=== PATIENT | female | born 1990 | race Caucasian/White ===

== ENCOUNTER → 2017-08-11 | Outpatient (CLI) | payer MEDICAID | END | disposition home or self-care (01) | LOC: BFHH 10:50 | PROVIDERS: ATTEND General Practice | DX: E10.649 Type 1 diabetes mellitus with hypoglycemia without coma (principal); E10.21 Type 1 diabetes mellitus with diabetic nephropathy; E10.43 Type 1 diabetes mellitus with diabetic autonomic (poly)neuropathy ==

== ENCOUNTER 2017-10-26 10:52 | Emergency (ER) | payer MEDICARE, MEDICAID ==
[2017-10-26] MEDS ORDERED: ONDANSETRON INJ 4 MG/2 ML VIAL IV ONE (11:03)
[2017-10-26] MEDS ORDERED: SODIUM CHLORIDE 0.9% 1000ML 1,000 ML IVS ONE (11:03)
[2017-10-26] MEDS ORDERED: fentaNYL CITRATE INJ 50 MCG/ML AMP IV ONE (11:03)
[2017-10-26] MEDS ORDERED: PANTOPRAZOLE SODIUM IV 40 MG VIAL IV ONE (11:03)
[2017-10-26] MEDS ORDERED: SODIUM CHLORIDE 0.9% 1000ML 1,000 ML ONE (11:04)
--- NOTE | 2017-10-26 11:30 | ED.PDOC ---
History of Present Illness - General Chief Complaint: Diabetic Complaint Time Seen by Provider: 10/26/17 11:02 Source: patient, EMS Exam Limitations: clinical condition - History of Present Illness Initial Comments: patient has had 2 day history of abdominal pain with intractable nausea and vomiting. Patient states her head is also severely hurting in the posterior area and it's constant, sharp, and not associated with visual change. Per EMS patient has been in his condition for at least last 2 days per her mother who dropped her off at her and states that she could go on vacation. The patient is able to answer yes and no questions but primarily is just saying please repetitively and holding her abdomen in pain. Patient states she had a bowel movement yesterday that was normal and she's had a history of passive gastroparesis with similar pain. Patient did have a bowel movement on arrival here in the emergency room. Patient has also had in the past ulcers and gastritis when her gastroparesis worsens. Patient's blood sugar was 250 this morning. Patient states she has kidney dysfunction, type 1 diabetes, asthma, gastroparesis, history of marijuana use (although not current), and tobacco use. She states she has not been sexually active that he does not believe that she could be . Patient has had no trauma or injury. Pain is diffuse, 10 /10 and sharp in nature. Timing/Duration: other - 1-2 days Severity: severe Improving Factors: nothing Worsening Factors: nothing Associated Symptoms: headaches, loss of appetite, malaise, nausea/vomiting Allergies/Adverse Reactions: Allergies NO KNOWN ALLERGY Allergy (Unverified 05/06/12 16:48) Review of Systems - Review of Systems Constitutional: States: weakness. Denies: chills, diaphoresis, fever EENTM: States: no symptoms reported Respiratory: States: no symptoms reported. Denies: cough, orthopnea, wheezing Cardiology: States: no symptoms reported. Denies: chest pain, edema, palpitations Gastrointestinal/Abdominal: States: abdominal pain, nausea, vomiting Genitourinary: States: no symptoms reported. Denies: discharge, dysuria Musculoskeletal: States: no symptoms reported Skin: States: no symptoms reported Neurological: States: no symptoms reported Family Medical History - Family History Mother Family History: Unknown Living Status: Unknown Physical Exam - Physical Exam General Appearance: Agitated, Obvious distress, Ill Appearing, Unkempt Eye Exam: bilateral normal Ears, Nose, Throat: hearing grossly normal, normal ENT inspection, other - dry mucous membranes Neck: non-tender, full range of motion, supple, normal inspection Respiratory: chest non-tender, lungs clear, normal breath sounds, no respiratory distress, no accessory muscle use Cardiovascular/Chest: normal peripheral pulses, no edema, no gallop, no JVD, no murmur, tachycardia Peripheral Pulses: radial,right: 2+, radial,left: 2+, posterior tibialis,right: 2+, posterior tibialis,left: 2+ Gastrointestinal/Abdominal: soft, distended - hypoactive bowel sounds with tenderness throughout abdoment and voluntary guarding Back Exam: normal inspection, no CVA tenderness, no vertebral tenderness Extremity: non-tender, normal inspection, other - scar tissue on arms from injections 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, no motor/sensory deficits, alert, oriented x 3 DTR: 2+: Biceps, left, Biceps, right, Patellar, left, Patellar, right, Babinski , left - down going, Babinski, right Progress - Progress Progress: 10/26/17 16:38 10/26/17 11:03 URINALYSIS Stat 10/26/17 11:13 URINE DRUG SCREEN, 7 ASSAY Stat Laboratory Results WBC 11.4 K/mm3 (4.8-10.8) H 10/26/17 11:13 RBC 3.28 M/mm3 (4.20-5.40) L 10/26/17 11:13 Hgb 10.4 gm/dL (12.0-16.0) L 10/26/17 11:13 Hct 31.7 % (36.0-47.0) L 10/26/17 11:13 MCV 96.6 fl (81.0-99.0) 10/26/17 11:13 MCH 31.7 pg (27.0-31.0) H 10/26/17 11:13 MCHC 32.8 g/dL (33.0-37.0) L 10/26/17 11:13 RDW 15.0 % (11.5-14.5) H 10/26/17 11:13 Plt Count 315 K/mm3 (130-400) 10/26/17 11:13 MPV 9.6 fl (7.40-10.4) 10/26/17 11:13 Absolute Neuts (auto) 8.70 K/uL (1.8-6.8) H 10/26/17 11:13 Absolute Lymphs (auto) 1.90 K/uL (1.0-3.4) 10/26/17 11:13 Absolute Monos (auto) 0.50 K/uL (0.2-0.8) 10/26/17 11:13 Absolute Eos (auto) 0.10 K/uL (0.0-0.4) 10/26/17 11:13 Absolute Basos (auto) 0.10 K/uL (0.0-0.1) 10/26/17 11:13 Neutrophils % 76.7 % (42.0-78.0) 10/26/17 11:13 Lymphocytes % 16.9 % (20.0-50.0) L 10/26/17 11:13 Monocytes % 4.1 % (2.0-9.0) 10/26/17 11:13 Eosinophils % 1.1 % (1.0-5.0) 10/26/17 11:13 Basophils % 1.2 % (0.0-2.0) 10/26/17 11:13 Sodium 137 mmol/L (135-145) 10/26/17 11:13 Potassium 4.7 mmol/L (3.6-5.0) 10/26/17 11:13 Chloride 105 mmol/L (101-111) 10/26/17 11:13 Carbon Dioxide 22 mmol/L (21-31) 10/26/17 11:13 Anion Gap 14.7 (12-18) 10/26/17 11:13 BUN 61 mg/dL (7-18) H 10/26/17 11:13 Creatinine 3.45 mg/dL (0.6-1.3) H 10/26/17 11:13 BUN/Creatinine Ratio 17.7 (10-20) 10/26/17 11:13 Random Glucose 322 mg/dL (70-105) H 10/26/17 11:13 Serum Osmolality 303.5 mOsm/L (275-295) H 10/26/17 11:13 Calcium 11.9 mg/dL (8.4-10.2) H 10/26/17 11:13 Total Bilirubin 0.8 mg/dL (0.2-1.0) 10/26/17 11:13 AST 19 IU/L (10-42) 10/26/17 11:13 ALT 22 IU/L (10-60) 10/26/17 11:13 Alkaline Phosphatase 109 IU/L (42-121) 10/26/17 11:13 Serum Total Protein 6.5 gm/dL (6.4-8.2) 10/26/17 11:13 Albumin 2.7 g/dl (3.2-5.5) L 10/26/17 11:13 Globulin 3.8 gm/dL (2.3-3.5) H 10/26/17 11:13 Albumin/Globulin Ratio 0.7 (1.1-1.9) L 10/26/17 11:13 Amylase 21 U/L (28-100) L 10/26/17 11:13 Lipase 16 U/L (22-51) L 10/26/17 11:13 Serum HCG, Qual Negative 10/26/17 11:13 Gastric Fluid pH 5.0-7.0 10/26/17 11:13 Gastric Occult Blood Positive 10/26/17 11:13 Stool Occult Blood Negative 10/26/17 14:45 Patient Name: SHAHIDA BATISTA Gender: Female Date of : 1990 Referring Physician: WALESKA VALENCIA Organization: [facility] Accession Number: [id number] Requested Date: October 26, 2017 13:16 Report Status: Final Requested Procedure: 1 Procedure Description: Abdoment/Pelvis w/o Contrast Modality: CT Findings Reporting MD: Kurtis Guzmán Fellow MD: Not available Dictation Time: Spanish Lecturer: Not available Care Technician Date: EXAM DESCRIPTION: Abdoment/Pelvis w/o Contrast CLINICAL HISTORY: abdominal pain, upper GI bleed COMPARISON: None Available TECHNIQUE: CT of the abdomen and Pelvis was performed without IV contrast. This exam was performed according to our departmental dose-optimization program, which includes automated exposure control, adjustment of the mA and/or kV according to patient size and/or use of iterative reconstruction technique. FINDINGS: Mild like atelectasis is noted in both lung bases. No pneumoperitoneum, adenopathy or ascites. No abdominal aortic aneurysm. There is a small hiatal hernia with possible concentric wall thickening distal esophagus. Concentric wall thickening involves the body of the stomach without apparent gastric mass or obstruction. Evaluation of the GI tract is limited by lack of oral contrast on this exam. No dilated small bowel loops or mesenteric inflammation. There is a large amount of stool and gas in the rectal vault with mild eccentric rectal wall thickening and a small amount of adjacent inflammation/fluid. No additional colonic wall thickening or pericolonic inflammation. Normal appendix. The bladder is slightly distended without wall thickening. The uterus and ovaries are unremarkable for patient's age. No calcified gallstone. The liver, spleen, pancreas, adrenals and kidneys are unremarkable for noncontrast technique. No concerning bone lesion. IMPRESSION: Concentric wall thickening involving the gastric body without [facility] [address] [place] [address] T [phone] F [phone] [email or web address] - Report exported on Oct 26, 2017 16:42:13 [id number] - Page 2 of 2 discrete gastric mass or obstruction. Differential considerations include gastritis or gastric ulcer disease. EGD may be helpful for further evaluation. Small hiatal hernia with possible distal esophageal wall thickening suggestive of esophagitis. This could also be further evaluated with EGD. Large amount of stool and gas in the rectal vault with mild concentric rectal wall thickening and adjacent inflammation. Findings suggest stercoral proctitis. Patient is still not making urine despite IVF since arrival. Her emesis is now controlled and her vital signs have stabilized with IV treatment for the blood pressure. Her emesis has gross blood streaks and some coffee ground emesis. She is currently not vomiting and her pain is controlled with morphine but returns to the same level as the medication wears off. She would benefit from higher level care and GI consult. We have called for transfer and transfer accepted from Dr. Hill Departure - Departure Clinical Impression: Upper GI bleed, Hypertensive urgency Gastric ulcer Qualifiers: Gastric ulcer chronicity: acute Gastric ulcer complication status: with hemorrhage Qualified Code(s): K25.0 - Acute gastric ulcer with hemorrhage Disposition: Transfer to Hospital Condition: Poor Departure Forms: ED Discharge - Pt. Copy, Patient Portal Self Enrollment Instructions: DI for Diabetes Type 2
--- NOTE | 2017-10-26 12:07 | RAD ---
EXAM DESCRIPTION: Abdomen Flat Upright CLINICAL HISTORY: abdominal pain COMPARISON: None. TECHNIQUE: AP supine and upright views of the abdomen FINDINGS: No evidence of free intraperitoneal air is seen. No air-fluid levels are observed. No organomegaly is seen. No pathologic calcifications are observed. A moderate amount of stool is observed in the rectal vault. IMPRESSION: Unremarkable abdomen. Electronically signed by: Murtaza Iglesias MD 10/26/2017 12:06 PM CDT
[2017-10-26] MEDS ORDERED: ENALAPRILAT INJ 1.25 MG/ML VIAL IV ONE ×2 (12:11→15:33)
[2017-10-26] MEDS ORDERED: MORPHINE SULFATE INJ 10 MG/ML VIAL IV ONE ×2 (12:11→15:05)
[2017-10-26] MEDS ORDERED: METOCLOPRAMIDE HCL INJ 10 MG/2 ML VIAL IV ONE (12:26)
[2017-10-26] MEDS ORDERED: PROMETHAZINE HCL INJ 12.5 MG in SODIUM CHLORIDE 0.9% 50ML 50 ML IVPB ONE ×2 (12:26→15:05)
[2017-10-26] MEDS ORDERED: PROMETHAZINE HCL INJ 25 MG/ML VIAL ONE ×2 (12:44→15:17)
[2017-10-26] MEDS ORDERED: SODIUM CHLORIDE 0.9% 50ML 50 ML ONE ×2 (12:44→15:18)
--- NOTE | 2017-10-26 13:58 | CT ---
EXAM DESCRIPTION: Abdoment/Pelvis w/o Contrast CLINICAL HISTORY: abdominal pain, upper GI bleed COMPARISON: None Available TECHNIQUE: CT of the abdomen and Pelvis was performed without IV contrast. This exam was performed according to our departmental dose-optimization program, which includes automated exposure control, adjustment of the mA and/or kV according to patient size and/or use of iterative reconstruction technique. FINDINGS: Mild like atelectasis is noted in both lung bases. No pneumoperitoneum, adenopathy or ascites. No abdominal aortic aneurysm. There is a small hiatal hernia with possible concentric wall thickening distal esophagus. Concentric wall thickening involves the body of the stomach without apparent gastric mass or obstruction. Evaluation of the GI tract is limited by lack of oral contrast on this exam. No dilated small bowel loops or mesenteric inflammation. There is a large amount of stool and gas in the rectal vault with mild eccentric rectal wall thickening and a small amount of adjacent inflammation/fluid. No additional colonic wall thickening or pericolonic inflammation. Normal appendix. The bladder is slightly distended without wall thickening. The uterus and ovaries are unremarkable for patient's age. No calcified gallstone. The liver, spleen, pancreas, adrenals and kidneys are unremarkable for noncontrast technique. No concerning bone lesion. IMPRESSION: Concentric wall thickening involving the gastric body without discrete gastric mass or obstruction. Differential considerations include gastritis or gastric ulcer disease. EGD may be helpful for further evaluation. Small hiatal hernia with possible distal esophageal wall thickening suggestive of esophagitis. This could also be further evaluated with EGD. Large amount of stool and gas in the rectal vault with mild concentric rectal wall thickening and adjacent inflammation. Findings suggest stercoral proctitis. Electronically signed by: Kurtis Guzmán MD 10/26/2017 1:57 PM CDT
[2017-10-26 16:38] VITALS: O2SAT 99
[2017-10-26 17:47] VITALS: BP 138/79; TEMP 98.2
== END 2017-10-26 17:30 | disposition short-term general hospital (02) ==
LOC: ER 10:52
DX: K25.0 Acute gastric ulcer with hemorrhage (principal); I16.0 Hypertensive urgency; E10.9 Type 1 diabetes mellitus without complications; R11.2 Nausea with vomiting, unspecified; R51 Headache; K44.9 Diaphragmatic hernia without obstruction or gangrene; J45.909 Unspecified asthma, uncomplicated; F17.200 Nicotine dependence, unspecified, uncomplicated
CPT/HCPCS: 36415; 74019; 74176; 80053; 82150; 82270; 82271; 83690; 83986; 84703; 85025; A4216; J2270; J2405; J2550; J2765; J3010; J7030

== ENCOUNTER 2017-12-03 19:08 | Emergency (ER) | payer MEDICARE, MEDICAID ==
[2017-12-03] MEDS ORDERED: ONDANSETRON ODT 8 MG TAB SL ONE (19:49)
[2017-12-03] MEDS ORDERED: PROMETHAZINE HCL INJ 12.5 MG in SODIUM CHLORIDE 0.9% 50ML 50 ML IVPB ONE (19:52)
[2017-12-03] MEDS ORDERED: METOPROLOL TARTRATE INJ 5 MG/5 ML VIAL IV ONE (19:52)
[2017-12-03] MEDS ORDERED: PROMETHAZINE HCL INJ 25 MG/ML VIAL ONE (20:14)
[2017-12-03] MEDS ORDERED: SODIUM CHLORIDE 0.9% 50ML 0 ML ONE (20:15)
[2017-12-03] MEDS ORDERED: INSULIN DETEMIR 100 UNITS/ML PEN SUBCU ONE (20:29)
[2017-12-03] MEDS ORDERED: METOCLOPRAMIDE HCL INJ 10 MG/2 ML VIAL IM ONE (20:34)
--- NOTE | 2017-12-03 20:37 | RAD ---
EXAM DESCRIPTION: Abdomen Series CLINICAL HISTORY: 27 years Female, abd pain, nv COMPARISON: AP chest May 08, 2012 FINDINGS: Interstitial septal thickening noted in both lungs is present most prominent in the lung bases. There is an ill-defined opacity in the left lower lung zone. Small left pleural effusion is present. No pneumothorax. Streaky opacity in the left apex is suggestive of atelectasis. Cardiomediastinal silhouette is unremarkable. Bowel gas pattern is nonobstructive. There is a moderate amount of fecal material in the colon. No evidence of free intraperitoneal air. No abnormal calcifications. Osseous structures are unremarkable. IMPRESSION: 1. Interstitial septal thickening in both lungs suggestive of pulmonary edema versus atypical infectious process. 2. Left basilar pulmonary opacity could represent pulmonary edema, atelectasis, or pneumonia. 3. Small left pleural effusion. 4. Nonobstructive bowel gas pattern. 5. Moderate amount of fecal material in the colon. Electronically signed by: Fab Somers MD 12/03/2017 8:36 PM CDT
[2017-12-03] MEDS ORDERED: MORPHINE SULFATE INJ 10 MG/ML VIAL IM ONE (21:26)
--- NOTE | 2017-12-03 21:29 | ED.PDOC ---
History of Present Illness - General Chief Complaint: GI Problem Stated Complaint: N/V, abdomen pain,elevated BS, SOB Time Seen by Provider: 12/03/17 19:28 Source: patient Exam Limitations: no limitations - History of Present Illness Initial Comments: the patient is a 27-year-old female presenting to the emergency room secondary to nausea and vomiting for the last 24 hours. She reports that she checked her blood sugar before she came up here and it was in the 400s and she took 5 units of her regular insulin. By the time we checked it here with our lab it was down to 68. The patient was recently admitted to [facility] for an episode of pancreatitis. She also apparently had DKA at the time. She has been getting over that. She does still have significant anasarca. No real shortness of breath. No chest pain. She has not been able to hold down her medications for her hypertension and her gastroparesis for the last couple of days. Apparently she has been informed that she likely does need dialysis but has refused at this time. She is oxygenating well and in no respiratory distress. She is not really having any chest pain. No history of any myocardial infarctions. She was planning on getting set up with nephrology and [place] for the possible start of dialysis. upon arrival the patient is refusing peripheral IV attempts. She did allow for the blood draw. Timing/Duration: 24 hours Severity: moderate Improving Factors: nothing Worsening Factors: eating Associated Symptoms: malaise, nausea/vomiting Allergies/Adverse Reactions: Allergies NO KNOWN ALLERGY Allergy (Verified 12/03/17 19:33) Home Medications: Ambulatory Orders ALPRAZolam [Xanax] 0.25 mg PO BID 12/03/17 Budesonide-Formoterol Fumarate [Symbicort] 1 aer IN DAILY 12/03/17 Calcitriol 0.25 mcg PO GWENDOLYN-OTH-DAY 12/03/17 Clonidine HCl 0.2 mg PO TID 12/03/17 Furosemide [Lasix] 20 mg PO QAM 12/03/17 Gabapentin 600 mg PO TID 12/03/17 Insulin Aspart [Novolog] 5 unit SC AC 12/03/17 Insulin Glargine [Lantus Solostar] 10 unit SC BEDTIME 12/03/17 Losartan Potassium 100 mg PO DAILY 12/03/17 Metoclopramide HCl [Reglan] 10 mg PO ACHS 12/03/17 Metoprolol Tartrate 100 mg PO BID 12/03/17 Promethazine HCl 25 mg PO PRN PRN 12/03/17 Ranitidine HCl 300 mg PO DAILY 12/03/17 Sertraline HCl 25 mg PO DAILY 12/03/17 Sodium Bicarbonate (Antacid) [Sodium Bicarbonate] 650 mg PO BID 12/03/17 Sucralfate Tab [Carafate Tab] 1 gm PO TID 12/03/17 Review of Systems - Review of Systems Constitutional: States: malaise EENTM: States: no symptoms reported Respiratory: States: no symptoms reported Cardiology: States: no symptoms reported Gastrointestinal/Abdominal: States: abdominal pain, nausea, vomiting Musculoskeletal: States: other - generalized aches and pains Skin: States: no symptoms reported Neurological: States: anxiety, depressed, numbness - chronic Endocrine: States: no symptoms reported All other Systems: No Change from Baseline Past Medical History (General) - Patient Medical History Hx Seizures: No Hx Stroke: No Hx Dementia: No Hx Asthma: Yes Hx of COPD: No Hx Cardiac Disorders: No Hx Congestive Heart Failure: No Hx Pacemaker: No Hx Hypertension: Yes Hx Thyroid Disease: No Hx Diabetes: Yes Hx Gastroesophageal Reflux: Yes Hx Renal Disease: No Hx Cancer: No Hx of HIV: No Hx Hepatitis C: No Hx MRSA: No Surgical History: tonsillectomy - Vaccination History Hx Tetanus, Diphtheria Vaccination: No Hx Influenza Vaccination: Yes Hx Pneumococcal Vaccination: Yes - Social History Hx Tobacco Use: Yes Family Medical History - Family History Mother Family History: Unknown Living Status: Unknown Physical Exam - Physical Exam General Appearance: Alert, Anxious, No apparent distress Eye Exam: bilateral normal Ears, Nose, Throat: hearing grossly normal, normal ENT inspection, normal pharynx Neck: full range of motion, supple, normal inspection Respiratory: no respiratory distress, no accessory muscle use, rales - very mild rales at the bases Cardiovascular/Chest: regular rate, rhythm Peripheral Pulses: radial,right: 2+, radial,left: 2+ Gastrointestinal/Abdominal: soft, other - mild epigastric discomfort palpation but no rebound or peritoneal signs Rectal Exam: deferred Back Exam: normal inspection, no CVA tenderness Extremity: normal range of motion, normal capillary refill, pedal edema - 2+ to bilateral lower extremities and anasarca extending up to her back 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 She does not appear to be in DKA. She does not appear to be having a recurrence of her pancreatitis. She does appear to be significantly fluid overloaded and I do believe that she likely does have some congestive heart failure going on based on the clinical exam, x-rays and laboratory work. The patient's kidney function is worsening as well. Her BUN is climbing. This along with the fluid overload are likely what is causing her intestinal dysfunction. She did have a mildly elevated troponin of 0.1 here. There was also mild elevation of the CK-MB at 7.2 but no elevation of the CK. EKG shows no indication of acute ischemia. I have recommended that the patient be transferred for higher level of care for further evaluation of these problems at this time. At this time she does defer and is planning on seeing her primary care doctor in the morning to make a longer term plan. I do believe that the patient is likely at the point that she needs to start dialysis in order to control her fluid status and limit toxins in her body to allow for normal function. She did receive several doses of medications here. Keep follow-up with her primary care doctor first thing tomorrow morning. The patient left AGAINST MEDICAL ADVICE. - Results/Orders Results/Orders: chest x-ray showsevidence of some fluid overload. There is some mild pulmonary edema more towards the bases. Abdominal x-ray shows no evidence of obstruction or perforation. She does have some lower constipation. 12/03/17 21:15 EKG STAT normal sinus rhythm at 81 bpm. Normal QT interval. No acute ST segments concerning for ischemia. Laboratory Results - last 24 hr 12/03/17 12/03/17 12/03/17 19:48 19:48 19:48 WBC 7.0 RBC 3.26 L Hgb 10.1 L Hct 31.4 L MCV 96.4 MCH 30.9 MCHC 32.0 L RDW 16.8 H Plt Count 187 MPV 8.6 Absolute Neuts (auto) 4.60 Absolute Lymphs (auto) 1.70 Absolute Monos (auto) 0.30 Absolute Eos (auto) 0.10 Absolute Basos (auto) 0.20 H Neutrophils % 66.0 Lymphocytes % 24.8 Monocytes % 4.4 Eosinophils % 1.8 Basophils % 3.0 H Sodium 141 Potassium 4.6 Chloride 114 H Carbon Dioxide 20 L Anion Gap 11.6 L BUN 59 H Creatinine 4.37 H BUN/Creatinine Ratio 13.5 Random Glucose 68 L Serum Osmolality 296.1 H Lactic Acid 1.1 Calcium 9.3 Magnesium 1.6 L Total Bilirubin 0.4 AST 16 ALT 26 Alkaline Phosphatase 99 Creatine Kinase 113 CK-MB (CK-2) 7.2 H* CK-MB (CK-2) % 6.37 H Troponin I 0.10 H* B-Natriuretic Peptide 4190.0 H* Serum Total Protein 5.6 L Albumin 2.4 L Globulin 3.2 Albumin/Globulin Ratio 0.8 L Amylase 14 L Lipase 20 L Serum HCG, Qual Serum Ketones 12/03/17 12/03/17 19:48 19:49 WBC RBC Hgb Hct MCV MCH MCHC RDW Plt Count MPV Absolute Neuts (auto) Absolute Lymphs (auto) Absolute Monos (auto) Absolute Eos (auto) Absolute Basos (auto) Neutrophils % Lymphocytes % Monocytes % Eosinophils % Basophils % Sodium Potassium Chloride Carbon Dioxide Anion Gap BUN Creatinine BUN/Creatinine Ratio Random Glucose Serum Osmolality Lactic Acid Calcium Magnesium Total Bilirubin AST ALT Alkaline Phosphatase Creatine Kinase CK-MB (CK-2) CK-MB (CK-2) % Troponin I B-Natriuretic Peptide Serum Total Protein Albumin Globulin Albumin/Globulin Ratio Amylase Lipase Serum HCG, Qual Negative Serum Ketones Negative Departure - Departure Clinical Impression: End stage renal disease Congestive heart failure Qualifiers: Heart failure type: unspecified Heart failure chronicity: acute Qualified Code( s): I50.9 - Heart failure, unspecified Disposition: Left Against Medical Advice Condition: Poor Departure Forms: ED Discharge - Pt. Copy, Patient Portal Self Enrollment Instructions: Kidney Failure (DC), Heart Failure, Adult (DC) Diet: low salt diet Activity: increase activity as tolerated Referrals: Mukesh Flowers MD [Primary Care Provider] - 1-2 Days Home Medications: Ambulatory Orders ALPRAZolam [Xanax] 0.25 mg PO BID 12/03/17 Budesonide-Formoterol Fumarate [Symbicort] 1 aer IN DAILY 12/03/17 Calcitriol 0.25 mcg PO GWENDOLYN-OTH-DAY 12/03/17 Clonidine HCl 0.2 mg PO TID 12/03/17 Furosemide [Lasix] 20 mg PO QAM 12/03/17 Gabapentin 600 mg PO TID 12/03/17 Insulin Aspart [Novolog] 5 unit SC AC 12/03/17 Insulin Glargine [Lantus Solostar] 10 unit SC BEDTIME 12/03/17 Losartan Potassium 100 mg PO DAILY 12/03/17 Metoclopramide HCl [Reglan] 10 mg PO ACHS 12/03/17 Metoprolol Tartrate 100 mg PO BID 12/03/17 Promethazine HCl 25 mg PO PRN PRN 12/03/17 Ranitidine HCl 300 mg PO DAILY 12/03/17 Sertraline HCl 25 mg PO DAILY 12/03/17 Sodium Bicarbonate (Antacid) [Sodium Bicarbonate] 650 mg PO BID 12/03/17 Sucralfate Tab [Carafate Tab] 1 gm PO TID 12/03/17 Additional Instructions: the patient a 27-year-old female presenting to the emergency room secondary to nausea and vomiting over the last day. She does not appear to be in DKA. She does not appear to be having a recurrence of her pancreatitis. She does appear to be significantly fluid overloaded and I do believe that she likely does have some congestive heart failure going on based on the clinical exam, x-rays and laboratory work. The patient's kidney function is worsening as well. Her BUN is climbing. This along with the fluid overload are likely what is causing her intestinal dysfunction. She did have a mildly elevated troponin of 0.1 here. There was also mild elevation of the CK-MB at 7.2 but no elevation of the CK. EKG shows no indication of acute ischemia. I have recommended that the patient be transferred for higher level of care for further evaluation of these problems at this time. At this time she does defer and is planning on seeing her primary care doctor in the morning to make a longer term plan. I do believe that the patient is likely at the point that she needs to start dialysis in order to control her fluid status and limit toxins in her body to allow for normal function. She did receive several doses of medications here. Keep follow-up with her primary care doctor first thing tomorrow morning. The patient left AGAINST MEDICAL ADVICE.
[2017-12-03 22:00] VITALS: BP 150/101; TEMP 98.7; O2SAT 99
== END 2017-12-03 22:01 | disposition left against medical advice (07) ==
LOC: ER 19:08
DX: E11.22 Type 2 diabetes mellitus with diabetic chronic kidney disease (principal); I13.2 Hypertensive heart and chronic kidney disease with heart failure and with stage 5 chronic kidney disease, or end stage renal disease; I50.9 Heart failure, unspecified; N18.6 End stage renal disease; J45.909 Unspecified asthma, uncomplicated; Z79.4 Long term (current) use of insulin; Z87.891 Personal history of nicotine dependence
CPT/HCPCS: 36415; 74019; 80053; 82009; 82150; 82550; 82553; 83605; 83690; 83735; 83880; 84484; 84703; 85025; 93005; J2270; J2765

== ENCOUNTER → 2017-12-10 | Outpatient (CLI) | payer MEDICARE, MEDICAID | LOC: LAB.O 16:07 | PROVIDERS: ATTEND Student in an Organized Health Care Education/Training Program | DX: N18.4 Chronic kidney disease, stage 4 (severe) (principal); E55.9 Vitamin D deficiency, unspecified; N25.81 Secondary hyperparathyroidism of renal origin; M10.9 Gout, unspecified; N39.0 Urinary tract infection, site not specified; D63.1 Anemia in chronic kidney disease; I10 Essential (primary) hypertension ==

== ENCOUNTER 2018-01-24 03:00 | Emergency (ER) | payer MEDICARE, MEDICAID ==
[2018-01-24] MEDS ORDERED: SODIUM CHLORIDE 0.9% (FLUSH) 10 ML SYG IV PRN (03:09)
--- NOTE | 2018-01-24 03:15 | ED.PDOC ---
History of Present Illness - General Chief Complaint: Cardiovascular Problem Stated Complaint: high blood pressure, chest pain Time Seen by Provider: 01/24/18 03:12 Source: patient Exam Limitations: no limitations - History of Present Illness Timing/Duration: 1-3 hours, intermittent Severity/Quality: moderate Location: substernal, central, epigastric, shoulder, back, abdomen Activities at Onset: other - pt ran out of o2 at home Improving Factors: nothing Worsening Factors: nothing Associated Symptoms: abdominal pain, edema, nausea/vomiting Allergies/Adverse Reactions: Allergies NO KNOWN ALLERGY Allergy (Verified 12/03/17 19:33) Home Medications: Ambulatory Orders ALPRAZolam [Xanax] 0.25 mg PO DAILY 12/03/17 Calcitriol 0.25 mcg PO .3 TIMES/WEEK 12/03/17 Clonidine HCl 0.2 mg PO TID 12/03/17 Furosemide [Lasix] 40 mg PO QAM 12/03/17 Insulin Aspart [Novolog] 5 unit SC AC 12/03/17 Insulin Glargine [Lantus Solostar] 10 unit SC BEDTIME 12/03/17 Metoclopramide HCl [Reglan] 10 mg PO ACHS 12/03/17 Promethazine HCl 25 mg PO PRN PRN 12/03/17 Sertraline HCl 50 mg PO DAILY 12/03/17 DULoxetine HCL [Cymbalta] 30 mg PO DAILY 12/16/17 Hydrocodone-Acetaminophen [[place] 7.5-325 mg] 1 tab PO BID 12/16/17 Pantoprazole Sodium 40 mg PO DAILY 12/16/17 Bisacodyl [Dulcolax Tab] 5 mg PO PRN 01/24/18 Enoxaparin Sodium 30 mg SC DAILY 01/24/18 Gabapentin 300 mg PO TID 01/24/18 Lisinopril 10 mg PO DAILY 01/24/18 Metoprolol Tartrate 100 mg PO BID 01/24/18 Nicotine [[facility] Nicotine Transdermal] 7 mg TD DAILY 01/24/18 Prochlorperazine Tab [Compazine Tab] 10 mg PO DAILY 01/24/18 Sucralfate Tab [Carafate Tab] 1 gm PO BID 01/24/18 Trazodone HCl 50 mg PO DAILY 01/24/18 amLODIPine BESYLATE [Norvasc] 5 mg PO DAILY 01/24/18 Review of Systems - Review of Systems Constitutional: States: no symptoms reported EENTM: States: no symptoms reported Respiratory: States: cough, short of breath Cardiology: States: chest pain, edema Gastrointestinal/Abdominal: States: no symptoms reported Genitourinary: States: no symptoms reported Musculoskeletal: States: no symptoms reported Skin: States: no symptoms reported Neurological: States: no symptoms reported Endocrine: States: no symptoms reported Hematologic/Lymphatic: States: no symptoms reported Past Medical History (General) - Patient Medical History Hx Seizures: No Hx Stroke: No Hx Dementia: No Hx Asthma: Yes Hx of COPD: No Hx Cardiac Disorders: No Hx Congestive Heart Failure: No Hx Pacemaker: No Hx Hypertension: Yes Hx Thyroid Disease: No Hx Diabetes: Yes Hx Gastroesophageal Reflux: Yes Hx Renal Disease: No Hx Cancer: No Hx of HIV: No Hx Hepatitis C: No Hx MRSA: No - Vaccination History Hx Tetanus, Diphtheria Vaccination: No Hx Influenza Vaccination: Yes Hx Pneumococcal Vaccination: Yes - Social History Hx Tobacco Use: Yes Family Medical History - Family History Mother Family History: Unknown Living Status: Unknown Physical Exam - Physical Exam General Appearance: Alert, Anxious, Other - tearful Eyes, Ears, Nose, Throat Exam: PERRL/EOMI, normal ENT inspection, pharynx normal Neck: non-tender, full range of motion, supple Respiratory: crackles Cardiovascular/Chest: normal peripheral pulses, regular rate, rhythm, other - 2 plus pitting edema Gastrointestinal/Abdominal: soft, other - epigastric tenderness Extremity: normal range of motion, non-tender, pedal edema - symetric Neurologic: alert Skin Exam: normal color, warm/dry Progress - Progress Progress: 01/24/18 03:17 ekg rate 93, pr 174, qrs 82, qtc 450 NSR 01/24/18 03:29 discussed case with family member, reports that diffuse pain is chronic neuropathy related to previously uncontrolled diabetes. Dialysis this Sunday. Reports that she appears a edematous as normal. Reports that o2 should be arriving this AM and wanted to hold off on transfer. 01/24/18 04:05 01/24/18 03:09 Sodium Chloride 0.9% (Flush) [Saline Flush Syringe] 10 ml IV PRN PRN 01/24/18 03:10 IV Care:Saline Lock per Protoc QSHIFT Telemetry .ONCE EKG Stat Pulse Ox Stat 01/24/18 03:22 URINALYSIS Stat 01/24/18 03:36 B-TYPE NATRIURETIC PEPTIDE/BNP Stat CARDIAC PANEL,ER Stat Laboratory Results Sodium 134 mmol/L (135-145) L 01/24/18 03:36 Potassium 4.3 mmol/L (3.6-5.0) 01/24/18 03:36 Chloride 97 mmol/L (101-111) L 01/24/18 03:36 Carbon Dioxide 27 mmol/L (21-31) 01/24/18 03:36 Anion Gap 14.3 (12-18) 01/24/18 03:36 BUN 62 mg/dL (7-18) H 01/24/18 03:36 Creatinine 3.85 mg/dL (0.6-1.3) H 01/24/18 03:36 BUN/Creatinine Ratio 16.1 (10-20) 01/24/18 03:36 Random Glucose 226 mg/dL (70-105) H 01/24/18 03:36 Serum Osmolality 292.9 mOsm/L (275-295) 01/24/18 03:36 Calcium 8.6 mg/dL (8.4-10.2) 01/24/18 03:36 Magnesium 2.0 mg/dL (1.8-2.5) 01/24/18 03:36 Creatine Kinase 71 IU/L (26-140) 01/24/18 03:36 B-Natriuretic Peptide 1840.0 pg/ml (0-100) H* 01/24/18 03:36 CXR shows pulmonary edema 01/24/18 04:08 pt requiring 1L more oxygen than typical. BP improving with oxygen. Discussed case with Austin Cadena but reports we do not have dialysis here. Discussed case with Dr. Marroquin and agrees to accept patient for dialysis. Departure - Departure Clinical Impression: End stage renal disease on dialysis due to type 1 diabetes mellitus, Hypoxia Pulmonary edema Qualifiers: Chronicity: acute Qualified Code(s): J81.0 - Acute pulmonary edema Time of Disposition: 04:07 Disposition: Transfer to Hospital Condition: Serious Departure Forms: ED Discharge - Pt. Copy, Patient Portal Self Enrollment Instructions: DI for Chest Pain Diet: other - npo Activity: increase activity as tolerated Referrals: Mukesh Flowers MD [Primary Care Provider] - 1-2 Weeks Home Medications: Ambulatory Orders ALPRAZolam [Xanax] 0.25 mg PO DAILY 12/03/17 Calcitriol 0.25 mcg PO .3 TIMES/WEEK 12/03/17 Clonidine HCl 0.2 mg PO TID 12/03/17 Furosemide [Lasix] 40 mg PO QAM 12/03/17 Insulin Aspart [Novolog] 5 unit SC AC 12/03/17 Insulin Glargine [Lantus Solostar] 10 unit SC BEDTIME 12/03/17 Metoclopramide HCl [Reglan] 10 mg PO ACHS 12/03/17 Promethazine HCl 25 mg PO PRN PRN 12/03/17 Sertraline HCl 50 mg PO DAILY 12/03/17 DULoxetine HCL [Cymbalta] 30 mg PO DAILY 12/16/17 Hydrocodone-Acetaminophen [[place] 7.5-325 mg] 1 tab PO BID 12/16/17 Pantoprazole Sodium 40 mg PO DAILY 12/16/17 Bisacodyl [Dulcolax Tab] 5 mg PO PRN 01/24/18 Enoxaparin Sodium 30 mg SC DAILY 01/24/18 Gabapentin 300 mg PO TID 01/24/18 Lisinopril 10 mg PO DAILY 01/24/18 Metoprolol Tartrate 100 mg PO BID 01/24/18 Nicotine [[facility] Nicotine Transdermal] 7 mg TD DAILY 01/24/18 Prochlorperazine Tab [Compazine Tab] 10 mg PO DAILY 01/24/18 Sucralfate Tab [Carafate Tab] 1 gm PO BID 01/24/18 Trazodone HCl 50 mg PO DAILY 01/24/18 amLODIPine BESYLATE [Norvasc] 5 mg PO DAILY 01/24/18 Critical Care Note - Critical Care Note Total Time (mins): 35 Transfer to Outside Facility - Transfer Information Accepting Provider:: Dr. Marroquin Accepting Facility: [facility] Reason for Transfer: specialized care not available - Dialysis
--- NOTE | 2018-01-24 03:40 | RAD ---
Examination: XR CHEST 1 VIEW dated 01/24/2018 3:10 AM CDT History: chest pain, short of breath Comparison: 12/16/2017 Technique: 1 view chest Findings: Tip of central venous catheter projects over the cavoatrial junction. A second right central venous catheter is obscured by the larger catheter. Bibasilar opacities. Findings of pulmonary edema. Small left pleural effusion. No large pneumothorax. Stable cardiac silhouette. Impression: Findings of pulmonary edema. Bibasilar opacities may be seen with atelectasis or pneumonia. Electronically signed by: Surinder Hawthorne MD 01/24/2018 3:38 AM CDT
[2018-01-24 04:05] VITALS: TEMP 97.6
[2018-01-24 05:08] VITALS: BP 148/98; O2SAT 96
== END 2018-01-24 05:08 | disposition short-term general hospital (02) ==
LOC: ER 03:00
DX: E10.22 Type 1 diabetes mellitus with diabetic chronic kidney disease (principal); I12.0 Hypertensive chronic kidney disease with stage 5 chronic kidney disease or end stage renal disease; N18.6 End stage renal disease; J81.0 Acute pulmonary edema; R09.02 Hypoxemia; Z99.2 Dependence on renal dialysis; J45.909 Unspecified asthma, uncomplicated; K21.9 Gastro-esophageal reflux disease without esophagitis; Z87.891 Personal history of nicotine dependence; Z79.4 Long term (current) use of insulin; Z79.899 Other long term (current) drug therapy
CPT/HCPCS: 71045; 80048; 82550; 82553; 83880; 84484; 85025; 85610; 85730; 93005; 94760; J2060

== ENCOUNTER → 2018-02-09 | Emergency (ER) | payer MEDICARE, MEDICAID ==
[~2018-02-09] MED LIST: ALUM & MAG HYDROX-SIMETHICONE 30 ML UD ONE; ALUM & MAG HYDROX-SIMETHICONE 30 ML, LIDOCAINE VISCOUS 2% 15 ML PO ONE; DEXTROSE 5% 250ML 250 ML ONE; DEXTROSE 50% 25 GM/50 ML SYG IV ONE; EPINEPHrine HCL AMP 1 MG/ML AMP IM ONE; EPINEPHrine HCL AMP 1 MG/ML AMP ONE; EPINEPHrine HCL MULTI-DOSE 5 MG in DEXTROSE 5% 250ML 250 ML IV SCH; FUROSEMIDE INJ 40 MG/4 ML VIAL IV ONE; HYDROcodone 7.5MG/APAP 325MG 1 EA TAB PO ONE; INSULIN, REG.(HUMAN) 100 U/ML VIAL IV ONE; IPRATROPIUM/ALBUTEROL 3 ML VIAL NEB ONE; LIDOCAINE HCL 2% (MOUTH-THROAT) 15 ML UD ONE; MORPHINE SULFATE INJ 10 MG/ML VIAL IV ONE; PIPERACILLIN/TAZOBACTAM 3.375 GM VIAL IVPB ONE; PIPERACILLIN/TAZOBACTAM 3.375 GM in SODIUM CHLORIDE 0.9% 100ML 100 ML IVPB ONE; PROMETHAZINE HCL INJ 12.5 MG in SODIUM CHLORIDE 0.9% 50ML 50 ML IVPB ONE; PROMETHAZINE HCL INJ 25 MG/ML VIAL ONE; SODIUM CHLORIDE 0.9% 1000ML 500 ML IVS ONE; SODIUM CHLORIDE 0.9% 100ML 100 ML IVPB ONE; SODIUM CHLORIDE 0.9% 50ML 50 ML ONE; cloNIDine HCL 0.1 MG TAB PO ONE
--- NOTE | 2018-02-09 12:28 | RAD ---
PROCEDURE: Abdomen Series HISTORY: nvd, dm COMPARISON: None . TECHNIQUE: Reason views of the abdomen and pelvis and Oneview of the chest, all projections in the frontal projection. FINDINGS: There are no discrete airspace infiltrates, pneumothoraces or pleural effusions. The pulmonary vascularity is normal. The tip of the right-sided venous access catheter terminates in the right atrium. There are underlying changes of COPD The cardiomediastinal silhouette is within normal limits, for patient's age and sex. The bowel gas pattern does not show any evidence of obstruction, ileus, or bowel wall thickening. There is no gross evidence of free air in the abdomen or the pelvis. There is no visualization of radiopaque calculi in the outline of the urinary tract. There is no significant constipation . IMPRESSION: There are no acute findings in the chest, abdomen and pelvis Electronically signed by: Devin Kiser MD 02/09/2018 12:26 PM CDT Workstation: [id number]
--- NOTE | 2018-02-09 18:32 | ED.PDOC ---
History of Present Illness - General Chief Complaint: Abdominal Pain Stated Complaint: abdominal pain Time Seen by Provider: 02/09/18 11:40 Source: patient Exam Limitations: no limitations - History of Present Illness Initial Comments: The patient is a 27-year-old female presenting to the emergency room secondary to nausea vomiting and diarrhea starting yesterday evening. Several of her friends had similar symptoms but hers have been worse. The patient has a insulin dependent diabetic that is already on dialysis. She missed her dialysis this morning because her glucose was too high. She presents here with persistent nausea and vomiting and abdominal pain as well as generalized weakness. The patient is obviously clinically dehydrated. She has been unable to get a reading on her glucometer since early this morning it has been reading high. No fevers. No sore throat. No blood or bile in the vomitus. No blood in the stool. No history of any C. difficile colitis. She does still make urine. Timing/Duration: 24 hours Severity: severe Improving Factors: medication Worsening Factors: nothing Associated Symptoms: headaches, loss of appetite, nausea/vomiting, shortness of breath, weakness Allergies/Adverse Reactions: Allergies NO KNOWN ALLERGY Allergy (Verified 12/03/17 19:33) Home Medications: Ambulatory Orders Calcitriol 0.25 mcg PO .3 TIMES/WEEK 12/03/17 Clonidine HCl 0.3 mg PO TID 12/03/17 Furosemide [Lasix] 40 mg PO QAM 12/03/17 Insulin Aspart [Novolog] 100 unit SC AC 12/03/17 Promethazine HCl 25 mg PO PRN PRN 12/03/17 Sertraline HCl 50 mg PO DAILY 12/03/17 Hydrocodone-Acetaminophen [[place] 7.5-325 mg] 1 tab PO BID 12/16/17 Pantoprazole Sodium 40 mg PO DAILY 12/16/17 Gabapentin 600 mg PO TID 01/24/18 Metoprolol Tartrate 100 mg PO BID 01/24/18 Sucralfate Tab [Carafate Tab] 1 gm PO QID 01/24/18 amLODIPine BESYLATE [Norvasc] 10 mg PO DAILY 01/24/18 Cholecalciferol [Vitamin D3] 1,000 unit PO DAILY 02/09/18 Dicyclomine HCl 20 mg PO TID 02/09/18 Diphenhydramine HCl 25 mg PO DAILY 02/09/18 Ferrous Sulfate [Iron] 65 mg PO DAILY 02/09/18 Hydralazine HCl 50 mg PO QID 02/09/18 Insulin Detemir [Levemir] 3 unit SUBCU BEDTIME 02/09/18 Spironolactone 50 mg PO DAILY 02/09/18 Review of Systems - Review of Systems Constitutional: States: malaise, weakness EENTM: States: no symptoms reported Respiratory: States: no symptoms reported Cardiology: States: no symptoms reported Gastrointestinal/Abdominal: States: abdominal pain, diarrhea, nausea, vomiting Genitourinary: States: no symptoms reported Musculoskeletal: States: back pain - chronic Skin: States: no symptoms reported Neurological: States: headache Endocrine: States: no symptoms reported All other Systems: No Change from Baseline Past Medical History (General) - Patient Medical History Hx Seizures: No Hx Stroke: No Hx Dementia: No Hx Asthma: Yes Hx of COPD: No Hx Cardiac Disorders: No Hx Congestive Heart Failure: No Hx Pacemaker: No Hx Hypertension: Yes Hx Thyroid Disease: No Hx Diabetes: Yes Hx Gastroesophageal Reflux: Yes Hx Renal Disease: No Hx Cancer: No Hx of HIV: No Hx Hepatitis C: No Hx MRSA: No - Vaccination History Hx Tetanus, Diphtheria Vaccination: No Hx Influenza Vaccination: Yes Hx Pneumococcal Vaccination: Yes - Social History Hx Tobacco Use: Yes Family Medical History - Family History Mother Family History: Unknown Living Status: Unknown Physical Exam - Physical Exam General Appearance: Alert, Comfortable, No apparent distress Eye Exam: bilateral normal Ears, Nose, Throat: hearing grossly normal, normal ENT inspection, normal pharynx - mucous membranes are mildly dry Neck: full range of motion, supple Respiratory: lungs clear, normal breath sounds, no respiratory distress, no accessory muscle use, other - the patient has a central line in right subclavian and she also has a dialysis port to the right anterior chest. Cardiovascular/Chest: normal peripheral pulses, regular rate, rhythm - borderline tachycardia, no edema Peripheral Pulses: radial,right: 2+, radial,left: 2+ Gastrointestinal/Abdominal: other - the patient has diffuse abdominal pain to palpation. Scarring is present from previous procedure. 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, alert, normal mood/affect, oriented x 3 Skin Exam: pallor Comments: Vital Signs - 24 hr 02/09/18 02/09/18 02/09/18 11:43 12:44 12:46 Temperature 98.0 F Pulse Rate [ 96 H 88 88 left brachial] Respiratory 16 20 20 Rate Blood Pressure 169/113 160/102 160/102 [left brachial] O2 Sat by Pulse 92 L 96 96 Oximetry 02/09/18 02/09/18 02/09/18 13:14 13:44 14:20 Temperature Pulse Rate [ 83 79 77 left brachial] Respiratory 20 20 20 Rate Blood Pressure 156/96 150/87 155/85 [left brachial] O2 Sat by Pulse 96 96 95 Oximetry 02/09/18 02/09/18 02/09/18 15:00 16:00 17:00 Temperature Pulse Rate [ 74 73 71 left brachial] Respiratory 16 16 16 Rate Blood Pressure 145/87 142/85 138/93 [left brachial] O2 Sat by Pulse 95 96 95 Oximetry 02/09/18 18:00 Temperature Pulse Rate [ 70 left brachial] Respiratory 16 Rate Blood Pressure 133/87 [left brachial] O2 Sat by Pulse 96 Oximetry Progress - Progress Progress: 02/09/18 18:33 the patient's 27-year-old female that is a type I diabetic and is on dialysis presenting with nausea vomiting and diarrhea. This is likely simply an episode of the gastroenteritis that is going around town. However given the patient's fragile status she will be covered with Zosyn in case this is more. A blood culture has been taken. Urinalysis is reassuring. White blood cell count is moderately elevated at 14,000 and should be followed. She has received approximately 1300 cc of IV fluids. She did not get her dialysis this morning and will need dialysis in the near future. She has received morphine and Phenergan for the abdominal pain and nausea and vomiting. This does help periodically however when the medications wear off her symptoms come back. She has also received acid reducing medications here. The patient will need admission for a day or 2 for symptom control before she is likely able to go back home. The blood gas as shown above is venous. The patient does not appear to be in jarret DKA. Blood sugars have improved from the 600s down to the 200s. No evidence of fluid overload as of yet. Transferring for higher level of care and likely dialysis. - Results/Orders Results/Orders: venous blood gas below. Not arterial. 10/06/18 18:20 Piperacillin/Tazobactam [Zosyn] 3.375 gm Sodium Chloride 0.9% 100Ml [NS (NACL 0.9%) 100ml] 100 ml IVPB ONCE blood culture is being performed. Laboratory Results - last 24 hr 02/09/18 02/09/18 02/09/18 12:05 12:05 12:05 WBC 14.1 H RBC 2.88 L Hgb 8.7 L Hct 29.0 L MCV 100.7 H MCH 30.2 MCHC 30.1 L RDW 18.3 H Plt Count 214 MPV 9.6 Absolute Neuts (auto) 11.90 H Absolute Lymphs (auto) 1.50 Absolute Monos (auto) 0.50 Absolute Eos (auto) 0.10 Absolute Basos (auto) 0.10 Neutrophils % 84.7 H Lymphocytes % 10.5 L Monocytes % 3.4 Eosinophils % 0.5 L Basophils % 0.9 PT 9.1 INR 0.91 PTT (SP) 33.0 H pCO2 pO2 HCO3 ABG pH ABG O2 Saturation ABG Base Excess ABG Deoxyhemoglobin Oxyhemoglobin % Carboxyhemoglobin % Methemoglobin % Sat Calc Total Hemoglobin Sodium 128 L Potassium 4.3 Chloride 95 L Carbon Dioxide 21 Anion Gap 16.3 BUN 58 H Creatinine 3.57 H BUN/Creatinine Ratio 16.2 POC Glucose Random Glucose 621 H* Serum Osmolality 302.2 H Lactic Acid Calcium 8.9 Magnesium 2.1 Total Bilirubin 0.9 AST 22 ALT 20 Alkaline Phosphatase 124 H Serum Total Protein 6.1 L Albumin 3.0 L Globulin 3.1 Albumin/Globulin Ratio 1.0 L Amylase 11 L Serum HCG, Qual Urine Color Urine Appearance Urine pH Ur Specific [place] Urine Protein Urine Glucose (UA) Urine Ketones Urine Blood Urine Nitrite Urine Bilirubin Urine Urobilinogen Ur Leukocyte Esterase Urine RBC Urine WBC Ur Epithelial Cells Amorphous Sediment Urine Bacteria Urine Mucus 02/09/18 02/09/18 02/09/18 12:05 12:15 12:39 WBC RBC Hgb Hct MCV MCH MCHC RDW Plt Count MPV Absolute Neuts (auto) Absolute Lymphs (auto) Absolute Monos (auto) Absolute Eos (auto) Absolute Basos (auto) Neutrophils % Lymphocytes % Monocytes % Eosinophils % Basophils % PT INR PTT (SP) pCO2 45 pO2 35 L* HCO3 20.3 ABG pH 7.270 L* ABG O2 Saturation 64.2 L* ABG Base Excess -5.6 ABG Deoxyhemoglobin 34.2 H Oxyhemoglobin % 61.5 L Carboxyhemoglobin % 0.5 Methemoglobin % Sat 3.8 H Calc Total Hemoglobin 8.2 L Sodium Potassium Chloride Carbon Dioxide Anion Gap BUN Creatinine BUN/Creatinine Ratio POC Glucose Random Glucose Serum Osmolality Lactic Acid 2.8 H* Calcium Magnesium Total Bilirubin AST ALT Alkaline Phosphatase Serum Total Protein Albumin Globulin Albumin/Globulin Ratio Amylase Serum HCG, Qual Negative Urine Color Urine Appearance Urine pH Ur Specific [place] Urine Protein Urine Glucose (UA) Urine Ketones Urine Blood Urine Nitrite Urine Bilirubin Urine Urobilinogen Ur Leukocyte Esterase Urine RBC Urine WBC Ur Epithelial Cells Amorphous Sediment Urine Bacteria Urine Mucus 02/09/18 02/09/18 02/09/18 14:03 14:10 15:43 WBC RBC Hgb Hct MCV MCH MCHC RDW Plt Count MPV Absolute Neuts (auto) Absolute Lymphs (auto) Absolute Monos (auto) Absolute Eos (auto) Absolute Basos (auto) Neutrophils % Lymphocytes % Monocytes % Eosinophils % Basophils % PT INR PTT (SP) pCO2 pO2 HCO3 ABG pH ABG O2 Saturation ABG Base Excess ABG Deoxyhemoglobin Oxyhemoglobin % Carboxyhemoglobin % Methemoglobin % Sat Calc Total Hemoglobin Sodium Potassium Chloride Carbon Dioxide Anion Gap BUN Creatinine BUN/Creatinine Ratio POC Glucose 370 H 266 H Random Glucose Serum Osmolality Lactic Acid Calcium Magnesium Total Bilirubin AST ALT Alkaline Phosphatase Serum Total Protein Albumin Globulin Albumin/Globulin Ratio Amylase Serum HCG, Qual Urine Color Yellow Urine Appearance Clear Urine pH 7.0 Ur Specific [place] 1.015 Urine Protein >=300 H Urine Glucose (UA) >=1000 H Urine Ketones 80 H Urine Blood Small H Urine Nitrite Negative Urine Bilirubin Negative Urine Urobilinogen 0.2 Ur Leukocyte Esterase Negative Urine RBC 3-5 H Urine WBC 0-1 Ur Epithelial Cells 1-3 Amorphous Sediment Trace Urine Bacteria 0 Urine Mucus Trace acute abdominal series fails to show any significant pathology. Departure - Departure Clinical Impression: Gastroenteritis, Dehydration Uncontrolled diabetes mellitus Qualifiers: Diabetes mellitus type: type 1 Glycemic state: with hyperglycemia Qualified Code(s): E10.65 - Type 1 diabetes mellitus with hyperglycemia Chronic renal failure Qualifiers: Chronic kidney disease stage: stage 5 Qualified Code(s): N18.5 - Chronic kidney disease, stage 5 Disposition: Transfer to Hospital Condition: Serious Referrals: Kristie,Mukesh Chema, MD [Primary Care Provider] - 1-2 Weeks Home Medications: Ambulatory Orders Calcitriol 0.25 mcg PO .3 TIMES/WEEK 12/03/17 Clonidine HCl 0.3 mg PO TID 12/03/17 Furosemide [Lasix] 40 mg PO QAM 12/03/17 Insulin Aspart [Novolog] 100 unit SC AC 12/03/17 Promethazine HCl 25 mg PO PRN PRN 12/03/17 Sertraline HCl 50 mg PO DAILY 12/03/17 Hydrocodone-Acetaminophen [[place] 7.5-325 mg] 1 tab PO BID 12/16/17 Pantoprazole Sodium 40 mg PO DAILY 12/16/17 Gabapentin 600 mg PO TID 01/24/18 Metoprolol Tartrate 100 mg PO BID 01/24/18 Sucralfate Tab [Carafate Tab] 1 gm PO QID 01/24/18 amLODIPine BESYLATE [Norvasc] 10 mg PO DAILY 01/24/18 Cholecalciferol [Vitamin D3] 1,000 unit PO DAILY 02/09/18 Dicyclomine HCl 20 mg PO TID 02/09/18 Diphenhydramine HCl 25 mg PO DAILY 02/09/18 Ferrous Sulfate [Iron] 65 mg PO DAILY 02/09/18 Hydralazine HCl 50 mg PO QID 02/09/18 Insulin Detemir [Levemir] 3 unit SUBCU BEDTIME 02/09/18 Spironolactone 50 mg PO DAILY 02/09/18 Transfer to Outside Facility - Transfer Information Accepting Provider:: dr moura Accepting Facility: [facility] Reason for Transfer: specialized care not available
[2018-02-09 19:51] VITALS: O2SAT 100
--- NOTE | 2018-02-09 19:56 | RAD ---
EXAM DESCRIPTION: Chest,1 View CLINICAL HISTORY:27 years Female, shortness of breath Comparison: January 24, 2018 FINDINGS: Improved aeration of lung bases with minimal linear densities representing atelectasis or scarring. No focal lung consolidation. Right central venous catheters are again seen. No pleural effusion. No pneumothorax. Cardiac and mediastinal silhouette is unremarkable. No acute osseous abnormality. Soft tissues are unremarkable. IMPRESSION: Minimal subsegmental atelectasis or scarring of the lung bases. Aeration is improved compared to prior. Electronically signed by: Gray Morton MD 02/09/2018 7:54 PM CDT
[2018-02-09 20:15] VITALS: BP 95/54; TEMP 97.8
== END | disposition short-term general hospital (02) ==
LOC: ER 11:38
DX: R06.03 Acute respiratory distress (principal); K52.9 Noninfective gastroenteritis and colitis, unspecified; E86.0 Dehydration; J81.1 Chronic pulmonary edema; E10.65 Type 1 diabetes mellitus with hyperglycemia; E10.22 Type 1 diabetes mellitus with diabetic chronic kidney disease; I12.0 Hypertensive chronic kidney disease with stage 5 chronic kidney disease or end stage renal disease; N18.5 Chronic kidney disease, stage 5; J45.909 Unspecified asthma, uncomplicated; K21.9 Gastro-esophageal reflux disease without esophagitis; Z87.891 Personal history of nicotine dependence; Z79.4 Long term (current) use of insulin; Z79.899 Other long term (current) drug therapy; Z99.81 Dependence on supplemental oxygen
CPT/HCPCS: 36415; 36416; 71045; 74019; 80053; 81001; 82150; 82803; 82805; 82948; 83605; 83735; 84703; 85025; 85610; 85730; 94640; 94660; A4216; J1940; J2270; J2543; J2550; J7030; J7050; J7060; J7620; J7799

== ENCOUNTER 2018-04-23 19:04 | Emergency (ER) | payer MEDICARE, MEDICAID ==
[2018-04-23] MEDS ORDERED: HEPARIN SODIUM 100 U/ML 5 ML SYG IV ONE (19:34)
[2018-04-23] MEDS ORDERED: SODIUM CHLORIDE 0.9% (FLUSH) 10 ML SYG IV PRN (19:36)
[2018-04-23] MEDS ORDERED: ACETAMINOPHEN 500 MG TAB PO ONE (19:36)
[2018-04-23] MEDS ORDERED: SODIUM CHLORIDE 0.9% 1000ML 500 ML IVS ONE (19:36)
[2018-04-23] MEDS ORDERED: MORPHINE SULFATE INJ 10 MG/ML VIAL IV ONE ×2 (19:39→20:41)
[2018-04-23] MEDS ORDERED: ONDANSETRON INJ 4 MG/2 ML VIAL IV ONE ×2 (19:39→21:31)
--- NOTE | 2018-04-23 20:02 | RAD ---
EXAM DESCRIPTION: AP view of the chest CLINICAL HISTORY:27 years Female, sepsis Comparison: February 09, 2018 FINDINGS: Right basilar airspace opacity. Left lung is clear. No pleural abnormalities. Cardiac and mediastinal silhouette is unremarkable. No acute osseous abnormality. Right IJ tunnel dialysis catheter in good position. IMPRESSION: Right basilar airspace opacity suspicious for pneumonia. Electronically signed by: Gabriel Leach DO 04/23/2018 8:01 PM [employer]ICING ASSOCIATE
[2018-04-23] MEDS ORDERED: PIPERACILLIN/TAZOBACTAM 2.25 GM in SODIUM CHLORIDE 0.9% 50ML 50 ML IVPB ONE (20:31)
--- NOTE | 2018-04-23 20:42 | ED.PDOC ---
History of Present Illness - General Chief Complaint: Problem Stated Complaint: Rt flank pain Time Seen by Provider: 04/23/18 19:16 Information Source: patient, Vital Signs reviewed Exam Limitations: no limitations - History of Present Illness Initial Comments: c/o right flank pain starting this afternoon. She says she has been fine previously today. She has not felt feverish. She states it hurts to breathe. Last dialysis was yesterday. Abdominal Pain Onset Location: flank Pain Radiation: RUQ, RLQ Quality: severe, sharpness Timing/Duration: 1-3 hours Improving Factors: nothing Worsening Factors: other - deep breaths Associated Symptoms: shortness of breath Review of Systems - Review of Systems Constitutional: States: see HPI EENTM: States: no symptoms reported Respiratory: States: see HPI, cough, short of breath. Denies: wheezing Cardiology: States: chest pain - right lower thoracic. Denies: edema Gastrointestinal/Abdominal: States: see HPI. Denies: diarrhea, vomiting Genitourinary: States: no symptoms reported, other - urinates about twice a day Musculoskeletal: States: no symptoms reported Skin: States: no symptoms reported Neurological: States: no symptoms reported Endocrine: States: no symptoms reported - h/o DKA Hematologic/Lymphatic: States: no symptoms reported Past Medical History (General) - Patient Medical History Hx Seizures: No Hx Stroke: No Hx Dementia: No Hx Asthma: Yes Hx of COPD: No Hx Cardiac Disorders: No Hx Congestive Heart Failure: Yes Hx Pacemaker: No Hx Hypertension: Yes Hx Thyroid Disease: No Hx Diabetes: Yes Hx Gastroesophageal Reflux: Yes Hx Renal Disease: No Hx Cancer: No Hx of HIV: No Hx Hepatitis C: No Hx MRSA: No Surgical History: other - Vaccination History Hx Tetanus, Diphtheria Vaccination: No Hx Influenza Vaccination: Yes Hx Pneumococcal Vaccination: Yes - Social History Hx Tobacco Use: Yes - quit Hx Alcohol Use: Yes - in past Hx Substance Use: Yes - Activities of Daily Living Shelter/Assisted Living (if applicable):: [facility] - Female History Patient is a Female of Child Bearing Age (10 -59 yrs old): Yes - Triage Comment ED Triage Comment: Pt reports she is having sharp Rt flank pains. Unable to take deep breaths. Pt is a Pt at [facility] for end stage renal failure, pt is diabetic, and CHF Family Medical History - Family History Mother Family History: Unknown Living Status: Unknown Physical Exam - Physical Exam General Appearance: Alert, Anxious, No apparent distress, Ill Appearing, Other - hurting Eyes, Ears, Nose, Throat Exam: other - moist mucosa; sniffles Neck: supple, normal inspection Respiratory: lungs clear, normal breath sounds, no accessory muscle use - mild tachypnea Cardiovascular/Chest: normal peripheral pulses, regular rate, rhythm, no edema, no gallop, no JVD Peripheral Pulses: 2+, Other - CR < 2 secs Gastrointestinal/Abdominal: soft, guarding, tenderness Back Exam: normal inspection, decreased range of motion Extremity: normal range of motion, normal inspection, no pedal edema Neurologic: alert, normal mood/affect, oriented x 3 Skin Exam: normal color, warm/dry Special Observations: C/O out of proportion Progress - Progress Progress: 04/23/18 20:40 137/73; 101. Still hurting. 04/23/18 20:42 1L of IVF in. 04/23/18 22:38 125/63; 111; 18; 99%. c/o pain but says her breathing is back to where it was when she arrived. Summary of earlier events: after my last visit with her the nurses report she began c/o feeling "hot" & "burning inside" & that she couldn't breathe. Her Zosyn was infusing & at first a medication reaction was suspected (no rash). However, soon thereafter she became somnolent & cyanotic & I was called to the bedside. She was obtunded with agonal respirations, & SaO2 in the 30s. Her breathing was assisted with a BVM. Her neck veins were flat & I would not have expected such an acute decompensation from fluid overload so she was given 0.4 mg of Narcan with improvement, then another 0.2 mg which returned her mentation to normal & improved her breathing but not back to her arrival status. On auscultation she was wheezing (no rales) with a prolonged expiratory phase & moving much less air on the right than the left. She was given 2 albuterol treatments & SoluMedrol with a return to her arrival status. She has been changed back to a cannula. 04/23/18 23:41 119/56; 108; 18; 95% on NC. Nml mental status. Awaiting EMS. - Results/Orders Results/Orders: WBC 8 LA 1.9 Glu 112 Nml AG - EKG/XRAY/CT XRAY: chest - RLL infiltrate; repeat film after respiratory decline was unchanged - Consult/PCP Time Called: 22:53 Consult/PCP: Dr. Oconnell Departure - Departure Clinical Impression: Bronchospasm, acute Chronic renal failure Qualifiers: Chronic kidney disease stage: stage 5 Qualified Code(s): N18.5 - Chronic kidney disease, stage 5 Pneumonia Qualifiers: Pneumonia type: due to unspecified organism Laterality: right Lung location: lower lobe of lung Qualified Code(s): J18.1 - Lobar pneumonia, unspecified organism Sepsis Qualifiers: Sepsis type: sepsis due to unspecified organism Qualified Code(s): A41.9 - Sepsis, unspecified organism Morphine overdose Qualifiers: Encounter type: initial encounter Injury intent: accidental or unintentional Qualified Code(s): T40.2X1A - Poisoning by other opioids, accidental (unintentional), initial encounter Time of Disposition: 22:56 Disposition: Transfer to Hospital Condition: Serious Home Medications: Ambulatory Orders Calcitriol 0.25 mcg PO .3 TIMES/WEEK 12/03/17 Clonidine HCl 0.3 mg PO TID 12/03/17 Furosemide [Lasix] 40 mg PO QAM 12/03/17 Insulin Aspart [Novolog] 100 unit SC AC 12/03/17 Promethazine HCl 25 mg PO PRN PRN 12/03/17 Sertraline HCl 50 mg PO DAILY 12/03/17 Hydrocodone-Acetaminophen [[place] 7.5-325 mg] 1 tab PO BID 12/16/17 Pantoprazole Sodium 40 mg PO DAILY 12/16/17 Gabapentin 600 mg PO TID 01/24/18 Metoprolol Tartrate 100 mg PO BID 01/24/18 Sucralfate Tab [Carafate Tab] 1 gm PO QID 01/24/18 amLODIPine BESYLATE [Norvasc] 10 mg PO DAILY 01/24/18 Cholecalciferol [Vitamin D3] 1,000 unit PO DAILY 02/09/18 Dicyclomine HCl [Dicyclomine Hydrochloride] 20 mg PO TID 02/09/18 Diphenhydramine HCl 25 mg PO DAILY 02/09/18 Ferrous Sulfate [Iron] 65 mg PO DAILY 02/09/18 Hydralazine HCl 50 mg PO QID 02/09/18 Insulin Detemir [Levemir] 3 unit SUBCU BEDTIME 02/09/18 Spironolactone 50 mg PO DAILY 02/09/18 Critical Care Note - Critical Care Note Total Time (mins): 60 Transfer to Outside Facility - Transfer Information Accepting Provider:: Dr. Scruggs Accepting Facility: [facility] Reason for Transfer: specialized care not available
[2018-04-23] MEDS ORDERED: SODIUM CHLORIDE 0.9% 50ML 50 ML ONE (20:58)
[2018-04-23] MEDS ORDERED: PIPERACILLIN/TAZOBACTAM 2.25 GM VIAL IVPB ONE (20:58)
--- NOTE | 2018-04-23 21:06 | CT ---
EXAM: Abdoment/Pelvis w/o Contrast CLINICAL INDICATION: Right flank pain COMPARISON: 10/26/2017 TECHNIQUE: The CT scan was done using contiguous axial 2.5 mm noncontrast sections through the abdomen and pelvis. This exam was performed according to our departmental dose-optimization program, which includes automated exposure control, adjustment of the mA and/or kV according to patient size and/or use of iterative reconstruction technique. FINDINGS: Visualized portions of the lung bases reveal multifocal infiltrates in the right lower lobe consistent with pneumonia. The liver, gallbladder, kidneys, adrenal glands, spleen, and pancreas have a normal noncontrast CT appearance. The aorta is normal in caliber. The appendix is normal. There are no dilated loops of small bowel. No renal or ureteral stone or hydronephrosis is identified. The urinary bladder has a mildly thick walled appearance. IMPRESSION: 1. Right lower lobe infiltrates, consistent with pneumonia. 2. Mildly thickened appearance of the urinary bladder suggesting cystitis. Electronically signed by: Yassine Moscoso MD 04/23/2018 9:04 PM [employer]
[2018-04-23] MEDS ORDERED: NALOXONE HCL INJ 0.4 MG/ML VIAL ONE ×2 (21:25→21:28)
[2018-04-23] MEDS ORDERED: NALOXONE HCL INJ 1 MG/ML SYG IV ONE (21:32)
[2018-04-23] MEDS ORDERED: ALBUTEROL SULFATE 2.5 MG/3 ML VIAL NEB ONE ×3 (21:36→21:55)
--- NOTE | 2018-04-23 21:39 | RAD ---
EXAM: Chest,1 View CLINICAL INDICATION: Respiratory distress COMPARISON: 04/23/2018 FINDINGS: A single view of the chest was obtained. The heart size is normal. The pulmonary vascularity is unremarkable. There is a right IJ permacath with its tip at the superior cavoatrial junction. Mild infiltrates are seen in the medial right lung base which appear unchanged from the previous study. Foci of scarring in the left apex are also stable. There is no pneumothorax or pleural effusion. IMPRESSION: Stable infiltrates in the right lung base, compared to the previous examination. Electronically signed by: Yassine Moscoso MD 04/23/2018 9:37 PM [facility]
[2018-04-23] MEDS ORDERED: methylPREDNISolone SODIUM SUC 125 MG/2 ML VIAL IV ONE (21:55)
[2018-04-24 00:29] VITALS: TEMP 99.8; O2SAT 93
[2018-04-24 00:31] VITALS: BP 122/75
== END 2018-04-24 00:20 | disposition short-term general hospital (02) ==
LOC: ER 19:04
DX: J18.9 Pneumonia, unspecified organism (principal); A41.9 Sepsis, unspecified organism; T40.2X1A Poisoning by other opioids, accidental (unintentional), initial encounter; J98.01 Acute bronchospasm; N18.5 Chronic kidney disease, stage 5; E11.22 Type 2 diabetes mellitus with diabetic chronic kidney disease; I13.2 Hypertensive heart and chronic kidney disease with heart failure and with stage 5 chronic kidney disease, or end stage renal disease; I50.9 Heart failure, unspecified; J45.909 Unspecified asthma, uncomplicated; K21.9 Gastro-esophageal reflux disease without esophagitis; Z87.891 Personal history of nicotine dependence
CPT/HCPCS: 36415; 71045; 74176; 80053; 81001; 83605; 85025; 85610; 85730; 87040; 87804; 94640; A4216; J2270; J2310; J2405; J2543; J2930; J7030; J7611

== ENCOUNTER 2018-05-09 19:29 | Emergency (ER) | payer MEDICARE, MEDICAID ==
[2018-05-09] MEDS ORDERED: FUROSEMIDE INJ 40 MG/4 ML VIAL IV ONE (19:57)
[2018-05-09] MEDS ORDERED: ALUM & MAG HYDROX-SIMETHICONE 30 ML, LIDOCAINE VISCOUS 2% 15 ML PO ONE ×2 (19:59)
[2018-05-09] MEDS ORDERED: PROMETHAZINE HCL INJ 25 MG in SODIUM CHLORIDE 0.9% 50ML 50 ML IVPB ONE (20:03)
[2018-05-09] MEDS ORDERED: MORPHINE SULFATE INJ 10 MG/ML VIAL IV ONE (20:03)
--- NOTE | 2018-05-09 20:10 | ED.PDOC ---
History of Present Illness - General Chief Complaint: Blood Pressure Problem Stated Complaint: Elevated BP, needs dialysis - no access Time Seen by Provider: 05/09/18 19:40 Source: patient Exam Limitations: no limitations - History of Present Illness Initial Comments: Patient presents from the long-term. They requested that she get a Carlos catheter for dialysis. According to EMS and the patient, the NH was "on the phone" all day trying to contact someone in [place] to place a catheter so she could get dialysis tomorrow. They couldn't find anyone so they sent her to the E.R[facility] here. The patient says she was in the hospital for several weeks for pneumonia and while she was there, her catheter got infected. She thinks she was supposed to start Vancomycin today for that. She says she feels mildly dyspneic and has right sided pain that is chronic. She makes a small amount of urine. Her CRF is due to severe uncontrolled diabetes. She says she also has had s evere heartburn all day and has been vomiting up acid. She says she is nauseous right now. No other complaints. Timing/Duration: changing over time Severity: moderate Improving Factors: nothing Worsening Factors: nothing Associated Symptoms: other - as in HPI Allergies/Adverse Reactions: Allergies NO KNOWN ALLERGY Allergy (Verified 12/03/17 19:33) Home Medications: Ambulatory Orders Calcitriol 0.25 mcg PO .3 TIMES/WEEK 12/03/17 Clonidine HCl 0.3 mg PO TID 12/03/17 Furosemide [Lasix] 40 mg PO QAM 12/03/17 Insulin Aspart [Novolog] 100 unit SC AC 12/03/17 Promethazine HCl 25 mg PO PRN PRN 12/03/17 Sertraline HCl 100 mg PO DAILY 12/03/17 Hydrocodone-Acetaminophen [[place] 7.5-325 mg] 1 tab PO BID 12/16/17 Pantoprazole Sodium 40 mg PO DAILY 12/16/17 Gabapentin 600 mg PO TID 01/24/18 Metoprolol Tartrate 100 mg PO BID 01/24/18 Sucralfate Tab [Carafate Tab] 1 gm PO QID 01/24/18 amLODIPine BESYLATE [Norvasc] 10 mg PO DAILY 01/24/18 Cholecalciferol [Vitamin D3] 1,000 unit PO DAILY 02/09/18 Diphenhydramine HCl 25 mg PO DAILY 02/09/18 Ferrous Sulfate [Iron] 65 mg PO DAILY 02/09/18 Hydralazine HCl 50 mg PO QID 02/09/18 Insulin Detemir [Levemir] 3 unit SUBCU BEDTIME 02/09/18 Spironolactone 50 mg PO DAILY 02/09/18 Review of Systems - Review of Systems Constitutional: States: no symptoms reported EENTM: States: no symptoms reported Respiratory: States: see HPI Cardiology: States: no symptoms reported Gastrointestinal/Abdominal: States: see HPI Genitourinary: States: see HPI Musculoskeletal: States: see HPI Skin: States: no symptoms reported Neurological: States: no symptoms reported Endocrine: States: no symptoms reported Hematologic/Lymphatic: States: no symptoms reported Past Medical History (General) - Patient Medical History Hx Seizures: No Hx Stroke: No Hx Dementia: No Hx Asthma: Yes Hx of COPD: No Hx Cardiac Disorders: No Hx Congestive Heart Failure: Yes Hx Pacemaker: No Hx Hypertension: Yes Hx Thyroid Disease: No Hx Diabetes: Yes Hx Gastroesophageal Reflux: Yes Hx Renal Disease: No Hx Cancer: No Hx of HIV: No Hx Hepatitis C: No Hx MRSA: No - Vaccination History Hx Tetanus, Diphtheria Vaccination: No Hx Influenza Vaccination: Yes Hx Pneumococcal Vaccination: Yes - Social History Hx Tobacco Use: Yes - quit Hx Alcohol Use: Yes - in past Hx Substance Use: Yes Family Medical History - Family History Mother Family History: Unknown Living Status: Unknown Physical Exam - Physical Exam General Appearance: Alert Eye Exam: bilateral normal Ears, Nose, Throat: normal ENT inspection Neck: non-tender, full range of motion, supple Respiratory: lungs clear, normal breath sounds Cardiovascular/Chest: normal peripheral pulses, regular rate, rhythm, no edema Gastrointestinal/Abdominal: normal bowel sounds, non tender, soft Back Exam: normal inspection, no CVA tenderness Extremity: normal range of motion, non-tender, normal inspection Neurologic: no motor/sensory deficits, alert, normal mood/affect, oriented x 3 Skin Exam: normal color Lymphatic: no adenopathy Progress - Progress Progress: 05/09/18 20:55 Laboratory Tests 05/09/18 05/09/18 05/09/18 19:49 19:49 19:57 WBC 6.9 RBC 3.35 L Hgb 10.4 L Hct 33.0 L MCV 98.6 MCH 31.0 MCHC 31.5 L RDW 19.6 H Plt Count 342 MPV 7.8 Absolute Neuts (auto) 5.50 Absolute Lymphs (auto) 1.00 Absolute Monos (auto) 0.20 Absolute Eos (auto) 0.10 Absolute Basos (auto) 0.00 Neutrophils % 79.5 H Lymphocytes % 14.9 L Monocytes % 3.5 Eosinophils % 1.5 Basophils % 0.6 Normal RBC Morphology 1+aniso Sodium 134 L Potassium 5.5 H Chloride 106 Carbon Dioxide 18 L Anion Gap 15.5 BUN 52 H Creatinine 5.41 H BUN/Creatinine Ratio 9.6 L POC Glucose 295 H Random Glucose 313 H Serum Osmolality 294.2 Calcium 10.5 H Total Bilirubin 0.7 AST 14 ALT 15 Alkaline Phosphatase 87 B-Natriuretic Peptide 917.0 H* Serum Total Protein 6.3 L Albumin 2.4 L Globulin 3.9 H Albumin/Globulin Ratio 0.6 L BNP >900. EKG read by me showed NSR. Slightly peaked T waves but this is likely due to body habitus. Normal Q-T interval. Potassium 5.5. glucose 295. Patient was given insulin 2 IU IV per her normal sliding scale. This was for her glucose as well as her potassium. Also, Lasix 60 mg IV x one to take some fluid off. She was given Morphine 2 mg IV x one for the chronic side pain. She normally takes Lortab for that. Patient was transferred to [facility] for possible emergent dialysis. 05/09/18 20:59 Departure - Departure Clinical Impression: Fluid excess, CRF (chronic renal failure), Hyperkalemia Disposition: Transfer to Hospital Condition: Fair Departure Forms: ED Discharge - Pt. Copy, Patient Portal Self Enrollment Instructions: DI for High Blood Pressure Diet: other - NPO Activity: other - as per hospitalist Referrals: Mukesh Flowers MD [Primary Care Provider] - 1-2 Weeks Home Medications: Ambulatory Orders Calcitriol 0.25 mcg PO .3 TIMES/WEEK 12/03/17 Clonidine HCl 0.3 mg PO TID 12/03/17 Furosemide [Lasix] 40 mg PO QAM 12/03/17 Insulin Aspart [Novolog] 100 unit SC AC 12/03/17 Promethazine HCl 25 mg PO PRN PRN 12/03/17 Sertraline HCl 100 mg PO DAILY 12/03/17 Hydrocodone-Acetaminophen [[place] 7.5-325 mg] 1 tab PO BID 12/16/17 Pantoprazole Sodium 40 mg PO DAILY 12/16/17 Gabapentin 600 mg PO TID 01/24/18 Metoprolol Tartrate 100 mg PO BID 01/24/18 Sucralfate Tab [Carafate Tab] 1 gm PO QID 01/24/18 amLODIPine BESYLATE [Norvasc] 10 mg PO DAILY 01/24/18 Cholecalciferol [Vitamin D3] 1,000 unit PO DAILY 02/09/18 Diphenhydramine HCl 25 mg PO DAILY 02/09/18 Ferrous Sulfate [Iron] 65 mg PO DAILY 02/09/18 Hydralazine HCl 50 mg PO QID 02/09/18 Insulin Detemir [Levemir] 3 unit SUBCU BEDTIME 02/09/18 Spironolactone 50 mg PO DAILY 02/09/18
[2018-05-09] MEDS ORDERED: INSULIN, REG.(HUMAN) 100 U/ML VIAL SUBCU ONE (20:15)
[2018-05-09] MEDS ORDERED: LIDOCAINE HCL 2% (MOUTH-THROAT) 15 ML UD ONE (20:54)
[2018-05-09] MEDS ORDERED: ALUM & MAG HYDROX-SIMETHICONE 30 ML UD ONE (20:54)
[2018-05-09] MEDS ORDERED: PROMETHAZINE HCL INJ 25 MG/ML VIAL ONE (20:55)
[2018-05-09] MEDS ORDERED: SODIUM CHLORIDE 0.9% 50ML 50 ML ONE (20:56)
[2018-05-09 21:25] VITALS: TEMP 97
[2018-05-09] MEDS ORDERED: cloNIDine HCL 0.1 MG TAB PO ONE (21:31)
--- NOTE | 2018-05-09 21:37 | RAD ---
EXAM DESCRIPTION: AP view of the chest CLINICAL HISTORY:28 years Female, dyspnea Comparison: April 23, 2018 FINDINGS: Right IJ dialysis catheter has been removed. There is central line from a left IJ approach which terminates in the upper SVC. No pneumothorax. Mild atelectasis in the midlung zones bilaterally. Overall improved aeration in the right lung base. Cardiac silhouette is normal in size. IMPRESSION: Minimal areas of subsegmental atelectasis. Electronically signed by: Gabriel Leach DO 05/09/2018 9:36 PM [facility]
[2018-05-09] MEDS ORDERED: NITROGLYCERIN 2% 1 GM UD TOP ONE ×2 (21:46)
[2018-05-09 22:09] VITALS: BP 196/115; O2SAT 91
== END 2018-05-09 21:55 | disposition short-term general hospital (02) ==
LOC: ER 19:29
DX: N18.6 End stage renal disease (principal); E87.5 Hyperkalemia; E11.22 Type 2 diabetes mellitus with diabetic chronic kidney disease; I13.2 Hypertensive heart and chronic kidney disease with heart failure and with stage 5 chronic kidney disease, or end stage renal disease; I50.9 Heart failure, unspecified; K21.9 Gastro-esophageal reflux disease without esophagitis; J45.909 Unspecified asthma, uncomplicated; Z87.891 Personal history of nicotine dependence; Z99.2 Dependence on renal dialysis; Z79.4 Long term (current) use of insulin; Z79.899 Other long term (current) drug therapy
CPT/HCPCS: 36415; 71045; 80053; 82948; 83880; 85025; 93005; A4216; J1940; J2270; J2550

== ENCOUNTER 2018-05-20 07:18 | Emergency (ER) | payer MEDICARE, MEDICAID ==
[2018-05-20] MEDS ORDERED: MORPHINE SULFATE INJ 10 MG/ML VIAL IV ONE ×3 (07:51→10:14)
[2018-05-20] MEDS ORDERED: PROMETHAZINE HCL INJ 12.5 MG in SODIUM CHLORIDE 0.9% 50ML 50 ML IVPB ONE ×2 (07:51→08:39)
[2018-05-20] MEDS ORDERED: ALBUTEROL SULFATE NEBS (ED DISPENSE) 2.5 MG/3 ML VIAL NEB PRN (07:52)
--- NOTE | 2018-05-20 07:55 | ED.PDOC ---
History of Present Illness - General Time Seen by Provider: 05/20/18 07:49 Information Source: patient Exam Limitations: no limitations - History of Present Illness Initial Comments: Pt has N/V/D since yesterday with abd pain. pt also had fever. Pt has chronic pain, and is on dialysis Abdominal Pain Onset Location: generalized abdomen Pain Radiation: no radiation Quality: severe Timing/Duration: 24 hours Improving Factors: nothing Worsening Factors: nothing Associated Symptoms: diarrhea, fever/chills, nausea/vomiting Review of Systems - Review of Systems Constitutional: States: fever, weakness EENTM: States: no symptoms reported Respiratory: States: cough, wheezing. Denies: short of breath Cardiology: States: chest pain - pleuritic pain associated with dialysis cath Gastrointestinal/Abdominal: States: abdominal pain, diarrhea, nausea, vomiting Genitourinary: States: no symptoms reported Musculoskeletal: States: no symptoms reported Skin: States: no symptoms reported Neurological: States: no symptoms reported Endocrine: States: no symptoms reported Hematologic/Lymphatic: States: no symptoms reported Past Medical History (General) - Patient Medical History Hx Seizures: No Hx Stroke: No Hx Dementia: No Hx Asthma: Yes Hx of COPD: No Hx Cardiac Disorders: No Hx Congestive Heart Failure: Yes Hx Pacemaker: No Hx Hypertension: Yes Hx Thyroid Disease: No Hx Diabetes: Yes Hx Gastroesophageal Reflux: Yes Hx Renal Disease: No Hx Cancer: No Hx of HIV: No Hx Hepatitis C: No Hx MRSA: No - Vaccination History Hx Tetanus, Diphtheria Vaccination: No Hx Influenza Vaccination: Yes Hx Pneumococcal Vaccination: Yes - Social History Hx Tobacco Use: Yes - quit Hx Alcohol Use: Yes - in past Hx Substance Use: Yes - Female History Patient : No Family Medical History - Family History Mother Family History: Unknown Living Status: Unknown Physical Exam - Physical Exam General Appearance: Alert, Obvious distress Eyes, Ears, Nose, Throat Exam: PERRL/EOMI Neck: non-tender - has central line in L neck Respiratory: rhonchi, wheezing Cardiovascular/Chest: regular rate, rhythm Gastrointestinal/Abdominal: normal bowel sounds, soft, distended, tenderness - diffuse Skin Exam: normal color, warm/dry Departure - Departure Clinical Impression: Gastroenteritis Disposition: Discharge to Home or Self Care Condition: Fair Referrals: Mukesh Flowers MD [Primary Care Provider] - 1-2 Weeks Home Medications: Ambulatory Orders Calcitriol 0.25 mcg PO .3 TIMES/WEEK 12/03/17 Clonidine HCl 0.3 mg PO TID 12/03/17 Furosemide [Lasix] 40 mg PO QAM 12/03/17 Insulin Aspart [Novolog] 100 unit SC AC 12/03/17 Promethazine HCl 25 mg PO PRN PRN 12/03/17 Sertraline HCl 100 mg PO DAILY 12/03/17 Hydrocodone-Acetaminophen [[place] 7.5-325 mg] 1 tab PO BID 12/16/17 Pantoprazole Sodium 40 mg PO DAILY 12/16/17 Gabapentin 600 mg PO TID 01/24/18 Metoprolol Tartrate 100 mg PO BID 01/24/18 Sucralfate Tab [Carafate Tab] 1 gm PO QID 01/24/18 amLODIPine BESYLATE [Norvasc] 10 mg PO DAILY 01/24/18 Cholecalciferol [Vitamin D3] 1,000 unit PO DAILY 02/09/18 Diphenhydramine HCl 25 mg PO DAILY 02/09/18 Ferrous Sulfate [Iron] 65 mg PO DAILY 02/09/18 Hydralazine HCl 50 mg PO QID 02/09/18 Insulin Detemir [Levemir] 3 unit SUBCU BEDTIME 02/09/18 Spironolactone 50 mg PO DAILY 02/09/18
[2018-05-20] MEDS ORDERED: SODIUM CHLORIDE 0.9% 50ML 50 ML ONE ×2 (07:57→08:52)
[2018-05-20] MEDS ORDERED: PROMETHAZINE HCL INJ 25 MG/ML VIAL ONE ×2 (07:57→08:52)
[2018-05-20] MEDS ORDERED: hydrALAZINE HCl 20 MG/ML VIAL IV ONE (07:57)
[2018-05-20] MEDS ORDERED: ALBUTEROL SULFATE 2.5 MG/3 ML VIAL NEB ONE (08:02)
--- NOTE | 2018-05-20 08:26 | RAD ---
EXAM DESCRIPTION: Chest,1 View CLINICAL HISTORY: 28 years Female, sob COMPARISON: Previous study May 09, 2018 TECHNIQUE: AP portable chest. FINDINGS: Heart size is normal with normal pulmonary vascularity. Multilumen catheter is been placed with tip at the SVC-right atrial junction. Previous catheter is been replaced. Nipple jewelry present bilaterally. Wedgelike atelectasis in the right perihilar region and in the left lower lobe. No consolidating infiltrate to suggest pneumonia. No pulmonary mass or worrisome nodule. No pneumothorax or pleural effusion. Bones are unremarkable. IMPRESSION: Discoid atelectasis in the right upper lobe and left lower lobe. Electronically signed by: Luis Henning MD 05/20/2018 8:25 AM [employer]
[2018-05-20] MEDS ORDERED: HYOSCYAMINE SULFATE 0.5 MG/ML VIAL IV ONE (08:38)
[2018-05-20] MEDS ORDERED: cloNIDine HCL 0.1 MG TAB PO ONE (08:43)
[2018-05-20] MEDS ORDERED: amLODIPine BESYLATE 5 MG TAB PO ONE (08:44)
[2018-05-20] MEDS ORDERED: ALUMINUM & MAGNESIUM HYDROXIDE 30 ML UD PO ONE (09:44)
[2018-05-20 11:42] VITALS: BP 163/96; TEMP 98.9; O2SAT 92
== END 2018-05-20 11:25 | disposition home or self-care (01) ==
LOC: ER 07:18
DX: K52.9 Noninfective gastroenteritis and colitis, unspecified (principal); J45.909 Unspecified asthma, uncomplicated; I50.9 Heart failure, unspecified; K21.9 Gastro-esophageal reflux disease without esophagitis; E11.9 Type 2 diabetes mellitus without complications; I11.0 Hypertensive heart disease with heart failure; Z87.891 Personal history of nicotine dependence
CPT/HCPCS: 36415; 71045; 80053; 85025; 94640; A4216; J0360; J2270; J2550; J7611

== ENCOUNTER 2018-05-22 16:24 | Emergency (ER) | payer MEDICARE, MEDICAID ==
[2018-05-22 16:31] VITALS: TEMP 98.7
--- NOTE | 2018-05-22 16:37 | ED.PDOC ---
History of Present Illness - General Chief Complaint: Abdominal Pain Stated Complaint: abd pain,vomiting Time Seen by Provider: 05/22/18 16:33 Source: RN notes reviewed, Vital Signs reviewed, EMS notes reviewed Additional Information: 28 YEAR OLD PRESENTS VIA EMS FOR EVALUATION OF ABDOMINAL PAIN ONSET THIS AFTERNOON ASSOCIATED WITH NAUSEA AND VOMITING SHE HAS TYPE I DM ONSET AT AGE 14 INITIALLY DID NOT TAKE CARE OF IT SHE ALSO HAS HYPERTENSION AND HAS BEEN ON DIALYSIS SINCE JAN 2018 PHYSICAL EXAM SHE IS CHRONICALLY ILL APPEARING VERY PALE NOT ABLE TO TALK MUCH NODES HER HEAD SHE IS ACTIVELY NAUSEATED AND VOMITING HER BAD IS SOFT AND NO TENDERNESS ON PALPATION ANDREA NOTED ON THE LEFT IJ SHE IS TACHYPNIC ( RATHER HYPERVENTILATING ) WIDE AWAKE DOES NOT APPEAR ACIDOTIC - History of Present Illness Timing/Duration: unsure, 1-3 hours Severity: moderate Improving Factors: nothing Worsening Factors: nothing Associated Symptoms: denies symptoms, nausea/vomiting Allergies/Adverse Reactions: Allergies NO KNOWN ALLERGY Allergy (Verified 12/03/17 19:33) Home Medications: Ambulatory Orders Calcitriol 0.25 mcg PO .3 TIMES/WEEK 12/03/17 Furosemide [Lasix] 40 mg PO QAM 12/03/17 Insulin Aspart [Novolog] 100 unit SC .ACHS AND 0300 12/03/17 Promethazine HCl 25 mg PO PRN PRN 12/03/17 Sertraline HCl 100 mg PO DAILY 12/03/17 Hydrocodone-Acetaminophen [[place] 7.5-325 mg] 1 tab PO BID 12/16/17 Gabapentin 600 mg PO TID 01/24/18 Metoprolol Tartrate 100 mg PO BID 01/24/18 Sucralfate Tab [Carafate Tab] 1 gm PO QID 01/24/18 amLODIPine BESYLATE [Norvasc] 10 mg PO DAILY 01/24/18 Cholecalciferol [Vitamin D3] 1,000 unit PO DAILY 02/09/18 Ferrous Sulfate [Iron] 65 mg PO DAILY 02/09/18 Hydralazine HCl 50 mg PO QID 02/09/18 Insulin Detemir [Levemir] 2 unit SUBCU BEDTIME 02/09/18 Spironolactone 50 mg PO DAILY 02/09/18 Calcium Acetate (Phosphate Bin [Calcium Acetate] 667 mg PO TID 05/22/18 Docusate Sodium 100 mg PO BID 05/22/18 Insulin Detemir [Levemir] 3 units SUBCU DAILY 05/22/18 Pantoprazole Tablet [Protonix] 40 mg PO ACBK 05/22/18 Vancomycin HCl 750 mg IV DAILY 05/22/18 Review of Systems - Review of Systems Constitutional: States: no symptoms reported EENTM: States: no symptoms reported Respiratory: States: no symptoms reported Cardiology: States: no symptoms reported Gastrointestinal/Abdominal: States: see HPI Genitourinary: States: no symptoms reported Musculoskeletal: States: no symptoms reported Skin: States: no symptoms reported Neurological: States: no symptoms reported Endocrine: States: no symptoms reported Past Medical History (General) - Patient Medical History Hx Seizures: No Hx Stroke: No Hx Dementia: No Hx Asthma: Yes Hx of COPD: No Hx Cardiac Disorders: No Hx Congestive Heart Failure: Yes Hx Pacemaker: No Hx Hypertension: Yes Hx Thyroid Disease: No Hx Diabetes: Yes Hx Gastroesophageal Reflux: Yes Hx Renal Disease: No Hx Cancer: No Hx of HIV: No Hx Hepatitis C: No Hx MRSA: No - Vaccination History Hx Tetanus, Diphtheria Vaccination: No Hx Influenza Vaccination: Yes Hx Pneumococcal Vaccination: Yes - Social History Hx Tobacco Use: Yes - quit Hx Alcohol Use: Yes - in past Hx Substance Use: Yes - Activities of Daily Living Custodial/Assisted Living (if applicable):: [facility] - Female History Patient : No Family Medical History - Family History Mother Family History: Unknown Living Status: Unknown Physical Exam - Physical Exam General Appearance: Ill Appearing, Other - SHE IS HYPERVENTILATING Eye Exam: right abnormal EOM Ears, Nose, Throat: hearing grossly normal, normal ENT inspection, normal pharynx Neck: non-tender, full range of motion, supple Respiratory: chest non-tender, lungs clear, normal breath sounds Cardiovascular/Chest: normal peripheral pulses, regular rate, rhythm, no edema, no gallop, no JVD, no murmur, JVD Gastrointestinal/Abdominal: normal bowel sounds, non tender, soft, no organomegaly Back Exam: normal inspection, no CVA tenderness, no vertebral tenderness Extremity: normal range of motion, non-tender, normal inspection, no pedal edema 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 II-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 nml as tested, no motor/sensory deficits, alert, normal mood/affect, oriented x 3 Skin Exam: normal color Progress - Results/Orders Results/Orders: Laboratory Tests 0105/22/18 05/22/18 16:39 16:39 19:22 WBC 5.3 RBC 3.22 L Hgb 9.7 L Hct 31.0 L MCV 96.2 MCH 30.1 MCHC 31.2 L RDW 17.0 H Plt Count 233 MPV 8.0 Absolute Neuts (auto) 4.10 Absolute Lymphs (auto) 0.70 L Absolute Monos (auto) 0.30 Absolute Eos (auto) 0.00 Absolute Basos (auto) 0.10 Neutrophils % 77.7 Lymphocytes % 13.8 L Monocytes % 5.9 Eosinophils % 0.8 L Basophils % 1.8 pCO2 24 L pO2 108 HCO3 20.8 ABG pH 7.550 H ABG O2 Saturation 99.3 H ABG Base Excess -0.6 ABG Deoxyhemoglobin 0.7 Oxyhemoglobin % 96.8 Carboxyhemoglobin % 0.8 Methemoglobin % Sat 1.7 H Calc Total Hemoglobin 9.6 L Sodium 138 Potassium 3.0 L D Chloride 95 L Carbon Dioxide 27 Anion Gap 19.0 H BUN 9 Creatinine 1.12 BUN/Creatinine Ratio 8.0 L Random Glucose 376 H D Serum Osmolality 289.8 Calcium 7.8 L Total Bilirubin 1.3 H D AST 19 ALT 12 Alkaline Phosphatase 72 Serum Total Protein 5.9 L Albumin 2.5 L Globulin 3.4 Albumin/Globulin Ratio 0.7 L 1910 ABG PH 7.55CO2 23 PO2 108 HCO2 20.8 BASE 0.6 HER HYPOCALCEMIA IS ALSO LIKELY TO LOW IONIC CA FROM HYPERVENTILATION WE WILL CORRECT THE HYPERVENTILATION WITH A MASK AND ATIVAN Departure - Departure Clinical Impression: Abdominal pain, Uncontrolled diabetes mellitus, End stage renal disease, Hyperventilation syndrome Time of Disposition: 20:27 Disposition: Discharge to Home or Self Care Condition: Good Departure Forms: ED Discharge - Pt. Copy, Patient Portal Self Enrollment Instructions: DI for Abdominal Pain-Adult Referrals: Mukesh Flowers MD [Primary Care Provider] - 1-2 Weeks Home Medications: Ambulatory Orders Calcitriol 0.25 mcg PO .3 TIMES/WEEK 12/03/17 Furosemide [Lasix] 40 mg PO QAM 12/03/17 Insulin Aspart [Novolog] 100 unit SC .ACHS AND 0300 12/03/17 Promethazine HCl 25 mg PO PRN PRN 12/03/17 Sertraline HCl 100 mg PO DAILY 12/03/17 Hydrocodone-Acetaminophen [[place] 7.5-325 mg] 1 tab PO BID 12/16/17 Gabapentin 600 mg PO TID 01/24/18 Metoprolol Tartrate 100 mg PO BID 01/24/18 Sucralfate Tab [Carafate Tab] 1 gm PO QID 01/24/18 amLODIPine BESYLATE [Norvasc] 10 mg PO DAILY 01/24/18 Cholecalciferol [Vitamin D3] 1,000 unit PO DAILY 02/09/18 Ferrous Sulfate [Iron] 65 mg PO DAILY 02/09/18 Hydralazine HCl 50 mg PO QID 02/09/18 Insulin Detemir [Levemir] 2 unit SUBCU BEDTIME 02/09/18 Spironolactone 50 mg PO DAILY 02/09/18 Calcium Acetate (Phosphate Bin [Calcium Acetate] 667 mg PO TID 05/22/18 Docusate Sodium 100 mg PO BID 05/22/18 Insulin Detemir [Levemir] 3 units SUBCU DAILY 05/22/18 Pantoprazole Tablet [Protonix] 40 mg PO ACBK 05/22/18 Vancomycin HCl 750 mg IV DAILY 05/22/18
[2018-05-22] MEDS ORDERED: METOCLOPRAMIDE HCL INJ 10 MG/2 ML VIAL IV ONE (16:39)
[2018-05-22] MEDS ORDERED: MORPHINE SULFATE INJ 10 MG/ML VIAL IV ONE ×2 (16:40→17:40)
--- NOTE | 2018-05-22 16:51 | RAD ---
EXAM DESCRIPTION: Chest,1 View CLINICAL HISTORY: 28 years Female, R/O ASPIRATION COMPARISON: May 20, 2017. TECHNIQUE: AP radiograph of the chest was obtained. FINDINGS: Trachea is midline.The cardiomediastinal silhouette is normal in size. The pulmonary vasculature is within normal limits.The lungs are clear with no acute consolidation.No evidence of pleural effusions. IMPRESSION: No acute cardiopulmonary process. Electronically signed by: Dolly Coombs MD 05/22/2018 4:49 PM [employer]
[2018-05-22] MEDS ORDERED: CALCIUM GLUCONATE INJ 1 GM/10 ML VIAL IV ONE (17:39)
[2018-05-22] MEDS ORDERED: INSULIN, REG.(HUMAN) 100 U/ML VIAL SUBCU ONE (17:41)
[2018-05-22 21:01] VITALS: BP 146/92; O2SAT 99
== END 2018-05-22 20:55 | disposition home or self-care (01) ==
LOC: ER 16:24
DX: R10.9 Unspecified abdominal pain (principal); E10.22 Type 1 diabetes mellitus with diabetic chronic kidney disease; E10.65 Type 1 diabetes mellitus with hyperglycemia; I13.2 Hypertensive heart and chronic kidney disease with heart failure and with stage 5 chronic kidney disease, or end stage renal disease; I50.9 Heart failure, unspecified; N18.6 End stage renal disease; R11.2 Nausea with vomiting, unspecified; F45.8 Other somatoform disorders; K21.9 Gastro-esophageal reflux disease without esophagitis; J45.909 Unspecified asthma, uncomplicated; Z99.2 Dependence on renal dialysis; Z87.891 Personal history of nicotine dependence; Z79.4 Long term (current) use of insulin; Z79.899 Other long term (current) drug therapy
CPT/HCPCS: 36416; 36600; 71045; 80053; 82803; 82805; 82948; 85025; J2060; J2270; J2765

== ENCOUNTER 2018-05-23 19:58 | Emergency (ER) | payer MEDICARE, MEDICAID ==
--- NOTE | 2018-05-23 20:17 | ED.PDOC ---
History of Present Illness - General Chief Complaint: Abdominal Pain Stated Complaint: abd pain, n/v Time Seen by Provider: 05/23/18 20:11 Information Source: patient, residential records - History of Present Illness Initial Comments: pt has been seen in this ED several times for this same problem. has chronic pain. pt says that Ativan given yesterday helped more than narcotics Abdominal Pain Onset Location: generalized abdomen Pain Radiation: no radiation Quality: burning, sharpness Timing/Duration: days - three Improving Factors: nothing Worsening Factors: nothing Associated Symptoms: nausea/vomiting Review of Systems - Review of Systems Constitutional: States: chills, fever, weakness EENTM: States: no symptoms reported Respiratory: States: no symptoms reported. Denies: short of breath Cardiology: States: edema. Denies: chest pain Gastrointestinal/Abdominal: States: abdominal pain, diarrhea, nausea, vomiting Genitourinary: States: no symptoms reported Musculoskeletal: States: no symptoms reported Skin: States: no symptoms reported Neurological: States: no symptoms reported Endocrine: States: no symptoms reported Hematologic/Lymphatic: States: no symptoms reported Past Medical History (General) - Patient Medical History Hx Seizures: No Hx Stroke: No Hx Dementia: No Hx Asthma: Yes Hx of COPD: No Hx Cardiac Disorders: No Hx Congestive Heart Failure: Yes Hx Pacemaker: No Hx Hypertension: Yes Hx Thyroid Disease: No Hx Diabetes: Yes Hx Gastroesophageal Reflux: Yes Hx Renal Disease: No Hx Cancer: No Hx of HIV: No Hx Hepatitis C: No Hx MRSA: No - Vaccination History Hx Tetanus, Diphtheria Vaccination: No Hx Influenza Vaccination: Yes Hx Pneumococcal Vaccination: Yes - Social History Hx Tobacco Use: Yes - quit Hx Alcohol Use: Yes - in past Hx Substance Use: Yes - Female History Patient : No Family Medical History - Family History Mother Family History: Unknown Living Status: Unknown Physical Exam - Physical Exam General Appearance: Alert, Anxious, Obvious distress Eyes, Ears, Nose, Throat Exam: PERRL/EOMI, pharynx normal Neck: non-tender, full range of motion, normal inspection Respiratory: chest non-tender, lungs clear, normal breath sounds Cardiovascular/Chest: regular rate, rhythm, other - 2+ EDEMA IN BOTH LEGS Gastrointestinal/Abdominal: normal bowel sounds, soft, tenderness - mild diffuse without guarding or rebound Extremity: no calf tenderness, swelling Neurologic: alert, oriented x 3 Skin Exam: normal color, warm/dry Progress - EKG/XRAY/CT EKG: Sinus, Tachy, nonspecific ST T wave Chg Comments: rate 110, LA 152, QRS 76 Departure - Departure Clinical Impression: Dehydration Abdominal pain Qualifiers: Abdominal location: generalized Qualified Code(s): R10.84 - Generalized abdominal pain Chronic renal failure Qualifiers: Chronic kidney disease stage: unspecified stage Qualified Code(s): N18.9 - Chronic kidney disease, unspecified Gastritis Qualifiers: Gastritis type: unspecified gastritis Chronicity: acute Disposition: Discharge to SNF Condition: Fair Departure Forms: ED Discharge - Pt. Copy, Patient Portal Self Enrollment Instructions: DI for Abdominal Pain-Adult Referrals: Mukesh Flowers MD [Primary Care Provider] - 1-2 Weeks Home Medications: Ambulatory Orders Calcitriol 0.25 mcg PO .3 TIMES/WEEK 12/03/17 Furosemide [Lasix] 40 mg PO QAM 12/03/17 Insulin Aspart [Novolog] 100 unit SC .ACHS AND 0300 12/03/17 Promethazine HCl 25 mg PO PRN PRN 12/03/17 Sertraline HCl 100 mg PO DAILY 12/03/17 Hydrocodone-Acetaminophen [[place] 7.5-325 mg] 1 tab PO BID 12/16/17 Gabapentin 600 mg PO TID 01/24/18 Metoprolol Tartrate 100 mg PO BID 01/24/18 Sucralfate Tab [Carafate Tab] 1 gm PO QID 01/24/18 amLODIPine BESYLATE [Norvasc] 10 mg PO DAILY 01/24/18 Cholecalciferol [Vitamin D3] 1,000 unit PO DAILY 02/09/18 Ferrous Sulfate [Iron] 65 mg PO DAILY 02/09/18 Hydralazine HCl 50 mg PO QID 02/09/18 Insulin Detemir [Levemir] 2 unit SUBCU BEDTIME 02/09/18 Spironolactone 50 mg PO DAILY 02/09/18 Calcium Acetate (Phosphate Bin [Calcium Acetate] 667 mg PO TID 05/22/18 Docusate Sodium 100 mg PO BID 05/22/18 Insulin Detemir [Levemir] 3 units SUBCU DAILY 05/22/18 Pantoprazole Tablet [Protonix] 40 mg PO ACBK 05/22/18 Vancomycin HCl 750 mg IV DAILY 05/22/18
[2018-05-23 21:02] VITALS: O2SAT 99
[2018-05-23] MEDS ORDERED: LABETALOL INJ 5 MG/ML VIAL IV ONE (21:22)
[2018-05-23] MEDS ORDERED: SODIUM CHLORIDE 0.9% 500ML 500 ML IVS ONE (21:22)
[2018-05-23] MEDS ORDERED: HEPARIN SODIUM 100 U/ML 5 ML SYG IV ONE ×2 (22:57)
[2018-05-23 23:06] VITALS: BP 128/79; TEMP 99.8
== END 2018-05-23 23:06 ==
LOC: ER 19:58
DX: K29.00 Acute gastritis without bleeding (principal); E86.0 Dehydration; N18.9 Chronic kidney disease, unspecified; R00.0 Tachycardia, unspecified; K21.9 Gastro-esophageal reflux disease without esophagitis; E11.22 Type 2 diabetes mellitus with diabetic chronic kidney disease; I13.2 Hypertensive heart and chronic kidney disease with heart failure and with stage 5 chronic kidney disease, or end stage renal disease; I50.9 Heart failure, unspecified; J45.909 Unspecified asthma, uncomplicated; Z87.891 Personal history of nicotine dependence
CPT/HCPCS: 36415; 36600; 80053; 82009; 82803; 82805; 83605; 83690; 85025; 93005; J1642; J2060; J7040

== ENCOUNTER 2018-05-24 03:56 | Emergency (ER) | payer MEDICARE, MEDICAID ==
--- NOTE | 2018-05-24 04:16 | ED.PDOC ---
History of Present Illness - General Chief Complaint: Fever Stated Complaint: fever Time Seen by Provider: 05/24/18 03:59 Source: patient, EMS Exam Limitations: no limitations - History of Present Illness Initial Comments: Pt sent from [facility] today for fever . Pt has had cough and N/V and fever for 3-4 days and is [facility] wenyd for vomiting and abd pain which are under control. 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 Denies: short of breath Cardiology: Denies: chest pain, edema Gastrointestinal/Abdominal: States: abdominal pain, diarrhea, nausea, vomiting Genitourinary: States: no symptoms reported Musculoskeletal: States: no symptoms reported Skin: States: no symptoms reported Neurological: States: anxiety. Denies: headache Endocrine: States: no symptoms reported Past Medical History (General) - Patient Medical History Hx Seizures: No Hx Stroke: No Hx Dementia: No Hx Asthma: Yes Hx of COPD: No Hx Cardiac Disorders: No Hx Congestive Heart Failure: Yes Hx Pacemaker: No Hx Hypertension: Yes Hx Thyroid Disease: No Hx Diabetes: Yes Hx Gastroesophageal Reflux: Yes Hx Renal Disease: No Hx Cancer: No Hx of HIV: No Hx Hepatitis C: No Hx MRSA: No - Vaccination History Hx Tetanus, Diphtheria Vaccination: No Hx Influenza Vaccination: Yes Hx Pneumococcal Vaccination: Yes - Social History Hx Tobacco Use: Yes - quit Hx Alcohol Use: Yes - in past Hx Substance Use: Yes - Female History Patient : No Family Medical History - Family History Mother Family History: Unknown Living Status: Unknown Physical Exam - Physical Exam General Appearance: Alert, Anxious, Comfortable ENT Exam: pharynx normal Neck: normal inspection Respiratory: lungs clear, normal breath sounds Cardiovascular/Chest: regular rate, rhythm Gastrointestinal/Abdominal: normal bowel sounds, non tender, soft Extremity: swelling Neurologic: alert, normal mood/affect, oriented x 3 Skin Exam: normal color, warm/dry Departure - Departure Clinical Impression: Fever in adult, Dehydration, Hypokalemia Disposition: Discharge to SNF Condition: Fair Departure Forms: ED Discharge - Pt. Copy, Patient Portal Self Enrollment Referrals: Kristie,Mukesh Chema, MD [Primary Care Provider] - 1-2 Weeks Home Medications: Ambulatory Orders Calcitriol 0.25 mcg PO .3 TIMES/WEEK 12/03/17 Furosemide [Lasix] 40 mg PO QAM 12/03/17 Insulin Aspart [Novolog] 100 unit SC .ACHS AND 0300 12/03/17 Promethazine HCl 25 mg PO PRN PRN 12/03/17 Sertraline HCl 100 mg PO DAILY 12/03/17 Hydrocodone-Acetaminophen [[place] 7.5-325 mg] 1 tab PO BID 12/16/17 Gabapentin 600 mg PO TID 01/24/18 Metoprolol Tartrate 100 mg PO BID 01/24/18 Sucralfate Tab [Carafate Tab] 1 gm PO QID 01/24/18 amLODIPine BESYLATE [Norvasc] 10 mg PO DAILY 01/24/18 Cholecalciferol [Vitamin D3] 1,000 unit PO DAILY 02/09/18 Ferrous Sulfate [Iron] 65 mg PO DAILY 02/09/18 Hydralazine HCl 50 mg PO QID 02/09/18 Insulin Detemir [Levemir] 2 unit SUBCU BEDTIME 02/09/18 Spironolactone 50 mg PO DAILY 02/09/18 Calcium Acetate (Phosphate Bin [Calcium Acetate] 667 mg PO TID 05/22/18 Docusate Sodium 100 mg PO BID 05/22/18 Insulin Detemir [Levemir] 3 units SUBCU DAILY 05/22/18 Pantoprazole Tablet [Protonix] 40 mg PO ACBK 05/22/18 Vancomycin HCl 750 mg IV DAILY 05/22/18
--- NOTE | 2018-05-24 04:23 | RAD ---
EXAM: Single view chest. INDICATION: Fever. COMPARISON: Chest x-ray: 05/22/2018. FINDINGS: Cardiac silhouette: Unremarkable. Susan: Unremarkable. Lobar consolidation: None. Pleural effusion: None. Pneumothorax: None. Other: The left central lines are unchanged in position. Bones: Unremarkable. Other: None. IMPRESSION: 1. No acute cardiopulmonary process. Electronically signed by: Topher Wilkins MD 05/24/2018 4:21 AM [facility] Workstation: [id number]
[2018-05-24] MEDS ORDERED: SODIUM CHLORIDE 0.9% 500ML 500 ML IVS ONE (06:04)
[2018-05-24] MEDS: POTASSIUM CHLORIDE 20 MEQ TAB PO ONE (06:18)
--- NOTE | 2018-05-24 11:30 | ED.PDOC ---
History of Present Illness - General Chief Complaint: Fever Stated Complaint: Fever Time Seen by Provider: 05/24/18 11:28 Source: RN notes reviewed Exam Limitations: clinical condition - History of Present Illness Initial Comments: WAS JUST DISCHARGED THIS MORNING AT 7 AM. SHE WENT TO HEMODIALYSIS AND WAS SEEN BY DR. MONTENEGRO AND GIVEN THE SITUATION HE RETURNS THE PATIENT TO THE ED AND SUGGEST TRANSFER TO [place]. ON ARRIVAL SHE IS AFEBRILE Timing/Duration: this morning Fever Severity/Quality: subjective Review of Systems - Review of Systems Constitutional: States: no symptoms reported EENTM: States: no symptoms reported Respiratory: States: cough Cardiology: States: no symptoms reported Gastrointestinal/Abdominal: States: no symptoms reported Genitourinary: States: no symptoms reported Musculoskeletal: States: no symptoms reported Skin: States: no symptoms reported Neurological: States: anxiety, other - SHE IS SOMNOLENT., EVIDENTLY RECEIVED ATIVAN AT THE OR Endocrine: States: no symptoms reported Hematologic/Lymphatic: States: no symptoms reported Past Medical History (General) - Patient Medical History Hx Seizures: No Hx Stroke: No Hx Dementia: No Hx Asthma: Yes Hx of COPD: No Hx Cardiac Disorders: No Hx Congestive Heart Failure: Yes Hx Pacemaker: No Hx Hypertension: Yes Hx Thyroid Disease: No Hx Diabetes: Yes Hx Gastroesophageal Reflux: Yes Hx Renal Disease: Yes - ESRD - dialysis MWF Hx Cancer: No Hx of HIV: No Hx Hepatitis C: No Hx MRSA: No - Vaccination History Hx Tetanus, Diphtheria Vaccination: No Hx Influenza Vaccination: Yes Hx Pneumococcal Vaccination: Yes - Social History Hx Tobacco Use: Yes - quit Hx Alcohol Use: Yes - in past Hx Substance Use: Yes - Activities of Daily Living Snf/Assisted Living (if applicable):: [facility] - Female History Patient : No Family Medical History - Family History Mother Family History: Unknown Living Status: Unknown Physical Exam - Physical Exam General Appearance: Alert, Other - SOMNOLENT BUT RESPONDS TO VERBAL STIMULI Eye Exam: bilateral normal ENT Exam: normal ENT inspection Neck: non-tender Respiratory: chest non-tender, rhonchi, other - SHE HAS TWO ANDREA CATHETERS ON THE ANTERIOR CHEST WALL. Cardiovascular/Chest: normal peripheral pulses, regular rate, rhythm, no edema Gastrointestinal/Abdominal: normal bowel sounds Extremity: normal range of motion Neurologic: no motor/sensory deficits, alert Skin Exam: normal color Lymphatic: no adenopathy Progress - Progress Progress: 05/24/18 11:[address] MARTÍNEZ AND WILL TRANSFER THE PATIENT TO THE ED AT . - Results/Orders Results/Orders: REVIEWED LABS FROM [facility] TODAY Departure - Departure Clinical Impression: End stage kidney disease Fever Qualifiers: Fever type: fever of unknown origin following delivery Qualified Code(s): O86.4 - Pyrexia of unknown origin following delivery Sepsis Qualifiers: Sepsis type: sepsis due to unspecified organism Qualified Code(s): A41.9 - Se psis, unspecified organism Time of Disposition: 11:35 Disposition: Transfer to Hospital Referrals: Mukesh Flowers MD [Primary Care Provider] - 1-2 Weeks Home Medications: Ambulatory Orders Calcitriol 0.25 mcg PO .3 TIMES/WEEK 12/03/17 Furosemide [Lasix] 40 mg PO QAM 12/03/17 Insulin Aspart [Novolog] 100 unit SC .ACHS AND 0300 12/03/17 Promethazine HCl 25 mg PO PRN PRN 12/03/17 Sertraline HCl 100 mg PO DAILY 12/03/17 Hydrocodone-Acetaminophen [[place] 7.5-325 mg] 1 tab PO BID 12/16/17 Gabapentin 600 mg PO TID 01/24/18 Metoprolol Tartrate 100 mg PO BID 01/24/18 Sucralfate Tab [Carafate Tab] 1 gm PO QID 01/24/18 amLODIPine BESYLATE [Norvasc] 10 mg PO DAILY 01/24/18 Cholecalciferol [Vitamin D3] 1,000 unit PO DAILY 02/09/18 Ferrous Sulfate [Iron] 65 mg PO DAILY 02/09/18 Hydralazine HCl 50 mg PO QID 02/09/18 Insulin Detemir [Levemir] 2 unit SUBCU BEDTIME 02/09/18 Spironolactone 50 mg PO DAILY 02/09/18 Calcium Acetate (Phosphate Bin [Calcium Acetate] 667 mg PO TID 05/22/18 Docusate Sodium 100 mg PO BID 05/22/18 Insulin Detemir [Levemir] 3 units SUBCU DAILY 05/22/18 Pantoprazole Tablet [Protonix] 40 mg PO ACBK 05/22/18 Vancomycin HCl 750 mg IV DAILY 05/22/18 Decision To Admit - Decistion To Admit Decision to Admit Date: 05/24/18 Decision to Admit Time: 11:49
[2018-05-24 12:00] VITALS: O2SAT 95
[2018-05-24 12:28] VITALS: BP 165/74; TEMP 100.8
== END 2018-05-24 08:50 ==
LOC: ER 03:56
DX: R50.9 Fever, unspecified (principal); E86.0 Dehydration; E87.6 Hypokalemia; E11.9 Type 2 diabetes mellitus without complications; I11.0 Hypertensive heart disease with heart failure; I50.9 Heart failure, unspecified; K21.9 Gastro-esophageal reflux disease without esophagitis; J45.909 Unspecified asthma, uncomplicated; Z87.891 Personal history of nicotine dependence; Z79.4 Long term (current) use of insulin
CPT/HCPCS: 71045; 80048; 81001; 83605; 85025; 87040; 87502; J2060; J7040

== ENCOUNTER 2018-06-28 12:15 | Emergency (ER) | payer MEDICARE, MEDICAID ==
[2018-06-28] MEDS ORDERED: PROMETHAZINE HCL INJ 25 MG/ML VIAL IVPB ONE (12:28)
--- NOTE | 2018-06-28 12:33 | ED.PDOC ---
History of Present Illness - General Chief Complaint: GI Problem Time Seen by Provider: 06/28/18 12:21 Information Source: patient - History of Present Illness Initial Comments: ONSET TODAY, FEVER, VOMITING AND DIARRHEA ASSOCIATED WITH MYALGIAS AND MALAISE. SHE VOICES THAT HER BLOOD SUGARS HAVE BEEN HIGH. SHE WENT TO DIALYSIS AND WAS SENT TO THE ED. SHE HAS DIABETES AND HTN. THE HAS A ANDREA CATHETER ON THE CHEST. Abdominal Pain Onset Location: generalized abdomen Pain Radiation: no radiation Quality: cramping Timing/Duration: days Worsening Factors: nothing Associated Symptoms: diarrhea, fever/chills, fatigue, nausea/vomiting, shortness of breath Review of Systems - Review of Systems Constitutional: States: fever EENTM: States: no symptoms reported Respiratory: States: cough, short of breath Cardiology: States: palpitations Gastrointestinal/Abdominal: States: diarrhea, vomiting Genitourinary: States: no symptoms reported Musculoskeletal: States: muscle pain Neurological: States: no symptoms reported Endocrine: States: no symptoms reported Hematologic/Lymphatic: States: no symptoms reported Past Medical History (General) - Patient Medical History Hx Seizures: No Hx Stroke: No Hx Dementia: No Hx Asthma: Yes Hx of COPD: No Hx Cardiac Disorders: No Hx Congestive Heart Failure: Yes Hx Pacemaker: No Hx Hypertension: Yes Hx Thyroid Disease: No Hx Diabetes: Yes Hx Gastroesophageal Reflux: Yes Hx Renal Disease: Yes - ESRD - dialysis MWF Hx Cancer: No Hx of HIV: No Hx Hepatitis C: No Hx MRSA: No - Vaccination History Hx Tetanus, Diphtheria Vaccination: No Hx Influenza Vaccination: Yes Hx Pneumococcal Vaccination: Yes - Social History Hx Tobacco Use: Yes - quit Hx Alcohol Use: Yes - in past Hx Substance Use: Yes - Female History Patient : No Family Medical History - Family History Mother Family History: Unknown Living Status: Unknown Physical Exam - Physical Exam General Appearance: Alert, Ill Appearing, Restless, Well Developed, Well Nourished Eyes, Ears, Nose, Throat Exam: PERRL/EOMI, normal ENT inspection, other - ORAL MUCOSA IS DRY Neck: non-tender, full range of motion, supple Respiratory: chest non-tender, crackles, rhonchi Cardiovascular/Chest: normal peripheral pulses, regular rate, rhythm, no edema, no gallop Gastrointestinal/Abdominal: normal bowel sounds, no organomegaly, no pulsatile mass Back Exam: normal inspection, no vertebral tenderness Extremity: normal range of motion, non-tender, normal inspection Neurologic: no motor/sensory deficits, normal mood/affect, oriented x 3 Lymphatic: no adenopathy Progress - Progress Progress: 06/28/18 14:[address] MONTENEGRO-SUGGEST ADMISSION AND BS CONTROL,EMESIS CONTROL AND DIALYSIS TOMORROW. 06/28/18 14:37 CASE DISCUSSED WITH WILIAN CHRISTENSEN RN: THIS FACILITY WILL NOT ADMIT ANY DIALYSIS PATIENTS. CASE DISCUSED WITH SHERICE WASHBURN: ACCEPTS THE PATIENT. Departure - Departure Clinical Impression: Gastroenteritis, Hyperglycemia due to type 1 diabetes mellitus Uncontrolled diabetes mellitus Qualifiers: Diabetes mellitus type: type 1 Glycemic state: with hyperglycemia Qualified Code(s): E10.65 - Type 1 diabetes mellitus with hyperglycemia Time of Disposition: 14:40 Disposition: Transfer to Hospital Home Medications: Ambulatory Orders Calcitriol 0.25 mcg PO .3 TIMES/WEEK 12/03/17 Furosemide [Lasix] 40 mg PO QAM 12/03/17 Insulin Aspart [Novolog] 100 unit SC .ACHS AND 0300 12/03/17 Promethazine HCl 25 mg PO PRN PRN 12/03/17 Sertraline HCl 100 mg PO DAILY 12/03/17 Hydrocodone-Acetaminophen [[place] 7.5-325 mg] 1 tab PO BID 12/16/17 Gabapentin 600 mg PO TID 01/24/18 Metoprolol Tartrate 100 mg PO BID 01/24/18 Sucralfate Tab [Carafate Tab] 1 gm PO QID 01/24/18 amLODIPine BESYLATE [Norvasc] 10 mg PO DAILY 01/24/18 Cholecalciferol [Vitamin D3] 1,000 unit PO DAILY 02/09/18 Ferrous Sulfate [Iron] 65 mg PO DAILY 02/09/18 Hydralazine HCl 50 mg PO QID 02/09/18 Insulin Detemir [Levemir] 2 unit SUBCU BEDTIME 02/09/18 Spironolactone 50 mg PO DAILY 02/09/18 Calcium Acetate (Phosphate Bin [Calcium Acetate] 667 mg PO TID 05/22/18 Docusate Sodium 100 mg PO BID 05/22/18 Insulin Detemir [Levemir] 3 units SUBCU DAILY 05/22/18 Pantoprazole Tablet [Protonix] 40 mg PO ACBK 05/22/18 Vancomycin HCl 750 mg IV DAILY 05/22/18 Transfer to Outside Facility - Transfer Information Accepting Provider:: [facility] Accepting Facility: [facility] Reason for Transfer: required specialist not available
[2018-06-28] MEDS ORDERED: SODIUM CHLORIDE 0.9% 50ML 50 ML ONE (12:54)
--- NOTE | 2018-06-28 14:03 | RAD ---
EXAM DESCRIPTION: Chest,1 View CLINICAL HISTORY: 28 years Female, sob COMPARISON: Radiograph of the chest dated 05/24/2018. TECHNIQUE: AP radiograph of the chest was obtained. FINDINGS: Left-sided central venous catheter is visualized. Trachea is midline.The cardiomediastinal silhouette is normal in size. There is mild pulmonary vascular congestion.The lungs are clear with no acute consolidation.No evidence of pleural effusions. IMPRESSION: Mild diffuse pulmonary vascular congestion is noted. This can be seen with early congestive heart failure. Electronically signed by: Dolly Coombs MD 06/28/2018 2:00 PM [facility]
[2018-06-28] MEDS ORDERED: INSULIN, REG.(HUMAN) 100 U/ML VIAL SUBCU ONE (14:21)
[2018-06-28 16:01] VITALS: BP 198/106; TEMP 99.6; O2SAT 99
== END 2018-06-28 16:01 | disposition short-term general hospital (02) ==
LOC: ER 12:15
DX: K52.9 Noninfective gastroenteritis and colitis, unspecified (principal); E10.65 Type 1 diabetes mellitus with hyperglycemia; J45.909 Unspecified asthma, uncomplicated; I50.9 Heart failure, unspecified; E10.22 Type 1 diabetes mellitus with diabetic chronic kidney disease; I13.2 Hypertensive heart and chronic kidney disease with heart failure and with stage 5 chronic kidney disease, or end stage renal disease; N18.6 End stage renal disease; K21.9 Gastro-esophageal reflux disease without esophagitis; Z99.2 Dependence on renal dialysis; Z79.4 Long term (current) use of insulin; Z79.899 Other long term (current) drug therapy; Z87.891 Personal history of nicotine dependence
CPT/HCPCS: 36416; 71045; 80053; 82009; 82948; 85025; 87070; 87502; 87880; A4216; J2060; J2550

== ENCOUNTER 2018-07-21 09:09 | Emergency (ER) | payer MEDICARE, MEDICAID ==
--- NOTE | 2018-07-21 09:21 | ED.PDOC ---
History of Present Illness - General Chief Complaint: Diabetic Complaint Stated Complaint: Elevated BS, hemoptysis Time Seen by Provider: 07/21/18 09:15 Source: RN notes reviewed, EMS Exam Limitations: clinical condition - awake but non communicative - History of Present Illness Initial Comments: Jennifer Kessler 28 y/o female w/DM1 ESRD on hemodialysis brought by EMS had hematemesis at [facility] this AM.She was also found to be lethargic. Timing/Duration: 4-6 hours Severity: moderate Improving Factors: nothing Worsening Factors: nothing Associated Symptoms: other - see hpi Allergies/Adverse Reactions: Allergies NO KNOWN ALLERGY Allergy (Verified 07/21/18 09:24) Home Medications: Ambulatory Orders Calcitriol 0.25 mcg PO .3 TIMES/WEEK 12/03/17 Furosemide [Lasix] 40 mg PO QAM 12/03/17 Insulin Aspart [Novolog] 100 unit SC .ACHS AND 0300 12/03/17 Promethazine HCl 25 mg PO PRN PRN 12/03/17 Sertraline HCl 100 mg PO DAILY 12/03/17 Hydrocodone-Acetaminophen [[place] 7.5-325 mg] 1 tab PO BID 12/16/17 Gabapentin 600 mg PO TID 01/24/18 Metoprolol Tartrate 100 mg PO BID 01/24/18 Sucralfate Tab [Carafate Tab] 1 gm PO QID 01/24/18 amLODIPine BESYLATE [Norvasc] 10 mg PO DAILY 01/24/18 Cholecalciferol [Vitamin D3] 1,000 unit PO DAILY 02/09/18 Ferrous Sulfate [Iron] 65 mg PO DAILY 02/09/18 Hydralazine HCl 50 mg PO QID 02/09/18 Insulin Detemir [Levemir] 2 unit SUBCU BEDTIME 02/09/18 Spironolactone 50 mg PO DAILY 02/09/18 Calcium Acetate (Phosphate Bin [Calcium Acetate] 667 mg PO TID 05/22/18 Docusate Sodium 100 mg PO BID 05/22/18 Insulin Detemir [Levemir] 3 units SUBCU DAILY 05/22/18 Pantoprazole Tablet [Protonix] 40 mg PO ACBK 05/22/18 Vancomycin HCl 750 mg IV DAILY 05/22/18 Review of Systems - Review of Systems All other Systems: Reviewed and Negative, No Change from Baseline Past Medical History (General) - Patient Medical History Hx Seizures: No Hx Stroke: No Hx Dementia: No Hx Asthma: Yes Hx of COPD: No Hx Cardiac Disorders: No Hx Congestive Heart Failure: Yes Hx Pacemaker: No Hx Hypertension: Yes Hx Thyroid Disease: No Hx Diabetes: Yes Hx Gastroesophageal Reflux: Yes Hx Renal Disease: Yes - ESRD - dialysis MWF Hx Cancer: No Hx of HIV: No Hx Hepatitis C: No Hx MRSA: No Surgical History: other - kolby placement - Vaccination History Hx Tetanus, Diphtheria Vaccination: No Hx Influenza Vaccination: Yes Hx Pneumococcal Vaccination: Yes - Social History Hx Tobacco Use: Yes - quit Hx Alcohol Use: Yes - in past Hx Substance Use: Yes - Female History Patient : No Family Medical History - Family History Mother Family History: Unknown Living Status: Unknown Physical Exam - Physical Exam General Appearance: Lethargic, Ill Appearing Eye Exam: bilateral normal Ears, Nose, Throat: normal ENT inspection, other - dry oral mucosa with coffee ground emesis Neck: supple, normal inspection Respiratory: lungs clear, normal breath sounds, other - tachypneic Cardiovascular/Chest: no murmur, tachycardia Peripheral Pulses: radial,right: 2+, radial,left: 2+ Gastrointestinal/Abdominal: non tender, soft Back Exam: no CVA tenderness, no vertebral tenderness Extremity: no pedal edema, no calf tenderness Neurologic: alert, oriented x 3 Skin Exam: normal color, warm/dry, other - multiple skin sore face and arms Lymphatic: no adenopathy Progress - Progress Progress: 07/21/18 12:20 Vital Signs 07/21/18 09:09 Temperature 97.9 F Pulse Rate [ 110 H Left Radial] Respiratory 24 Rate Blood Pressure 123/84 [Left Arm] O2 Sat by Pulse 94 L Oximetry - Results/Orders Results/Orders: 07/21/18 11:49 Sodium Chloride 0.9% 1000ML [Ns 1000 ml] 1,000 ml IVS ONCE Laboratory Results - last 24 hr 07/21/18 07/21/18 07/21/18 09:34 10:04 10:04 WBC 17.5 H RBC 3.72 L Hgb 11.4 L Hct 40.9 MCV 109.9 H MCH 30.8 MCHC 28.0 L RDW 22.4 H Plt Count 341 MPV 9.0 Absolute Neuts (auto) 15.80 H Absolute Lymphs (auto) 0.90 L Absolute Monos (auto) 0.80 Absolute Eos (auto) 0.00 Absolute Basos (auto) 0.10 Neutrophils % 89.9 H Lymphocytes % 4.9 L Monocytes % 4.7 Eosinophils % 0.1 L Basophils % 0.4 pCO2 21 L pO2 95 HCO3 7.4 ABG pH 7.170 L* ABG O2 Saturation 96.6 ABG Base Excess -19.9 ABG Deoxyhemoglobin 3.3 Oxyhemoglobin % 93.6 L Carboxyhemoglobin % 1.2 Methemoglobin % Sat 2.0 H Calc Total Hemoglobin 10.8 L Sodium 131 L Potassium 4.1 Chloride 89 L Carbon Dioxide 8 L* Anion Gap 38.1 H BUN 55 H Creatinine 4.16 H BUN/Creatinine Ratio 13.2 POC Glucose Random Glucose 823 H* Serum Osmolality Not Reportable Lactic Acid Calcium 8.2 L Total Bilirubin 2.8 H* AST 19 ALT 20 Alkaline Phosphatase 80 Serum Total Protein 5.8 L Albumin 2.7 L Globulin 3.1 Albumin/Globulin Ratio 0.9 L 07/21/18 07/21/18 07/21/18 10:04 10:04 10:18 WBC RBC Hgb Hct MCV MCH MCHC RDW Plt Count MPV Absolute Neuts (auto) Absolute Lymphs (auto) Absolute Monos (auto) Absolute Eos (auto) Absolute Basos (auto) Neutrophils % Lymphocytes % Monocytes % Eosinophils % Basophils % pCO2 pO2 HCO3 ABG pH ABG O2 Saturation ABG Base Excess ABG Deoxyhemoglobin Oxyhemoglobin % Carboxyhemoglobin % Methemoglobin % Sat Calc Total Hemoglobin Sodium Potassium Chloride Carbon Dioxide Anion Gap BUN Creatinine BUN/Creatinine Ratio POC Glucose > 400 H* Random Glucose Cancelled Serum Osmolality Lactic Acid 2.9 H* Calcium Total Bilirubin AST ALT Alkaline Phosphatase Serum Total Protein Albumin Globulin Albumin/Globulin Ratio - EKG/XRAY/CT XRAY: chest - bronchitis Departure - Departure Clinical Impression: Skin sore DKA (diabetic ketoacidosis) Qualifiers: Diabetes mellitus type: type 1 Diabetes mellitus complication detail: without coma Qualified Code(s): E10.10 - Type 1 diabetes mellitus with ketoacidosis without coma Hematemesis/vomiting blood Qualifiers: Nausea presence: unspecified Qualified Code(s): K92.0 - Hematemesis Time of Disposition: 13:45 Disposition: Transfer to Hospital Departure Forms: ED Discharge - Pt. Copy, Patient Portal Self Enrollment Instructions: DI for Diabetes Type 2 Referrals: Mukesh Flowers MD [Primary Care Provider] - 1-2 Weeks Home Medications: Ambulatory Orders Calcitriol 0.25 mcg PO .3 TIMES/WEEK 12/03/17 Furosemide [Lasix] 40 mg PO QAM 12/03/17 Insulin Aspart [Novolog] 100 unit SC .ACHS AND 0300 12/03/17 Promethazine HCl 25 mg PO PRN PRN 12/03/17 Sertraline HCl 100 mg PO DAILY 12/03/17 Hydrocodone-Acetaminophen [[place] 7.5-325 mg] 1 tab PO BID 12/16/17 Gabapentin 600 mg PO TID 01/24/18 Metoprolol Tartrate 100 mg PO BID 01/24/18 Sucralfate Tab [Carafate Tab] 1 gm PO QID 01/24/18 amLODIPine BESYLATE [Norvasc] 10 mg PO DAILY 01/24/18 Cholecalciferol [Vitamin D3] 1,000 unit PO DAILY 02/09/18 Ferrous Sulfate [Iron] 65 mg PO DAILY 02/09/18 Hydralazine HCl 50 mg PO QID 02/09/18 Insulin Detemir [Levemir] 2 unit SUBCU BEDTIME 02/09/18 Spironolactone 50 mg PO DAILY 02/09/18 Calcium Acetate (Phosphate Bin [Calcium Acetate] 667 mg PO TID 05/22/18 Docusate Sodium 100 mg PO BID 05/22/18 Insulin Detemir [Levemir] 3 units SUBCU DAILY 05/22/18 Pantoprazole Tablet [Protonix] 40 mg PO ACBK 05/22/18 Vancomycin HCl 750 mg IV DAILY 05/22/18 Transfer to Outside Facility - Transfer Information Accepting Provider:: Dr. David Edwards Accepting Facility: 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
--- NOTE | 2018-07-21 10:40 | RAD ---
CHEST 07/21/2018 CLINICAL HISTORY: Hemoptysis COMPARISON: Chest 06/28/2018 TECHNIQUE: [AP] Chest. FINDINGS: Left internal jugular dual-lumen dialysis catheter remains stable in the upper right atrial region. The heart is normal in size. There are increased peribronchial densities suggesting bronchitis. Minimal right infrahilar atelectasis. No confluent airspace opacities. There is left upper lobe scarring. No pneumothorax or pleural fluid. Bones appear intact. IMPRESSION: 1. Suggestion of bronchitis. Right infrahilar atelectasis. Stable dialysis catheter. Electronically signed by: Linnea Cisneros DO 07/21/2018 10:37 AM CDT
[2018-07-21] MEDS ORDERED: SODIUM CHLORIDE 0.9% 1000ML 1,000 ML IVS ONE ×3 (11:30→13:44)
[2018-07-21] MEDS ORDERED: [UNRECOGNIZED DRUG - OTHER] IVS ONE (11:33)
[2018-07-21] MEDS ORDERED: KCL IVS ONE (11:33)
[2018-07-21] MEDS ORDERED: SODIUM CHLORIDE 0.9% 1000ML 2,000 ML ONE (11:34)
[2018-07-21] MEDS ORDERED: fentaNYL CITRATE INJ 50 MCG/ML AMP ONE (11:38)
[2018-07-21] MEDS ORDERED: PANTOPRAZOLE INJECTION 80 MG in SODIUM CHLORIDE 0.9% 100ML 80 ML IVPB ONE (11:46)
[2018-07-21] MEDS ORDERED: METOCLOPRAMIDE HCL INJ 10 MG/2 ML VIAL IV ONE (11:47)
[2018-07-21] MEDS ORDERED: PANTOPRAZOLE SODIUM IV 40 MG VIAL ONE (11:48)
[2018-07-21] MEDS ORDERED: SODIUM CHLORIDE 0.9% 100ML 100 ML IVPB ONE (11:50)
--- NOTE | 2018-07-21 12:05 | RAD ---
EXAM DESCRIPTION: Pelvis CLINICAL HISTORY: 28 years Female, Central line placement COMPARISON: Plain film of the abdomen dated February 09, 2018. FINDINGS: Since the previous study, a catheter has been placed in the right groin, presumably in the right common femoral vein, extending cephalad to the right of midline and to the level of the L4 vertebra, with the catheter tip presumably near the junction of the right common iliac vein and the inferior vena cava. Patient rotation to the right is noted. Intraluminal location of the catheter could be confirmed clinically. Pelvic soft tissues are grossly unremarkable. Regional bony structures appear intact as visualized. IMPRESSION: Right femoral catheter in place as described above. Electronically signed by: Torres Ospina MD 07/21/2018 12:02 PM CDT
[2018-07-21] MEDS ORDERED: MORPHINE SULFATE INJ 10 MG/ML VIAL IV ONE (13:07)
[2018-07-21] MEDS ORDERED: INSULIN, REG.(HUMAN) 250 UNITS in SODIUM CHL 0.9% 250ML (AVIVA) 247.5 ML IVPB SCH ×2 (13:30)
[2018-07-21] MEDS ORDERED: INSULIN, REG.(HUMAN) 100 U/ML VIAL ONE (13:51)
[2018-07-21] MEDS ORDERED: SODIUM CHL 0.9% 250ML (AVIVA) 250 ML IVPB ONE (13:51)
[2018-07-21 14:44] VITALS: BP 129/65
[2018-07-21] MEDS ORDERED: fentaNYL CITRATE INJ 50 MCG/ML AMP IV ONE (15:02)
[2018-07-21 15:51] VITALS: TEMP 98.9; O2SAT 98
== END 2018-07-21 15:18 | disposition short-term general hospital (02) ==
LOC: ER 09:09
DX: E10.10 Type 1 diabetes mellitus with ketoacidosis without coma (principal); K92.0 Hematemesis; L98.9 Disorder of the skin and subcutaneous tissue, unspecified; E10.22 Type 1 diabetes mellitus with diabetic chronic kidney disease; N18.6 End stage renal disease; I50.9 Heart failure, unspecified; I13.2 Hypertensive heart and chronic kidney disease with heart failure and with stage 5 chronic kidney disease, or end stage renal disease; J45.909 Unspecified asthma, uncomplicated; K21.9 Gastro-esophageal reflux disease without esophagitis; Z99.2 Dependence on renal dialysis; Z79.4 Long term (current) use of insulin; Z79.899 Other long term (current) drug therapy; Z87.891 Personal history of nicotine dependence
CPT/HCPCS: 36600; 71045; 72170; 80053; 82270; 82803; 82805; 82948; 83605; 85025; J2060; J2270; J2765; J3010; J7030; J7050

== ENCOUNTER 2018-08-11 17:42 | Emergency (ER) | payer MEDICARE, MEDICAID ==
[2018-08-11] MEDS: ONDANSETRON ODT 8 MG TAB SL ONE (17:55)
[2018-08-11] MEDS: PROMETHAZINE HCL INJ 25 MG/ML VIAL IM ONE (18:35)
--- NOTE | 2018-08-11 18:37 | RAD ---
EXAM: XR Abdomen 2 Views With XR Chest CLINICAL HISTORY: The patient is 28 years old and is Female; nv abd pain TECHNIQUE: Frontal view of the chest, frontal view of the abdomen/pelvis and upright or decubitus view of the abdomen. COMPARISON: No relevant prior studies available. FINDINGS: LUNGS: Minimal right basilar opacity is noted. PLEURAL SPACE: Unremarkable. No pneumothorax. HEART: Unremarkable. No cardiomegaly. MEDIASTINUM: Unremarkable. INTRAPERITONEAL SPACE: No free air. GASTROINTESTINAL TRACT: The bowel gas pattern is nonobstructive. A moderate amount of stool is present throughout the colon. No dilated loops of bowel are seen. BONES/JOINTS: Unremarkable. SOFT TISSUES: A right nipple ring is noted. VASCULATURE: A left IJ Vas-Cath is present with the tip in the region of the SVC. IMPRESSION: 1. Findings suggestive a right basilar atelectasis. 2. Moderate stool burden without obstruction. Electronically signed by: Nereyda Cunningham MD 08/11/2018 6:34 PM CDT
[2018-08-11] MEDS: MORPHINE SULFATE INJ 10 MG/ML VIAL IV ONE (19:09)
[2018-08-11] MEDS: PROMETHAZINE HCL INJ 25 MG in SODIUM CHLORIDE 0.9% 50ML 50 ML IVPB ONE (19:14)
[2018-08-11] MEDS: SODIUM CHLORIDE 0.9% 1000ML 500 ML IVS ONE (19:17)
[2018-08-11] MEDS: ALUMINUM & MAGNESIUM HYDROXIDE 30 ML UD PO ONE (19:18)
[2018-08-11] MEDS: cloNIDine HCL 0.1 MG TAB PO ONE (19:21)
--- NOTE | 2018-08-11 19:49 | ED.PDOC ---
History of Present Illness - General Chief Complaint: Abdominal Pain Stated Complaint: abdominal pain,n/v Time Seen by Provider: 08/11/18 17:48 Source: patient Exam Limitations: no limitations - History of Present Illness Initial Comments: The patient is a 28-year-old female presenting to the emergency room secondary to nausea vomiting abdominal pain diffuse since early this morning around 7 AM. The patient does have a history of some gastroparesis andrecurrent nausea and vomiting episodes. She actually had a mild upper GI bleed about a month ago that was treated at [facility]. The patient also has a history of CHF along with brittle type 1 diabetes requiring actually very small doses of insulin or she becomes hypoglycemic. She has had multiple episodes of DKA in the past, some with near normal blood sugars. She has end-stage renal disease and sees Dr. Duncan for her dialysis. She does have a dialysis catheter currently. The patient has had very long-standing chronic pain from her complications primarily of her diabetes. The patient is in very poor health in general. In all honesty prognosis in total is probably less than one year.no blood in the vomitus though there is some questionable bile. No real point tenderness to the abdomen. No definite palpable mass.additionally the patient has been unable to hold down any of her chronic pain, anxiety or hypertension medications. This has no doubt complicated her general status. Timing/Duration: other - since this morning Severity: severe Improving Factors: nothing Worsening Factors: nothing Associated Symptoms: loss of appetite, malaise, nausea/vomiting, weakness Allergies/Adverse Reactions: Allergies NO KNOWN ALLERGY Allergy (Verified 07/21/18 09:24) Home Medications: Ambulatory Orders Calcitriol 0.25 mcg PO .3 TIMES/WEEK 12/03/17 Furosemide [Lasix] 40 mg PO QAM 12/03/17 Insulin Aspart [Novolog] 100 unit SC .ACHS AND 0300 12/03/17 Promethazine HCl 25 mg PO PRN PRN 12/03/17 Sertraline HCl 100 mg PO DAILY 12/03/17 Hydrocodone-Acetaminophen [Kenton 7.5-325 mg] 1 tab PO BID 12/16/17 Gabapentin 600 mg PO TID 01/24/18 Metoprolol Tartrate 100 mg PO BID 01/24/18 Sucralfate Tab [Carafate Tab] 1 gm PO QID 01/24/18 amLODIPine BESYLATE [Norvasc] 10 mg PO DAILY 01/24/18 Cholecalciferol [Vitamin D3] 1,000 unit PO DAILY 02/09/18 Ferrous Sulfate [Iron] 65 mg PO DAILY 02/09/18 Hydralazine HCl 50 mg PO QID 02/09/18 Insulin Detemir [Levemir] 2 unit SUBCU BEDTIME 02/09/18 Spironolactone 50 mg PO DAILY 02/09/18 Calcium Acetate (Phosphate Bin [Calcium Acetate] 667 mg PO TID 05/22/18 Docusate Sodium 100 mg PO BID 05/22/18 Insulin Detemir [Levemir] 3 units SUBCU DAILY 05/22/18 Pantoprazole Tablet [Protonix] 40 mg PO ACBK 05/22/18 Vancomycin HCl 750 mg IV DAILY 05/22/18 Review of Systems - Review of Systems Constitutional: States: malaise, weakness EENTM: States: no symptoms reported Respiratory: States: no symptoms reported - the patient does have chronic shortness of breath but none worse today than previous. Cardiology: States: no symptoms reported Gastrointestinal/Abdominal: States: abdominal pain, constipation, nausea, vomiting Genitourinary: States: no symptoms reported Musculoskeletal: States: back pain - chronic Skin: States: no symptoms reported Neurological: States: anxiety All other Systems: No Change from Baseline Past Medical History (General) - Patient Medical History Hx Seizures: No Hx Stroke: No Hx Dementia: No Hx Asthma: Yes Hx of COPD: No Hx Cardiac Disorders: No Hx Congestive Heart Failure: Yes Hx Pacemaker: No Hx Hypertension: Yes Hx Thyroid Disease: No Hx Diabetes: Yes Hx Gastroesophageal Reflux: Yes Hx Renal Disease: Yes - ESRD - dialysis MWF Hx Cancer: No Hx of HIV: No Hx Hepatitis C: No Hx MRSA: No - Vaccination History Hx Tetanus, Diphtheria Vaccination: No Hx Influenza Vaccination: Yes Hx Pneumococcal Vaccination: Yes - Social History Hx Tobacco Use: Yes - quit Hx Alcohol Use: Yes - in past Hx Substance Use: Yes - Activities of Daily Living Skilled Nursing/Assisted Living (if applicable):: [facility] - Female History Patient is a Female of Child Bearing Age (10 -59 yrs old): Yes Patient : No Family Medical History - Family History Mother Family History: Unknown Living Status: Unknown Physical Exam - Physical Exam General Appearance: Alert, Anxious, Frail, Ill Appearing Eye Exam: bilateral other - poor vision bilaterally Ears, Nose, Throat: hearing grossly normal, normal pharynx Neck: full range of motion, other - multiple scars from IJ's previously Respiratory: lungs clear, normal breath sounds, no respiratory distress, no acc essory muscle use Cardiovascular/Chest: tachycardia, other - trace to 1+ pedal edema bilaterally Peripheral Pulses: radial,right: 2+, radial,left: 2+ Gastrointestinal/Abdominal: soft, other - diffuse discomfort to palpation but no obvious rebound Rectal Exam: deferred Back Exam: CVA tenderness (R) - this is a frequent finding with this patient, CVA tenderness (L) - this is a frequent finding with this patient Extremity: normal range of motion, normal capillary refill, pelvis stable, pedal edema - +1 Neurologic: alert, oriented x 3, other - the patient is obviously in great discomfort and very anxious. She does have chronicneurological deficits from her diabetes. Skin Exam: pallor Comments: Vital Signs - 24 hr 08/11/18 08/11/18 08/11/18 17:57 19:20 19:36 Temperature 99.3 F Pulse Rate [ 113 H 105 H 100 H Left Brachial] Respiratory 24 22 20 Rate Blood Pressure 190/135 171/106 147/92 [Left Arm] O2 Sat by Pulse 97 99 99 Oximetry Progress - Progress Progress: 08/11/18 19:54 the patient's 28-year-old female presenting secondary to a recurrent episode of abdominal pain along with nausea and vomiting since this morning. The patient had been unable to get down her normal medications which is complicating the picture. Patient was markedly hypertensive upon arrival but blood pressures have significantly improved with medications. The patient did receive a small IV fluid bolus which seems to help the abdominal discomfort some as well. She has received several doses of nausea medications and probably more importantly she has received a dose of benzodiazepine and opiate which she normally gets on a scheduled basis but has not been able to receive yet today. Blood sugar florentin precipitously in just in a few hours since she was here. The patient is a very brittle diabetic and requires very small dosings otherwise she bottoms out so any sliding scale that is used with her needs to be a very small dose sliding scale to prevent hypoglycemia. The patient received a dose of insulin here around 7pm. pH was 7.36 on ABG. The patient will need dialysis tomorrow. She is a patient of Dr. Duncan's. Transferring for higher level of care. EJ was placed on the right. - Results/Orders Results/Orders: acute abdominal series shows some constipation and some atelectasis along with her dialysis catheter being in place 08/11/18 18:00 EKG STAT Laboratory Results - last 24 hr 08/11/18 08/11/18 08/11/18 18:54 18:58 18:58 WBC 12.7 H RBC 2.85 L Hgb 8.6 L Hct 27.4 L MCV 96.1 MCH 30.4 MCHC 31.6 L RDW 18.5 H Plt Count 134 MPV 8.5 Absolute Neuts (auto) 11.70 H Absolute Lymphs (auto) 0.70 L Absolute Monos (auto) 0.20 Absolute Eos (auto) 0.00 Absolute Basos (auto) 0.10 Neutrophils % 91.7 H Lymphocytes % 5.4 L Monocytes % 1.9 L Eosinophils % 0.2 L Basophils % 0.8 pCO2 32 pO2 87 HCO3 17.7 ABG pH 7.360 ABG O2 Saturation 97.9 ABG Base Excess -6.4 ABG Deoxyhemoglobin 2.0 Oxyhemoglobin % 93.0 L Carboxyhemoglobin % 1.9 H Methemoglobin % Sat 3.2 H Calc Total Hemoglobin 8.5 L Sodium 133 L Potassium 5.5 H Chloride 97 L Carbon Dioxide 17 L Anion Gap 24.5 H BUN 53 H Creatinine 3.97 H BUN/Creatinine Ratio 13.4 Random Glucose 483 H* Serum Osmolality 302.1 H Lactic Acid Calcium 8.4 Magnesium 2.8 H Total Bilirubin 1.8 H AST 94 H ALT 58 Alkaline Phosphatase 129 H Creatine Kinase 57 CK-MB (CK-2) 2.7 CK-MB (CK-2) % Not Reportable Troponin I < 0.02 Serum Total Protein 6.0 L Albumin 2.6 L Globulin 3.4 Albumin/Globulin Ratio 0.8 L Amylase 14 L Lipase 20 L Serum HCG, Qual 08/11/18 08/11/18 18:58 18:58 WBC RBC Hgb Hct MCV MCH MCHC RDW Plt Count MPV Absolute Neuts (auto) Absolute Lymphs (auto) Absolute Monos (auto) Absolute Eos (auto) Absolute Basos (auto) Neutrophils % Lymphocytes % Monocytes % Eosinophils % Basophils % pCO2 pO2 HCO3 ABG pH ABG O2 Saturation ABG Base Excess ABG Deoxyhemoglobin Oxyhemoglobin % Carboxyhemoglobin % Methemoglobin % Sat Calc Total Hemoglobin Sodium Potassium Chloride Carbon Dioxide Anion Gap BUN Creatinine BUN/Creatinine Ratio Random Glucose Serum Osmolality Lactic Acid 1.5 Calcium Magnesium Total Bilirubin AST ALT Alkaline Phosphatase Creatine Kinase CK-MB (CK-2) CK-MB (CK-2) % Troponin I Serum Total Protein Albumin Globulin Albumin/Globulin Ratio Amylase Lipase Serum HCG, Qual Negative Departure - Departure Clinical Impression: Gastroparesis, Uncontrolled hypertension, Hyperkalemia, End stage renal disease, Insulin dependent diabetes mellitus Nausea and vomiting Qualifiers: Vomiting type: unspecified Vomiting Intractability: non-intractable Qualified Code(s): R11.2 - Nausea with vomiting, unspecified Abdominal pain Qualifiers: Abdominal location: generalized Qualified Code(s): R10.84 - Generalized abdominal pain Disposition: Transfer to Hospital Departure Forms: ED Discharge - Pt. Copy, Patient Portal Self Enrollment Referrals: Mukesh Flowers MD [Primary Care Provider] - 1-2 Weeks Home Medications: Ambulatory Orders Calcitriol 0.25 mcg PO .3 TIMES/WEEK 12/03/17 Furosemide [Lasix] 40 mg PO QAM 12/03/17 Insulin Aspart [Novolog] 100 unit SC .ACHS AND 0300 12/03/17 Promethazine HCl 25 mg PO PRN PRN 12/03/17 Sertraline HCl 100 mg PO DAILY 12/03/17 Hydrocodone-Acetaminophen [Kenton 7.5-325 mg] 1 tab PO BID 12/16/17 Gabapentin 600 mg PO TID 01/24/18 Metoprolol Tartrate 100 mg PO BID 01/24/18 Sucralfate Tab [Carafate Tab] 1 gm PO QID 01/24/18 amLODIPine BESYLATE [Norvasc] 10 mg PO DAILY 01/24/18 Cholecalciferol [Vitamin D3] 1,000 unit PO DAILY 02/09/18 Ferrous Sulfate [Iron] 65 mg PO DAILY 02/09/18 Hydralazine HCl 50 mg PO QID 02/09/18 Insulin Detemir [Levemir] 2 unit SUBCU BEDTIME 02/09/18 Spironolactone 50 mg PO DAILY 02/09/18 Calcium Acetate (Phosphate Bin [Calcium Acetate] 667 mg PO TID 05/22/18 Docusate Sodium 100 mg PO BID 05/22/18 Insulin Detemir [Levemir] 3 units SUBCU DAILY 05/22/18 Pantoprazole Tablet [Protonix] 40 mg PO ACBK 05/22/18 Vancomycin HCl 750 mg IV DAILY 05/22/18 Transfer to Outside Facility - Transfer Information Accepting Provider:: dr lagos Accepting Facility: [facility] Reason for Transfer: specialized care not available
[2018-08-11] MEDS: INSULIN LISPRO 100 UNITS/ML PEN SUBCU ONE (20:28)
[2018-08-11 20:40] VITALS: O2SAT 100
[2018-08-11 20:51] VITALS: BP 113/62; TEMP 99.1
[2018-08-11] MEDS ORDERED: INSULIN, REG.(HUMAN) 100 U/ML VIAL ONE (20:51)
[2018-08-11] MEDS: INSULIN, REG.(HUMAN) 100 U/ML VIAL IV ONE (20:56)
== END 2018-08-11 21:05 | disposition short-term general hospital (02) ==
LOC: ER 17:42
DX: E10.43 Type 1 diabetes mellitus with diabetic autonomic (poly)neuropathy (principal); K31.84 Gastroparesis; E10.22 Type 1 diabetes mellitus with diabetic chronic kidney disease; I13.2 Hypertensive heart and chronic kidney disease with heart failure and with stage 5 chronic kidney disease, or end stage renal disease; I50.9 Heart failure, unspecified; N18.6 End stage renal disease; E87.5 Hyperkalemia; J45.909 Unspecified asthma, uncomplicated; K21.9 Gastro-esophageal reflux disease without esophagitis; G89.29 Other chronic pain; Z99.2 Dependence on renal dialysis; Z79.4 Long term (current) use of insulin; Z87.891 Personal history of nicotine dependence; Z79.899 Other long term (current) drug therapy
CPT/HCPCS: 36415; 74019; 80053; 82150; 82550; 82553; 82947; 82948; 83605; 83690; 83735; 84484; 84703; 85025; 93005; J1815; J2060; J2270; J2550; J7030

== ENCOUNTER 2018-08-18 08:02 | Emergency (ER) | payer MEDICARE, MEDICAID ==
--- NOTE | 2018-08-18 08:16 | ED.PDOC ---
History of Present Illness - General Chief Complaint: Respiratory Problem Stated Complaint: Difficulty breathing Time Seen by Provider: 08/18/18 08:15 Source: patient, EMS Exam Limitations: no limitations - History of Present Illness Initial Comments: Jennifer Kessler28 y/o female brought by EMS from [place] with difficulty breathing this am.Patiniles has ESRD -on HD stating Had gained 14 pounds the last2 days.Goes to Dialysis M//.She was sent to for DKA and CHF last time. Timing/Duration: 1-3 hours Severity: moderate Improving Factors: nothing Worsening Factors: nothing Associated Symptoms: shortness of breath Allergies/Adverse Reactions: Allergies NO KNOWN ALLERGY Allergy (Verified 08/18/18 08:13) Home Medications: Ambulatory Orders Calcitriol 0.25 mcg PO .3 TIMES/WEEK 12/03/17 Furosemide [Lasix] 40 mg PO QAM 12/03/17 Insulin Aspart [Novolog] 100 unit SC .ACHS AND 0300 12/03/17 Promethazine HCl 25 mg PO PRN PRN 12/03/17 Sertraline HCl 100 mg PO DAILY 12/03/17 Hydrocodone-Acetaminophen [Corona 7.5-325 mg] 1 tab PO BID 12/16/17 Gabapentin 600 mg PO TID 01/24/18 Metoprolol Tartrate 100 mg PO BID 01/24/18 Sucralfate Tab [Carafate Tab] 1 gm PO QID 01/24/18 amLODIPine BESYLATE [Norvasc] 10 mg PO DAILY 01/24/18 Cholecalciferol [Vitamin D3] 1,000 unit PO DAILY 02/09/18 Ferrous Sulfate [Iron] 65 mg PO DAILY 02/09/18 Hydralazine HCl 50 mg PO QID 02/09/18 Insulin Detemir [Levemir] 2 unit SUBCU BEDTIME 02/09/18 Spironolactone 50 mg PO DAILY 02/09/18 Calcium Acetate (Phosphate Bin [Calcium Acetate] 667 mg PO TID 05/22/18 Docusate Sodium 100 mg PO BID 05/22/18 Insulin Detemir [Levemir] 3 units SUBCU DAILY 05/22/18 Pantoprazole Tablet [Protonix] 40 mg PO ACBK 05/22/18 Review of Systems - Review of Systems Constitutional: States: no symptoms reported EENTM: States: no symptoms reported Respiratory: States: no symptoms reported Cardiology: States: no symptoms reported Gastrointestinal/Abdominal: States: no symptoms reported Genitourinary: States: no symptoms reported Musculoskeletal: States: no symptoms reported Skin: States: no symptoms reported Neurological: States: no symptoms reported All other Systems: Reviewed and Negative, No Change from Baseline Past Medical History (General) - Patient Medical History Hx Seizures: No Hx Stroke: No Hx Dementia: No Hx Asthma: Yes Hx of COPD: No Hx Cardiac Disorders: No Hx Congestive Heart Failure: Yes Hx Pacemaker: No Hx Hypertension: Yes Hx Thyroid Disease: No Hx Diabetes: Yes Hx Gastroesophageal Reflux: Yes Hx Renal Disease: Yes - ESRD - dialysis MWF Hx Cancer: No Hx of HIV: No Hx Hepatitis C: No Hx MRSA: No Surgical History: other - kolby cath - Vaccination History Hx Tetanus, Diphtheria Vaccination: No Hx Influenza Vaccination: Yes Hx Pneumococcal Vaccination: Yes - Social History Hx Tobacco Use: Yes - quit Hx Alcohol Use: Yes - in past Hx Substance Use: Yes - Activities of Daily Living Prison/Assisted Living (if applicable):: [facility] - Female History Patient : No Family Medical History - Family History Mother Family History: Unknown Living Status: Unknown Hx Cardiac Disease: Yes - DAD Hx Family Diabetes: Yes - DAD Hx Family;Other: DAD-RHEUMATOID ARTHTRITIS Physical Exam - Physical Exam General Appearance: Other - swooleen all over;lethargic Eye Exam: bilateral normal, bilateral other - swollen both lids Ears, Nose, Throat: hearing grossly normal, normal ENT inspection Neck: supple, normal inspection Respiratory: chest non-tender, no respiratory distress, wheezing Cardiovascular/Chest: normal peripheral pulses, regular rate, rhythm, no murmur Peripheral Pulses: radial,right: 2+, radial,left: 2+ Gastrointestinal/Abdominal: soft, no organomegaly, tenderness - ,mid abdomen no peritoneal signs Back Exam: no CVA tenderness, no vertebral tenderness Extremity: pedal edema Neurologic: alert, oriented x 3 Skin Exam: normal color, warm/dry Lymphatic: no adenopathy Progress - Progress Progress: 08/18/18 08:29 Vital Signs - 8 hr 08/18/18 08:04 Temperature 98.5 F Pulse Rate [ 94 H Left Radial] Respiratory 18 Rate Blood Pressure 194/112 [Left Arm] O2 Sat by Pulse 88 L Oximetry 08/18/18 09:49 Vital Signs - 8 hr 04/14/19 04/14/19 08:04 09:04 Temperature 98.5 F Pulse Rate [ 94 H 88 Left Radial] Respiratory 18 18 Rate Blood Pressure 194/112 160/97 [Left Arm] O2 Sat by Pulse 88 L 100 Oximetry 08/18/18 13:53 D/W Dr. Duncan -Yardage Control Operator wants patient to [facility] for dialysis - Results/Orders Results/Orders: 08/18/18 11:05 FSBS [GLUCOSE, FINGER STICK] Stat 08/18/18 12:32 GLUCOSE, FINGER STICK Stat 08/18/18 Lunch 1800 Calorie ADA Diet Laboratory Results - last 24 hr 08/18/18 08/18/18 08/18/18 09:00 09:00 09:48 WBC 8.6 RBC 2.23 L Hgb 7.0 L* Hct 21.9 L MCV 98.2 MCH 31.4 H MCHC 32.0 L RDW 19.9 H Plt Count 213 MPV 8.2 Absolute Neuts (auto) 7.00 H Absolute Lymphs (auto) 0.90 L Absolute Monos (auto) 0.50 Absolute Eos (auto) 0.10 Absolute Basos (auto) 0.10 Neutrophils % 81.8 H Lymphocytes % 10.1 L Monocytes % 5.5 Eosinophils % 1.3 Basophils % 1.3 Sodium 129 L Potassium 5.9 H Chloride 96 L Carbon Dioxide 20 L Anion Gap 18.9 H BUN 42 H Creatinine 4.21 H BUN/Creatinine Ratio 10.0 Random Glucose 569 H* Serum Osmolality 295.4 H Calcium 7.5 L Phosphorus 6.0 H Total Bilirubin 0.4 AST 56 H ALT 25 Alkaline Phosphatase 120 Serum Total Protein 5.5 L Albumin 2.4 L Globulin 3.1 Albumin/Globulin Ratio 0.8 L 08/18/18 11:05 WBC RBC Hgb Hct MCV MCH MCHC RDW Plt Count MPV Absolute Neuts (auto) Absolute Lymphs (auto) Absolute Monos (auto) Absolute Eos (auto) Absolute Basos (auto) Neutrophils % Lymphocytes % Monocytes % Eosinophils % Basophils % Sodium Potassium Chloride Carbon Dioxide Anion Gap BUN Creatinine BUN/Creatinine Ratio Random Glucose 409 H* Serum Osmolality Calcium Phosphorus Total Bilirubin AST ALT Alkaline Phosphatase Serum Total Protein Albumin Globulin Albumin/Globulin Ratio - EKG/XRAY/CT XRAY: chest - opacities/pulmonary edema Departure - Departure Clinical Impression: Acute dyspnea, Acute noncardiogenic pulmonary edema, ESRD (end stage renal disease) on dialysis Diabetes Qualifiers: Diabetes mellitus type: type 1 Diabetes mellitus complication status: with kidney complications Diabetes mellitus complication detail: with chronic kidney disease Chronic kidney disease stage: on chronic dialysis Qualified Code(s): E10.22 - Type 1 diabetes mellitus with diabetic chronic kidney disease Time of Disposition: 12:54 Disposition: Transfer to Hospital Condition: Poor Departure Forms: Patient Portal Self Enrollment Referrals: Mukesh Flowers MD [Primary Care Provider] - 1-2 Weeks Home Medications: Ambulatory Orders Calcitriol 0.25 mcg PO .3 TIMES/WEEK 12/03/17 Furosemide [Lasix] 40 mg PO QAM 12/03/17 Insulin Aspart [Novolog] 100 unit SC .ACHS AND 0300 12/03/17 Promethazine HCl 25 mg PO PRN PRN 12/03/17 Sertraline HCl 100 mg PO DAILY 12/03/17 Hydrocodone-Acetaminophen [Corona 7.5-325 mg] 1 tab PO BID 12/16/17 Gabapentin 600 mg PO TID 01/24/18 Metoprolol Tartrate 100 mg PO BID 01/24/18 Sucralfate Tab [Carafate Tab] 1 gm PO QID 01/24/18 amLODIPine BESYLATE [Norvasc] 10 mg PO DAILY 01/24/18 Cholecalciferol [Vitamin D3] 1,000 unit PO DAILY 02/09/18 Ferrous Sulfate [Iron] 65 mg PO DAILY 02/09/18 Hydralazine HCl 50 mg PO QID 02/09/18 Insulin Detemir [Levemir] 2 unit SUBCU BEDTIME 02/09/18 Spironolactone 50 mg PO DAILY 02/09/18 Calcium Acetate (Phosphate Bin [Calcium Acetate] 667 mg PO TID 05/22/18 Docusate Sodium 100 mg PO BID 05/22/18 Insulin Detemir [Levemir] 3 units SUBCU DAILY 05/22/18 Pantoprazole Tablet [Protonix] 40 mg PO ACBK 05/22/18 Transfer to Outside Facility - Transfer Information Accepting Provider:: Hospitalist-Dr. 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
--- NOTE | 2018-08-18 09:05 | RAD ---
EXAM DESCRIPTION: Chest,2 Views CLINICAL HISTORY: 28 years Female Fluid overload COMPARISON: Portable chest dated 07/21/2018 TECHNIQUE: PA and lateral views of the chest are obtained. Heart: The heart is normal in size and configuration. Vasculature: []There is no evidence of aortic aneurysm or acute findings. The pulmonary vascularity is normal. Mediastinum: Unremarkable otherwise. No evidence of mass or adenopathy. Lungs: There is severe peribronchial thickening. There is severe interstitial prominence predominantly in the lower lungs, right greater than left. There is also minimal patchy alveolar opacification in the left base and to a slightly greater degree in the right base. There is discoid atelectasis in the left apex. Pleural spaces: There are no pleural effusions. There are no pneumothoraces. Osseous structures: There is no evidence of acute fracture, osseous destruction or osteoblastic lesions. Tubes and catheters: A dual-lumen large bore dialysis catheter is present via the left internal jugular vein, terminating at or near the superior cavoatrial junction. Upper abdomen: No acute findings. Chest wall: Unremarkable. IMPRESSION: Bibasilar atelectasis and/or pneumonia versus pulmonary edema, right greater than left as well as discoid atelectasis in the left apex. Electronically signed by: Suzette Reyez MD 08/18/2018 9:02 AM CDT
[2018-08-18] MEDS ORDERED: INSULIN, REG.(HUMAN) 100 U/ML VIAL IV ONE (09:37)
[2018-08-18 13:41] VITALS: O2SAT 99
[2018-08-18 14:47] VITALS: BP 131/77; TEMP 97.3
== END 2018-08-18 14:20 | disposition short-term general hospital (02) ==
LOC: ER 08:02
DX: R06.00 Dyspnea, unspecified (principal); I13.2 Hypertensive heart and chronic kidney disease with heart failure and with stage 5 chronic kidney disease, or end stage renal disease; I50.9 Heart failure, unspecified; N18.6 End stage renal disease; E10.22 Type 1 diabetes mellitus with diabetic chronic kidney disease; J45.909 Unspecified asthma, uncomplicated; K21.9 Gastro-esophageal reflux disease without esophagitis; Z99.2 Dependence on renal dialysis; Z87.891 Personal history of nicotine dependence; Z79.4 Long term (current) use of insulin; Z79.899 Other long term (current) drug therapy
CPT/HCPCS: 36415; 71046; 80053; 82947; 82948; 84100; 85025; J2060

== ENCOUNTER 2018-09-06 15:10 | Emergency (ER) | payer MEDICARE, MEDICAID ==
[2018-09-06] MEDS ORDERED: NITROGLYCERIN 0.4 MG 25 EA TAB SL ONE ×2 (15:18→16:27)
[2018-09-06] MEDS: ONDANSETRON ODT 8 MG TAB SL ONE ×2 (15:24→15:28)
[2018-09-06] MEDS ORDERED: MORPHINE SULFATE INJ 10 MG/ML VIAL IM ONE (16:27)
[2018-09-06] MEDS ORDERED: SODIUM CHLORIDE 0.9% 1000ML 1,000 ML IVS ONE (16:33)
[2018-09-06] MEDS ORDERED: MORPHINE SULFATE INJ 10 MG/ML VIAL IV ONE (16:33)
[2018-09-06] MEDS ORDERED: PROMETHAZINE HCL INJ 12.5 MG in SODIUM CHLORIDE 0.9% 50ML 50 ML IVPB ONE (16:33)
[2018-09-06] MEDS ORDERED: SODIUM CHLORIDE 0.9% 50ML 50 ML ONE (16:36)
[2018-09-06] MEDS ORDERED: PROMETHAZINE HCL INJ 25 MG/ML VIAL ONE (16:36)
--- NOTE | 2018-09-06 16:53 | ED.PDOC ---
History of Present Illness - General Chief Complaint: Blood Pressure Problem Stated Complaint: elevated BP,DELACRUZ,blurred vision Time Seen by Provider: 09/06/18 15:18 Source: patient, EMS Exam Limitations: no limitations - History of Present Illness Initial Comments: Patient comes in from dialysis unit secondary to hypertensive emergency with headache and increased blood pressure despite .3 mg of clonidine given at the unit. Patient has photophobia and chronic vision loss and states eyes hurt but unsure if acute change. Nausea and emesis reported along with diarrhea. She had 3 hours of dialysis but did not complete her treatment. Patient has known DM I that has resulted in CRF. She has port in her sternal area and non functioning port in the right subclavian. She had central line removed in the last 2 weeks on the left after it became infected and has diffuse scar tissue on her arms and neck. Timing/Duration: 24 hours Severity: severe Improving Factors: nothing Worsening Factors: nothing Associated Symptoms: headaches, loss of appetite, nausea/vomiting, shortness of breath, other - diarrhea and abdominal pain Allergies/Adverse Reactions: Allergies NO KNOWN ALLERGY Allergy (Verified 08/18/18 08:13) Home Medications: Ambulatory Orders Insulin Aspart [Novolog] 10 unit SC TID 12/03/17 Promethazine HCl 25 mg PO Q8H 12/03/17 Sertraline HCl 50 mg PO DAILY 12/03/17 Hydrocodone-Acetaminophen [[place] 7.5-325 mg] 1 tab PO BID 12/16/17 Gabapentin 600 mg PO TID 01/24/18 Metoprolol Tartrate 100 mg PO BID 01/24/18 amLODIPine BESYLATE [Norvasc] 5 mg PO DAILY 01/24/18 Hydralazine HCl 50 mg PO QID 02/09/18 Insulin Detemir [Levemir] 2 unit SUBCU .EVENING 02/09/18 Spironolactone 50 mg PO DAILY 02/09/18 Calcium Acetate (Phosphate Bin [Calcium Acetate] 3 each PO TID 05/22/18 Insulin Detemir [Levemir] 3 units SUBCU BEDTIME 05/22/18 Pantoprazole Tablet [Protonix] 40 mg PO ACBK 05/22/18 Bumetanide 2 mg PO .TUTHSASU 09/06/18 Clonidine HCl 0.3 mg PO TID 09/06/18 Insulin Aspart [Fiasp] 100 unit SC TID 09/06/18 Isosorbide Dinitrate 40 mg PO TID 09/06/18 Nicardipine HCl 30 mg PO TID 09/06/18 Telmisartan [Micardis] 80 mg PO BEDTIME 09/06/18 Review of Systems - Review of Systems Constitutional: States: malaise, weakness EENTM: States: eye pain. Denies: double vision, ear pain, nose congestion, throat pain Respiratory: States: short of breath. Denies: cough, wheezing Cardiology: States: edema. Denies: chest pain, palpitations, syncope Gastrointestinal/Abdominal: States: abdominal pain, diarrhea, nausea, vomiting Musculoskeletal: States: no symptoms reported Skin: States: no symptoms reported Neurological: States: see HPI Past Medical History (General) - Patient Medical History Hx Seizures: No Hx Stroke: No Hx Dementia: No Hx Asthma: Yes Hx of COPD: No Hx Cardiac Disorders: No Hx Congestive Heart Failure: Yes Hx Pacemaker: No Hx Hypertension: Yes Hx Thyroid Disease: No Hx Diabetes: Yes Hx Gastroesophageal Reflux: Yes Hx Renal Disease: Yes - ESRD - dialysis MWF Hx Cancer: No Hx of HIV: No Hx Hepatitis C: No Hx MRSA: No - Vaccination History Hx Tetanus, Diphtheria Vaccination: No Hx Influenza Vaccination: Yes - 02/02/18 Hx Pneumococcal Vaccination: Yes - 04/22/18 - Social History Hx Tobacco Use: Yes Hx Alcohol Use: Yes - in past Hx Substance Use: Yes - Activities of Daily Living Prison/Assisted Living (if applicable):: [facility] - Female History Patient : No Family Medical History - Family History Mother Family History: Unknown Living Status: Unknown Hx Cardiac Disease: Yes - DAD Hx Family Diabetes: Yes - DAD Hx Family;Other: DAD-RHEUMATOID ARTHTRITIS Physical Exam - Physical Exam General Appearance: Anxious, Frail, Ill Appearing Eye Exam: bilateral normal Ears, Nose, Throat: hearing grossly normal, normal ENT inspection, normal pharynx Neck: non-tender, full range of motion, supple, normal inspection Respiratory: chest non-tender, no respiratory distress, crackles - bilateral bases Cardiovascular/Chest: normal peripheral pulses, no gallop, no JVD, no murmur Gastrointestinal/Abdominal: normal bowel sounds, soft, tenderness - diffusely without rebound or guarding Extremity: other - port in right sublcavian, diffuse thick scar tissue in brachial area bilaterally, neck obscuring the EJ, and both upper arms. Diffuse swelling of body and face with doughy consitenscy of her skin Neurologic: alert, oriented x 3 Progress - Progress Progress: 09/06/18 18:06 patient continues to have headache but improved and resting. No further emesis. Will transfer so she can get BP control and finish her dialysis. - Results/Orders Results/Orders: 09/06/18 15:18 URINALYSIS Stat 09/06/18 15:30 EKG STAT 09/06/18 16:30 CLOSTRIDIUM DIFFICILE AG/TOXIN Stat 09/06/18 17:00 niCARdipine HCL [Cardene IV] 25 mg Sodium Chloride 0.9% 250Ml [NS 250ml] 240 ml IVPB PRN Laboratory Results WBC 7.3 K/mm3 (4.8-10.8) 09/06/18 17:14 RBC 2.75 M/mm3 (4.20-5.40) L 09/06/18 17:14 Hgb 8.5 gm/dL (12.0-16.0) L 09/06/18 17:14 Hct 26.7 % (36.0-47.0) L 09/06/18 17:14 MCV 97.2 fl (81.0-99.0) 09/06/18 17:14 MCH 30.9 pg (27.0-31.0) 09/06/18 17:14 MCHC 31.9 g/dL (33.0-37.0) L 09/06/18 17:14 RDW 20.6 % (11.5-14.5) H 09/06/18 17:14 Plt Count 110 K/mm3 (130-400) L 09/06/18 17:14 MPV 7.7 fl (7.40-10.4) 09/06/18 17:14 Absolute Neuts (auto) 5.70 K/uL (1.8-6.8) 09/06/18 17:14 Absolute Lymphs (auto) 1.00 K/uL (1.0-3.4) 09/06/18 17:14 Absolute Monos (auto) 0.30 K/uL (0.2-0.8) 09/06/18 17:14 Absolute Eos (auto) 0.20 K/uL (0.0-0.4) 09/06/18 17:14 Absolute Basos (auto) 0.10 K/uL (0.0-0.1) 09/06/18 17:14 Neutrophils % 78.8 % (42.0-78.0) H 09/06/18 17:14 Lymphocytes % 13.2 % (20.0-50.0) L 09/06/18 17:14 Monocytes % 4.6 % (2.0-9.0) 09/06/18 17:14 Eosinophils % 2.2 % (1.0-5.0) 09/06/18 17:14 Basophils % 1.2 % (0.0-2.0) 09/06/18 17:14 Sodium 140 mmol/L (135-145) 09/06/18 17:14 Potassium 3.2 mmol/L (3.6-5.0) L 09/06/18 17:14 Chloride 99 mmol/L (101-111) L 09/06/18 17:14 Carbon Dioxide 33 mmol/L (21-31) H 09/06/18 17:14 Anion Gap 11.2 (12-18) L 09/06/18 17:14 BUN 18 mg/dL (7-18) 09/06/18 17:14 Creatinine 1.58 mg/dL (0.6-1.3) H 09/06/18 17:14 BUN/Creatinine Ratio 11.4 (10-20) 09/06/18 17:14 POC Glucose 227 mg/dL (70-105) H 09/06/18 15:18 Random Glucose 183 mg/dL (70-105) H 09/06/18 17:14 Serum Osmolality 286.0 mOsm/L (275-295) 09/06/18 17:14 Calcium 7.9 mg/dL (8.4-10.2) L 09/06/18 17:14 Magnesium 1.9 mg/dL (1.8-2.5) 09/06/18 17:14 Total Bilirubin 0.6 mg/dL (0.2-1.0) 09/06/18 17:14 AST 51 IU/L (10-42) H 09/06/18 17:14 ALT 27 IU/L (10-60) 09/06/18 17:14 Alkaline Phosphatase 111 IU/L (42-121) 09/06/18 17:14 Creatine Kinase 46 IU/L (26-140) 09/06/18 17:14 CK-MB (CK-2) 2.2 ng/mL (0.0-4.4) 09/06/18 17:14 CK-MB (CK-2) % Not Reportable 09/06/18 17:14 Troponin I < 0.02 ng/mL (0.01-0.05) 09/06/18 17:14 Serum Total Protein 5.9 gm/dL (6.4-8.2) L 09/06/18 17:14 Albumin 2.4 g/dl (3.2-5.5) L 09/06/18 17:14 Globulin 3.5 gm/dL (2.3-3.5) 09/06/18 17:14 Albumin/Globulin Ratio 0.7 (1.1-1.9) L 09/06/18 17:14 Patient Name: SHAHIDA BATISTA Gender: Female Date of : 1990 Referring Physician: WALESKA VALENCIA Organization: [facility] Accession Number: [id number] Requested Date: September 06, 2018 16:21 Report Status: Final Requested Procedure: 1 Procedure Description: Head Modality: CT Findings Reporting MD: Luis Henning Fellow MD: Not available Dictation Time: Alarm Service Technician: Not available Wall Attendant Date: EXAM DESCRIPTION: Head CLINICAL HISTORY: hypertensive emergency and headache COMPARISON: CT head April 01, 2017 TECHNIQUE: Noncontrast head CT was performed with routine protocol. FINDINGS: Normal hayden-white matter differentiation. Ventricles and sulci are normal for age. No high density hemorrhage, focal edema or shift of the midline. No sulcal effacement. Normal orbital contents. Basilar cisterns appear clear. Intact calvarium with no fracture or lytic lesion. Normal aeration of tympanic cavities and mastoid air cells. Left maxillary sinus mucosal thickening is seen with high density dependent fluid suggesting sinusitis with hemorrhagic or proteinaceous fluid. Patchy mucosal thickening in the right sphenoid sinus and ethmoid air cells and right maxillary sinus. Partial opacification of the left frontal sinus. Skull base appears intact. Symmetrical internal auditory canals. IMPRESSION: No acute intracranial pathologic process. - EKG/XRAY/CT EKG: Sinus, no ST T wave changes Comments: HR 94 normal QTC and axis Departure - Departure Clinical Impression: Hypertensive emergency Disposition: Transfer to Hospital Condition: Fair Departure Forms: ED Discharge - Pt. Copy, Patient Portal Self Enrollment Instructions: DI for High Blood Pressure Referrals: Mukesh Flowers MD [Primary Care Provider] - 1-2 Weeks Home Medications: Ambulatory Orders Insulin Aspart [Novolog] 10 unit SC TID 12/03/17 Promethazine HCl 25 mg PO Q8H 12/03/17 Sertraline HCl 50 mg PO DAILY 12/03/17 Hydrocodone-Acetaminophen [[place] 7.5-325 mg] 1 tab PO BID 12/16/17 Gabapentin 600 mg PO TID 01/24/18 Metoprolol Tartrate 100 mg PO BID 01/24/18 amLODIPine BESYLATE [Norvasc] 5 mg PO DAILY 01/24/18 Hydralazine HCl 50 mg PO QID 02/09/18 Insulin Detemir [Levemir] 2 unit SUBCU .EVENING 02/09/18 Spironolactone 50 mg PO DAILY 02/09/18 Calcium Acetate (Phosphate Bin [Calcium Acetate] 3 each PO TID 05/22/18 Insulin Detemir [Levemir] 3 units SUBCU BEDTIME 05/22/18 Pantoprazole Tablet [Protonix] 40 mg PO ACBK 05/22/18 Bumetanide 2 mg PO .TUTHSASU 09/06/18 Clonidine HCl 0.3 mg PO TID 09/06/18 Insulin Aspart [Fiasp] 100 unit SC TID 09/06/18 Isosorbide Dinitrate 40 mg PO TID 09/06/18 Nicardipine HCl 30 mg PO TID 09/06/18 Telmisartan [Micardis] 80 mg PO BEDTIME 09/06/18 Transfer to Outside Facility - Transfer Information Accepting Provider:: Kimi Accepting Facility: [facility] Reason for Transfer: specialized care not available
[2018-09-06] MEDS ORDERED: SODIUM CHLORIDE 0.9% 250ML 250 ML ONE (16:58)
[2018-09-06] MEDS ORDERED: niCARdipine HCL 2.5 MG/ML AMP IVPB ONE (16:58)
[2018-09-06] MEDS ORDERED: niCARdipine HCL 25 MG in SODIUM CHLORIDE 0.9% 250ML 240 ML IVPB SCH (17:00)
--- NOTE | 2018-09-06 17:15 | CT ---
EXAM DESCRIPTION: Head CLINICAL HISTORY: hypertensive emergency and headache COMPARISON: CT head April 01, 2017 TECHNIQUE: Noncontrast head CT was performed with routine protocol. FINDINGS: Normal hayden-white matter differentiation. Ventricles and sulci are normal for age. No high density hemorrhage, focal edema or shift of the midline. No sulcal effacement. Normal orbital contents. Basilar cisterns appear clear. Intact calvarium with no fracture or lytic lesion. Normal aeration of tympanic cavities and mastoid air cells. Left maxillary sinus mucosal thickening is seen with high density dependent fluid suggesting sinusitis with hemorrhagic or proteinaceous fluid. Patchy mucosal thickening in the right sphenoid sinus and ethmoid air cells and right maxillary sinus. Partial opacification of the left frontal sinus. Skull base appears intact. Symmetrical internal auditory canals. IMPRESSION: No acute intracranial pathologic process. This exam was performed according to our departmental dose-optimization program, which includes automated exposure control, adjustment of the mA and/or kV according to patient size and/or use of iterative reconstruction technique. Total DLP equals 752.48 mGycm. Electronically signed by: Luis Henning MD 09/06/2018 5:13 PM CDT
[2018-09-06 18:34] VITALS: BP 162/95; TEMP 97.7; O2SAT 97
== END 2018-09-06 18:33 | disposition short-term general hospital (02) ==
LOC: ER 15:10
DX: I16.1 Hypertensive emergency (principal); R51 Headache; R11.2 Nausea with vomiting, unspecified; R19.7 Diarrhea, unspecified; H53.149 Visual discomfort, unspecified; R06.02 Shortness of breath; N18.6 End stage renal disease; E10.22 Type 1 diabetes mellitus with diabetic chronic kidney disease; I50.9 Heart failure, unspecified; I13.2 Hypertensive heart and chronic kidney disease with heart failure and with stage 5 chronic kidney disease, or end stage renal disease; J45.909 Unspecified asthma, uncomplicated; K21.9 Gastro-esophageal reflux disease without esophagitis; Z99.2 Dependence on renal dialysis; Z87.891 Personal history of nicotine dependence; Z79.4 Long term (current) use of insulin; Z79.899 Other long term (current) drug therapy
CPT/HCPCS: 36415; 36416; 70450; 80053; 82550; 82553; 82948; 83735; 84484; 85025; 87324; 87449; 93005; J2060; J2270; J7030; J7050

== ENCOUNTER 2018-10-13 05:55 | Emergency (ER) | payer MEDICARE, MEDICAID ==
[2018-10-13] MEDS ORDERED: PROMETHAZINE HCL INJ 25 MG/ML VIAL IM ONE (06:57)
--- NOTE | 2018-10-13 07:11 | ED.PDOC ---
History of Present Illness - General Chief Complaint: Post Op Problems Stated Complaint: POST SURGICAL SWELLING AND PAIN LEFT ARM Time Seen by Provider: 10/13/18 06:37 Source: patient, RN notes reviewed Exam Limitations: no limitations - History of Present Illness Initial Comments: patient comes in for evaluation of her fistula. It was placed on and today was noted to be hard, swollen with mild drainage. They were concerned that it was clotted and brought her here to have ultrasound to see if it is clotted. Patient states some fever subjectively no emesis but constant chronic nausea. Patient has no other acute complaints. She is well known to the service and has end stage renal disease, DM I, CHF, and anxiety disorder. Timing/Duration: 24 hours Severity: moderate Improving Factors: nothing Worsening Factors: nothing Associated Symptoms: fever/chills, nausea/vomiting Allergies/Adverse Reactions: Allergies NO KNOWN ALLERGY Allergy (Verified 10/13/18 06:19) Home Medications: Ambulatory Orders Insulin Aspart [Novolog] 2 unit SC TID 12/03/17 Promethazine HCl 25 mg PO Q6HR PRN 12/03/17 Sertraline HCl 100 mg PO DAILY 12/03/17 Hydrocodone-Acetaminophen [[place] 7.5-325 mg] 1 tab PO BID 12/16/17 Gabapentin 600 mg PO TID 01/24/18 Metoprolol Tartrate 100 mg PO BID 01/24/18 amLODIPine BESYLATE [Norvasc] 5 mg PO DAILY 01/24/18 Hydralazine HCl 50 mg PO TID 02/09/18 Insulin Detemir [Levemir] 3 unit SUBCU DAILY 02/09/18 Spironolactone 50 mg PO DAILY 02/09/18 Calcium Acetate (Phosphate Bin [Calcium Acetate] 3 each PO TID 05/22/18 Insulin Detemir [Levemir] 2 units SUBCU BEDTIME 05/22/18 Pantoprazole Tablet [Protonix] 40 mg PO ACBK 05/22/18 Bumetanide 2 mg PO BID 09/06/18 Clonidine HCl 0.3 mg PO TID 09/06/18 Insulin Aspart (with Niacinami [Fiasp] 100 unit SC TID 09/06/18 Telmisartan [Micardis] 80 mg PO BEDTIME 09/06/18 ALPRAZolam [Xanax] 0.5 mg PO BEDTIME 10/01/18 ALPRAZolam [Xanax] 0.5 mg PO BID PRN 10/01/18 Albuterol Sulfate Nebs [Proventil Nebs] 2.5 mg INH Q4HR PRN 10/01/18 Cholecalciferol [Vitamin D3] 1,000 unit PO DAILY 10/01/18 Docusate Sodium [Colace Cap] 100 mg PO BID 10/01/18 Ferrous Sulfate [Ferrousul] 325 mg PO DAILY 10/01/18 Isosorbide Dinitrate-Hydralazi [Bidil 20-37.5 mg] 1 tab PO BID 10/01/18 Melatonin 10 mg PO BEDTIME 10/01/18 Metolazone 5 mg PO GWENDOLYN-OTH-DAY 10/01/18 Sulfa/Trimeth 800/160 (Ds) Tab [Bactrim DS] 1 tablet PO BID 10/01/18 Review of Systems - Review of Systems Constitutional: States: fever, malaise EENTM: States: no symptoms reported. Denies: blurred vision, ear pain, nose congestion Respiratory: States: no symptoms reported. Denies: cough, short of breath Cardiology: States: no symptoms reported. Denies: chest pain, edema, palpitations Gastrointestinal/Abdominal: States: no symptoms reported. Denies: abdominal pain, constipation, diarrhea, nausea Genitourinary: States: no symptoms reported Musculoskeletal: States: no symptoms reported Skin: States: no symptoms reported Neurological: States: no symptoms reported Past Medical History (General) - Patient Medical History Hx Seizures: No Hx Stroke: No Hx Dementia: No Hx Asthma: No Hx of COPD: No Hx Cardiac Disorders: No Hx Congestive Heart Failure: No Hx Pacemaker: No Hx Hypertension: Yes Hx Thyroid Disease: No Hx Diabetes: Yes Hx Gastroesophageal Reflux: Yes Hx Renal Disease: Yes Hx Cancer: No Hx of HIV: No Hx Hepatitis C: No Hx MRSA: No - Vaccination History Hx Tetanus, Diphtheria Vaccination: Yes Hx Influenza Vaccination: No Hx Pneumococcal Vaccination: No Immunizations Up to Date: No - Social History Hx Tobacco Use: No Hx Chewing Tobacco Use: No Hx Alcohol Use: No Hx Substance Use: No Hx Substance Use Treatment: No Hx Depression: No Feels Threatened In Home Enviroment: No Feels Threatened In a Relationship: No Hx Physical Abuse: No Hx Emotional Abuse: No Hx Suspected Abuse: No - Activities of Daily Living Long-Term/Assisted Living (if applicable):: [facility] - Female History Patient is a Female of Child Bearing Age (10 -59 yrs old): Yes Patient : No Family Medical History - Family History Mother Family History: Unknown Living Status: Unknown Hx Cardiac Disease: Yes - DAD Hx Family Diabetes: Yes - DAD Hx Family;Other: DAD-RHEUMATOID ARTHTRITIS Physical Exam - Physical Exam General Appearance: Alert, Frail, Ill Appearing Eye Exam: bilateral normal Ears, Nose, Throat: hearing grossly normal, normal ENT inspection, normal pharynx Neck: non-tender, full range of motion, supple Respiratory: chest non-tender, lungs clear, normal breath sounds Cardiovascular/Chest: normal peripheral pulses, regular rate, rhythm, no murmur Gastrointestinal/Abdominal: normal bowel sounds, non tender, soft Extremity: other - generalized ansarca with L upper arm with fistual with no thrill, no calor, no erythema Neurologic: alert, oriented x 3 Progress - Progress Progress: 10/13/18 07:56 called to [facility] to transfer for eval of graft. We were given number for Dr. Bradley who placed it. . He states if it is clotted then not emergent and it can be seen to in his office. He instructs us to have patient follow up on Sunday. Worsening reddness or calor should have her go to hospital. - Results/Orders Results/Orders: 10/13/18 07:55 HYDROcodone 10MG/APAP 325MG [[place] 10/325] 1 ea PO ONCE ONE Laboratory Results WBC 9.6 K/mm3 (4.8-10.8) 10/13/18 07:12 RBC 2.67 M/mm3 (4.20-5.40) L 10/13/18 07:12 Hgb 8.0 gm/dL (12.0-16.0) L 10/13/18 07:12 Hct 25.3 % (36.0-47.0) L 10/13/18 07:12 MCV 94.7 fl (81.0-99.0) 10/13/18 07:12 MCH 30.0 pg (27.0-31.0) 10/13/18 07:12 MCHC 31.7 g/dL (33.0-37.0) L 10/13/18 07:12 RDW 18.4 % (11.5-14.5) H 10/13/18 07:12 Plt Count 257 K/mm3 (130-400) 10/13/18 07:12 MPV 8.5 fl (7.40-10.4) 10/13/18 07:12 Absolute Neuts (auto) 7.30 K/uL (1.8-6.8) H 10/13/18 07:12 Absolute Lymphs (auto) 1.20 K/uL (1.0-3.4) 10/13/18 07:12 Absolute Monos (auto) 0.70 K/uL (0.2-0.8) 10/13/18 07:12 Absolute Eos (auto) 0.20 K/uL (0.0-0.4) 10/13/18 07:12 Absolute Basos (auto) 0.10 K/uL (0.0-0.1) 10/13/18 07:12 Neutrophils % 76.1 % (42.0-78.0) 10/13/18 07:12 Lymphocytes % 12.5 % (20.0-50.0) L 10/13/18 07:12 Monocytes % 7.7 % (2.0-9.0) 10/13/18 07:12 Eosinophils % 2.3 % (1.0-5.0) 10/13/18 07:12 Basophils % 1.4 % (0.0-2.0) 10/13/18 07:12 Departure - Departure Clinical Impression: Renal dialysis device, implant, or graft complication Qualifiers: Encounter type: initial encounter Qualified Code(s): T82.9XXA - Unspecified complication of cardiac and vascular prosthetic device, implant and graft, initial encounter Disposition: Discharge to Home or Self Care Condition: Good Departure Forms: ED Discharge - Pt. Copy, Patient Portal Self Enrollment Referrals: Mukesh Flowers MD [Primary Care Provider] - 1-2 Weeks Home Medications: Ambulatory Orders Insulin Aspart [Novolog] 2 unit SC TID 12/03/17 Promethazine HCl 25 mg PO Q6HR PRN 12/03/17 Sertraline HCl 100 mg PO DAILY 12/03/17 Hydrocodone-Acetaminophen [[place] 7.5-325 mg] 1 tab PO BID 12/16/17 Gabapentin 600 mg PO TID 01/24/18 Metoprolol Tartrate 100 mg PO BID 01/24/18 amLODIPine BESYLATE [Norvasc] 5 mg PO DAILY 01/24/18 Hydralazine HCl 50 mg PO TID 02/09/18 Insulin Detemir [Levemir] 3 unit SUBCU DAILY 02/09/18 Spironolactone 50 mg PO DAILY 02/09/18 Calcium Acetate (Phosphate Bin [Calcium Acetate] 3 each PO TID 05/22/18 Insulin Detemir [Levemir] 2 units SUBCU BEDTIME 05/22/18 Pantoprazole Tablet [Protonix] 40 mg PO ACBK 05/22/18 Bumetanide 2 mg PO BID 09/06/18 Clonidine HCl 0.3 mg PO TID 09/06/18 Insulin Aspart (with Niacinami [Fiasp] 100 unit SC TID 09/06/18 Telmisartan [Micardis] 80 mg PO BEDTIME 09/06/18 ALPRAZolam [Xanax] 0.5 mg PO BEDTIME 10/01/18 ALPRAZolam [Xanax] 0.5 mg PO BID PRN 10/01/18 Albuterol Sulfate Nebs [Proventil Nebs] 2.5 mg INH Q4HR PRN 10/01/18 Cholecalciferol [Vitamin D3] 1,000 unit PO DAILY 10/01/18 Docusate Sodium [Colace Cap] 100 mg PO BID 10/01/18 Ferrous Sulfate [Ferrousul] 325 mg PO DAILY 10/01/18 Isosorbide Dinitrate-Hydralazi [Bidil 20-37.5 mg] 1 tab PO BID 10/01/18 Melatonin 10 mg PO BEDTIME 10/01/18 Metolazone 5 mg PO GWENDOLYN-OTH-DAY 10/01/18 Sulfa/Trimeth 800/160 (Ds) Tab [Bactrim DS] 1 tablet PO BID 10/01/18 Additional Instructions: patient should follow up with Dr. Bradley in clinic on Sunday. Return to ER for redness, calor, purulent drainage.
[2018-10-13] MEDS ORDERED: ALUMINUM & MAGNESIUM HYDROXIDE 30 ML UD PO ONE (07:45)
[2018-10-13] MEDS ORDERED: HYDROcodone 10MG/APAP 325MG 1 EA TAB PO ONE (07:55)
[2018-10-13 08:35] VITALS: BP 179/106; TEMP 98.4; O2SAT 97
== END 2018-10-13 08:35 | disposition home or self-care (01) ==
LOC: ER 05:55
DX: T82.9XXA Unspecified complication of cardiac and vascular prosthetic device, implant and graft, initial encounter (principal); N18.6 End stage renal disease; E10.22 Type 1 diabetes mellitus with diabetic chronic kidney disease; I50.9 Heart failure, unspecified; I13.2 Hypertensive heart and chronic kidney disease with heart failure and with stage 5 chronic kidney disease, or end stage renal disease; R11.0 Nausea; F41.9 Anxiety disorder, unspecified; K21.9 Gastro-esophageal reflux disease without esophagitis; Z79.899 Other long term (current) drug therapy; Z79.4 Long term (current) use of insulin
CPT/HCPCS: 36415; 85025; J2060; J2550

== ENCOUNTER 2018-10-14 08:07 | Emergency (ER) | payer MEDICARE, MEDICAID ==
[2018-10-14] MEDS ORDERED: PROMETHAZINE HCL INJ 25 MG/ML VIAL ONE (08:42)
[2018-10-14] MEDS ORDERED: SODIUM CHLORIDE 0.9% 50ML 50 ML ONE (08:43)
[2018-10-14] MEDS: PROMETHAZINE HCL INJ 25 MG in SODIUM CHLORIDE 0.9% 50ML 50 ML IVPB ONE (08:51)
--- NOTE | 2018-10-14 08:55 | ED.PDOC ---
History of Present Illness - General Chief Complaint: Diabetic Complaint Stated Complaint: hyperglycemia Time Seen by Provider: 10/14/18 08:21 Source: patient Exam Limitations: no limitations - History of Present Illness Initial Comments: Patient is a 28 yo with IDDM and stage 5 kidney disease who presents from the [facility] with an elevated blood sugar. She was here yesterday for the same. She had a left venous shunt placed 4 days ago and says that it has been oozing. She has had N/V and abdominal pain today. She says she takes her insulin and other medications as scheduled. No other complaints. Timing/Duration: 1-3 hours Severity: moderate Improving Factors: nothing Worsening Factors: nothing Associated Symptoms: other - as in HPI Allergies/Adverse Reactions: Allergies NO KNOWN ALLERGY Allergy (Verified 10/13/18 06:19) Home Medications: Ambulatory Orders Insulin Aspart [Novolog] 2 unit SC TID 12/03/17 Promethazine HCl 25 mg PO Q6HR PRN 12/03/17 Sertraline HCl 100 mg PO DAILY 12/03/17 Hydrocodone-Acetaminophen [[place] 7.5-325 mg] 1 tab PO BID 12/16/17 Gabapentin 600 mg PO TID 01/24/18 Metoprolol Tartrate 100 mg PO BID 01/24/18 amLODIPine BESYLATE [Norvasc] 5 mg PO DAILY 01/24/18 Hydralazine HCl 50 mg PO TID 02/09/18 Insulin Detemir [Levemir] 3 unit SUBCU DAILY 02/09/18 Spironolactone 50 mg PO DAILY 02/09/18 Calcium Acetate (Phosphate Bin [Calcium Acetate] 3 each PO TID 05/22/18 Insulin Detemir [Levemir] 2 units SUBCU BEDTIME 05/22/18 Pantoprazole Tablet [Protonix] 40 mg PO ACBK 05/22/18 Bumetanide 2 mg PO BID 09/06/18 Clonidine HCl 0.3 mg PO TID 09/06/18 Insulin Aspart (with Niacinami [Fiasp] 100 unit SC TID 09/06/18 Telmisartan [Micardis] 80 mg PO BEDTIME 09/06/18 ALPRAZolam [Xanax] 0.5 mg PO BEDTIME 10/01/18 ALPRAZolam [Xanax] 0.5 mg PO BID PRN 10/01/18 Albuterol Sulfate Nebs [Proventil Nebs] 2.5 mg INH Q4HR PRN 10/01/18 Cholecalciferol [Vitamin D3] 1,000 unit PO DAILY 10/01/18 Docusate Sodium [Colace Cap] 100 mg PO BID 10/01/18 Ferrous Sulfate [Ferrousul] 325 mg PO DAILY 10/01/18 Isosorbide Dinitrate-Hydralazi [Bidil 20-37.5 mg] 1 tab PO BID 10/01/18 Melatonin 10 mg PO BEDTIME 10/01/18 Metolazone 5 mg PO GWENDOLYN-OTH-DAY 10/01/18 Sulfa/Trimeth 800/160 (Ds) Tab [Bactrim DS] 1 tablet PO BID 10/01/18 Review of Systems - Review of Systems Constitutional: States: no symptoms reported EENTM: States: no symptoms reported Respiratory: States: no symptoms reported Cardiology: States: no symptoms reported Gastrointestinal/Abdominal: States: see HPI Genitourinary: States: see HPI Musculoskeletal: States: no symptoms reported Skin: States: no symptoms reported Neurological: States: no symptoms reported Endocrine: States: no symptoms reported Hematologic/Lymphatic: States: see HPI Past Medical History (General) - Patient Medical History Hx Seizures: No Hx Stroke: No Hx Dementia: No Hx Asthma: No Hx of COPD: No Hx Cardiac Disorders: No Hx Congestive Heart Failure: No Hx Pacemaker: No Hx Hypertension: Yes Hx Thyroid Disease: No Hx Diabetes: Yes Hx Gastroesophageal Reflux: Yes Hx Renal Disease: Yes Hx Cancer: No Hx of HIV: No Hx Hepatitis C: No Hx MRSA: No - Vaccination History Hx Tetanus, Diphtheria Vaccination: Yes Hx Influenza Vaccination: No Hx Pneumococcal Vaccination: No - Social History Hx Tobacco Use: No Hx Chewing Tobacco Use: No Hx Alcohol Use: No Hx Substance Use: No Hx Substance Use Treatment: No Hx Depression: No Hx Physical Abuse: No Hx Emotional Abuse: No Hx Suspected Abuse: No - Female History Patient : No Family Medical History - Family History Mother Family History: Unknown Living Status: Unknown Hx Cardiac Disease: Yes - DAD Hx Family Diabetes: Yes - DAD Hx Family;Other: DAD-RHEUMATOID ARTHTRITIS Physical Exam - Physical Exam General Appearance: Alert Eye Exam: bilateral normal Ears, Nose, Throat: normal ENT inspection Neck: non-tender, full range of motion, supple Respiratory: lungs clear, normal breath sounds Cardiovascular/Chest: normal peripheral pulses, regular rate, rhythm Gastrointestinal/Abdominal: normal bowel sounds, non tender, soft Back Exam: no CVA tenderness Extremity: normal range of motion, non-tender, normal inspection Neurologic: no motor/sensory deficits, alert, normal mood/affect, oriented x 3 Skin Exam: pallor Lymphatic: no adenopathy Progress - Progress Progress: 10/14/18 11:04 Laboratory Tests 10/14/18 10/14/18 10/14/18 08:15 08:15 08:15 WBC 7.8 RBC 2.37 L Hgb 7.1 L* Hct 23.9 L MCV 100.9 H MCH 29.8 MCHC 29.5 L RDW 19.2 H Plt Count 256 MPV 9.2 Absolute Neuts (auto) 7.10 H Absolute Lymphs (auto) 0.30 L Absolute Monos (auto) 0.20 Absolute Eos (auto) 0.10 Absolute Basos (auto) 0.10 Neutrophils % 90.9 H Lymphocytes % 4.4 L Monocytes % 2.6 Eosinophils % 1.3 Basophils % 0.8 Normal RBC Morphology Stain quality accept pCO2 pO2 HCO3 ABG pH ABG O2 Saturation ABG Base Excess ABG Deoxyhemoglobin Oxyhemoglobin % Carboxyhemoglobin % Methemoglobin % Sat Calc Total Hemoglobin Sodium 128 L Potassium 6.3 H Chloride 86 L Carbon Dioxide 18 L Anion Gap 30.3 H BUN 75 H Creatinine 6.21 H* BUN/Creatinine Ratio 12.1 POC Glucose Random Glucose 727 H* Serum Osmolality 314.3 H Lactic Acid 1.2 Calcium 7.8 L Total Bilirubin 1.6 H AST 22 ALT < 8 L Alkaline Phosphatase 73 Serum Total Protein 6.2 L Albumin 2.8 L Globulin 3.4 Albumin/Globulin Ratio 0.8 L 10/14/18 10/14/18 10/14/18 09:03 10:10 10:24 WBC RBC Hgb Hct MCV MCH MCHC RDW Plt Count MPV Absolute Neuts (auto) Absolute Lymphs (auto) Absolute Monos (auto) Absolute Eos (auto) Absolute Basos (auto) Neutrophils % Lymphocytes % Monocytes % Eosinophils % Basophils % Normal RBC Morphology pCO2 46 H pO2 95 HCO3 23.3 ABG pH 7.330 L ABG O2 Saturation 97.5 ABG Base Excess -2.0 ABG Deoxyhemoglobin 2.4 Oxyhemoglobin % 94.3 Carboxyhemoglobin % -0.1 L Methemoglobin % Sat 3.4 H Calc Total Hemoglobin 7.2 L Sodium 129 L Potassium 5.8 H Chloride 89 L Carbon Dioxide 22 Anion Gap 23.8 H BUN 76 H Creatinine 6.26 H* BUN/Creatinine Ratio 12.1 POC Glucose > 400 H* Random Glucose 554 H* Serum Osmolality 307.0 H Lactic Acid Calcium 7.9 L Total Bilirubin AST ALT Alkaline Phosphatase Serum Total Protein Albumin Globulin Albumin/Globulin Ratio 10/14/18 10:25 WBC RBC Hgb Hct MCV MCH MCHC RDW Plt Count MPV Absolute Neuts (auto) Absolute Lymphs (auto) Absolute Monos (auto) Absolute Eos (auto) Absolute Basos (auto) Neutrophils % Lymphocytes % Monocytes % Eosinophils % Basophils % Normal RBC Morphology pCO2 pO2 HCO3 ABG pH ABG O2 Saturation ABG Base Excess ABG Deoxyhemoglobin Oxyhemoglobin % Carboxyhemoglobin % Methemoglobin % Sat Calc Total Hemoglobin Sodium Potassium Chloride Carbon Dioxide Anion Gap BUN Creatinine BUN/Creatinine Ratio POC Glucose Random Glucose Cancelled Serum Osmolality Lactic Acid Calcium Total Bilirubin AST ALT Alkaline Phosphatase Serum Total Protein Albumin Globulin Albumin/Globulin Ratio Glucose 727. pH 7.33. Anion gap 30.3. Patient was started on insulin drip at 5 units per hour. Not given fluid because of Stage 5 CRF. EKG showed mildly peaked T waves. After one hour, glucose was 554 and anion gap 23.8. Potassium 5.8. Insulin drip kept at 5 units per hour and patient was transferred to [facility] for DKA and emergent dialysis. Departure - Departure Clinical Impression: Diabetes mellitus with ketoacidosis, Hyperkalemia Disposition: Transfer to Hospital Condition: Fair Departure Forms: ED Discharge - Pt. Copy, Patient Portal Self Enrollment Instructions: DI for Diabetes Type 2 Diet: other - NPO Activity: other - as per hospitalist Referrals: Mukesh Flowers MD [Primary Care Provider] - 1-2 Weeks Home Medications: Ambulatory Orders Insulin Aspart [Novolog] 2 unit SC TID 12/03/17 Promethazine HCl 25 mg PO Q6HR PRN 12/03/17 Sertraline HCl 100 mg PO DAILY 12/03/17 Hydrocodone-Acetaminophen [[place] 7.5-325 mg] 1 tab PO BID 12/16/17 Gabapentin 600 mg PO TID 01/24/18 Metoprolol Tartrate 100 mg PO BID 01/24/18 amLODIPine BESYLATE [Norvasc] 5 mg PO DAILY 01/24/18 Hydralazine HCl 50 mg PO TID 02/09/18 Insulin Detemir [Levemir] 3 unit SUBCU DAILY 02/09/18 Spironolactone 50 mg PO DAILY 02/09/18 Calcium Acetate (Phosphate Bin [Calcium Acetate] 3 each PO TID 05/22/18 Insulin Detemir [Levemir] 2 units SUBCU BEDTIME 05/22/18 Pantoprazole Tablet [Protonix] 40 mg PO ACBK 05/22/18 Bumetanide 2 mg PO BID 09/06/18 Clonidine HCl 0.3 mg PO TID 09/06/18 Insulin Aspart (with Niacinami [Fiasp] 100 unit SC TID 09/06/18 Telmisartan [Micardis] 80 mg PO BEDTIME 09/06/18 ALPRAZolam [Xanax] 0.5 mg PO BEDTIME 10/01/18 ALPRAZolam [Xanax] 0.5 mg PO BID PRN 10/01/18 Albuterol Sulfate Nebs [Proventil Nebs] 2.5 mg INH Q4HR PRN 10/01/18 Cholecalciferol [Vitamin D3] 1,000 unit PO DAILY 10/01/18 Docusate Sodium [Colace Cap] 100 mg PO BID 10/01/18 Ferrous Sulfate [Ferrousul] 325 mg PO DAILY 10/01/18 Isosorbide Dinitrate-Hydralazi [Bidil 20-37.5 mg] 1 tab PO BID 10/01/18 Melatonin 10 mg PO BEDTIME 10/01/18 Metolazone 5 mg PO GWENDOLYN-OTH-DAY 10/01/18 Sulfa/Trimeth 800/160 (Ds) Tab [Bactrim DS] 1 tablet PO BID 10/01/18 Critical Care Note - Critical Care Note Total Time (mins): 60
[2018-10-14] MEDS ORDERED: SODIUM CHL 0.9% 250ML (AVIVA) 250 ML IVPB ONE (09:07)
[2018-10-14] MEDS ORDERED: INSULIN, REG.(HUMAN) 100 U/ML VIAL ONE (09:08)
[2018-10-14] MEDS: INSULIN, REG.(HUMAN) 250 UNITS in SODIUM CHL 0.9% 250ML (AVIVA) 247.5 ML IVPB SCH ×2 (09:17)
[2018-10-14 10:42] VITALS: TEMP 99.4
[2018-10-14 11:03] VITALS: BP 139/77
[2018-10-14 11:22] VITALS: O2SAT 98
== END 2018-10-14 11:22 | disposition short-term general hospital (02) ==
LOC: ER 08:07 → EDSTATUS 08:08 → ER 11:22
DX: E11.10 Type 2 diabetes mellitus with ketoacidosis without coma (principal); E87.5 Hyperkalemia; R11.2 Nausea with vomiting, unspecified; E11.22 Type 2 diabetes mellitus with diabetic chronic kidney disease; N18.5 Chronic kidney disease, stage 5; I12.0 Hypertensive chronic kidney disease with stage 5 chronic kidney disease or end stage renal disease; K21.9 Gastro-esophageal reflux disease without esophagitis; Z99.2 Dependence on renal dialysis; Z79.4 Long term (current) use of insulin; Z79.899 Other long term (current) drug therapy
CPT/HCPCS: 36415; 36416; 36600; 80048; 80053; 82803; 82805; 82948; 83605; 85025; 93005; A4216; J2060; J2550

== ENCOUNTER 2018-10-24 05:12 | Emergency (ER) | payer MEDICARE, MEDICAID ==
[2018-10-24 05:37] VITALS: TEMP 98.6
[2018-10-24] MEDS ORDERED: PROMETHAZINE HCL INJ 25 MG in SODIUM CHLORIDE 0.9% 50ML 50 ML IVPB ONE (05:52)
--- NOTE | 2018-10-24 05:59 | ED.PDOC ---
History of Present Illness - General Chief Complaint: Skin/Abrasion/Tear Stated Complaint: infected shunt Time Seen by Provider: 10/24/18 05:50 Source: patient Exam Limitations: no limitations - History of Present Illness Initial Comments: Patient is a 28 yo IDDM with stage 5 CRF who presents with a painful and possibly infected left brachial venous shunt. It was put in almost two weeks ago and last week was revised. She says that it has become painful and red. She reports that she was prescribed Keflex today but has not been able to pick it up, yet. About two hours ago, she said that her blood sugar at the halfway was over 400 and she received 20 units of Novalog. She has nausea, anxiety, and generalized non-specific pain complaints. No other complaints. Timing/Duration: changing over time Severity: moderate Improving Factors: nothing Worsening Factors: nothing Associated Symptoms: other - as in HPI Allergies/Adverse Reactions: Allergies NO KNOWN ALLERGY Allergy (Verified 10/13/18 06:19) Home Medications: Ambulatory Orders Insulin Aspart [Novolog] 2 unit SC TID 12/03/17 Promethazine HCl 25 mg PO Q6HR PRN 12/03/17 Sertraline HCl 100 mg PO DAILY 12/03/17 Hydrocodone-Acetaminophen [Bruce 7.5-325 mg] 1 tab PO BID 12/16/17 Gabapentin 600 mg PO TID 01/24/18 Metoprolol Tartrate 100 mg PO BID 01/24/18 amLODIPine BESYLATE [Norvasc] 5 mg PO DAILY 01/24/18 Hydralazine HCl 50 mg PO TID 02/09/18 Insulin Detemir [Levemir] 3 unit SUBCU DAILY 02/09/18 Spironolactone 50 mg PO DAILY 02/09/18 Calcium Acetate (Phosphate Bin [Calcium Acetate] 3 each PO TID 05/22/18 Insulin Detemir [Levemir] 2 units SUBCU BEDTIME 05/22/18 Pantoprazole Tablet [Protonix] 40 mg PO ACBK 05/22/18 Bumetanide 2 mg PO BID 09/06/18 Clonidine HCl 0.3 mg PO TID 09/06/18 Insulin Aspart (with Niacinami [Fiasp] 100 unit SC TID 09/06/18 Telmisartan [Micardis] 80 mg PO BEDTIME 09/06/18 ALPRAZolam [Xanax] 0.5 mg PO BEDTIME 10/01/18 ALPRAZolam [Xanax] 0.5 mg PO BID PRN 10/01/18 Albuterol Sulfate Nebs [Proventil Nebs] 2.5 mg INH Q4HR PRN 10/01/18 Cholecalciferol [Vitamin D3] 1,000 unit PO DAILY 10/01/18 Docusate Sodium [Colace Cap] 100 mg PO BID 10/01/18 Ferrous Sulfate [Ferrousul] 325 mg PO DAILY 10/01/18 Isosorbide Dinitrate-Hydralazi [Bidil 20-37.5 mg] 1 tab PO BID 10/01/18 Melatonin 10 mg PO BEDTIME 10/01/18 Metolazone 5 mg PO GWENDOLYN-OTH-DAY 10/01/18 Sulfa/Trimeth 800/160 (Ds) Tab [Bactrim DS] 1 tablet PO BID 10/01/18 Review of Systems - Review of Systems Constitutional: States: no symptoms reported EENTM: States: no symptoms reported Respiratory: States: no symptoms reported Cardiology: States: no symptoms reported Gastrointestinal/Abdominal: States: see HPI Genitourinary: States: no symptoms reported Musculoskeletal: States: no symptoms reported Skin: States: see HPI Neurological: States: no symptoms reported Endocrine: States: see HPI Hematologic/Lymphatic: States: no symptoms reported Past Medical History (General) - Patient Medical History Hx Seizures: No Hx Stroke: No Hx Dementia: No Hx Asthma: No Hx of COPD: No Hx Cardiac Disorders: No Hx Congestive Heart Failure: No Hx Pacemaker: No Hx Hypertension: Yes Hx Thyroid Disease: No Hx Diabetes: Yes Hx Gastroesophageal Reflux: Yes Hx Renal Disease: Yes - end stage Hx Cancer: No Hx of HIV: No Hx Hepatitis C: No Hx MRSA: No Surgical History: tonsillectomy, other - Vaccination History Hx Tetanus, Diphtheria Vaccination: Yes Hx Influenza Vaccination: No Hx Pneumococcal Vaccination: No - Social History Hx Tobacco Use: No Hx Chewing Tobacco Use: No Hx Alcohol Use: No Hx Substance Use: No Hx Substance Use Treatment: No Hx Depression: No Hx Physical Abuse: No Hx Emotional Abuse: No Hx Suspected Abuse: No - Activities of Daily Living Senior Care/Assisted Living (if applicable):: Mina Mel[facility]dez - Female History Patient : No Family Medical History - Family History Mother Family History: Unknown Living Status: Unknown Hx Cardiac Disease: Yes - DAD Hx Family Diabetes: Yes - DAD Hx Family;Other: DAD-RHEUMATOID ARTHTRITIS Physical Exam - Physical Exam General Appearance: Alert Eye Exam: bilateral normal Ears, Nose, Throat: normal ENT inspection Neck: non-tender, full range of motion, supple Respiratory: lungs clear, normal breath sounds Cardiovascular/Chest: normal peripheral pulses, regular rate, rhythm Gastrointestinal/Abdominal: normal bowel sounds, non tender, soft Back Exam: normal inspection, no CVA tenderness Extremity: swelling - of left hand, other - left brachial shunt site is mildly swollen with mild blanching erythema Neurologic: no motor/sensory deficits, alert, normal mood/affect, oriented x 3 Skin Exam: other - see "extremity exam" Lymphatic: no adenopathy Progress - Progress Progress: 10/24/18 06:48 Laboratory Tests 10/24/18 10/24/18 10/24/18 05:31 05:50 05:50 WBC 6.3 RBC 3.11 L Hgb 9.0 L Hct 29.2 L MCV 93.9 MCH 28.9 MCHC 30.7 L RDW 18.1 H Plt Count 227 MPV 8.5 Absolute Neuts (auto) 4.80 Absolute Lymphs (auto) 1.00 Absolute Monos (auto) 0.40 Absolute Eos (auto) 0.10 Absolute Basos (auto) 0.10 Neutrophils % 75.7 Lymphocytes % 15.4 L Monocytes % 6.2 Eosinophils % 1.8 Basophils % 0.9 Sodium 127 L Potassium 3.8 Chloride 89 L Carbon Dioxide 21 Anion Gap 20.8 H BUN 33 H Creatinine 2.06 H BUN/Creatinine Ratio 16.0 POC Glucose > 400 H* Random Glucose 768 H* Serum Osmolality Not Reportable Calcium 7.2 L Total Bilirubin 0.6 AST 43 H ALT 18 Alkaline Phosphatase 83 Serum Total Protein 6.5 Albumin 3.0 L Globulin 3.5 Albumin/Globulin Ratio 0.9 L Urine Color Urine Appearance Urine pH Ur Specific [place] Urine Protein Urine Glucose (UA) Urine Ketones Urine Blood Urine Nitrite Urine Bilirubin Urine Urobilinogen Ur Leukocyte Esterase Urine RBC Urine WBC Ur Epithelial Cells Urine Bacteria Urine Yeast 10/24/18 10/24/18 06:00 06:03 WBC RBC Hgb Hct MCV MCH MCHC RDW Plt Count MPV Absolute Neuts (auto) Absolute Lymphs (auto) Absolute Monos (auto) Absolute Eos (auto) Absolute Basos (auto) Neutrophils % Lymphocytes % Monocytes % Eosinophils % Basophils % Sodium Potassium Chloride Carbon Dioxide Anion Gap BUN Creatinine BUN/Creatinine Ratio POC Glucose Random Glucose Cancelled Serum Osmolality Calcium Total Bilirubin AST ALT Alkaline Phosphatase Serum Total Protein Albumin Globulin Albumin/Globulin Ratio Urine Color Yellow Urine Appearance Clear Urine pH 7.5 Ur Specific [place] 1.015 Urine Protein >=300 H Urine Glucose (UA) >=1000 H Urine Ketones 40 H Urine Blood Moderate H Urine Nitrite Negative Urine Bilirubin Negative Urine Urobilinogen 0.2 Ur Leukocyte Esterase Negative Urine RBC 20-30 H Urine WBC 3-5 H Ur Epithelial Cells 10-20 Urine Bacteria 1+ Urine Yeast 1+ budding H Blood glucose 768. + ketone in the urine. anion gap 20.8. Patient given Ativan 0.5 mg IV and phenergan 12.5 mg IV in the E.D. Insulin drip started at 5 units/hour and potassium 20 meq IV over two hours started. She also received Keflex 1000 mg po x one for the cellulitis in her left arm. Transferred to [facility] per Dr. Villela. Departure - Departure Clinical Impression: Cellulitis, DKA (diabetic ketoacidoses) Disposition: Transfer to Hospital Condition: Fair Departure Forms: ED Discharge - Pt. Copy, Patient Portal Self Enrollment Instructions: DI for Abrasion Diet: diabetic diet Activity: as per physical therapy Referrals: Mukesh Flowers MD [Primary Care Provider] - 1-2 Weeks Home Medications: Ambulatory Orders Insulin Aspart [Novolog] 2 unit SC TID 12/03/17 Promethazine HCl 25 mg PO Q6HR PRN 12/03/17 Sertraline HCl 100 mg PO DAILY 12/03/17 Hydrocodone-Acetaminophen [Bruce 7.5-325 mg] 1 tab PO BID 12/16/17 Gabapentin 600 mg PO TID 01/24/18 Metoprolol Tartrate 100 mg PO BID 01/24/18 amLODIPine BESYLATE [Norvasc] 5 mg PO DAILY 01/24/18 Hydralazine HCl 50 mg PO TID 02/09/18 Insulin Detemir [Levemir] 3 unit SUBCU DAILY 02/09/18 Spironolactone 50 mg PO DAILY 02/09/18 Calcium Acetate (Phosphate Bin [Calcium Acetate] 3 each PO TID 05/22/18 Insulin Detemir [Levemir] 2 units SUBCU BEDTIME 05/22/18 Pantoprazole Tablet [Protonix] 40 mg PO ACBK 05/22/18 Bumetanide 2 mg PO BID 09/06/18 Clonidine HCl 0.3 mg PO TID 09/06/18 Insulin Aspart (with Niacinami [Fiasp] 100 unit SC TID 09/06/18 Telmisartan [Micardis] 80 mg PO BEDTIME 09/06/18 ALPRAZolam [Xanax] 0.5 mg PO BEDTIME 10/01/18 ALPRAZolam [Xanax] 0.5 mg PO BID PRN 10/01/18 Albuterol Sulfate Nebs [Proventil Nebs] 2.5 mg INH Q4HR PRN 10/01/18 Cholecalciferol [Vitamin D3] 1,000 unit PO DAILY 10/01/18 Docusate Sodium [Colace Cap] 100 mg PO BID 10/01/18 Ferrous Sulfate [Ferrousul] 325 mg PO DAILY 10/01/18 Isosorbide Dinitrate-Hydralazi [Bidil 20-37.5 mg] 1 tab PO BID 10/01/18 Melatonin 10 mg PO BEDTIME 10/01/18 Metolazone 5 mg PO GWENDOLYN-OTH-DAY 10/01/18 Sulfa/Trimeth 800/160 (Ds) Tab [Bactrim DS] 1 tablet PO BID 10/01/18 Critical Care Note - Critical Care Note Total Time (mins): 60
[2018-10-24] MEDS ORDERED: CEPHALEXIN MONOHYDRATE 500 MG CAP PO ONE (06:08)
[2018-10-24] MEDS ORDERED: PROMETHAZINE HCL INJ 12.5 MG in SODIUM CHLORIDE 0.9% 50ML 50 ML IVPB ONE (06:14)
[2018-10-24] MEDS ORDERED: HEPARIN SODIUM 100 U/ML 5 ML SYG IV ONE (06:15)
[2018-10-24] MEDS ORDERED: PROMETHAZINE HCL INJ 25 MG/ML VIAL ONE (06:16)
[2018-10-24] MEDS ORDERED: SODIUM CHLORIDE 0.9% 50ML 50 ML ONE (06:17)
[2018-10-24] MEDS ORDERED: KCL 20MEQ/WATER FOR INJ 100ML 20 MEQ in PREMIX BAG 1 BAG IVPB ONE (06:40)
[2018-10-24] MEDS ORDERED: SODIUM CHL 0.9% 250ML (AVIVA) 250 ML IVPB ONE (06:43)
[2018-10-24] MEDS ORDERED: INSULIN, REG.(HUMAN) 100 U/ML VIAL ONE (06:43)
[2018-10-24] MEDS ORDERED: KCL 20MEQ/WATER FOR INJ 100ML 100 ML IVPB ONE (06:43)
[2018-10-24] MEDS ORDERED: INSULIN, REG.(HUMAN) 250 UNITS in SODIUM CHL 0.9% 250ML (AVIVA) 247.5 ML IVPB SCH ×2 (07:00)
[2018-10-24] MEDS ORDERED: HYDROcodone 7.5MG/APAP 325MG 1 EA TAB PO ONE (07:12)
[2018-10-24] MEDS ORDERED: cloNIDine HCL 0.1 MG TAB PO ONE (07:12)
[2018-10-24 07:56] VITALS: BP 217/128; O2SAT 94
== END 2018-10-24 07:58 | disposition short-term general hospital (02) ==
LOC: ER 05:12
DX: E11.10 Type 2 diabetes mellitus with ketoacidosis without coma (principal); L03.114 Cellulitis of left upper limb; T82.7XXA Infection and inflammatory reaction due to other cardiac and vascular devices, implants and grafts, initial encounter; E11.22 Type 2 diabetes mellitus with diabetic chronic kidney disease; N18.5 Chronic kidney disease, stage 5; I12.0 Hypertensive chronic kidney disease with stage 5 chronic kidney disease or end stage renal disease; K21.9 Gastro-esophageal reflux disease without esophagitis; Z79.4 Long term (current) use of insulin; Z79.899 Other long term (current) drug therapy; Z99.2 Dependence on renal dialysis
CPT/HCPCS: 36415; 36416; 80053; 81001; 82948; 85025; 87040; A4216; J1642; J2060; J2550; J3480

== ENCOUNTER 2018-11-04 09:41 | Emergency (ER) | payer MEDICARE, MEDICAID ==
--- NOTE | 2018-11-04 10:01 | ED.PDOC ---
History of Present Illness - General Time Seen by Provider: 11/04/18 09:59 Source: patient, RN notes reviewed, EMS notes reviewed Additional Information: 28 YEAR OLD WHITE FEMALE WITH KNOWN HISTORY OF HYPERTENSION IDDM ESRD ON HEMODIALYSIS PRESENTS TODAY WITH NAUSEA VOMITING FEVER ABDOMINAL PAIN ONSET TODAY SHE HAD VOMITED FEW TIMES LAST DIALYSIS YESTERDAY - History of Present Illness Timing/Duration: 1-3 hours Severity: moderate Associated Symptoms: fever/chills, malaise, nausea/vomiting Allergies/Adverse Reactions: Allergies NO KNOWN ALLERGY Allergy (Verified 10/13/18 06:19) Home Medications: Ambulatory Orders Insulin Aspart [Novolog] 2 unit SC TID 12/03/17 Promethazine HCl 25 mg PO Q6HR PRN 12/03/17 Sertraline HCl 100 mg PO DAILY 12/03/17 Hydrocodone-Acetaminophen [[place] 7.5-325 mg] 1 tab PO BID 12/16/17 Gabapentin 600 mg PO TID 01/24/18 Metoprolol Tartrate 100 mg PO BID 01/24/18 amLODIPine BESYLATE [Norvasc] 5 mg PO DAILY 01/24/18 Hydralazine HCl 50 mg PO TID 02/09/18 Insulin Detemir [Levemir] 3 unit SUBCU DAILY 02/09/18 Spironolactone 50 mg PO DAILY 02/09/18 Calcium Acetate (Phosphate Bin [Calcium Acetate] 3 each PO TID 05/22/18 Insulin Detemir [Levemir] 2 units SUBCU BEDTIME 05/22/18 Pantoprazole Tablet [Protonix] 40 mg PO ACBK 05/22/18 Bumetanide 2 mg PO BID 09/06/18 Clonidine HCl 0.3 mg PO TID 09/06/18 Insulin Aspart (with Niacinami [Fiasp] 100 unit SC TID 09/06/18 Telmisartan [Micardis] 80 mg PO BEDTIME 09/06/18 ALPRAZolam [Xanax] 0.5 mg PO BEDTIME 10/01/18 ALPRAZolam [Xanax] 0.5 mg PO BID PRN 10/01/18 Albuterol Sulfate Nebs [Proventil Nebs] 2.5 mg INH Q4HR PRN 10/01/18 Cholecalciferol [Vitamin D3] 1,000 unit PO DAILY 10/01/18 Docusate Sodium [Colace Cap] 100 mg PO BID 10/01/18 Ferrous Sulfate [Ferrousul] 325 mg PO DAILY 10/01/18 Isosorbide Dinitrate-Hydralazi [Bidil 20-37.5 mg] 1 tab PO BID 10/01/18 Melatonin 10 mg PO BEDTIME 10/01/18 Metolazone 5 mg PO GWENDOLYN-OTH-DAY 10/01/18 Sulfa/Trimeth 800/160 (Ds) Tab [Bactrim DS] 1 tablet PO BID 10/01/18 Review of Systems - Review of Systems Constitutional: States: fever, weakness EENTM: States: no symptoms reported Respiratory: States: no symptoms reported Cardiology: States: no symptoms reported Gastrointestinal/Abdominal: States: abdominal pain, nausea, vomiting Musculoskeletal: States: no symptoms reported Skin: States: no symptoms reported Neurological: States: no symptoms reported Endocrine: States: no symptoms reported Hematologic/Lymphatic: States: no symptoms reported Past Medical History (General) - Patient Medical History Hx Seizures: No Hx Stroke: No Hx Dementia: No Hx Asthma: No Hx of COPD: No Hx Cardiac Disorders: No Hx Congestive Heart Failure: No Hx Pacemaker: No Hx Hypertension: Yes Hx Thyroid Disease: No Hx Diabetes: Yes Hx Gastroesophageal Reflux: Yes Hx Renal Disease: Yes - end stage Hx Cancer: No Hx of HIV: No Hx Hepatitis C: No Hx MRSA: No - Vaccination History Hx Tetanus, Diphtheria Vaccination: Yes Hx Influenza Vaccination: No Hx Pneumococcal Vaccination: No - Social History Hx Tobacco Use: No Hx Chewing Tobacco Use: No Hx Alcohol Use: No Hx Substance Use: No Hx Substance Use Treatment: No Hx Depression: No Hx Physical Abuse: No Hx Emotional Abuse: No Hx Suspected Abuse: No - Female History Patient : No Family Medical History - Family History Mother Family History: Unknown Living Status: Unknown Hx Cardiac Disease: Yes - DAD Hx Family Diabetes: Yes - DAD Hx Family;Other: DAD-RHEUMATOID ARTHTRITIS Physical Exam - Physical Exam General Appearance: Alert, Comfortable Ears, Nose, Throat: hearing grossly normal, normal ENT inspection, normal pharynx Neck: non-tender, full range of motion, supple Respiratory: chest non-tender, lungs clear, normal breath sounds, no respiratory distress, no accessory muscle use Cardiovascular/Chest: normal peripheral pulses, regular rate, rhythm, no edema, no gallop Back Exam: normal inspection, no CVA tenderness Extremity: normal range of motion, non-tender Neurologic: glass belt sander II-XII nml as tested, no motor/sensory deficits, alert, normal mood/affect, oriented x 3 Progress - Results/Orders Results/Orders: Laboratory Tests 11/04/18 11/04/18 11/04/18 10:26 10:26 10:26 WBC 9.0 RBC 3.20 L Hgb 9.3 L Hct 29.1 L MCV 91.0 MCH 29.1 MCHC 31.9 L RDW 19.9 H Plt Count 284 MPV 8.6 Absolute Neuts (auto) 6.70 Absolute Lymphs (auto) 1.40 Absolute Monos (auto) 0.70 Absolute Eos (auto) 0.10 Absolute Basos (auto) 0.10 Neutrophils % 74.4 Lymphocytes % 15.2 L Monocytes % 7.7 Eosinophils % 1.6 Basophils % 1.1 PT INR PTT (SP) 24.3 Sodium 134 L Potassium 4.7 Chloride 101 Carbon Dioxide 23 Anion Gap 14.7 BUN 43 H Creatinine 4.66 H BUN/Creatinine Ratio 9.2 L Random Glucose 230 H Serum Osmolality 286.4 Calcium 9.4 Total Bilirubin 0.4 AST 27 ALT 14 Alkaline Phosphatase 73 Serum Total Protein 7.1 Albumin 3.3 Globulin 3.8 H Albumin/Globulin Ratio 0.9 L 11/04/18 10:52 WBC RBC Hgb Hct MCV MCH MCHC RDW Plt Count MPV Absolute Neuts (auto) Absolute Lymphs (auto) Absolute Monos (auto) Absolute Eos (auto) Absolute Basos (auto) Neutrophils % Lymphocytes % Monocytes % Eosinophils % Basophils % PT 9.7 INR 0.97 PTT (SP) Sodium Potassium Chloride Carbon Dioxide Anion Gap BUN Creatinine BUN/Creatinine Ratio Random Glucose Serum Osmolality Calcium Total Bilirubin AST ALT Alkaline Phosphatase Serum Total Protein Albumin Globulin Albumin/Globulin Ratio DR Jorge AVILES WILL ACCEPT TRANSFER FOR FURTHER EVALUATION AND TREATMENT OF THIS INFECTED AV GRAFT ON THE LEFT UPPER ARM Departure - Departure Clinical Impression: ESRD (end stage renal disease) on dialysis, Dehydration, Chronic renal failure, Infection of AV graft for dialysis Time of Disposition: 12:41 Disposition: Transfer to Hospital Condition: Good Referrals: Mukesh Flowers MD [Primary Care Provider] - 1-2 Weeks Home Medications: Ambulatory Orders Insulin Aspart [Novolog] 2 unit SC TID 12/03/17 Promethazine HCl 25 mg PO Q6HR PRN 12/03/17 Sertraline HCl 100 mg PO DAILY 12/03/17 Hydrocodone-Acetaminophen [[place] 7.5-325 mg] 1 tab PO BID 12/16/17 Gabapentin 600 mg PO TID 01/24/18 Metoprolol Tartrate 100 mg PO BID 01/24/18 amLODIPine BESYLATE [Norvasc] 5 mg PO DAILY 01/24/18 Hydralazine HCl 50 mg PO TID 02/09/18 Insulin Detemir [Levemir] 3 unit SUBCU DAILY 02/09/18 Spironolactone 50 mg PO DAILY 02/09/18 Calcium Acetate (Phosphate Bin [Calcium Acetate] 3 each PO TID 05/22/18 Insulin Detemir [Levemir] 2 units SUBCU BEDTIME 05/22/18 Pantoprazole Tablet [Protonix] 40 mg PO ACBK 05/22/18 Bumetanide 2 mg PO BID 09/06/18 Clonidine HCl 0.3 mg PO TID 09/06/18 Insulin Aspart (with Niacinami [Fiasp] 100 unit SC TID 09/06/18 Telmisartan [Micardis] 80 mg PO BEDTIME 09/06/18 ALPRAZolam [Xanax] 0.5 mg PO BEDTIME 10/01/18 ALPRAZolam [Xanax] 0.5 mg PO BID PRN 10/01/18 Albuterol Sulfate Nebs [Proventil Nebs] 2.5 mg INH Q4HR PRN 10/01/18 Cholecalciferol [Vitamin D3] 1,000 unit PO DAILY 10/01/18 Docusate Sodium [Colace Cap] 100 mg PO BID 10/01/18 Ferrous Sulfate [Ferrousul] 325 mg PO DAILY 10/01/18 Isosorbide Dinitrate-Hydralazi [Bidil 20-37.5 mg] 1 tab PO BID 10/01/18 Melatonin 10 mg PO BEDTIME 10/01/18 Metolazone 5 mg PO GWENDOLYN-OTH-DAY 10/01/18 Sulfa/Trimeth 800/160 (Ds) Tab [Bactrim DS] 1 tablet PO BID 10/01/18 Transfer to Outside Facility - Transfer Information Accepting Provider:: DR DIANA AVILES Accepting Facility: [facility] Reason for Transfer: specialized care not available - INFECTED AV GRAFT LEFT ARM ESRD ON HEMODIALYSIS IDDM
[2018-11-04] MEDS ORDERED: ONDANSETRON INJ 4 MG/2 ML VIAL IV ONE (10:40)
[2018-11-04] MEDS ORDERED: fentaNYL CITRATE INJ 50 MCG/ML AMP IV ONE ×3 (10:40→15:20)
--- NOTE | 2018-11-04 10:48 | RAD ---
EXAM DESCRIPTION: Chest,1 View CLINICAL HISTORY: 28 years Female, R/O PNEUMONIA COMPARISON: 08/18/2018. TECHNIQUE: AP radiograph of the chest was obtained. FINDINGS: Right-sided central venous catheter is visualized. Trachea is midline.The cardiomediastinal silhouette is normal in size. The pulmonary vasculature is within normal limits. Improved aeration of the bilateral lung bases is noted. No definite evidence of pneumonia.No evidence of pleural effusions. IMPRESSION: Improved aeration of the bilateral lung bases is noted. No definite evidence of pneumonia. Electronically signed by: Dolly Coombs MD 11/04/2018 10:46 AM CDT
[2018-11-04] MEDS ORDERED: PROMETHAZINE HCL INJ 25 MG/ML VIAL IM ONE (13:00)
[2018-11-04] MEDS ORDERED: VANCOMYCIN HCL INJ 1,000 MG in SODIUM CHLORIDE 0.9% 250ML 250 ML IVPB ONE (13:01)
[2018-11-04] MEDS ORDERED: VANCOMYCIN HCL INJ 1,000 MG VIAL IVPB ONE (13:10)
[2018-11-04] MEDS ORDERED: SODIUM CHLORIDE 0.9% 250ML 250 ML ONE (13:10)
[2018-11-04 17:29] VITALS: BP 195/106; TEMP 99.4; O2SAT 98
== END 2018-11-04 17:29 | disposition short-term general hospital (02) ==
LOC: ER 09:41
DX: T82.7XXA Infection and inflammatory reaction due to other cardiac and vascular devices, implants and grafts, initial encounter (principal); E86.0 Dehydration; N18.6 End stage renal disease; R11.2 Nausea with vomiting, unspecified; E11.22 Type 2 diabetes mellitus with diabetic chronic kidney disease; I12.0 Hypertensive chronic kidney disease with stage 5 chronic kidney disease or end stage renal disease; K21.9 Gastro-esophageal reflux disease without esophagitis; Z99.2 Dependence on renal dialysis; Y84.8 Other medical procedures as the cause of abnormal reaction of the patient, or of later complication, without mention of misadventure at the time of the procedure; Z79.4 Long term (current) use of insulin; Z79.899 Other long term (current) drug therapy
CPT/HCPCS: 36415; 71045; 80053; 85025; 85610; 85730; 87040; J2405; J2550; J3010; J3370; J7050

== ENCOUNTER 2018-11-14 05:38 | Emergency (ER) | payer MEDICARE, MEDICAID ==
[2018-11-14] MEDS ORDERED: LABETALOL INJ 5 MG/ML VIAL IV ONE (06:21)
--- NOTE | 2018-11-14 06:31 | RAD ---
EXAM DESCRIPTION: Chest,1 View CLINICAL HISTORY: 28 years Female altered mental status COMPARISON: Portable chest dated 11/04/2018 TECHNIQUE: Portable AP view of the chest is obtained. FINDINGS IN THE CHEST: Heart: Allowing for magnification factors related to AP portable technique and body habitus, the heart is normal in size and configuration. Vasculature: [] There is no evidence of aortic aneurysm or acute findings. The pulmonary vascularity is normal. Mediastinum: Unremarkable otherwise. No evidence of mass or adenopathy. Lungs: There is no focal consolidation in the lungs. There is mild bibasilar discoid atelectasis or scarring Pleura: There are no pleural effusions. There are no pneumothoraces. Osseous structures: No evidence of acute fracture or other significant osseous abnormalities. Tubes and catheters: A dual-lumen large bore dialysis catheter is present via the right internal jugular vein, terminating at or near the superior cavoatrial junction Chest wall: Unremarkable. Visualized Abdomen: Unremarkable. IMPRESSION: Mild bibasilar discoid atelectasis or scarring without acute consolidation. There has been no significant change since the prior exam. Remainder of findings as described above. Electronically signed by: Suzette Reyez MD 11/14/2018 6:29 AM CDT
--- NOTE | 2018-11-14 06:54 | ED.PDOC ---
History of Present Illness - General Source: EMS notes reviewed, family Exam Limitations: clinical condition - History of Present Illness Initial Comments: PT UNHEALTHY 28 Y/O [place] [facility], HYPERTENSIVE, END-STAGE RENAL DZ HEMODIALYSIS DEPENDANT. LIVES AT [facility]. INITIALLY FOUND WITH AMS, EMS CALLED AND WAS NOTED TO BE VERY HYPOGLYCEMIC. BS RESPONDED TO GLUCAGON AND D50. NOW BS HAS NORMALIZED BUT PT HAS REMAINED CONFUSED AND SOMEWHAT COMBATIVE. WAS BROUGHT TO ER FOR EVALUATION. PT NOT VERBALLY RESPONSIVE. CANNOT PROVIDE ANY HX OR ROS. OBTAINED FROM OLD RECORDS. Severity: moderate Improving Factors: nothing <Maurisio Guzmán - Last Filed: 11/14/18 07:04> <Maco Epstein - Last Filed: 11/14/18 13:27> - General Chief Complaint: Diabetic Complaint Stated Complaint: Not verbally responsive Time Seen by Provider: 11/14/18 06:48 - History of Present Illness Allergies/Adverse Reactions: Allergies NO KNOWN ALLERGY Allergy (Verified 10/13/18 06:19) Home Medications: Ambulatory Orders Insulin Aspart [Novolog] 2 unit SC TID 12/03/17 Promethazine HCl 25 mg PO Q6HR PRN 12/03/17 Sertraline HCl 100 mg PO DAILY 12/03/17 Hydrocodone-Acetaminophen [[place] 7.5-325 mg] 1 tab PO BID 12/16/17 Gabapentin 600 mg PO TID 01/24/18 Metoprolol Tartrate 100 mg PO BID 01/24/18 amLODIPine BESYLATE [Norvasc] 5 mg PO DAILY 01/24/18 Hydralazine HCl 50 mg PO TID 02/09/18 Insulin Detemir [Levemir] 3 unit SUBCU DAILY 02/09/18 Spironolactone 50 mg PO DAILY 02/09/18 Calcium Acetate (Phosphate Bin [Calcium Acetate] 3 each PO TID 05/22/18 Insulin Detemir [Levemir] 2 units SUBCU BEDTIME 05/22/18 Pantoprazole Tablet [Protonix] 40 mg PO ACBK 05/22/18 Bumetanide 2 mg PO BID 09/06/18 Clonidine HCl 0.3 mg PO TID 09/06/18 Insulin Aspart (with Niacinami [Fiasp] 100 unit SC TID 09/06/18 Telmisartan [Micardis] 80 mg PO BEDTIME 09/06/18 ALPRAZolam [Xanax] 0.5 mg PO BEDTIME 10/01/18 ALPRAZolam [Xanax] 0.5 mg PO BID PRN 10/01/18 Albuterol Sulfate Nebs [Proventil Nebs] 2.5 mg INH Q4HR PRN 10/01/18 Cholecalciferol [Vitamin D3] 1,000 unit PO DAILY 10/01/18 Docusate Sodium [Colace Cap] 100 mg PO BID 10/01/18 Ferrous Sulfate [Ferrousul] 325 mg PO DAILY 10/01/18 Isosorbide Dinitrate-Hydralazi [Bidil 20-37.5 mg] 1 tab PO BID 10/01/18 Melatonin 10 mg PO BEDTIME 10/01/18 Metolazone 5 mg PO GWENDOLYN-OTH-DAY 10/01/18 Sulfa/Trimeth 800/160 (Ds) Tab [Bactrim DS] 1 tablet PO BID 10/01/18 Sulfa/Trimeth 800/160 (Ds) Tab [Bactrim DS] 1 tablet PO BID 7 Days #14 tablet 11/14/18 metroNIDAZOLE [Flagyl] 500 mg PO BID 7 Days #14 tab 11/14/18 Review of Systems - Review of Systems Constitutional: States: see HPI EENTM: States: see HPI Respiratory: States: see HPI Cardiology: States: see HPI Gastrointestinal/Abdominal: States: see HPI Genitourinary: States: see HPI Musculoskeletal: States: see HPI Skin: States: see HPI Neurological: States: see HPI Endocrine: States: see HPI Hematologic/Lymphatic: States: see HPI Unable to Obtain Due To: clinical condition <Maurisio Guzmán - Last Filed: 11/14/18 07:04> Past Medical History (General) - Patient Medical History Hx Seizures: No Hx Stroke: No Hx Dementia: No Hx Asthma: No Hx of COPD: No Hx Cardiac Disorders: No Hx Congestive Heart Failure: No Hx Pacemaker: No Hx Hypertension: Yes Hx Thyroid Disease: No Hx Diabetes: Yes Hx Gastroesophageal Reflux: Yes Hx Renal Disease: Yes - end stage Hx Cancer: No Hx of HIV: No Hx Hepatitis C: No Hx MRSA: No - Vaccination History Hx Tetanus, Diphtheria Vaccination: Yes Hx Influenza Vaccination: No Hx Pneumococcal Vaccination: No - Social History Hx Tobacco Use: No Hx Chewing Tobacco Use: No Hx Alcohol Use: No Hx Substance Use: No Hx Substance Use Treatment: No Hx Depression: No Hx Physical Abuse: No Hx Emotional Abuse: No Hx Suspected Abuse: No - Female History Patient : No <Maurisio Guzmán - Last Filed: 11/14/18 07:04> Family Medical History - Family History Mother Family History: Unknown Living Status: Unknown Hx Cardiac Disease: Yes - DAD Hx Family Diabetes: Yes - DAD Hx Family;Other: DAD-RHEUMATOID ARTHTRITIS <Maurisio Guzmán - Last Filed: 11/14/18 07:04> Physical Exam - Physical Exam General Appearance: Frail, No apparent distress, Restless Eye Exam: bilateral normal Ears, Nose, Throat: normal ENT inspection Neck: non-tender, full range of motion, supple, normal inspection Respiratory: lungs clear, rhonchi - DIFFUSE, BILATERAL. Cardiovascular/Chest: regular rate, rhythm, no murmur, other - DIALYSIS CATHETER IN R ANT CHEST. Gastrointestinal/Abdominal: non tender, soft, no organomegaly Back Exam: normal inspection, no CVA tenderness Extremity: normal range of motion, non-tender, normal inspection, other - DIALYSIS GRAFT LUE. Neurologic: no motor/sensory deficits, alert, other - AWAKE BUT DOES NOT RESPOND VERBALLY, DOES SEEM TO FOLLOW SOME COMMANDS, BUT IS ALSO RESTLESS AND PULLING AT LINES. GCS 11 Skin Exam: normal color, warm/dry Lymphatic: no adenopathy <Maurisio Guzmán - Last Filed: 11/14/18 07:04> Progress - Progress Progress: 11/14/18 07:[address] EPSTEIN. 11/14/18 07:04 OLD RECORDS REVIEWED, LAB IS STABLE, ABG NO ACIDOSIS. - EKG/XRAY/CT XRAY: chest - R ANDREA CATH PRESENT, NO ACUTE INFILTRATE. CT: NEG PER RADIOLOGY <Maurisio Guzmán - Last Filed: 11/14/18 07:04> - Progress Progress: 11/14/18 13:23 Patient more awake asking for anti-anxiety and pain pill - Results/Orders Results/Orders: Laboratory Tests 11/14/18 11/14/18 11/14/18 05:50 06:00 06:00 WBC 11.0 H RBC 3.16 L Hgb 9.3 L Hct 28.9 L MCV 91.3 MCH 29.2 MCHC 32.0 L RDW 21.7 H Plt Count 322 MPV 8.0 Absolute Neuts (auto) 9.50 H Absolute Lymphs (auto) 0.70 L Absolute Monos (auto) 0.50 Absolute Eos (auto) 0.10 Absolute Basos (auto) 0.10 Neutrophils % 86.8 H Lymphocytes % 6.7 L Monocytes % 4.8 Eosinophils % 1.1 Basophils % 0.6 PT INR PTT (SP) pCO2 pO2 HCO3 ABG pH ABG O2 Saturation ABG Base Excess ABG Deoxyhemoglobin Oxyhemoglobin % Carboxyhemoglobin % Methemoglobin % Sat Calc Total Hemoglobin Sodium 136 Potassium 3.2 L Chloride 95 L Carbon Dioxide 27 Anion Gap 17.2 BUN 35 H Creatinine 3.67 H BUN/Creatinine Ratio 9.5 L POC Glucose 133 H Random Glucose 143 H Serum Osmolality 282.4 Lactic Acid Calcium 8.8 Total Bilirubin 0.3 AST 20 ALT 15 Alkaline Phosphatase 65 Troponin I Serum Total Protein 6.7 Albumin 3.1 L Globulin 3.6 H Albumin/Globulin Ratio 0.9 L Lipase 11/14/18 11/14/18 11/14/18 06:00 06:00 06:00 WBC RBC Hgb Hct MCV MCH MCHC RDW Plt Count MPV Absolute Neuts (auto) Absolute Lymphs (auto) Absolute Monos (auto) Absolute Eos (auto) Absolute Basos (auto) Neutrophils % Lymphocytes % Monocytes % Eosinophils % Basophils % PT 11.4 H INR 1.14 PTT (SP) 24.7 pCO2 pO2 HCO3 ABG pH ABG O2 Saturation ABG Base Excess ABG Deoxyhemoglobin Oxyhemoglobin % Carboxyhemoglobin % Methemoglobin % Sat Calc Total Hemoglobin Sodium Potassium Chloride Carbon Dioxide Anion Gap BUN Creatinine BUN/Creatinine Ratio POC Glucose Random Glucose Serum Osmolality Lactic Acid 1.1 Calcium Total Bilirubin AST ALT Alkaline Phosphatase Troponin I < 0.02 Serum Total Protein Albumin Globulin Albumin/Globulin Ratio Lipase 11/14/18 11/14/18 11/14/18 06:16 07:55 09:40 WBC RBC Hgb Hct MCV MCH MCHC RDW Plt Count MPV Absolute Neuts (auto) Absolute Lymphs (auto) Absolute Monos (auto) Absolute Eos (auto) Absolute Basos (auto) Neutrophils % Lymphocytes % Monocytes % Eosinophils % Basophils % PT INR PTT (SP) pCO2 45 pO2 124 H* HCO3 29.2 ABG pH 7.430 ABG O2 Saturation 99.0 ABG Base Excess 4.7 ABG Deoxyhemoglobin 1.0 Oxyhemoglobin % 97.0 Carboxyhemoglobin % -0.1 L Methemoglobin % Sat 2.1 H Calc Total Hemoglobin 9.0 L Sodium 133 L Potassium 3.6 Chloride 94 L Carbon Dioxide 24 Anion Gap 18.6 H BUN 37 H Creatinine 3.75 H BUN/Creatinine Ratio 9.9 L POC Glucose 137 H Random Glucose 159 H Serum Osmolality 278.4 Lactic Acid Calcium 8.5 Total Bilirubin AST ALT Alkaline Phosphatase Troponin I Serum Total Protein Albumin Globulin Albumin/Globulin Ratio Lipase 11/14/18 09:50 WBC RBC Hgb Hct MCV MCH MCHC RDW Plt Count MPV Absolute Neuts (auto) Absolute Lymphs (auto) Absolute Monos (auto) Absolute Eos (auto) Absolute Basos (auto) Neutrophils % Lymphocytes % Monocytes % Eosinophils % Basophils % PT INR PTT (SP) pCO2 pO2 HCO3 ABG pH ABG O2 Saturation ABG Base Excess ABG Deoxyhemoglobin Oxyhemoglobin % Carboxyhemoglobin % Methemoglobin % Sat Calc Total Hemoglobin Sodium Potassium Chloride Carbon Dioxide Anion Gap BUN Creatinine BUN/Creatinine Ratio POC Glucose Random Glucose Serum Osmolality Lactic Acid Calcium Total Bilirubin AST ALT Alkaline Phosphatase Troponin I Serum Total Protein Albumin Globulin Albumin/Globulin Ratio Lipase 18 L - EKG/XRAY/CT CT Ordered: Yes - abd-possible proctitis <Maco Epstein - Last Filed: 11/14/18 13:27> Departure <Maurisio Guzmán - Last Filed: 11/14/18 07:04> - Departure Time of Disposition: 13:24 <Maco Epstein - Last Filed: 11/14/18 13:27> - Departure Clinical Impression: Hypoglycemia due to type 1 diabetes mellitus, Transient alteration of awareness Abdominal pain Qualifiers: Abdominal location: lower abdomen, unspecified Qualified Code(s): R10.30 - Lower abdominal pain, unspecified Disposition: Discharge to SNF Condition: Fair Departure Forms: ED Discharge - Pt. Copy, Patient Portal Self Enrollment Referrals: Mukesh Flowers MD [Primary Care Provider] - 1-2 Weeks Prescriptions: metroNIDAZOLE [Flagyl] 500 mg PO BID 7 Days #14 tab Sulfa/Trimeth 800/160 (Ds) Tab [Bactrim DS] 1 tablet PO BID 7 Days #14 tablet Home Medications: Ambulatory Orders Insulin Aspart [Novolog] 2 unit SC TID 12/03/17 Promethazine HCl 25 mg PO Q6HR PRN 12/03/17 Sertraline HCl 100 mg PO DAILY 12/03/17 Hydrocodone-Acetaminophen [[place] 7.5-325 mg] 1 tab PO BID 12/16/17 Gabapentin 600 mg PO TID 01/24/18 Metoprolol Tartrate 100 mg PO BID 01/24/18 amLODIPine BESYLATE [Norvasc] 5 mg PO DAILY 01/24/18 Hydralazine HCl 50 mg PO TID 02/09/18 Insulin Detemir [Levemir] 3 unit SUBCU DAILY 02/09/18 Spironolactone 50 mg PO DAILY 02/09/18 Calcium Acetate (Phosphate Bin [Calcium Acetate] 3 each PO TID 05/22/18 Insulin Detemir [Levemir] 2 units SUBCU BEDTIME 05/22/18 Pantoprazole Tablet [Protonix] 40 mg PO ACBK 05/22/18 Bumetanide 2 mg PO BID 09/06/18 Clonidine HCl 0.3 mg PO TID 09/06/18 Insulin Aspart (with Niacinami [Fiasp] 100 unit SC TID 09/06/18 Telmisartan [Micardis] 80 mg PO BEDTIME 09/06/18 ALPRAZolam [Xanax] 0.5 mg PO BEDTIME 10/01/18 ALPRAZolam [Xanax] 0.5 mg PO BID PRN 10/01/18 Albuterol Sulfate Nebs [Proventil Nebs] 2.5 mg INH Q4HR PRN 10/01/18 Cholecalciferol [Vitamin D3] 1,000 unit PO DAILY 10/01/18 Docusate Sodium [Colace Cap] 100 mg PO BID 10/01/18 Ferrous Sulfate [Ferrousul] 325 mg PO DAILY 10/01/18 Isosorbide Dinitrate-Hydralazi [Bidil 20-37.5 mg] 1 tab PO BID 10/01/18 Melatonin 10 mg PO BEDTIME 10/01/18 Metolazone 5 mg PO GWENDOLYN-OTH-DAY 10/01/18 Sulfa/Trimeth 800/160 (Ds) Tab [Bactrim DS] 1 tablet PO BID 10/01/18 Sulfa/Trimeth 800/160 (Ds) Tab [Bactrim DS] 1 tablet PO BID 7 Days #14 tablet 11/14/18 metroNIDAZOLE [Flagyl] 500 mg PO BID 7 Days #14 tab 11/14/18 Additional Instructions: NEED TO FINGER STICK BLOOD SUGAR BEFORE GIVING INSULIN and ALSO AT HS need to give snacks at bedtime
--- NOTE | 2018-11-14 07:02 | CT ---
EXAM DESCRIPTION: CT head without contrast CLINICAL HISTORY: altered mental status COMPARISON: 10/01/2018 TECHNIQUE: Noncontrast spiral CT of the brain. This exam was performed according to our departmental dose-optimization program, which includes automated exposure control, adjustment of the mA and/or kV according to patient size and/or use of iterative reconstruction technique FINDINGS: No intracranial hemorrhage, infarction or mass lesion. Normal hayden-white matter differentiation Ventricles are normal in size and configuration No calvarial or skullbase fracture. No fluid in the paranasal sinuses or mastoid air cells IMPRESSION: Negative noncontrast head CT Electronically signed by: Luciano Zhang MD 11/14/2018 7:00 AM CDT
[2018-11-14] MEDS ORDERED: PANTOPRAZOLE SOD SUSP 40 MG PCKT PO ONE (10:55)
[2018-11-14] MEDS ORDERED: SUCRALFATE 1 GM/10 ML 1 GM UD PO ONE (10:55)
--- NOTE | 2018-11-14 13:10 | CT ---
CT ABDOMEN PELVIS WITHOUT IV CONTRAST HISTORY: 28 years Female pain abdomen COMPARISON: April 23, 2018. TECHNIQUE: Helical tomographic images of the abdomen and pelvis were obtained without the use of intravenous contrast. Coronal and sagittal reformatted images were also provided. This exam was performed according to our departmental dose-optimization program, which includes automated exposure control, adjustment of the mA and/or kV according to patient size and/or use of iterative reconstruction technique. FINDINGS: Evaluation limited by lack of intravenous contrast. Visualized lung bases are clear. The contours of the liver, gallbladder, spleen, pancreas and adrenal glands are unremarkable. Normal renal contours. No hydronephrosis. No urolithiasis. The bladder is unremarkable. Heterogeneous uterus. No adnexal mass. Trace physiologic free fluid in the pelvis. The rectum is fluid-filled. There is perirectal fat stranding and edema. No evidence of bowel obstruction. No findings to suggest appendicitis. No adenopathy. No focal fluid collection. No free air. There is atherosclerotic plaque in the abdominal aorta. Mild body wall edema. No acute or suspicious osseous abnormality. IMPRESSION: 1. Findings concerning for acute uncomplicated proctitis. 2. Minimal atherosclerotic plaque in the abdominal aorta. Electronically signed by: Erik Short MD 11/14/2018 1:08 PM CDT
[2018-11-14] MEDS ORDERED: SULFA/TRIMETH 800/160 (DS) TAB 1 EA TAB PO ONE (13:20)
[2018-11-14] MEDS ORDERED: HYDROcodone 5MG/APAP 325MG 1 EA TAB PO ONE (13:20)
[2018-11-14] MEDS ORDERED: metroNIDAZOLE 500 MG TAB PO ONE (13:20)
[2018-11-14 14:23] VITALS: BP 154/75; TEMP 100.6; O2SAT 98
== END 2018-11-14 14:23 ==
LOC: ER 05:38
DX: E10.649 Type 1 diabetes mellitus with hypoglycemia without coma (principal); R40.4 Transient alteration of awareness; R10.30 Lower abdominal pain, unspecified; N18.6 End stage renal disease; I12.0 Hypertensive chronic kidney disease with stage 5 chronic kidney disease or end stage renal disease; K21.9 Gastro-esophageal reflux disease without esophagitis; Z79.899 Other long term (current) drug therapy; Z79.4 Long term (current) use of insulin; Z99.2 Dependence on renal dialysis
CPT/HCPCS: 36415; 36416; 36600; 70450; 71045; 74176; 80048; 80053; 82803; 82805; 82948; 83605; 83690; 84484; 85025; 85610; 85730; 87040; J2060

== ENCOUNTER 2018-11-19 12:37 | Emergency (ER) | payer MEDICARE, MEDICAID ==
[2018-11-19] MEDS ORDERED: SODIUM CHLORIDE 0.9% (FLUSH) 10 ML SYG IV PRN (13:10)
[2018-11-19] MEDS ORDERED: MORPHINE SULFATE INJ 10 MG/ML VIAL IM ONE (13:11)
[2018-11-19] MEDS ORDERED: PROMETHAZINE HCL INJ 25 MG/ML VIAL IM PRN (13:11)
--- NOTE | 2018-11-19 13:59 | ED.PDOC ---
History of Present Illness - General Chief Complaint: Diabetic Complaint Stated Complaint: Unresponsive, low BS Time Seen by Provider: 11/19/18 12:57 Source: patient, RN/MD, long term records Exam Limitations: other - POOR HISTORIAN - History of Present Illness Initial Comments: PT PRESENTS FROM [facility] AFTER BEING FOUND ON FLOOR UNRESPONSIVE. GLUCOSE WAS FOUND TO BE IN THE 20S. PT GIVEN LIQUID GLUCOSE PER RECTUM AND IM GLUCAGON PRIOR TO ARRIVAL. UPON ARRIVAL PT WAS AWAKE AND ALERT WITH FSBG OF 113. PT COMPLAINS OF ABD PAIN AND NAUSEA. PT IS UNSURE IF SHE ATE BREAKFAST THIS AM. HPI AND ROS LIMITED DUE TO PT BEING A POOR HISTORIAN. Timing/Duration: 1-3 hours Severity: moderate Associated Symptoms: nausea/vomiting Allergies/Adverse Reactions: Allergies NO KNOWN ALLERGY Allergy (Verified 10/13/18 06:19) Home Medications: Ambulatory Orders Insulin Aspart [Novolog] 2 unit SC TID 12/03/17 Promethazine HCl 25 mg PO Q6HR PRN 12/03/17 Sertraline HCl 100 mg PO DAILY 12/03/17 Hydrocodone-Acetaminophen [[place] 7.5-325 mg] 1 tab PO BID 12/16/17 Gabapentin 600 mg PO TID 01/24/18 Metoprolol Tartrate 100 mg PO BID 01/24/18 amLODIPine BESYLATE [Norvasc] 5 mg PO DAILY 01/24/18 Hydralazine HCl 50 mg PO TID 02/09/18 Insulin Detemir [Levemir] 3 unit SUBCU DAILY 02/09/18 Spironolactone 50 mg PO DAILY 02/09/18 Calcium Acetate (Phosphate Bin [Calcium Acetate] 3 each PO TID 05/22/18 Insulin Detemir [Levemir] 2 units SUBCU BEDTIME 05/22/18 Pantoprazole Tablet [Protonix] 40 mg PO ACBK 05/22/18 Bumetanide 2 mg PO BID 09/06/18 Clonidine HCl 0.3 mg PO TID 09/06/18 Insulin Aspart (with Niacinami [Fiasp] 100 unit SC TID 09/06/18 Telmisartan [Micardis] 80 mg PO BEDTIME 09/06/18 ALPRAZolam [Xanax] 0.5 mg PO BEDTIME 10/01/18 ALPRAZolam [Xanax] 0.5 mg PO BID PRN 10/01/18 Albuterol Sulfate Nebs [Proventil Nebs] 2.5 mg INH Q4HR PRN 10/01/18 Cholecalciferol [Vitamin D3] 1,000 unit PO DAILY 10/01/18 Docusate Sodium [Colace Cap] 100 mg PO BID 10/01/18 Ferrous Sulfate [Ferrousul] 325 mg PO DAILY 10/01/18 Isosorbide Dinitrate-Hydralazi [Bidil 20-37.5 mg] 1 tab PO BID 10/01/18 Melatonin 10 mg PO BEDTIME 10/01/18 Metolazone 5 mg PO GWENDOLYN-OTH-DAY 10/01/18 Sulfa/Trimeth 800/160 (Ds) Tab [Bactrim DS] 1 tablet PO BID 10/01/18 Sulfa/Trimeth 800/160 (Ds) Tab [Bactrim DS] 1 tablet PO BID 7 Days #14 tablet 11/14/18 metroNIDAZOLE [Flagyl] 500 mg PO BID 7 Days #14 tab 11/14/18 Review of Systems - Review of Systems Constitutional: States: see HPI EENTM: States: see HPI Respiratory: States: see HPI Cardiology: States: see HPI Gastrointestinal/Abdominal: States: see HPI, abdominal pain, nausea Genitourinary: States: see HPI Musculoskeletal: States: see HPI Skin: States: see HPI Neurological: States: see HPI Endocrine: States: see HPI Past Medical History (General) - Patient Medical History Hx Seizures: No Hx Stroke: No Hx Dementia: No Hx Asthma: No Hx of COPD: No Hx Cardiac Disorders: No Hx Congestive Heart Failure: No Hx Pacemaker: No Hx Hypertension: Yes Hx Thyroid Disease: No Hx Diabetes: Yes Hx Gastroesophageal Reflux: Yes Hx Renal Disease: Yes - end stage; Dialysis MWF Hx Cancer: No Hx of HIV: No Hx Hepatitis C: No Hx MRSA: Yes Surgical History: other - Vaccination History Hx Tetanus, Diphtheria Vaccination: Yes Hx Influenza Vaccination: Yes - 2018 Hx Pneumococcal Vaccination: No - Social History Hx Tobacco Use: No Hx Chewing Tobacco Use: No Hx Alcohol Use: No Hx Substance Use: No Hx Substance Use Treatment: No Hx Depression: No Hx Physical Abuse: No Hx Emotional Abuse: No Hx Suspected Abuse: No - Activities of Daily Living Detention/Assisted Living (if applicable):: [facility] - Female History Patient : No Family Medical History - Family History Mother Family History: Unknown Living Status: Unknown Hx Cardiac Disease: Yes - DAD Hx Family Diabetes: Yes - DAD Hx Family;Other: DAD-RHEUMATOID ARTHTRITIS Physical Exam - Physical Exam General Appearance: Alert, Frail, Obvious distress, Unkempt, Other - APPEARS CHRONICALLY ILL Eye Exam: bilateral normal Ears, Nose, Throat: hearing grossly normal Neck: supple, normal inspection Respiratory: no respiratory distress, wheezing Cardiovascular/Chest: regular rate, rhythm, no edema Gastrointestinal/Abdominal: soft, tenderness - MILD DIFFUSE Back Exam: normal inspection Extremity: non-tender, normal inspection, no pedal edema Neurologic: alert, oriented x 3 Skin Exam: warm/dry, pallor Progress - Progress Progress: 11/19/18 14:45 PT EATING REPORTS SHE IS FEELING BETTER. WILL REPEAT FSBG 11/19/18 15:57 REPEAT FSBG; 207 AFTER EATING A MEAL, WILL D/C BACK TO [facility] - Results/Orders Results/Orders: Laboratory Tests 11/19/18 11/19/18 11/19/18 13:00 13:00 13:00 WBC 4.1 L RBC 3.10 L Hgb 9.2 L Hct 28.4 L MCV 91.5 MCH 29.5 MCHC 32.3 L RDW 20.8 H Plt Count 173 MPV 8.2 Absolute Neuts (auto) 3.30 Absolute Lymphs (auto) 0.50 L Absolute Monos (auto) 0.20 Absolute Eos (auto) 0.00 Absolute Basos (auto) 0.00 Neutrophils % 81.4 H Lymphocytes % 11.7 L Monocytes % 4.8 Eosinophils % 1.0 Basophils % 1.1 Sodium 138 Potassium 3.9 Chloride 95 L Carbon Dioxide 32 H Anion Gap 14.9 BUN 18 Creatinine 2.53 H BUN/Creatinine Ratio 7.1 L POC Glucose 113 H Random Glucose 113 H Serum Osmolality 278.4 Calcium 8.8 Total Bilirubin 0.3 AST 25 ALT 15 Alkaline Phosphatase 65 Serum Total Protein 6.9 Albumin 3.1 L Globulin 3.8 H Albumin/Globulin Ratio 0.8 L Departure - Departure Clinical Impression: Hypoglycemia, End stage renal disease on dialysis due to type 1 diabetes mellitus, Insulin dependent diabetes mellitus Time of Disposition: 15:58 Disposition: Discharge to SNF Condition: Fair Departure Forms: ED Discharge - Pt. Copy, Patient Portal Self Enrollment Instructions: DI for Diabetes Type 1 -- Adult, Low Blood Sugar, Adult (DC) Referrals: Mukesh Flowers MD [Primary Care Provider] - 1-5 Days Home Medications: Ambulatory Orders Insulin Aspart [Novolog] 2 unit SC TID 12/03/17 Promethazine HCl 25 mg PO Q6HR PRN 12/03/17 Sertraline HCl 100 mg PO DAILY 12/03/17 Hydrocodone-Acetaminophen [[place] 7.5-325 mg] 1 tab PO BID 12/16/17 Gabapentin 600 mg PO TID 01/24/18 Metoprolol Tartrate 100 mg PO BID 01/24/18 amLODIPine BESYLATE [Norvasc] 5 mg PO DAILY 01/24/18 Hydralazine HCl 50 mg PO TID 02/09/18 Insulin Detemir [Levemir] 3 unit SUBCU DAILY 02/09/18 Spironolactone 50 mg PO DAILY 02/09/18 Calcium Acetate (Phosphate Bin [Calcium Acetate] 3 each PO TID 05/22/18 Insulin Detemir [Levemir] 2 units SUBCU BEDTIME 05/22/18 Pantoprazole Tablet [Protonix] 40 mg PO ACBK 05/22/18 Bumetanide 2 mg PO BID 09/06/18 Clonidine HCl 0.3 mg PO TID 09/06/18 Insulin Aspart (with Niacinami [Fiasp] 100 unit SC TID 09/06/18 Telmisartan [Micardis] 80 mg PO BEDTIME 09/06/18 ALPRAZolam [Xanax] 0.5 mg PO BEDTIME 10/01/18 ALPRAZolam [Xanax] 0.5 mg PO BID PRN 10/01/18 Albuterol Sulfate Nebs [Proventil Nebs] 2.5 mg INH Q4HR PRN 10/01/18 Cholecalciferol [Vitamin D3] 1,000 unit PO DAILY 10/01/18 Docusate Sodium [Colace Cap] 100 mg PO BID 10/01/18 Ferrous Sulfate [Ferrousul] 325 mg PO DAILY 10/01/18 Isosorbide Dinitrate-Hydralazi [Bidil 20-37.5 mg] 1 tab PO BID 10/01/18 Melatonin 10 mg PO BEDTIME 10/01/18 Metolazone 5 mg PO GWENDOLYN-OTH-DAY 10/01/18 Sulfa/Trimeth 800/160 (Ds) Tab [Bactrim DS] 1 tablet PO BID 10/01/18 Sulfa/Trimeth 800/160 (Ds) Tab [Bactrim DS] 1 tablet PO BID 7 Days #14 tablet 11/14/18 metroNIDAZOLE [Flagyl] 500 mg PO BID 7 Days #14 tab 11/14/18
[2018-11-19] MEDS ORDERED: IPRATROPIUM/ALBUTEROL 3 ML VIAL NEB ONE (14:03)
[2018-11-19 19:09] VITALS: BP 143/83; TEMP 96.8; O2SAT 96
== END 2018-11-19 17:05 ==
LOC: ER 12:37
DX: E10.649 Type 1 diabetes mellitus with hypoglycemia without coma (principal); N18.6 End stage renal disease; E10.22 Type 1 diabetes mellitus with diabetic chronic kidney disease; K21.9 Gastro-esophageal reflux disease without esophagitis; I12.0 Hypertensive chronic kidney disease with stage 5 chronic kidney disease or end stage renal disease; Z79.4 Long term (current) use of insulin; Z99.2 Dependence on renal dialysis; Z79.899 Other long term (current) drug therapy
CPT/HCPCS: 36415; 36416; 80053; 82948; 85025; 94640; J2270; J2550; J7620

== ENCOUNTER 2018-11-21 09:36 | Emergency (ER) | payer MEDICARE, MEDICAID ==
--- NOTE | 2018-11-21 09:48 | ED.PDOC ---
History of Present Illness - General Chief Complaint: Diabetic Complaint Stated Complaint: low blood sugar Time Seen by Provider: 11/21/18 09:41 Source: patient Exam Limitations: clinical condition - ROS IS UNOBTAINABLE SECONDARY TO PT'S CONDITION - History of Present Illness Initial Comments: PT WITH MULTIPLE ER VISITS. WAS SENT TODAY FOR HYPOGLYCEMIA. HAS VERY LABILE BS. WAS GIVEN INSULIN FOR GLUCOSE 200+ THEN FOUND UNRESPONSIVE WITH BS 20'S. GIVEN GLUCAGON AND ORAL GLUCOSE SENT HERE FOR EVAL. ARRIVES WITH FBS 75. PT HAS BEEN NON VERBAL EACH OF THE VISITS I HAVE SEEN THEM AM UNSURE OF HER BASELINE BUT BASED ON FAMILY FROM LAST VISIT HAS SOME DAYS WHERE SHE COMMUNICATES WELL AND OTHERS WHEN SHE DOES NOT. 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 Severity: moderate Improving Factors: nothing Worsening Factors: nothing Allergies/Adverse Reactions: Allergies NO KNOWN ALLERGY Allergy (Verified 10/13/18 06:19) Home Medications: Ambulatory Orders Insulin Aspart [Novolog] 2 unit SC TID 12/03/17 Promethazine HCl 25 mg PO Q6HR PRN 12/03/17 Sertraline HCl 100 mg PO DAILY 12/03/17 Hydrocodone-Acetaminophen [[place] 7.5-325 mg] 1 tab PO BID 12/16/17 Gabapentin 600 mg PO TID 01/24/18 Metoprolol Tartrate 100 mg PO BID 01/24/18 amLODIPine BESYLATE [Norvasc] 5 mg PO DAILY 01/24/18 Hydralazine HCl 50 mg PO TID 02/09/18 Insulin Detemir [Levemir] 3 unit SUBCU DAILY 02/09/18 Spironolactone 50 mg PO DAILY 02/09/18 Calcium Acetate (Phosphate Bin [Calcium Acetate] 3 each PO TID 05/22/18 Insulin Detemir [Levemir] 2 units SUBCU BEDTIME 05/22/18 Pantoprazole Tablet [Protonix] 40 mg PO ACBK 05/22/18 Bumetanide 2 mg PO BID 09/06/18 Clonidine HCl 0.3 mg PO TID 09/06/18 Insulin Aspart (with Niacinami [Fiasp] 100 unit SC TID 09/06/18 Telmisartan [Micardis] 80 mg PO BEDTIME 09/06/18 ALPRAZolam [Xanax] 0.5 mg PO BEDTIME 10/01/18 ALPRAZolam [Xanax] 0.5 mg PO BID PRN 10/01/18 Albuterol Sulfate Nebs [Proventil Nebs] 2.5 mg INH Q4HR PRN 10/01/18 Cholecalciferol [Vitamin D3] 1,000 unit PO DAILY 10/01/18 Docusate Sodium [Colace Cap] 100 mg PO BID 10/01/18 Ferrous Sulfate [Ferrousul] 325 mg PO DAILY 10/01/18 Isosorbide Dinitrate-Hydralazi [Bidil 20-37.5 mg] 1 tab PO BID 10/01/18 Melatonin 10 mg PO BEDTIME 10/01/18 Metolazone 5 mg PO GWENDOLYN-OTH-DAY 10/01/18 Sulfa/Trimeth 800/160 (Ds) Tab [Bactrim DS] 1 tablet PO BID 10/01/18 Sulfa/Trimeth 800/160 (Ds) Tab [Bactrim DS] 1 tablet PO BID 7 Days #14 tablet 11/14/18 metroNIDAZOLE [Flagyl] 500 mg PO BID 7 Days #14 tab 11/14/18 Review of Systems - Review of Systems Constitutional: States: see HPI EENTM: States: see HPI Respiratory: States: see HPI Cardiology: States: see HPI Gastrointestinal/Abdominal: States: see HPI Genitourinary: States: see HPI Musculoskeletal: States: see HPI Skin: States: see HPI Neurological: States: see HPI Endocrine: States: see HPI Hematologic/Lymphatic: States: see HPI Past Medical History (General) - Patient Medical History Hx Seizures: No Hx Stroke: No Hx Dementia: No Hx Asthma: No Hx of COPD: No Hx Cardiac Disorders: No Hx Congestive Heart Failure: No Hx Pacemaker: No Hx Hypertension: Yes Hx Thyroid Disease: No Hx Diabetes: Yes Hx Gastroesophageal Reflux: Yes Hx Renal Disease: Yes - end stage; Dialysis MWF Hx Cancer: No Hx of HIV: No Hx Hepatitis C: No Hx MRSA: Yes - Vaccination History Hx Tetanus, Diphtheria Vaccination: Yes Hx Influenza Vaccination: Yes - 2018 Hx Pneumococcal Vaccination: No - Social History Hx Tobacco Use: No Hx Chewing Tobacco Use: No Hx Alcohol Use: No Hx Substance Use: No Hx Substance Use Treatment: No Hx Depression: No Hx Physical Abuse: No Hx Emotional Abuse: No Hx Suspected Abuse: No - Female History Patient : No Family Medical History - Family History Mother Family History: Unknown Living Status: Unknown Hx Cardiac Disease: Yes - DAD Hx Family Diabetes: Yes - DAD Hx Family;Other: DAD-RHEUMATOID ARTHTRITIS Physical Exam - Physical Exam General Appearance: Other - MODERATE DISTRESS, MOANING, DOES NOT RESPOND VERBALLY. Eye Exam: bilateral normal Ears, Nose, Throat: normal ENT inspection - NO GROSS ABN NOTED. 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 Gastrointestinal/Abdominal: non tender, soft, no organomegaly Back Exam: normal inspection, no CVA tenderness Extremity: non-tender, normal inspection, other - NO C/C/E Neurologic: no motor/sensory deficits, other - AGITATED, Skin Exam: diaphoresis Lymphatic: no adenopathy Progress - Progress Progress: 11/21/18 10:52 SLEEPING, HYPERTENSIVE, BS HAS BEEN STABLE, MORE RESPONSIVE, MUCH LESS AGITATED. WILL TX HTN. D/W DR FLOWERS RE: POSSIBLE PORT PLACEMENT. 11/21/18 11:50 PT IMPROVED, BP BETTER, STILL REFUSES TO COOPERATE BUT ALERT. BS 120 Departure - Departure Clinical Impression: Diabetes 1.5, managed as type 2 Time of Disposition: 12:06 Disposition: Discharge to Home or Self Care Condition: Fair Departure Forms: ED Discharge - Pt. Copy, Patient Portal Self Enrollment Instructions: DI for Diabetes Type 2 Referrals: Mukesh Flowers MD [Primary Care Provider] - 1-2 Weeks Home Medications: Ambulatory Orders Insulin Aspart [Novolog] 2 unit SC TID 12/03/17 Promethazine HCl 25 mg PO Q6HR PRN 12/03/17 Sertraline HCl 100 mg PO DAILY 12/03/17 Hydrocodone-Acetaminophen [[place] 7.5-325 mg] 1 tab PO BID 12/16/17 Gabapentin 600 mg PO TID 01/24/18 Metoprolol Tartrate 100 mg PO BID 01/24/18 amLODIPine BESYLATE [Norvasc] 5 mg PO DAILY 01/24/18 Hydralazine HCl 50 mg PO TID 02/09/18 Insulin Detemir [Levemir] 3 unit SUBCU DAILY 02/09/18 Spironolactone 50 mg PO DAILY 02/09/18 Calcium Acetate (Phosphate Bin [Calcium Acetate] 3 each PO TID 05/22/18 Insulin Detemir [Levemir] 2 units SUBCU BEDTIME 05/22/18 Pantoprazole Tablet [Protonix] 40 mg PO ACBK 05/22/18 Bumetanide 2 mg PO BID 09/06/18 Clonidine HCl 0.3 mg PO TID 09/06/18 Insulin Aspart (with Niacinami [Fiasp] 100 unit SC TID 09/06/18 Telmisartan [Micardis] 80 mg PO BEDTIME 09/06/18 ALPRAZolam [Xanax] 0.5 mg PO BEDTIME 10/01/18 ALPRAZolam [Xanax] 0.5 mg PO BID PRN 10/01/18 Albuterol Sulfate Nebs [Proventil Nebs] 2.5 mg INH Q4HR PRN 10/01/18 Cholecalciferol [Vitamin D3] 1,000 unit PO DAILY 10/01/18 Docusate Sodium [Colace Cap] 100 mg PO BID 10/01/18 Ferrous Sulfate [Ferrousul] 325 mg PO DAILY 10/01/18 Isosorbide Dinitrate-Hydralazi [Bidil 20-37.5 mg] 1 tab PO BID 10/01/18 Melatonin 10 mg PO BEDTIME 10/01/18 Metolazone 5 mg PO GWENDOLYN-OTH-DAY 10/01/18 Sulfa/Trimeth 800/160 (Ds) Tab [Bactrim DS] 1 tablet PO BID 10/01/18 Sulfa/Trimeth 800/160 (Ds) Tab [Bactrim DS] 1 tablet PO BID 7 Days #14 tablet 11/14/18 metroNIDAZOLE [Flagyl] 500 mg PO BID 7 Days #14 tab 11/14/18
[2018-11-21] MEDS ORDERED: SODIUM CHLORIDE 0.9% 500ML 500 ML IVS ONE (10:17)
--- NOTE | 2018-11-21 10:39 | RAD ---
PROVIDED CLINICAL HISTORY/REASON FOR EXAM: ams, hypoglycemia Findings: Number of images: One Location: Frontal chest radiograph Right IJ hemodialysis catheter tip overlying the SVC. Stable cardiac silhouette. Increased pulmonary vascular congestion. No pneumothorax. No pleural effusion. Increased perihilar interstitial opacities. No acute osseous abnormality. Soft tissues are unremarkable. IMPRESSION: Increased perihilar interstitial opacities bilaterally likely reflecting pulmonary edema. Electronically signed by: Erik Short MD 11/21/2018 10:37 AM CDT
[2018-11-21] MEDS ORDERED: LABETALOL INJ 5 MG/ML VIAL IV ONE (10:55)
[2018-11-21 11:07] VITALS: O2SAT 94
[2018-11-21 12:16] VITALS: BP 169/100; TEMP 96.5
== END 2018-11-21 12:26 | disposition home or self-care (01) ==
LOC: ER 09:36
DX: E11.649 Type 2 diabetes mellitus with hypoglycemia without coma (principal); E11.22 Type 2 diabetes mellitus with diabetic chronic kidney disease; I12.0 Hypertensive chronic kidney disease with stage 5 chronic kidney disease or end stage renal disease; N18.6 End stage renal disease; K21.9 Gastro-esophageal reflux disease without esophagitis; Z99.2 Dependence on renal dialysis; Z79.4 Long term (current) use of insulin; Z79.899 Other long term (current) drug therapy
CPT/HCPCS: 36415; 36416; 36600; 71045; 80048; 82803; 82948; 85025; J7040

== ENCOUNTER 2018-11-30 08:01 | Emergency (ER) | payer MEDICARE, MEDICAID ==
--- NOTE | 2018-11-30 08:07 | ED.PDOC ---
History of Present Illness - General Chief Complaint: General Stated Complaint: vomiting Time Seen by Provider: 11/30/18 08:06 Source: patient, EMS Exam Limitations: no limitations - History of Present Illness Initial Comments: Jennifer Kessler 28 y/o female w/ DM1 ESRD-HD [place] home resident at [facility] by ambulance after she had mutiple episode of N/V since last night which persisted since this AM;no diarrhea.Has FSBS-154 at EMS and BP systolic 213 as mentioned by EMS. Timing/Duration: 24 hours Severity: moderate Worsening Factors: eating Associated Symptoms: other - see hpi Allergies/Adverse Reactions: Allergies NO KNOWN ALLERGY Allergy (Verified 10/13/18 06:19) Home Medications: Ambulatory Orders Insulin Aspart [Novolog] 2 unit SC TID 12/03/17 Promethazine HCl 25 mg PO Q6HR PRN 12/03/17 Sertraline HCl 100 mg PO DAILY 12/03/17 Hydrocodone-Acetaminophen [[place] 7.5-325 mg] 1 tab PO BID 12/16/17 Gabapentin 600 mg PO TID 01/24/18 Metoprolol Tartrate 100 mg PO BID 01/24/18 amLODIPine BESYLATE [Norvasc] 5 mg PO DAILY 01/24/18 Hydralazine HCl 50 mg PO TID 02/09/18 Insulin Detemir [Levemir] 3 unit SUBCU DAILY 02/09/18 Spironolactone 50 mg PO DAILY 02/09/18 Calcium Acetate (Phosphate Bin [Calcium Acetate] 3 each PO TID 05/22/18 Insulin Detemir [Levemir] 2 units SUBCU BEDTIME 05/22/18 Pantoprazole Tablet [Protonix] 40 mg PO ACBK 05/22/18 Bumetanide 2 mg PO BID 09/06/18 Clonidine HCl 0.3 mg PO TID 09/06/18 Insulin Aspart (with Niacinami [Fiasp] 100 unit SC TID 09/06/18 Telmisartan [Micardis] 80 mg PO BEDTIME 09/06/18 ALPRAZolam [Xanax] 0.5 mg PO BEDTIME 10/01/18 ALPRAZolam [Xanax] 0.5 mg PO BID PRN 10/01/18 Albuterol Sulfate Nebs [Proventil Nebs] 2.5 mg INH Q4HR PRN 10/01/18 Cholecalciferol [Vitamin D3] 1,000 unit PO DAILY 10/01/18 Docusate Sodium [Colace Cap] 100 mg PO BID 10/01/18 Ferrous Sulfate [Ferrousul] 325 mg PO DAILY 10/01/18 Isosorbide Dinitrate-Hydralazi [Bidil 20-37.5 mg] 1 tab PO BID 10/01/18 Melatonin 10 mg PO BEDTIME 10/01/18 Metolazone 5 mg PO GWENDOLYN-OTH-DAY 10/01/18 Sulfa/Trimeth 800/160 (Ds) Tab [Bactrim DS] 1 tablet PO BID 10/01/18 Sulfa/Trimeth 800/160 (Ds) Tab [Bactrim DS] 1 tablet PO BID 7 Days #14 tablet 11/14/18 metroNIDAZOLE [Flagyl] 500 mg PO BID 7 Days #14 tab 11/14/18 Famotidine [Pepcid Tab] 20 mg PO BID #60 tab 11/30/18 Metoclopramide Tab [Reglan Tab] 5 mg PO BIDAC #60 tab 11/30/18 Review of Systems - Review of Systems Constitutional: States: no symptoms reported EENTM: States: no symptoms reported Respiratory: States: no symptoms reported Cardiology: States: no symptoms reported Gastrointestinal/Abdominal: States: see HPI, vomiting Genitourinary: States: no symptoms reported Musculoskeletal: States: no symptoms reported All other Systems: Reviewed and Negative, No Change from Baseline Past Medical History (General) - Patient Medical History Hx Seizures: No Hx Stroke: No Hx Dementia: No Hx Asthma: No Hx of COPD: No Hx Cardiac Disorders: No Hx Congestive Heart Failure: No Hx Pacemaker: No Hx Hypertension: Yes Hx Thyroid Disease: No Hx Diabetes: Yes Hx Gastroesophageal Reflux: Yes Hx Renal Disease: Yes - end stage; Dialysis MWF Hx Cancer: No Hx of HIV: No Hx Hepatitis C: No Hx MRSA: Yes Surgical History: other - A-V shunt dialysis - Vaccination History Hx Tetanus, Diphtheria Vaccination: Yes Hx Influenza Vaccination: Yes - 2018 Hx Pneumococcal Vaccination: No - Social History Hx Tobacco Use: No Hx Chewing Tobacco Use: No Hx Alcohol Use: No Hx Substance Use: No Hx Substance Use Treatment: No Hx Depression: No Hx Physical Abuse: No Hx Emotional Abuse: No Hx Suspected Abuse: No - Female History Patient : No Family Medical History - Family History Mother Family History: Unknown Living Status: Unknown Hx Cardiac Disease: Yes - DAD Hx Family Diabetes: Yes - DAD Hx Family;Other: DAD-RHEUMATOID ARTHTRITIS Physical Exam - Physical Exam General Appearance: Alert, Comfortable, No apparent distress Eye Exam: bilateral other - decrease vision both eyes w/ diabetic retinopathy Ears, Nose, Throat: hearing grossly normal, normal ENT inspection Neck: non-tender, full range of motion, supple Respiratory: no respiratory distress, rales - bases Cardiovascular/Chest: normal peripheral pulses, regular rate, rhythm, no murmur Peripheral Pulses: radial,right: 2+, radial,left: 2+ Gastrointestinal/Abdominal: normal bowel sounds, non tender, soft, no organomegaly Back Exam: no CVA tenderness, no vertebral tenderness Extremity: no pedal edema, no calf tenderness Neurologic: alert, oriented x 3 Skin Exam: normal color, warm/dry Lymphatic: no adenopathy Progress - Progress Progress: 11/30/18 08:32 Vital Signs 11/30/18 08:16 Temperature 96.7 F L Pulse Rate [ 108 H Right Brachial] Respiratory 24 Rate Blood Pressure 175/130 [Right Arm] O2 Sat by Pulse 96 Oximetry 11/30/18 10:05 Patient comfortably resting no further vomiting since she was in ER. - Results/Orders Results/Orders: Laboratory Tests 11/30/18 11/30/18 08:08 08:08 WBC 5.1 RBC 2.60 L Hgb 7.9 L* Hct 23.6 L MCV 90.9 MCH 30.3 MCHC 33.3 RDW 19.3 H Plt Count 256 MPV 8.1 Absolute Neuts (auto) 3.90 Absolute Lymphs (auto) 0.80 L Absolute Monos (auto) 0.30 Absolute Eos (auto) 0.10 Absolute Basos (auto) 0.10 Neutrophils % 76.1 Lymphocytes % 15.9 L Monocytes % 5.2 Eosinophils % 1.5 Basophils % 1.3 PT 10.4 INR 1.04 PTT (SP) 26.6 Sodium 136 Potassium 3.3 L Chloride 92 L Carbon Dioxide 32 H Anion Gap 15.3 BUN 21 H Creatinine 1.51 H BUN/Creatinine Ratio 13.9 Random Glucose 178 H Serum Osmolality 279.3 Lactic Acid 1.0 Calcium 8.3 L Magnesium 3.4 H Total Bilirubin 0.5 Direct Bilirubin < 0.1 Indirect Bilirubin 0.4 AST 54 H ALT 51 Alkaline Phosphatase 171 H Creatine Kinase 36 CK-MB (CK-2) 1.5 CK-MB (CK-2) % Not Reportable Troponin I < 0.02 Serum Total Protein 7.0 Albumin 3.2 Lipase 16 L - EKG/XRAY/CT XRAY: abdomen - no acute changes;non specific bowel Departure - Departure Clinical Impression: Anemia of chronic renal failure, stage 5 Vomiting Qualifiers: Vomiting type: unspecified Vomiting Intractability: non-intractable Nausea presence: with nausea Qualified Code(s): R11.2 - Nausea with vomiting, unspecified Diabetes Qualifiers: Diabetes mellitus type: type 1 Diabetes mellitus complication status: with ophthalmic complications Diabetes mellitus complication detail: with diabetic retinopathy Diabetic retinopathy severity: with unspecified retinopathy severity Diabetes mellitus macular edema: macular edema presence unspecified Laterality: bilateral Qualified Code(s): E10.319 - Type 1 diabetes mellitus with unspecified diabetic retinopathy without macular edema Time of Disposition: 10:08 Disposition: Discharge to SNF Condition: Fair Departure Forms: ED Discharge - Pt. Copy, Patient Portal Self Enrollment Instructions: Gastroparesis (Delayed Gastric Emptying) (DC) Referrals: Mukesh Flowers MD [Primary Care Provider] - 1-2 Weeks Prescriptions: Famotidine [Pepcid Tab] 20 mg PO BID #60 tab Metoclopramide Tab [Reglan Tab] 5 mg PO BIDAC #60 tab Home Medications: Ambulatory Orders Insulin Aspart [Novolog] 2 unit SC TID 12/03/17 Promethazine HCl 25 mg PO Q6HR PRN 12/03/17 Sertraline HCl 100 mg PO DAILY 12/03/17 Hydrocodone-Acetaminophen [[place] 7.5-325 mg] 1 tab PO BID 12/16/17 Gabapentin 600 mg PO TID 01/24/18 Metoprolol Tartrate 100 mg PO BID 01/24/18 amLODIPine BESYLATE [Norvasc] 5 mg PO DAILY 01/24/18 Hydralazine HCl 50 mg PO TID 02/09/18 Insulin Detemir [Levemir] 3 unit SUBCU DAILY 02/09/18 Spironolactone 50 mg PO DAILY 02/09/18 Calcium Acetate (Phosphate Bin [Calcium Acetate] 3 each PO TID 05/22/18 Insulin Detemir [Levemir] 2 units SUBCU BEDTIME 05/22/18 Pantoprazole Tablet [Protonix] 40 mg PO ACBK 05/22/18 Bumetanide 2 mg PO BID 09/06/18 Clonidine HCl 0.3 mg PO TID 09/06/18 Insulin Aspart (with Niacinami [Fiasp] 100 unit SC TID 09/06/18 Telmisartan [Micardis] 80 mg PO BEDTIME 09/06/18 ALPRAZolam [Xanax] 0.5 mg PO BEDTIME 10/01/18 ALPRAZolam [Xanax] 0.5 mg PO BID PRN 10/01/18 Albuterol Sulfate Nebs [Proventil Nebs] 2.5 mg INH Q4HR PRN 10/01/18 Cholecalciferol [Vitamin D3] 1,000 unit PO DAILY 10/01/18 Docusate Sodium [Colace Cap] 100 mg PO BID 10/01/18 Ferrous Sulfate [Ferrousul] 325 mg PO DAILY 10/01/18 Isosorbide Dinitrate-Hydralazi [Bidil 20-37.5 mg] 1 tab PO BID 10/01/18 Melatonin 10 mg PO BEDTIME 10/01/18 Metolazone 5 mg PO GWENDOLYN-OTH-DAY 10/01/18 Sulfa/Trimeth 800/160 (Ds) Tab [Bactrim DS] 1 tablet PO BID 10/01/18 Sulfa/Trimeth 800/160 (Ds) Tab [Bactrim DS] 1 tablet PO BID 7 Days #14 tablet 11/14/18 metroNIDAZOLE [Flagyl] 500 mg PO BID 7 Days #14 tab 11/14/18 Famotidine [Pepcid Tab] 20 mg PO BID #60 tab 11/30/18 Metoclopramide Tab [Reglan Tab] 5 mg PO BIDAC #60 tab 11/30/18 Additional Instructions: Return to Emergency room as needed;Continue with scheduled dialysis treatment and all home medications
[2018-11-30] MEDS ORDERED: SODIUM CHLORIDE 0.9% 1000ML 1,000 ML IVS ONE (08:08)
[2018-11-30] MEDS ORDERED: METOCLOPRAMIDE HCL INJ 10 MG/2 ML VIAL IV ONE (08:08)
[2018-11-30] MEDS ORDERED: PANTOPRAZOLE INJECTION 80 MG in SODIUM CHLORIDE 0.9% 100ML 80 ML IVPB ONE (08:31)
[2018-11-30] MEDS ORDERED: raNITIdine HCL INJ 50 MG in SODIUM CHLORIDE 0.9% 50ML 50 ML IVPB ONE (08:35)
[2018-11-30] MEDS ORDERED: MORPHINE SULFATE INJ 10 MG/ML VIAL IV ONE (08:35)
[2018-11-30] MEDS ORDERED: SODIUM CHLORIDE 0.9% 50ML 50 ML ONE (08:36)
[2018-11-30] MEDS ORDERED: raNITIdine HCL INJ 25 MG/ML VIAL ONE (08:36)
--- NOTE | 2018-11-30 08:50 | RAD ---
EXAM: XR Abdomen, 1 View CLINICAL HISTORY: 28 years old and is Female; sob TECHNIQUE: Frontal supine view of the abdomen/pelvis. COMPARISON: No relevant prior studies available. FINDINGS: Limitations: None. Gastrointestinal tract: Air and stool scattered throughout nondilated intestinal loops. Bones/joints: Unremarkable. Other findings: Hepatomegaly. IMPRESSION: Chronic changes as above. No acute disease. Electronically signed by: Raquel Marshall MD 11/30/2018 8:48 AM CDT
--- NOTE | 2018-11-30 08:51 | RAD ---
EXAM DESCRIPTION: Chest,1 View CLINICAL HISTORY: 28 years Female sob COMPARISON: Portable chest dated 11/21/2018 TECHNIQUE: Portable AP view of the chest is obtained. FINDINGS IN THE CHEST: Heart: Allowing for magnification factors related to AP portable technique and body habitus, the heart is borderline enlarged Vasculature: [] There is no evidence of aortic aneurysm or acute findings. The pulmonary vascularity is normal. Mediastinum: Unremarkable otherwise. No evidence of mass or adenopathy. Lungs: In the interim, there is been the development of increasing bilateral perihilar and lower lung groundglass opacification consistent with pulmonary edema versus atelectasis/pneumonia. Pleura: There are no pleural effusions. There are no pneumothoraces. Osseous structures: No evidence of acute fracture or other significant osseous abnormalities. Tubes and catheters: Dual-lumen large bore jugular venous catheter terminates in the SVC. Chest wall: Unremarkable. Visualized Abdomen: Unremarkable. IMPRESSION: Suspect fluid overload with bilateral pulmonary edema as described. Pneumonia and/or atelectasis bilaterally not excludable. Remainder of findings as described above. Electronically signed by: Suzette Reyez MD 11/30/2018 8:49 AM CDT
[2018-11-30] MEDS ORDERED: SODIUM CHLORIDE 0.9% 500ML 500 ML IVS ONE (09:20)
[2018-12-01] MEDS ORDERED: METOCLOPRAMIDE HCL INJ 10 MG/2 ML VIAL ONE (00:06)
[2018-12-01] MEDS ORDERED: MORPHINE SULFATE INJ 10 MG/ML VIAL IV ONE ×2 (00:12→05:24)
[2018-12-01] MEDS ORDERED: METOCLOPRAMIDE HCL INJ 10 MG/2 ML VIAL IV ONE (00:12)
[2018-12-01] MEDS ORDERED: SODIUM CHLORIDE 0.9% 1000ML 1,000 ML IVS ONE (00:22)
--- NOTE | 2018-12-01 01:38 | ED.PDOC ---
History of Present Illness - General Chief Complaint: GI Problem Stated Complaint: nausea/vomiting Time Seen by Provider: 12/01/18 00:21 Source: patient, EMS Exam Limitations: no limitations - History of Present Illness Initial Comments: yolanda Kessler 28 y/o female with DM1 borught back by EMS from [facility] with continued vomiting after she got discharge from [facility] [place] this am.Unable to take oral prescription of Reglan at the [facility] since unable to take anything down. Allergies/Adverse Reactions: Allergies NO KNOWN ALLERGY Allergy (Verified 10/13/18 06:19) Home Medications: Ambulatory Orders Insulin Aspart [Novolog] 2 unit SC TID 12/03/17 RX: Promethazine HCl 25 mg PO Q6HR PRN 12/03/17 RX: Sertraline HCl 100 mg PO DAILY 12/03/17 Hydrocodone-Acetaminophen [[place] 7.5-325 mg] 1 tab PO BID 12/16/17 RX: Gabapentin 600 mg PO TID 01/24/18 RX: Metoprolol Tartrate 100 mg PO BID 01/24/18 amLODIPine BESYLATE [Norvasc] 5 mg PO DAILY 01/24/18 Insulin Detemir [Levemir] 3 unit SUBCU DAILY 02/09/18 RX: Hydralazine HCl 50 mg PO TID 02/09/18 RX: Spironolactone 50 mg PO DAILY 02/09/18 Calcium Acetate (Phosphate Bin [Calcium Acetate] 3 each PO TID 05/22/18 Insulin Detemir [Levemir] 2 units SUBCU BEDTIME 05/22/18 Pantoprazole Tablet [Protonix] 40 mg PO ACBK 05/22/18 Insulin Aspart (with Niacinami [Fiasp] 100 unit SC TID 09/06/18 RX: Bumetanide 2 mg PO BID 09/06/18 RX: Clonidine HCl 0.3 mg PO TID 09/06/18 Telmisartan [Micardis] 80 mg PO BEDTIME 09/06/18 ALPRAZolam [Xanax] 0.5 mg PO BEDTIME 10/01/18 ALPRAZolam [Xanax] 0.5 mg PO BID PRN 10/01/18 Albuterol Sulfate Nebs [Proventil Nebs] 2.5 mg INH Q4HR PRN 10/01/18 Cholecalciferol [Vitamin D3] 1,000 unit PO DAILY 10/01/18 Docusate Sodium [Colace Cap] 100 mg PO BID 10/01/18 Ferrous Sulfate [Ferrousul] 325 mg PO DAILY 10/01/18 Isosorbide Dinitrate-Hydralazi [Bidil 20-37.5 mg] 1 tab PO BID 10/01/18 RX: Melatonin 10 mg PO BEDTIME 10/01/18 RX: Metolazone 5 mg PO GWENDOLYN-OTH-DAY 10/01/18 Sulfa/Trimeth 800/160 (Ds) Tab [Bactrim DS] 1 tablet PO BID 10/01/18 Sulfa/Trimeth 800/160 (Ds) Tab [Bactrim DS] 1 tablet PO BID 7 Days #14 tablet 11/14/18 metroNIDAZOLE [Flagyl] 500 mg PO BID 7 Days #14 tab 11/14/18 Famotidine [Pepcid Tab] 20 mg PO BID #60 tab 11/30/18 Metoclopramide Tab [Reglan Tab] 5 mg PO BIDAC #60 tab 11/30/18 Past Medical History (General) - Patient Medical History Hx Seizures: No Hx Stroke: No Hx Dementia: No Hx Asthma: No Hx of COPD: No Hx Cardiac Disorders: No Hx Congestive Heart Failure: No Hx Pacemaker: No Hx Hypertension: Yes Hx Thyroid Disease: No Hx Diabetes: Yes Hx Gastroesophageal Reflux: Yes Hx Renal Disease: Yes - end stage; Dialysis MWF Hx Cancer: No Hx of HIV: No Hx Hepatitis C: No Hx MRSA: Yes - Vaccination History Hx Tetanus, Diphtheria Vaccination: Yes Hx Influenza Vaccination: Yes - 2018 Hx Pneumococcal Vaccination: No - Social History Hx Tobacco Use: No Hx Chewing Tobacco Use: No Hx Alcohol Use: No Hx Substance Use: No Hx Substance Use Treatment: No Hx Depression: No Hx Physical Abuse: No Hx Emotional Abuse: No Hx Suspected Abuse: No - Female History Patient : No Family Medical History - Family History Mother Family History: Unknown Living Status: Unknown Hx Cardiac Disease: Yes - DAD Hx Family Diabetes: Yes - DAD Hx Family;Other: DAD-RHEUMATOID ARTHTRITIS Progress - Progress Progress: 12/01/18 05:27 Vital Signs - 8 hr 11/30/18 12/01/18 12/01/18 23:09 00:09 01:09 Temperature 99.1 F 99 F Pulse Rate [ 120 H 116 H 92 H Left Radial] Respiratory 13 13 13 Rate Blood Pressure 206/108 186/101 161/87 [Right Arm] O2 Sat by Pulse 98 99 99 Oximetry 12/01/18 12/01/18 12/01/18 02:09 03:00 04:00 Temperature 98.9 F Pulse Rate [ 87 111 H 94 H Left Radial] Respiratory 13 13 13 Rate Blood Pressure 177/91 199/116 180/105 [Right Arm] O2 Sat by Pulse 98 100 100 Oximetry 12/01/18 05:00 Temperature 99 F Pulse Rate [ 102 H Left Radial] Respiratory 13 Rate Blood Pressure 208/124 [Right Arm] O2 Sat by Pulse 100 Oximetry - Results/Orders Results/Orders: 12/01/18 00:22 IV Care:Saline Lock per Protoc QSHIFT 12/01/18 05:00 niCARdipine HCL [Cardene IV] 25 mg Sodium Chloride 0.9% 250Ml [NS 250ml] 240 ml IVPB PRN Laboratory Results - last 24 hr 12/01/18 12/01/18 12/01/18 00:22 01:07 02:57 WBC 9.2 RBC 2.42 L Hgb 7.2 L* Hct 22.9 L MCV 94.4 MCH 29.5 MCHC 31.3 L RDW 19.2 H Plt Count 284 MPV 8.3 Absolute Neuts (auto) 7.80 H Absolute Lymphs (auto) 0.70 L Absolute Monos (auto) 0.70 Absolute Eos (auto) 0.00 Absolute Basos (auto) 0.10 Neutrophils % 84.5 H Lymphocytes % 7.7 L Monocytes % 7.1 Eosinophils % 0.1 L Basophils % 0.6 PT 10.7 INR 1.07 PTT (SP) 24.9 Sodium 135 Potassium 3.4 L Chloride 92 L Carbon Dioxide 22 Anion Gap 24.4 H BUN 35 H D Creatinine 2.69 H D BUN/Creatinine Ratio 13.0 POC Glucose 315 H Random Glucose 467 H* Serum Osmolality 298.7 H Calcium 8.1 L Magnesium 3.8 H Total Bilirubin 2.1 H* D Direct Bilirubin 0.1 Indirect Bilirubin 2.0 H AST 31 ALT 41 Alkaline Phosphatase 185 H Creatine Kinase 24 L D CK-MB (CK-2) 1.5 CK-MB (CK-2) % Not Reportable Troponin I < 0.02 Serum Total Protein 6.8 Albumin 3.2 Lipase 17 L Gastric Fluid pH 3.0 Gastric Occult Blood Positive Departure - Departure Clinical Impression: Diabetic gastroparesis associated with type 1 diabetes mellitus, Chronic kidney disease due to type 1 diabetes mellitus Intractable nausea and vomiting Qualifiers: Vomiting type: unspecified Qualified Code(s): R11.2 - Nausea with vomiting, unspecified Diabetic retinopathy associated with type 1 diabetes mellitus Qualifiers: Diabetic retinopathy severity: with unspecified retinopathy severity Diabetes mellitus macular edema: macular edema presence unspecified Laterality: bilateral Qualified Code(s): E10.319 - Type 1 diabetes mellitus with unspecified diabetic retinopathy without macular edema Time of Disposition: 05:34 Disposition: Transfer to Hospital Condition: Poor Departure Forms: Patient Portal Self Enrollment Referrals: Mukesh Flowers MD [Primary Care Provider] - 1-2 Weeks Home Medications: Ambulatory Orders Insulin Aspart [Novolog] 2 unit SC TID 12/03/17 RX: Promethazine HCl 25 mg PO Q6HR PRN 12/03/17 RX: Sertraline HCl 100 mg PO DAILY 12/03/17 Hydrocodone-Acetaminophen [[place] 7.5-325 mg] 1 tab PO BID 12/16/17 RX: Gabapentin 600 mg PO TID 01/24/18 RX: Metoprolol Tartrate 100 mg PO BID 01/24/18 amLODIPine BESYLATE [Norvasc] 5 mg PO DAILY 01/24/18 Insulin Detemir [Levemir] 3 unit SUBCU DAILY 02/09/18 RX: Hydralazine HCl 50 mg PO TID 02/09/18 RX: Spironolactone 50 mg PO DAILY 02/09/18 Calcium Acetate (Phosphate Bin [Calcium Acetate] 3 each PO TID 05/22/18 Insulin Detemir [Levemir] 2 units SUBCU BEDTIME 05/22/18 Pantoprazole Tablet [Protonix] 40 mg PO ACBK 05/22/18 Insulin Aspart (with Niacinami [Fiasp] 100 unit SC TID 09/06/18 RX: Bumetanide 2 mg PO BID 09/06/18 RX: Clonidine HCl 0.3 mg PO TID 09/06/18 Telmisartan [Micardis] 80 mg PO BEDTIME 09/06/18 ALPRAZolam [Xanax] 0.5 mg PO BEDTIME 10/01/18 ALPRAZolam [Xanax] 0.5 mg PO BID PRN 10/01/18 Albuterol Sulfate Nebs [Proventil Nebs] 2.5 mg INH Q4HR PRN 10/01/18 Cholecalciferol [Vitamin D3] 1,000 unit PO DAILY 10/01/18 Docusate Sodium [Colace Cap] 100 mg PO BID 10/01/18 Ferrous Sulfate [Ferrousul] 325 mg PO DAILY 10/01/18 Isosorbide Dinitrate-Hydralazi [Bidil 20-37.5 mg] 1 tab PO BID 10/01/18 RX: Melatonin 10 mg PO BEDTIME 10/01/18 RX: Metolazone 5 mg PO GWENDOLYN-OTH-DAY 10/01/18 Sulfa/Trimeth 800/160 (Ds) Tab [Bactrim DS] 1 tablet PO BID 10/01/18 Sulfa/Trimeth 800/160 (Ds) Tab [Bactrim DS] 1 tablet PO BID 7 Days #14 tablet 11/14/18 metroNIDAZOLE [Flagyl] 500 mg PO BID 7 Days #14 tab 11/14/18 Famotidine [Pepcid Tab] 20 mg PO BID #60 tab 11/30/18 Metoclopramide Tab [Reglan Tab] 5 mg PO BIDAC #60 tab 11/30/18 Transfer to Outside Facility - Transfer Information Accepting Provider:: Dr. 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
[2018-12-01] MEDS ORDERED: INSULIN, REG.(HUMAN) 100 U/ML VIAL IV ONE (01:40)
[2018-12-01] MEDS ORDERED: hydrALAZINE HCl 20 MG/ML VIAL IV ONE (01:59)
[2018-12-01] MEDS ORDERED: raNITIdine HCL INJ 50 MG in SODIUM CHLORIDE 0.9% 50ML 50 ML IVPB ONE (02:05)
[2018-12-01] MEDS ORDERED: SODIUM CHLORIDE 0.9% 50ML 50 ML ONE (02:10)
[2018-12-01] MEDS ORDERED: raNITIdine HCL INJ 25 MG/ML VIAL ONE (02:10)
[2018-12-01] MEDS ORDERED: niCARdipine HCL 25 MG in SODIUM CHLORIDE 0.9% 250ML 240 ML IVPB SCH (05:00)
[2018-12-01] MEDS ORDERED: SODIUM CHLORIDE 0.9% 250ML 250 ML ONE (05:04)
[2018-12-01] MEDS ORDERED: niCARdipine HCL 2.5 MG/ML AMP IVPB ONE (05:04)
[2018-12-01] MEDS ORDERED: MORPHINE SULFATE INJ 10 MG/ML VIAL ONE (05:22)
[2018-12-01 05:59] VITALS: BP 172/98; TEMP 97.8; O2SAT 99
== END 2018-11-30 11:16 ==
LOC: ER 08:01
DX: E10.43 Type 1 diabetes mellitus with diabetic autonomic (poly)neuropathy (principal); K31.84 Gastroparesis; E10.22 Type 1 diabetes mellitus with diabetic chronic kidney disease; I12.0 Hypertensive chronic kidney disease with stage 5 chronic kidney disease or end stage renal disease; N18.5 Chronic kidney disease, stage 5; D63.1 Anemia in chronic kidney disease; E10.319 Type 1 diabetes mellitus with unspecified diabetic retinopathy without macular edema; K21.9 Gastro-esophageal reflux disease without esophagitis; Z99.2 Dependence on renal dialysis; Z79.899 Other long term (current) drug therapy; Z79.4 Long term (current) use of insulin
CPT/HCPCS: 71045; 74018; 80048; 80076; 82550; 82553; 83605; 83690; 84484; 85025; 85610; 85730; 96361; 96365; 96375; 99284; A4216; J2060; J2270; J2765; J2780; J7030

== ENCOUNTER 2018-11-30 23:09 | Emergency (ER) | payer MEDICARE, MEDICAID ==
[2018-12-01] MEDS ORDERED: METOCLOPRAMIDE HCL INJ 10 MG/2 ML VIAL ONE (00:06)
[2018-12-01] MEDS ORDERED: METOCLOPRAMIDE HCL INJ 10 MG/2 ML VIAL IV ONE (00:12)
[2018-12-01] MEDS ORDERED: MORPHINE SULFATE INJ 10 MG/ML VIAL IV ONE ×2 (00:12→05:24)
[2018-12-01] MEDS ORDERED: SODIUM CHLORIDE 0.9% 1000ML 1,000 ML IVS ONE (00:22)
--- NOTE | 2018-12-01 01:38 | ED.PDOC ---
History of Present Illness - General Chief Complaint: GI Problem Stated Complaint: nausea/vomiting Time Seen by Provider: 12/01/18 00:21 Source: patient, EMS Exam Limitations: no limitations - History of Present Illness Initial Comments: yolanda Kessler 28 y/o female with DM1 borught back by EMS from [facility] with continued vomiting after she got discharge from [facility] this am.Unable to take oral prescription of Reglan at the [facility] since unable to take anything down. Allergies/Adverse Reactions: Allergies NO KNOWN ALLERGY Allergy (Verified 10/13/18 06:19) Home Medications: Ambulatory Orders Insulin Aspart [Novolog] 2 unit SC TID 12/03/17 RX: Promethazine HCl 25 mg PO Q6HR PRN 12/03/17 RX: Sertraline HCl 100 mg PO DAILY 12/03/17 Hydrocodone-Acetaminophen [[place] 7.5-325 mg] 1 tab PO BID 12/16/17 RX: Gabapentin 600 mg PO TID 01/24/18 RX: Metoprolol Tartrate 100 mg PO BID 01/24/18 amLODIPine BESYLATE [Norvasc] 5 mg PO DAILY 01/24/18 Insulin Detemir [Levemir] 3 unit SUBCU DAILY 02/09/18 RX: Hydralazine HCl 50 mg PO TID 02/09/18 RX: Spironolactone 50 mg PO DAILY 02/09/18 Calcium Acetate (Phosphate Bin [Calcium Acetate] 3 each PO TID 05/22/18 Insulin Detemir [Levemir] 2 units SUBCU BEDTIME 05/22/18 Pantoprazole Tablet [Protonix] 40 mg PO ACBK 05/22/18 Insulin Aspart (with Niacinami [Fiasp] 100 unit SC TID 09/06/18 RX: Bumetanide 2 mg PO BID 09/06/18 RX: Clonidine HCl 0.3 mg PO TID 09/06/18 Telmisartan [Micardis] 80 mg PO BEDTIME 09/06/18 ALPRAZolam [Xanax] 0.5 mg PO BEDTIME 10/01/18 ALPRAZolam [Xanax] 0.5 mg PO BID PRN 10/01/18 Albuterol Sulfate Nebs [Proventil Nebs] 2.5 mg INH Q4HR PRN 10/01/18 Cholecalciferol [Vitamin D3] 1,000 unit PO DAILY 10/01/18 Docusate Sodium [Colace Cap] 100 mg PO BID 10/01/18 Ferrous Sulfate [Ferrousul] 325 mg PO DAILY 10/01/18 Isosorbide Dinitrate-Hydralazi [Bidil 20-37.5 mg] 1 tab PO BID 10/01/18 RX: Melatonin 10 mg PO BEDTIME 10/01/18 RX: Metolazone 5 mg PO GWENDOLYN-OTH-DAY 10/01/18 Sulfa/Trimeth 800/160 (Ds) Tab [Bactrim DS] 1 tablet PO BID 10/01/18 Sulfa/Trimeth 800/160 (Ds) Tab [Bactrim DS] 1 tablet PO BID 7 Days #14 tablet 11/14/18 metroNIDAZOLE [Flagyl] 500 mg PO BID 7 Days #14 tab 11/14/18 Famotidine [Pepcid Tab] 20 mg PO BID #60 tab 11/30/18 Metoclopramide Tab [Reglan Tab] 5 mg PO BIDAC #60 tab 11/30/18 Past Medical History (General) - Patient Medical History Hx Seizures: No Hx Stroke: No Hx Dementia: No Hx Asthma: No Hx of COPD: No Hx Cardiac Disorders: No Hx Congestive Heart Failure: No Hx Pacemaker: No Hx Hypertension: Yes Hx Thyroid Disease: No Hx Diabetes: Yes Hx Gastroesophageal Reflux: Yes Hx Renal Disease: Yes - end stage; Dialysis MWF Hx Cancer: No Hx of HIV: No Hx Hepatitis C: No Hx MRSA: Yes - Vaccination History Hx Tetanus, Diphtheria Vaccination: Yes Hx Influenza Vaccination: Yes - 2018 Hx Pneumococcal Vaccination: No - Social History Hx Tobacco Use: No Hx Chewing Tobacco Use: No Hx Alcohol Use: No Hx Substance Use: No Hx Substance Use Treatment: No Hx Depression: No Hx Physical Abuse: No Hx Emotional Abuse: No Hx Suspected Abuse: No - Female History Patient : No Family Medical History - Family History Mother Family History: Unknown Living Status: Unknown Hx Cardiac Disease: Yes - DAD Hx Family Diabetes: Yes - DAD Hx Family;Other: DAD-RHEUMATOID ARTHTRITIS Progress - Progress Progress: 12/01/18 05:27 Vital Signs - 8 hr 11/30/18 12/01/18 12/01/18 23:09 00:09 01:09 Temperature 99.1 F 99 F Pulse Rate [ 120 H 116 H 92 H Left Radial] Respiratory 13 13 13 Rate Blood Pressure 206/108 186/101 161/87 [Right Arm] O2 Sat by Pulse 98 99 99 Oximetry 12/01/18 12/01/18 12/01/18 02:09 03:00 04:00 Temperature 98.9 F Pulse Rate [ 87 111 H 94 H Left Radial] Respiratory 13 13 13 Rate Blood Pressure 177/91 199/116 180/105 [Right Arm] O2 Sat by Pulse 98 100 100 Oximetry 12/01/18 05:00 Temperature 99 F Pulse Rate [ 102 H Left Radial] Respiratory 13 Rate Blood Pressure 208/124 [Right Arm] O2 Sat by Pulse 100 Oximetry - Results/Orders Results/Orders: 12/01/18 00:22 IV Care:Saline Lock per Protoc QSHIFT 12/01/18 05:00 niCARdipine HCL [Cardene IV] 25 mg Sodium Chloride 0.9% 250Ml [NS 250ml] 240 ml IVPB PRN Laboratory Results - last 24 hr 12/01/18 12/01/18 12/01/18 00:22 01:07 02:57 WBC 9.2 RBC 2.42 L Hgb 7.2 L* Hct 22.9 L MCV 94.4 MCH 29.5 MCHC 31.3 L RDW 19.2 H Plt Count 284 MPV 8.3 Absolute Neuts (auto) 7.80 H Absolute Lymphs (auto) 0.70 L Absolute Monos (auto) 0.70 Absolute Eos (auto) 0.00 Absolute Basos (auto) 0.10 Neutrophils % 84.5 H Lymphocytes % 7.7 L Monocytes % 7.1 Eosinophils % 0.1 L Basophils % 0.6 PT 10.7 INR 1.07 PTT (SP) 24.9 Sodium 135 Potassium 3.4 L Chloride 92 L Carbon Dioxide 22 Anion Gap 24.4 H BUN 35 H D Creatinine 2.69 H D BUN/Creatinine Ratio 13.0 POC Glucose 315 H Random Glucose 467 H* Serum Osmolality 298.7 H Calcium 8.1 L Magnesium 3.8 H Total Bilirubin 2.1 H* D Direct Bilirubin 0.1 Indirect Bilirubin 2.0 H AST 31 ALT 41 Alkaline Phosphatase 185 H Creatine Kinase 24 L D CK-MB (CK-2) 1.5 CK-MB (CK-2) % Not Reportable Troponin I < 0.02 Serum Total Protein 6.8 Albumin 3.2 Lipase 17 L Gastric Fluid pH 3.0 Gastric Occult Blood Positive Departure - Departure Clinical Impression: Diabetic gastroparesis associated with type 1 diabetes mellitus, Chronic kidney disease due to type 1 diabetes mellitus Intractable nausea and vomiting Qualifiers: Vomiting type: unspecified Qualified Code(s): R11.2 - Nausea with vomiting, unspecified Diabetic retinopathy associated with type 1 diabetes mellitus Qualifiers: Diabetic retinopathy severity: with unspecified retinopathy severity Diabetes mellitus macular edema: macular edema presence unspecified Laterality: bilateral Qualified Code(s): E10.319 - Type 1 diabetes mellitus with unspecified diabetic retinopathy without macular edema Time of Disposition: 05:34 Disposition: Transfer to Hospital Condition: Poor Departure Forms: Patient Portal Self Enrollment Referrals: Mukesh Flowers MD [Primary Care Provider] - 1-2 Weeks Home Medications: Ambulatory Orders Insulin Aspart [Novolog] 2 unit SC TID 12/03/17 RX: Promethazine HCl 25 mg PO Q6HR PRN 12/03/17 RX: Sertraline HCl 100 mg PO DAILY 12/03/17 Hydrocodone-Acetaminophen [[place] 7.5-325 mg] 1 tab PO BID 12/16/17 RX: Gabapentin 600 mg PO TID 01/24/18 RX: Metoprolol Tartrate 100 mg PO BID 01/24/18 amLODIPine BESYLATE [Norvasc] 5 mg PO DAILY 01/24/18 Insulin Detemir [Levemir] 3 unit SUBCU DAILY 02/09/18 RX: Hydralazine HCl 50 mg PO TID 02/09/18 RX: Spironolactone 50 mg PO DAILY 02/09/18 Calcium Acetate (Phosphate Bin [Calcium Acetate] 3 each PO TID 05/22/18 Insulin Detemir [Levemir] 2 units SUBCU BEDTIME 05/22/18 Pantoprazole Tablet [Protonix] 40 mg PO ACBK 05/22/18 Insulin Aspart (with Niacinami [Fiasp] 100 unit SC TID 09/06/18 RX: Bumetanide 2 mg PO BID 09/06/18 RX: Clonidine HCl 0.3 mg PO TID 09/06/18 Telmisartan [Micardis] 80 mg PO BEDTIME 09/06/18 ALPRAZolam [Xanax] 0.5 mg PO BEDTIME 10/01/18 ALPRAZolam [Xanax] 0.5 mg PO BID PRN 10/01/18 Albuterol Sulfate Nebs [Proventil Nebs] 2.5 mg INH Q4HR PRN 10/01/18 Cholecalciferol [Vitamin D3] 1,000 unit PO DAILY 10/01/18 Docusate Sodium [Colace Cap] 100 mg PO BID 10/01/18 Ferrous Sulfate [Ferrousul] 325 mg PO DAILY 10/01/18 Isosorbide Dinitrate-Hydralazi [Bidil 20-37.5 mg] 1 tab PO BID 10/01/18 RX: Melatonin 10 mg PO BEDTIME 10/01/18 RX: Metolazone 5 mg PO GWENDOLYN-OTH-DAY 10/01/18 Sulfa/Trimeth 800/160 (Ds) Tab [Bactrim DS] 1 tablet PO BID 10/01/18 Sulfa/Trimeth 800/160 (Ds) Tab [Bactrim DS] 1 tablet PO BID 7 Days #14 tablet 11/14/18 metroNIDAZOLE [Flagyl] 500 mg PO BID 7 Days #14 tab 11/14/18 Famotidine [Pepcid Tab] 20 mg PO BID #60 tab 11/30/18 Metoclopramide Tab [Reglan Tab] 5 mg PO BIDAC #60 tab 11/30/18 Transfer to Outside Facility - Transfer Information Accepting Provider:: Dr. 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
[2018-12-01] MEDS ORDERED: INSULIN, REG.(HUMAN) 100 U/ML VIAL IV ONE (01:40)
[2018-12-01] MEDS ORDERED: hydrALAZINE HCl 20 MG/ML VIAL IV ONE (01:59)
[2018-12-01] MEDS ORDERED: raNITIdine HCL INJ 50 MG in SODIUM CHLORIDE 0.9% 50ML 50 ML IVPB ONE (02:05)
[2018-12-01] MEDS ORDERED: raNITIdine HCL INJ 25 MG/ML VIAL ONE (02:10)
[2018-12-01] MEDS ORDERED: SODIUM CHLORIDE 0.9% 50ML 50 ML ONE (02:10)
[2018-12-01] MEDS ORDERED: niCARdipine HCL 25 MG in SODIUM CHLORIDE 0.9% 250ML 240 ML IVPB SCH (05:00)
[2018-12-01] MEDS ORDERED: niCARdipine HCL 2.5 MG/ML AMP IVPB ONE (05:04)
[2018-12-01] MEDS ORDERED: SODIUM CHLORIDE 0.9% 250ML 250 ML ONE (05:04)
[2018-12-01] MEDS ORDERED: MORPHINE SULFATE INJ 10 MG/ML VIAL ONE (05:22)
[2018-12-01 05:59] VITALS: BP 172/98; TEMP 97.8; O2SAT 99
== END 2018-12-01 05:55 | disposition short-term general hospital (02) ==
LOC: ER 23:09
DX: E10.43 Type 1 diabetes mellitus with diabetic autonomic (poly)neuropathy (principal); K31.84 Gastroparesis; E10.22 Type 1 diabetes mellitus with diabetic chronic kidney disease; I12.0 Hypertensive chronic kidney disease with stage 5 chronic kidney disease or end stage renal disease; N18.6 End stage renal disease; Z99.2 Dependence on renal dialysis; E10.319 Type 1 diabetes mellitus with unspecified diabetic retinopathy without macular edema; K21.9 Gastro-esophageal reflux disease without esophagitis; Z79.4 Long term (current) use of insulin; Z79.899 Other long term (current) drug therapy
CPT/HCPCS: 36415; 80048; 80076; 82271; 82550; 82553; 82948; 83690; 83986; 84484; 85025; 85610; 85730; A4216; J0360; J2060; J2270; J2765; J2780; J7030; J7050

== ENCOUNTER 2018-12-15 18:03 | Emergency (ER) | payer MEDICARE, MEDICAID ==
[2018-12-15] MEDS ORDERED: PROMETHAZINE HCL INJ 25 MG/ML VIAL IM ONE (18:17)
[2018-12-15] MEDS ORDERED: HEPARIN SODIUM 100 U/ML 5 ML SYG IV ONE ×3 (18:42→19:24)
[2018-12-15] MEDS ORDERED: INSULIN, REG.(HUMAN) 100 U/ML VIAL IV ONE (18:54)
[2018-12-15] MEDS ORDERED: SODIUM CHLORIDE 0.9% 1000ML 1,000 ML IVS ONE (18:56)
[2018-12-15 19:02] VITALS: O2SAT 100
[2018-12-15] MEDS ORDERED: HYDROmorphone HCL INJ 2 MG/ML VIAL IV ONE (19:17)
--- NOTE | 2018-12-15 19:18 | RAD ---
EXAM: XR Abdomen 2 Views With XR Chest CLINICAL HISTORY: nv TECHNIQUE: Frontal view of the chest, frontal view of the abdomen/pelvis and upright or decubitus view of the abdomen. COMPARISON: 10/31/2018., 07/21/2018 FINDINGS: Limitations: None. Lungs: Mild pulmonary edema present. Pleural space: Small bilateral pleural effusions are present. No pneumothorax. Heart: Unremarkable. No cardiomegaly. Mediastinum: Unremarkable. Intraperitoneal space: No free air. Gastrointestinal tract: Scattered stool throughout the nondilated colon. Bones/joints: Unremarkable. Tubes, lines and devices: Right jugular catheter terminates in the distal third of the SVC. Other findings: Mild scarring left apex unchanged. Stable hepatomegaly. IMPRESSION: 1. Mild pulmonary edema present. 2. No intestinal obstruction. Electronically signed by: Raquel Marshall MD 12/15/2018 7:17 PM CDT
--- NOTE | 2018-12-15 19:47 | ED.PDOC ---
History of Present Illness - General Chief Complaint: Abdominal Pain Stated Complaint: abdominal pain,n/v Time Seen by Provider: 12/15/18 18:06 Source: patient Exam Limitations: no limitations - History of Present Illness Initial Comments: the patient's 28-year-old female presenting to the emergency room secondary to uncontrolled abdominal pain with uncontrolled nausea and vomiting since first thing this morning. She reports her blood sugars have been too high to measure. No oral intake today.the patient is historically very brittle diabetic requiring small changes in her insulin doses. She has had multiple episodes of severe DKA. Additionally she is a very brittle CHF patient. I personally completely fluid overloaded her with less than a liter and a half of fluid in the past. She does have chronic cyclical nausea and vomiting related to her diabetes and gastroparesis. She is end-stage renal failure and receives dialysis with Dr. Duncan according to her. She has a left upper extremity fistula that they are dialyzing her through. She also still has a dialysis port to the right chest that is not being used. She reports they're planning on removing this in the next few weeks. The port is still functional. Severity: severe Improving Factors: medication Worsening Factors: eating Associated Symptoms: chest pain - with vomiting, diaphoresis, headaches, loss of appetite, malaise, nausea/vomiting, shortness of breath, weakness Allergies/Adverse Reactions: Allergies NO KNOWN ALLERGY Allergy (Verified 10/13/18 06:19) Home Medications: Ambulatory Orders Insulin Aspart [Novolog] 2 unit SC TID 12/03/17 Promethazine HCl 25 mg PO Q6HR PRN 12/03/17 Sertraline HCl 100 mg PO DAILY 12/03/17 Hydrocodone-Acetaminophen [[place] 7.5-325 mg] 1 tab PO BID 12/16/17 Gabapentin 600 mg PO TID 01/24/18 Metoprolol Tartrate 100 mg PO BID 01/24/18 amLODIPine BESYLATE [Norvasc] 5 mg PO DAILY 01/24/18 Hydralazine HCl 50 mg PO TID 02/09/18 Insulin Detemir [Levemir] 3 unit SUBCU DAILY 02/09/18 Spironolactone 50 mg PO DAILY 02/09/18 Calcium Acetate (Phosphate Bin [Calcium Acetate] 3 each PO TID 05/22/18 Insulin Detemir [Levemir] 2 units SUBCU BEDTIME 05/22/18 Pantoprazole Tablet [Protonix] 40 mg PO ACBK 05/22/18 Bumetanide 2 mg PO BID 09/06/18 Clonidine HCl 0.3 mg PO TID 09/06/18 Insulin Aspart (with Niacinami [Fiasp] 100 unit SC TID 09/06/18 Telmisartan [Micardis] 80 mg PO BEDTIME 09/06/18 ALPRAZolam [Xanax] 0.5 mg PO BEDTIME 10/01/18 ALPRAZolam [Xanax] 0.5 mg PO BID PRN 10/01/18 Albuterol Sulfate Nebs [Proventil Nebs] 2.5 mg INH Q4HR PRN 10/01/18 Cholecalciferol [Vitamin D3] 1,000 unit PO DAILY 10/01/18 Docusate Sodium [Colace Cap] 100 mg PO BID 10/01/18 Ferrous Sulfate [Ferrousul] 325 mg PO DAILY 10/01/18 Isosorbide Dinitrate-Hydralazi [Bidil 20-37.5 mg] 1 tab PO BID 10/01/18 Melatonin 10 mg PO BEDTIME 10/01/18 Metolazone 5 mg PO GWENDOLYN-OTH-DAY 10/01/18 Sulfa/Trimeth 800/160 (Ds) Tab [Bactrim DS] 1 tablet PO BID 10/01/18 Sulfa/Trimeth 800/160 (Ds) Tab [Bactrim DS] 1 tablet PO BID 7 Days #14 tablet 11/14/18 metroNIDAZOLE [Flagyl] 500 mg PO BID 7 Days #14 tab 11/14/18 Famotidine [Pepcid Tab] 20 mg PO BID #60 tab 11/30/18 Metoclopramide Tab [Reglan Tab] 5 mg PO BIDAC #60 tab 11/30/18 Review of Systems - Review of Systems Constitutional: States: diaphoresis, malaise, weakness EENTM: States: no symptoms reported Respiratory: States: short of breath Cardiology: States: chest pain Gastrointestinal/Abdominal: States: abdominal pain, nausea, vomiting Genitourinary: States: no symptoms reported Musculoskeletal: States: other - generalized body aches Skin: States: no symptoms reported Neurological: States: no symptoms reported Endocrine: States: increased thirst All other Systems: No Change from Baseline Past Medical History (General) - Patient Medical History Hx Seizures: No Hx Stroke: No Hx Dementia: No Hx Asthma: No Hx of COPD: No Hx Cardiac Disorders: No Hx Congestive Heart Failure: No Hx Pacemaker: No Hx Hypertension: Yes Hx Thyroid Disease: No Hx Diabetes: Yes Hx Gastroesophageal Reflux: Yes Hx Renal Disease: Yes - end stage; Dialysis MWF Hx Cancer: No Hx of HIV: No Hx Hepatitis C: No Hx MRSA: Yes Surgical History: tonsillectomy - Vaccination History Hx Tetanus, Diphtheria Vaccination: Yes Hx Influenza Vaccination: Yes - 2018 Hx Pneumococcal Vaccination: No - Social History Hx Tobacco Use: No Hx Chewing Tobacco Use: No Hx Alcohol Use: No Hx Substance Use: No Hx Substance Use Treatment: No Hx Depression: No Hx Physical Abuse: No Hx Emotional Abuse: No Hx Suspected Abuse: No - Activities of Daily Living Group Home/Assisted Living (if applicable):: [facility] - Female History Patient : No Family Medical History - Family History Mother Family History: Unknown Living Status: Unknown Hx Cardiac Disease: Yes - DAD Hx Family Diabetes: Yes - DAD Hx Family;Other: DAD-RHEUMATOID ARTHTRITIS Physical Exam - Physical Exam General Appearance: Alert, Anxious, Obvious distress, Ill Appearing Eye Exam: bilateral normal Ears, Nose, Throat: hearing grossly normal, normal pharynx - mildly dry Neck: full range of motion, supple Respiratory: lungs clear, normal breath sounds, no respiratory distress, no accessory muscle use Cardiovascular/Chest: normal peripheral pulses, regular rate, rhythm Peripheral Pulses: radial,right: 1+, radial,left: 1+ Gastrointestinal/Abdominal: soft, other - he patient is vomiting most of the time. She does not appreciate her abdomen being touched. 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 She has received a dose of Phenergan and a dose of Dilaudid. This has helped somewhat. She is markedly hyperglycemic and has received 4 units of IV insulin. She will need to have her recheck upon arrival. Additionally the patient does have some dehydration with associated hyperkalemia and hyponatremia. She is receiving IV fluids at 200 cc an hour for now. She does need to be monitored for any evidence of fluid overload. I do expect the potassium to fall with rehydration. weight has been given at this point. The patient will be in need of dialysis within the next 24 hours. The patient's dialysis port is being used as a central line as she has no other adequate IV access due to her myriad of hospital admissions and procedures in the past. her left upper extremity fistula is being used for dialysis. The port was very well cleaned before use. Lines not being used have been flushed with heparin. I would recommend that if they are going to remove the dialysis port that she very soon after had a subcutaneous port placed as she is seen on average every week and a half in the emergency room for either uncontrolled nausea vomiting and abdominal pain or DKA. Life expectancy of this patient is less than 6 months. - Results/Orders Results/Orders: Laboratory Tests 12/15/18 12/15/18 12/15/18 18:15 18:15 18:15 WBC 6.7 RBC 3.28 L Hgb 9.6 L Hct 31.1 L MCV 95.0 MCH 29.4 MCHC 31.0 L RDW 17.6 H Plt Count 160 MPV 9.2 Absolute Neuts (auto) 5.70 Absolute Lymphs (auto) 0.60 L Absolute Monos (auto) 0.30 Absolute Eos (auto) 0.00 Absolute Basos (auto) 0.10 Neutrophils % 85.0 H Lymphocytes % 9.5 L Monocytes % 4.0 Eosinophils % 0.5 L Basophils % 1.0 pCO2 pO2 HCO3 ABG pH ABG O2 Saturation ABG Base Excess ABG Deoxyhemoglobin Oxyhemoglobin % Carboxyhemoglobin % Methemoglobin % Sat Calc Total Hemoglobin Sodium 128 L Potassium 5.7 H Chloride 86 L Carbon Dioxide 20 L Anion Gap 27.7 H BUN 52 H Creatinine 3.05 H BUN/Creatinine Ratio 17.0 POC Glucose Random Glucose 699 H* Serum Osmolality 304.5 H Lactic Acid 1.2 Calcium 8.5 Magnesium 3.0 H Total Bilirubin 1.4 H AST 132 H ALT 106 H Alkaline Phosphatase 214 H Creatine Kinase 30 CK-MB (CK-2) 2.1 CK-MB (CK-2) % Not Reportable Troponin I < 0.02 Serum Total Protein 7.1 Albumin 3.3 Globulin 3.8 H Albumin/Globulin Ratio 0.9 L Amylase 11 L Lipase 14 L Serum Ketones 12/15/18 12/15/18 12/15/18 18:16 18:17 18:50 WBC RBC Hgb Hct MCV MCH MCHC RDW Plt Count MPV Absolute Neuts (auto) Absolute Lymphs (auto) Absolute Monos (auto) Absolute Eos (auto) Absolute Basos (auto) Neutrophils % Lymphocytes % Monocytes % Eosinophils % Basophils % pCO2 pO2 HCO3 ABG pH ABG O2 Saturation ABG Base Excess ABG Deoxyhemoglobin Oxyhemoglobin % Carboxyhemoglobin % Methemoglobin % Sat Calc Total Hemoglobin Sodium Potassium Chloride Carbon Dioxide Anion Gap BUN Creatinine BUN/Creatinine Ratio POC Glucose > 400 H* Random Glucose Cancelled Serum Osmolality Lactic Acid Calcium Magnesium Total Bilirubin AST ALT Alkaline Phosphatase Creatine Kinase CK-MB (CK-2) CK-MB (CK-2) % Troponin I Serum Total Protein Albumin Globulin Albumin/Globulin Ratio Amylase Lipase Serum Ketones Small 12/15/18 19:28 WBC RBC Hgb Hct MCV MCH MCHC RDW Plt Count MPV Absolute Neuts (auto) Absolute Lymphs (auto) Absolute Monos (auto) Absolute Eos (auto) Absolute Basos (auto) Neutrophils % Lymphocytes % Monocytes % Eosinophils % Basophils % pCO2 45 pO2 51 L HCO3 21.3 ABG pH 7.300 L ABG O2 Saturation 84.8 L ABG Base Excess -4.4 ABG Deoxyhemoglobin 14.6 H Oxyhemoglobin % 81.8 L Carboxyhemoglobin % -0.2 L Methemoglobin % Sat 3.8 H Calc Total Hemoglobin 9.0 L Sodium Potassium Chloride Carbon Dioxide Anion Gap BUN Creatinine BUN/Creatinine Ratio POC Glucose Random Glucose Serum Osmolality Lactic Acid Calcium Magnesium Total Bilirubin AST ALT Alkaline Phosphatase Creatine Kinase CK-MB (CK-2) CK-MB (CK-2) % Troponin I Serum Total Protein Albumin Globulin Albumin/Globulin Ratio Amylase Lipase Serum Ketones the ABG above is a venous blood gas. acute abdominal series shows no obvious large abnormalities in the abdomen. She does have small pleural effusions. EKG shows normal sinus rhythm at 98 bpm. Normal axis. Left atrial dilation. Faria wave progression. Mild peaked T waves. No obvious U waves. Borderline QT interval. Departure - Departure Clinical Impression: End stage renal disease, Hyperkalemia, Hypomagnesemia Uncontrolled type 1 diabetes mellitus Qualifiers: Glycemic state: with hyperglycemia Qualified Code(s): E10.65 - Type 1 diabetes mellitus with hyperglycemia Cyclical vomiting with nausea Qualifiers: Vomiting Intractability: unspecified Qualified Code(s): G43.A0 - Cyclical vomiting, not intractable Disposition: Transfer to Hospital Departure Forms: ED Discharge - Pt. Copy, Patient Portal Self Enrollment Referrals: Mukesh Flowers MD [Primary Care Provider] - 1-2 Weeks Home Medications: Ambulatory Orders Insulin Aspart [Novolog] 2 unit SC TID 12/03/17 Promethazine HCl 25 mg PO Q6HR PRN 12/03/17 Sertraline HCl 100 mg PO DAILY 12/03/17 Hydrocodone-Acetaminophen [[place] 7.5-325 mg] 1 tab PO BID 12/16/17 Gabapentin 600 mg PO TID 01/24/18 Metoprolol Tartrate 100 mg PO BID 01/24/18 amLODIPine BESYLATE [Norvasc] 5 mg PO DAILY 01/24/18 Hydralazine HCl 50 mg PO TID 02/09/18 Insulin Detemir [Levemir] 3 unit SUBCU DAILY 02/09/18 Spironolactone 50 mg PO DAILY 02/09/18 Calcium Acetate (Phosphate Bin [Calcium Acetate] 3 each PO TID 05/22/18 Insulin Detemir [Levemir] 2 units SUBCU BEDTIME 05/22/18 Pantoprazole Tablet [Protonix] 40 mg PO ACBK 05/22/18 Bumetanide 2 mg PO BID 09/06/18 Clonidine HCl 0.3 mg PO TID 09/06/18 Insulin Aspart (with Niacinami [Fiasp] 100 unit SC TID 09/06/18 Telmisartan [Micardis] 80 mg PO BEDTIME 09/06/18 ALPRAZolam [Xanax] 0.5 mg PO BEDTIME 10/01/18 ALPRAZolam [Xanax] 0.5 mg PO BID PRN 10/01/18 Albuterol Sulfate Nebs [Proventil Nebs] 2.5 mg INH Q4HR PRN 10/01/18 Cholecalciferol [Vitamin D3] 1,000 unit PO DAILY 10/01/18 Docusate Sodium [Colace Cap] 100 mg PO BID 10/01/18 Ferrous Sulfate [Ferrousul] 325 mg PO DAILY 10/01/18 Isosorbide Dinitrate-Hydralazi [Bidil 20-37.5 mg] 1 tab PO BID 10/01/18 Melatonin 10 mg PO BEDTIME 10/01/18 Metolazone 5 mg PO GWENDOLYN-OTH-DAY 10/01/18 Sulfa/Trimeth 800/160 (Ds) Tab [Bactrim DS] 1 tablet PO BID 10/01/18 Sulfa/Trimeth 800/160 (Ds) Tab [Bactrim DS] 1 tablet PO BID 7 Days #14 tablet 11/14/18 metroNIDAZOLE [Flagyl] 500 mg PO BID 7 Days #14 tab 11/14/18 Famotidine [Pepcid Tab] 20 mg PO BID #60 tab 11/30/18 Metoclopramide Tab [Reglan Tab] 5 mg PO BIDAC #60 tab 11/30/18 Transfer to Outside Facility - Transfer Information Accepting Provider:: dr baker Accepting Facility: [facility] Reason for Transfer: specialized care not available
[2018-12-15 20:27] VITALS: TEMP 97.9
[2018-12-15 20:37] VITALS: BP 186/104
== END 2018-12-15 20:50 | disposition short-term general hospital (02) ==
LOC: ER 18:03
DX: N18.6 End stage renal disease (principal); E83.42 Hypomagnesemia; E87.5 Hyperkalemia; E10.65 Type 1 diabetes mellitus with hyperglycemia; G43.A0 Cyclical vomiting, in migraine, not intractable; I50.9 Heart failure, unspecified; E10.22 Type 1 diabetes mellitus with diabetic chronic kidney disease; I13.2 Hypertensive heart and chronic kidney disease with heart failure and with stage 5 chronic kidney disease, or end stage renal disease; K21.9 Gastro-esophageal reflux disease without esophagitis; Z99.2 Dependence on renal dialysis; Z79.4 Long term (current) use of insulin; Z79.899 Other long term (current) drug therapy
CPT/HCPCS: 36415; 36416; 74019; 80053; 82009; 82150; 82550; 82553; 82805; 82948; 83605; 83690; 83735; 84484; 85025; 93005; J1170; J1642; J2550; J7030

== ENCOUNTER 2018-12-22 16:13 | Emergency (ER) | payer MEDICARE, MEDICAID ==
[2018-12-22] MEDS ORDERED: SODIUM CHLORIDE 0.9% 1000ML 1,000 ML IVS ONE (16:27)
[2018-12-22] MEDS ORDERED: PROMETHAZINE HCL INJ 25 MG in SODIUM CHLORIDE 0.9% 50ML 50 ML IVPB ONE (16:27)
--- NOTE | 2018-12-22 16:37 | ED.PDOC ---
History of Present Illness - General Chief Complaint: GI Problem Stated Complaint: 1 day of abdominal pain and emesis Time Seen by Provider: 12/22/18 16:27 Source: patient, EMS Exam Limitations: no limitations - History of Present Illness Initial Comments: patient comes in today with onset of severe intractable abdominal pain and emesis since early this morning. Patient has a long history of gastroparesis, uncontrolled type 1 diabetes mellitus. She is currently on dialysis and has heart failure requiring oxygen and lives at a [facility]. Patient last night when on pass and ate pork and this morning her BS was >500. Patient prior to that was at her baseline health but denied any fever, chills, dysuria, or constipation. Timing/Duration: getting worse, other - 8 hours Severity: severe Improving Factors: nothing Worsening Factors: nothing Associated Symptoms: nausea/vomiting Allergies/Adverse Reactions: Allergies NO KNOWN ALLERGY Allergy (Verified 12/22/18 18:23) Home Medications: Ambulatory Orders Insulin Aspart [Novolog] 2 unit SC TID 12/03/17 Promethazine HCl 25 mg PO Q6HR PRN 12/03/17 Sertraline HCl 100 mg PO DAILY 12/03/17 Hydrocodone-Acetaminophen [[place] 7.5-325 mg] 1 tab PO BID 12/16/17 Gabapentin 600 mg PO TID 01/24/18 Metoprolol Tartrate 100 mg PO BID 01/24/18 amLODIPine BESYLATE [Norvasc] 5 mg PO DAILY 01/24/18 Hydralazine HCl 50 mg PO TID 02/09/18 Insulin Detemir [Levemir] 3 unit SUBCU DAILY 02/09/18 Spironolactone 50 mg PO DAILY 02/09/18 Calcium Acetate (Phosphate Bin [Calcium Acetate] 3 each PO TID 05/22/18 Insulin Detemir [Levemir] 2 units SUBCU BEDTIME 05/22/18 Pantoprazole Tablet [Protonix] 40 mg PO ACBK 05/22/18 Bumetanide 2 mg PO BID 09/06/18 Clonidine HCl 0.3 mg PO TID 09/06/18 Insulin Aspart (with Niacinami [Fiasp] 100 unit SC TID 09/06/18 Telmisartan [Micardis] 80 mg PO BEDTIME 09/06/18 ALPRAZolam [Xanax] 0.5 mg PO BEDTIME 10/01/18 ALPRAZolam [Xanax] 0.5 mg PO BID PRN 10/01/18 Albuterol Sulfate Nebs [Proventil Nebs] 2.5 mg INH Q4HR PRN 10/01/18 Cholecalciferol [Vitamin D3] 1,000 unit PO DAILY 10/01/18 Docusate Sodium [Colace Cap] 100 mg PO BID 10/01/18 Ferrous Sulfate [Ferrousul] 325 mg PO DAILY 10/01/18 Isosorbide Dinitrate-Hydralazi [Bidil 20-37.5 mg] 1 tab PO BID 10/01/18 Melatonin 10 mg PO BEDTIME 10/01/18 Metolazone 5 mg PO GWENDOLYN-OTH-DAY 10/01/18 Sulfa/Trimeth 800/160 (Ds) Tab [Bactrim DS] 1 tablet PO BID 10/01/18 Sulfa/Trimeth 800/160 (Ds) Tab [Bactrim DS] 1 tablet PO BID 7 Days #14 tablet 11/14/18 metroNIDAZOLE [Flagyl] 500 mg PO BID 7 Days #14 tab 11/14/18 Famotidine [Pepcid Tab] 20 mg PO BID #60 tab 11/30/18 Metoclopramide Tab [Reglan Tab] 5 mg PO BIDAC #60 tab 11/30/18 Review of Systems - Review of Systems Constitutional: States: no symptoms reported. Denies: chills, fever EENTM: States: no symptoms reported Respiratory: States: no symptoms reported. Denies: cough, short of breath Cardiology: States: no symptoms reported. Denies: chest pain, edema, palpitations Gastrointestinal/Abdominal: States: abdominal pain, nausea, vomiting. Denies: constipation, diarrhea Genitourinary: States: no symptoms reported Musculoskeletal: States: no symptoms reported Skin: States: no symptoms reported Neurological: States: see HPI Past Medical History (General) - Patient Medical History Hx Seizures: No Hx Stroke: No Hx Dementia: No Hx Asthma: No Hx of COPD: No Hx Cardiac Disorders: No Hx Congestive Heart Failure: No Hx Pacemaker: No Hx Hypertension: Yes Hx Thyroid Disease: No Hx Diabetes: Yes Hx Gastroesophageal Reflux: Yes Hx Renal Disease: Yes - end stage; Dialysis MWF Hx Cancer: No Hx of HIV: No Hx Hepatitis C: No Hx MRSA: Yes - Vaccination History Hx Tetanus, Diphtheria Vaccination: Yes Hx Influenza Vaccination: Yes - 2017 Hx Pneumococcal Vaccination: No - Social History Hx Tobacco Use: No Hx Chewing Tobacco Use: No Hx Alcohol Use: No Hx Substance Use: No Hx Substance Use Treatment: No Hx Depression: No Hx Physical Abuse: No Hx Emotional Abuse: No Hx Suspected Abuse: No - Female History Patient : No Family Medical History - Family History Mother Family History: Unknown Living Status: Unknown Hx Cardiac Disease: Yes - DAD Hx Family Diabetes: Yes - DAD Hx Family;Other: DAD-RHEUMATOID ARTHTRITIS Physical Exam - Physical Exam General Appearance: Frail, Obvious distress Eye Exam: bilateral normal Ears, Nose, Throat: hearing grossly normal, normal ENT inspection, normal pharynx Neck: non-tender, full range of motion, supple Respiratory: chest non-tender, lungs clear, normal breath sounds, no respiratory distress Cardiovascular/Chest: normal peripheral pulses, regular rate, rhythm, no edema, no gallop, no JVD, no murmur Peripheral Pulses: radial,right: 2+, radial,left: 2+ Gastrointestinal/Abdominal: soft, abnormal bowel sounds - hypoactive, tenderness - tenderness diffusely with no rebound or guarding Neurologic: alert, oriented x 3 Progress - Progress Progress: called to [facility] for transfer and she is accepted. They request continuous albuterol and this was started. 12/22/18 18:24 - Results/Orders Results/Orders: 12/22/18 17:30 Calcium Gluconate Inj 1 gm Sodium Chloride 0.9% 50Ml [NS 50ml] 50 ml IVPB ONCE EKG Assessment ONCE EKG STAT Laboratory Results WBC 7.1 K/mm3 (4.8-10.8) 12/22/18 16:27 RBC 3.04 M/mm3 (4.20-5.40) L 12/22/18 16:27 Hgb 8.8 gm/dL (12.0-16.0) L 12/22/18 16:27 Hct 28.3 % (36.0-47.0) L 12/22/18 16:27 MCV 93.1 fl (81.0-99.0) 12/22/18 16:27 MCH 29.1 pg (27.0-31.0) 12/22/18 16:27 MCHC 31.3 g/dL (33.0-37.0) L 12/22/18 16:27 RDW 17.1 % (11.5-14.5) H 12/22/18 16:27 Plt Count 166 K/mm3 (130-400) 12/22/18 16:27 MPV 9.3 fl (7.40-10.4) 12/22/18 16:27 Absolute Neuts (auto) 6.30 K/uL (1.8-6.8) 12/22/18 16:27 Absolute Lymphs (auto) 0.60 K/uL (1.0-3.4) L 12/22/18 16:27 Absolute Monos (auto) 0.10 K/uL (0.2-0.8) L 12/22/18 16:27 Absolute Eos (auto) 0.00 K/uL (0.0-0.4) 12/22/18 16:27 Absolute Basos (auto) 0.10 K/uL (0.0-0.1) 12/22/18 16:27 Neutrophils % 88.3 % (42.0-78.0) H 12/22/18 16:27 Lymphocytes % 8.8 % (20.0-50.0) L 12/22/18 16:27 Monocytes % 1.5 % (2.0-9.0) L 12/22/18 16:27 Eosinophils % 0.5 % (1.0-5.0) L 12/22/18 16:27 Basophils % 0.9 % (0.0-2.0) 12/22/18 16:27 Sodium 127 mmol/L (135-145) L 12/22/18 16:27 Potassium 8.0 mmol/L (3.6-5.0) H* 12/22/18 16:27 Chloride 92 mmol/L (101-111) L 12/22/18 16:27 Carbon Dioxide 13 mmol/L (21-31) L* 12/22/18 16:27 Anion Gap 30.0 (12-18) H 12/22/18 16:27 BUN 106 mg/dL (7-18) H* 12/22/18 16:27 Creatinine 5.91 mg/dL (0.6-1.3) H 12/22/18 16:27 BUN/Creatinine Ratio 17.9 (10-20) 12/22/18 16:27 Random Glucose 603 mg/dL (70-105) H* 12/22/18 16:27 Serum Osmolality 316.5 mOsm/L (275-295) H 12/22/18 16:27 Lactic Acid 0.8 mmol/L (0.5-2.2) 12/22/18 16:27 Calcium 9.3 mg/dL (8.4-10.2) 12/22/18 16:27 Total Bilirubin 1.1 mg/dL (0.2-1.0) H 12/22/18 16:27 AST 44 IU/L (10-42) H 12/22/18 16:27 ALT 68 IU/L (10-60) H 12/22/18 16:27 Alkaline Phosphatase 168 IU/L (42-121) H 12/22/18 16:27 Serum Total Protein 7.1 gm/dL (6.4-8.2) 12/22/18 16:27 Albumin 3.5 g/dl (3.2-5.5) 12/22/18 16:27 Globulin 3.6 gm/dL (2.3-3.5) H 12/22/18 16:27 Albumin/Globulin Ratio 1.0 (1.1-1.9) L 12/22/18 16:27 Serum Ketones Negative 12/22/18 16:27 Departure - Departure Clinical Impression: Hyperkalemia, Gastroparesis, Insulin dependent diabetes mellitus Chronic renal failure Qualifiers: Chronic kidney disease stage: unspecified stage Qualified Code(s): N18.9 - Chronic kidney disease, unspecified Disposition: Transfer to Hospital Condition: Poor Departure Forms: ED Discharge - Pt. Copy, Patient Portal Self Enrollment Referrals: Mkuesh Flowers MD [Primary Care Provider] - 1-2 Weeks Home Medications: Ambulatory Orders Insulin Aspart [Novolog] 2 unit SC TID 12/03/17 Promethazine HCl 25 mg PO Q6HR PRN 12/03/17 Sertraline HCl 100 mg PO DAILY 12/03/17 Hydrocodone-Acetaminophen [[place] 7.5-325 mg] 1 tab PO BID 12/16/17 Gabapentin 600 mg PO TID 01/24/18 Metoprolol Tartrate 100 mg PO BID 01/24/18 amLODIPine BESYLATE [Norvasc] 5 mg PO DAILY 01/24/18 Hydralazine HCl 50 mg PO TID 02/09/18 Insulin Detemir [Levemir] 3 unit SUBCU DAILY 02/09/18 Spironolactone 50 mg PO DAILY 02/09/18 Calcium Acetate (Phosphate Bin [Calcium Acetate] 3 each PO TID 05/22/18 Insulin Detemir [Levemir] 2 units SUBCU BEDTIME 05/22/18 Pantoprazole Tablet [Protonix] 40 mg PO ACBK 05/22/18 Bumetanide 2 mg PO BID 09/06/18 Clonidine HCl 0.3 mg PO TID 09/06/18 Insulin Aspart (with Niacinami [Fiasp] 100 unit SC TID 09/06/18 Telmisartan [Micardis] 80 mg PO BEDTIME 09/06/18 ALPRAZolam [Xanax] 0.5 mg PO BEDTIME 10/01/18 ALPRAZolam [Xanax] 0.5 mg PO BID PRN 10/01/18 Albuterol Sulfate Nebs [Proventil Nebs] 2.5 mg INH Q4HR PRN 10/01/18 Cholecalciferol [Vitamin D3] 1,000 unit PO DAILY 10/01/18 Docusate Sodium [Colace Cap] 100 mg PO BID 10/01/18 Ferrous Sulfate [Ferrousul] 325 mg PO DAILY 10/01/18 Isosorbide Dinitrate-Hydralazi [Bidil 20-37.5 mg] 1 tab PO BID 10/01/18 Melatonin 10 mg PO BEDTIME 10/01/18 Metolazone 5 mg PO GWENDOLYN-OTH-DAY 10/01/18 Sulfa/Trimeth 800/160 (Ds) Tab [Bactrim DS] 1 tablet PO BID 10/01/18 Sulfa/Trimeth 800/160 (Ds) Tab [Bactrim DS] 1 tablet PO BID 7 Days #14 tablet 11/14/18 metroNIDAZOLE [Flagyl] 500 mg PO BID 7 Days #14 tab 11/14/18 Famotidine [Pepcid Tab] 20 mg PO BID #60 tab 11/30/18 Metoclopramide Tab [Reglan Tab] 5 mg PO BIDAC #60 tab 11/30/18 Transfer to Outside Facility - Transfer Information Accepting Facility: [facility] Reason for Transfer: specialized care not available
[2018-12-22] MEDS ORDERED: PROMETHAZINE HCL INJ 25 MG/ML VIAL ONE (17:25)
[2018-12-22] MEDS ORDERED: SODIUM CHLORIDE 0.9% 50ML 50 ML ONE ×2 (17:25→17:51)
[2018-12-22] MEDS ORDERED: INSULIN, REG.(HUMAN) 100 U/ML VIAL IV ONE (17:30)
[2018-12-22] MEDS ORDERED: CALCIUM GLUCONATE INJ 1 GM in SODIUM CHLORIDE 0.9% 50ML 50 ML IVPB ONE (17:30)
[2018-12-22] MEDS ORDERED: CALCIUM GLUCONATE INJ 1 GM/10 ML VIAL ONE (17:50)
[2018-12-22] MEDS ORDERED: MORPHINE SULFATE INJ 10 MG/ML VIAL IV ONE (18:19)
[2018-12-22] MEDS ORDERED: SODIUM CHL 0.9% 50ML VIAL 12 ML, ALBUTEROL SULFATE NEBS 7.5 MG NEB ONE ×2 (18:23)
[2018-12-22] MEDS ORDERED: SODIUM CHLORIDE 0.9% 50 ML VIAL ONE (18:34)
[2018-12-22] MEDS ORDERED: ALBUTEROL SULFATE 2.5 MG/3 ML VIAL NEB ONE (18:35)
[2018-12-22 19:38] VITALS: BP 142/70; TEMP 97.2; O2SAT 100
== END 2018-12-22 19:00 | disposition short-term general hospital (02) ==
LOC: ER 16:13
DX: E10.43 Type 1 diabetes mellitus with diabetic autonomic (poly)neuropathy (principal); K31.84 Gastroparesis; E87.5 Hyperkalemia; N18.6 End stage renal disease; E10.22 Type 1 diabetes mellitus with diabetic chronic kidney disease; I13.2 Hypertensive heart and chronic kidney disease with heart failure and with stage 5 chronic kidney disease, or end stage renal disease; I50.9 Heart failure, unspecified; K21.9 Gastro-esophageal reflux disease without esophagitis; Z99.2 Dependence on renal dialysis; Z79.899 Other long term (current) drug therapy; Z79.4 Long term (current) use of insulin; Z99.81 Dependence on supplemental oxygen
CPT/HCPCS: 36415; 80053; 82009; 83605; 85025; 93005; 94644; A4216; J2270; J2550; J7030; J7611

== ENCOUNTER 2018-12-28 19:52 | Emergency (ER) | payer MEDICARE, MEDICAID ==
[2018-12-28] MEDS ORDERED: PROMETHAZINE HCL INJ 25 MG/ML VIAL IM ONE (20:26)
[2018-12-28] MEDS ORDERED: ALPRAZolam 0.25 MG TAB PO ONE (20:26)
--- NOTE | 2018-12-28 20:30 | ED.PDOC ---
History of Present Illness - General Chief Complaint: Blood Pressure Problem Stated Complaint: nausea, vomiting, elevated blood pressure Time Seen by Provider: 12/28/18 20:09 Source: patient Exam Limitations: no limitations - History of Present Illness Initial Comments: Patient is a 28 yo with ESRD on dialysis who [place] the [place] due to hypertension. He systolic was reportedly above 240. The patient complains of having a severe anxiety attack upon presentation and N/V since yesterday. She also says that she has abdominal pain that is generalized. She is a poor historian and cannot qualify the pain but says it started yesterday. No other history is available. Allergies/Adverse Reactions: Allergies NO KNOWN ALLERGY Allergy (Verified 12/22/18 18:23) Home Medications: Ambulatory Orders Insulin Aspart [Novolog] 3 unit SC TID 12/03/17 Promethazine HCl 25 mg PO Q6HR PRN 12/03/17 amLODIPine BESYLATE [Norvasc] 5 mg PO DAILY 01/24/18 Hydralazine HCl 25 mg PO TID 02/09/18 Insulin Detemir [Levemir] 3 unit SUBCU DAILY 02/09/18 Insulin Detemir [Levemir] 4 units SUBCU BEDTIME 05/22/18 Insulin Aspart (with Niacinami [Fiasp] 100 unit SC TID 09/06/18 Telmisartan [Micardis] 80 mg PO BEDTIME 09/06/18 Albuterol Sulfate Nebs [Proventil Nebs] 2.5 mg INH Q4HR PRN 10/01/18 Docusate Sodium [Colace Cap] 100 mg PO BID 10/01/18 Ferrous Sulfate [Ferrousul] 325 mg PO DAILY 10/01/18 Isosorbide Dinitrate-Hydralazi [Bidil 20-37.5 mg] 1 tab PO BEDTIME 10/01/18 Melatonin 10 mg PO BEDTIME 10/01/18 metroNIDAZOLE [Flagyl] 500 mg PO BID 7 Days #14 tab 11/14/18 Famotidine [Pepcid Tab] 20 mg PO BID #60 tab 11/30/18 Metoclopramide Tab [Reglan Tab] 5 mg PO BIDAC #60 tab 11/30/18 Acetaminophen W/ Codeine [Tylenol W/ CODEINE #3] 1 ea PO Q6HR PRN 12/28/18 Alum & Mag Hydrox-Simethicone [Maalox Max] 1 melany PO 12/28/18 Clonidine HCl [Clonidine Hydrochloride] 0.2 mg PO TID 12/28/18 Doxazosin Mesylate 4 mg PO DAILY 12/28/18 Gabapentin 100 mg PO BEDTIME 12/28/18 Hydroxyzine HCl 10 mg PO TID 12/28/18 Ondansetron HCl [Zofran] 4 mg PO Q6HRS PRN 12/28/18 Sertraline HCl 50 mg PO DAILY 12/28/18 Past Medical History (General) - Patient Medical History Hx Seizures: No Hx Stroke: No Hx Dementia: No Hx Asthma: No Hx of COPD: No Hx Cardiac Disorders: No Hx Congestive Heart Failure: Yes Hx Pacemaker: No Hx Hypertension: Yes Hx Thyroid Disease: No Hx Diabetes: Yes Hx Gastroesophageal Reflux: Yes Hx Renal Disease: Yes - end stage; Dialysis MWF Hx Cancer: No Hx of HIV: No Hx Hepatitis C: No Hx MRSA: Yes Surgical History: tonsillectomy, other - Vaccination History Hx Tetanus, Diphtheria Vaccination: Yes Hx Influenza Vaccination: Yes - 2018 Hx Pneumococcal Vaccination: No - Social History Hx Tobacco Use: No Hx Chewing Tobacco Use: No Hx Alcohol Use: No Hx Substance Use: No Hx Substance Use Treatment: No Hx Depression: No Hx Physical Abuse: No Hx Emotional Abuse: No Hx Suspected Abuse: No - Activities of Daily Living Detention/Assisted Living (if applicable):: Mina Meléndez - Female History Patient : No Family Medical History - Family History Mother Family History: Unknown Living Status: Unknown Hx Cardiac Disease: Yes - DAD Hx Family Diabetes: Yes - DAD Hx Family;Other: DAD-RHEUMATOID ARTHTRITIS Physical Exam - Physical Exam General Appearance: Alert, Obvious distress Eye Exam: bilateral normal Ears, Nose, Throat: normal ENT inspection Neck: non-tender, full range of motion, supple Respiratory: lungs clear, normal breath sounds Cardiovascular/Chest: tachycardia Gastrointestinal/Abdominal: normal bowel sounds, non tender, soft Back Exam: normal inspection, no CVA tenderness Extremity: normal range of motion, non-tender, normal inspection Neurologic: no motor/sensory deficits, alert, normal mood/affect, oriented x 3 Skin Exam: normal color Lymphatic: no adenopathy Progress - Progress Progress: 12/28/18 21:53 Laboratory Tests 12/28/18 12/28/18 12/28/18 20:19 20: 20:20 WBC 8.0 RBC 2.70 L Hgb 7.9 L* Hct 24.2 L MCV 89.5 MCH 29.2 MCHC 32.6 L RDW 16.5 H Plt Count 159 MPV 8.9 Absolute Neuts (auto) 7.10 H Absolute Lymphs (auto) 0.60 L Absolute Monos (auto) 0.30 Absolute Eos (auto) 0.00 Absolute Basos (auto) 0.10 Neutrophils % 88.0 H Lymphocytes % 6.9 L Monocytes % 4.2 Eosinophils % 0.2 L Basophils % 0.7 Sodium 134 L Potassium 4.4 Chloride 89 L Carbon Dioxide 28 Anion Gap 21.4 H BUN 44 H Creatinine 2.78 H BUN/Creatinine Ratio 15.8 Random Glucose 415 H* Serum Osmolality 297.1 H Calcium 9.0 Phosphorus 2.4 L Magnesium 2.7 H Total Bilirubin 0.7 AST 71 H ALT 87 H Alkaline Phosphatase 147 H Creatine Kinase 31 CK-MB (CK-2) 1.7 CK-MB (CK-2) % Not Reportable Troponin I 0.03 B-Natriuretic Peptide 4600.0 H* Serum Total Protein 7.1 Albumin 3.6 Globulin 3.5 Albumin/Globulin Ratio 1.0 L Lipase TSH 5.80 H Thyroxine (T4) 6.67 12/28/18 20:30 WBC RBC Hgb Hct MCV MCH MCHC RDW Plt Count MPV Absolute Neuts (auto) Absolute Lymphs (auto) Absolute Monos (auto) Absolute Eos (auto) Absolute Basos (auto) Neutrophils % Lymphocytes % Monocytes % Eosinophils % Basophils % Sodium Potassium Chloride Carbon Dioxide Anion Gap BUN Creatinine BUN/Creatinine Ratio Random Glucose Serum Osmolality Calcium Phosphorus Magnesium Total Bilirubin AST ALT Alkaline Phosphatase Creatine Kinase CK-MB (CK-2) CK-MB (CK-2) % Troponin I B-Natriuretic Peptide Serum Total Protein Albumin Globulin Albumin/Globulin Ratio Lipase 17 L TSH Thyroxine (T4) Patient given 10 units human insulin SC. potassium 4.4. Nitroglycerin drip started. Xanax 1 mg po x one, phenergan 25 mg IV x one, and morphine 2 mg IV x one given. Patient transferred to [facility] ER to Dr. Gavin Guzmán. Departure - Departure Clinical Impression: Hypertensive crisis Disposition: Transfer to Hospital Condition: Fair Departure Forms: ED Discharge - Pt. Copy, Patient Portal Self Enrollment Activity: as per physical therapy Referrals: Mukesh Flowers MD [Primary Care Provider] - 1-2 Weeks Home Medications: Ambulatory Orders Insulin Aspart [Novolog] 3 unit SC TID 12/03/17 Promethazine HCl 25 mg PO Q6HR PRN 12/03/17 amLODIPine BESYLATE [Norvasc] 5 mg PO DAILY 01/24/18 Hydralazine HCl 25 mg PO TID 02/09/18 Insulin Detemir [Levemir] 3 unit SUBCU DAILY 02/09/18 Insulin Detemir [Levemir] 4 units SUBCU BEDTIME 05/22/18 Insulin Aspart (with Niacinami [Fiasp] 100 unit SC TID 09/06/18 Telmisartan [Micardis] 80 mg PO BEDTIME 09/06/18 Albuterol Sulfate Nebs [Proventil Nebs] 2.5 mg INH Q4HR PRN 10/01/18 Docusate Sodium [Colace Cap] 100 mg PO BID 10/01/18 Ferrous Sulfate [Ferrousul] 325 mg PO DAILY 10/01/18 Isosorbide Dinitrate-Hydralazi [Bidil 20-37.5 mg] 1 tab PO BEDTIME 10/01/18 Melatonin 10 mg PO BEDTIME 10/01/18 metroNIDAZOLE [Flagyl] 500 mg PO BID 7 Days #14 tab 11/14/18 Famotidine [Pepcid Tab] 20 mg PO BID #60 tab 11/30/18 Metoclopramide Tab [Reglan Tab] 5 mg PO BIDAC #60 tab 11/30/18 Acetaminophen W/ Codeine [Tylenol W/ CODEINE #3] 1 ea PO Q6HR PRN 12/28/18 Alum & Mag Hydrox-Simethicone [Maalox Max] 1 melany PO 12/28/18 Clonidine HCl [Clonidine Hydrochloride] 0.2 mg PO TID 12/28/18 Doxazosin Mesylate 4 mg PO DAILY 12/28/18 Gabapentin 100 mg PO BEDTIME 12/28/18 Hydroxyzine HCl 10 mg PO TID 12/28/18 Ondansetron HCl [Zofran] 4 mg PO Q6HRS PRN 12/28/18 Sertraline HCl 50 mg PO DAILY 12/28/18
[2018-12-28] MEDS ORDERED: PROMETHAZINE HCL INJ 25 MG in SODIUM CHLORIDE 0.9% 50ML 50 ML IVPB ONE (20:34)
[2018-12-28] MEDS ORDERED: PROMETHAZINE HCL INJ 25 MG/ML VIAL ONE (20:36)
[2018-12-28] MEDS ORDERED: SODIUM CHLORIDE 0.9% 50ML 50 ML ONE (20:37)
[2018-12-28] MEDS ORDERED: MORPHINE SULFATE INJ 10 MG/ML VIAL IV ONE (21:16)
[2018-12-28] MEDS ORDERED: NITROPRUSSIDE SODIUM 25 MG/ML VIAL IVPB ONE (21:28)
[2018-12-28] MEDS ORDERED: SODIUM CHLORIDE 0.9% 250ML 250 ML ONE (21:28)
[2018-12-28] MEDS ORDERED: NITROPRUSSIDE SODIUM 50 MG in SODIUM CHLORIDE 0.9% 250ML 250 ML IVPB SCH (21:30)
--- NOTE | 2018-12-28 21:38 | CT ---
EXAM DESCRIPTION: Abdoment/Pelvis w/o Contrast CLINICAL HISTORY: 28 years Female abdominal pain COMPARISON: 11/14/2018. TECHNIQUE: Contiguous axial images obtained through the abdomen and pelvis without IV contrast. Reformatted images obtained. This exam was performed according to our department optimization program which includes automated exposure control, adjustment of the mA and/or kv according to patient size and/or use of iterative reconstruction technique. FINDINGS: Evaluation is limited by lack of IV contrast. There are small bilateral pleural effusions with associated atelectatic changes. There is prominence of the interstitial markings and groundglass infiltrates in the lower lungs. These findings could be from edema. The possibility of an infectious process is not totally excluded. The liver appears unremarkable. The spleen and pancreas appear unremarkable. No adrenal masses. The kidneys appear unremarkable. No hydronephrosis or definite ureteral calculi. The gallbladder is visualized. Mild atherosclerotic calcifications. No aneurysmal dilatation of the aorta. The colon is largely distended with stool. The rectum is distended with stool and measures 7.6 cm in transverse diameter. There is wall thickening in the rectosigmoid region with surrounding inflammatory changes which could be from stercoral colitis. No definite bowel obstruction. The appendix appears unremarkable. There is increased density in the mesenteric fat throughout the abdomen which is nonspecific. There is also increased density in the subcutaneous tissues. These findings could be from anasarca. Small amount of free fluid in the pelvis. IMPRESSION: The colon is largely distended with stool. The rectum is distended with stool measuring 7.6 cm in transverse diameter. There is some wall thickening in the rectosigmoid region with surrounding inflammatory changes which could be from stercoral colitis. There is increased density in the mesenteric fat and increased density in the subcutaneous tissues. These findings could be from anasarca. There are small bilateral pleural effusions with associated compressive atelectatic changes. There is prominence of the interstitial markings and groundglass infiltrates in the lower lungs. These findings could be from edema but the possibility of an infectious process is not totally excluded. Electronically signed by: Freedom Bacon MD 12/28/2018 9:37 PM CDT
[2018-12-28] MEDS ORDERED: INSULIN, REG.(HUMAN) 100 U/ML VIAL SUBCU ONE (21:47)
[2018-12-28] MEDS ORDERED: NITROGLYCERIN/D5W IV 250 ML IVS ONE (21:53)
[2018-12-28] MEDS ORDERED: NITROGLYCERIN/D5W IV 50,000 MCG in PREMIX BOTTLE 1 BOTTLE IVS SCH (22:00)
[2018-12-28 22:38] VITALS: TEMP 99.4
[2018-12-28 22:45] VITALS: BP 210/110; O2SAT 94
== END 2018-12-28 22:49 | disposition short-term general hospital (02) ==
LOC: ER 19:52
DX: I16.9 Hypertensive crisis, unspecified (principal); I13.2 Hypertensive heart and chronic kidney disease with heart failure and with stage 5 chronic kidney disease, or end stage renal disease; E11.22 Type 2 diabetes mellitus with diabetic chronic kidney disease; I50.9 Heart failure, unspecified; N18.6 End stage renal disease; F41.9 Anxiety disorder, unspecified; K21.9 Gastro-esophageal reflux disease without esophagitis; R11.2 Nausea with vomiting, unspecified; R00.0 Tachycardia, unspecified; Z79.4 Long term (current) use of insulin; Z99.2 Dependence on renal dialysis; Z79.899 Other long term (current) drug therapy
CPT/HCPCS: 36415; 74176; 80053; 82550; 82553; 83690; 83735; 83880; 84100; 84436; 84443; 84484; 85025; 93005; A4216; J2270; J2550; J7050

== ENCOUNTER 2019-02-06 05:29 | Day surgery (SDC) | payer MEDICARE, MEDICAID ==
[2019-02-06] MEDS ORDERED: LIDOCAINE 1% 10 ML VIAL INJ ONE (07:00)
[2019-02-06] MEDS ORDERED: raNITIdine HCL INJ 25 MG/ML VIAL ONE (07:00)
[2019-02-06] MEDS ORDERED: PROPOFOL 200 MG/20 ML VIAL IV ONE (07:00)
[2019-02-06] MEDS ORDERED: ceFAZolin SODIUM 1 GM VIAL ONE (07:15)
[2019-02-06] MEDS ORDERED: SODIUM CHL 0.9% 100ML MINI-BAG 100 ML IVPB ONE (07:15)
[2019-02-06] MEDS ORDERED: LACTATED RINGERS 1,000 ML ONE (07:15)
[2019-02-06] MEDS ORDERED: BUPIVACAINE 0.25% W/EPI 50 ML VIAL INJ ONE (08:37)
[2019-02-06] MEDS ORDERED: SODIUM CHLORIDE 0.9% 50 ML VIAL ONE (08:37)
[2019-02-06] MEDS ORDERED: HEPARIN SODIUM 100 U/ML 5 ML SYG IV ONE (08:37)
[2019-02-06] MEDS ORDERED: fentaNYL CITRATE INJ 50 MCG/ML AMP ONE (09:40)
[2019-02-06] MEDS ORDERED: MIDAZOLAM INJ 2 MG/2 ML VIAL ONE (09:40)
--- NOTE | 2019-02-06 11:04 | OP ---
DATE OF PROCEDURE: 02/06/19 PREOPERATIVE DIAGNOSIS: 1. Need for stable IV access. POSTOPERATIVE DIAGNOSIS: 1. Need for stable IV access. PROCEDURE: 1. Placement of power port Port-A-Cath. 2. Use of ultrasound guidance. 3. Intraoperative fluoroscopy with interpretation. SURGEON: Surinder Pineda MD. ANESTHESIA: IV sedation and local. FINDINGS: There was a very tiny internal jugular which I think slowly went down and tapered to nothing. The junction at the neck could be seen, but it was too deep, so I did a subclavian under direct visualization that went well. There was excellent position of the tip, good curvature and good flow. COMPLICATIONS: None. ESTIMATED BLOOD LOSS: Minimal. CONDITION: Stable. PLAN: Discharge. INDICATION: As stated. PROCEDURE: The patient was brought to the Operative Suite. IV sedation was given. Local anesthesia was placed. The ultrasound was used to identify a small internal jugular. It was just over 1 cm. We put her down on her head a little bit to try and dilate. It would not, but as I tracked it, it tapered to almost nothing. We examined the neck and we could not find anything else significant, so I went to the subclavian. Single stick was necessary to withdraw nice dark blood. The wire was then introduced under fluoroscopy to proper position. A small jodi was then made, undermined and the introducer dilator was then placed and confirmed proper position of the tip and then advanced the wire. It was in about 19 cm at the subclavian and stick site. The introducer dilator was then removed. The skin was undermined, the tunneler passed and the catheter was brought down to the chest site. We then confirmed proper position again. The catheter was then trimmed, mated and locked to the port. The port was secured medially with a single Prolene suture. We had good flow at this time. It was then irrigated with heparinized saline solution. Final fluoroscopy showed proper curvature and good position of the tip. The wound was then irrigated. There was a little bit of oozing, but it was very minimal. The wounds were closed in 2 layers with absorbable suture and dressings applied. She was then awakened and taken to Recovery to be discharged. #[id number] MTDD
--- NOTE | 2019-02-06 11:28 | RAD ---
Study: Single Frontal Radiograph of the Chest. Indication:post port placement Comparison: November 30, 2018 Impression: Right subclavian venous port tip terminates in the superior right atrium. Cardiomegaly. Slight progressed patchy opacities at the lung bases and right midlung concerning for pulmonary edema. Pneumonia can give this appearance as well. Small pleural effusions suspected, left greater than right. Short-term follow-up recommended to ensure resolution. No pneumothorax. Electronically signed by: Kevin Engle MD 02/06/2019 11:27 AM CDT
[2019-02-06] MEDS ORDERED: ONDANSETRON INJ 4 MG/2 ML VIAL ONE (11:51)
[2019-02-06] MEDS ORDERED: SODIUM CHLORIDE 0.9% 100ML 100 ML IVPB ONE (11:54)
[2019-02-06] MEDS ORDERED: PROMETHAZINE HCL INJ 25 MG/ML VIAL ONE (11:54)
[2019-02-06 14:12] VITALS: BP 193/92; TEMP 100.5; O2SAT 96
--- NOTE | 2019-02-07 08:56 | RAD ---
EXAM DESCRIPTION: Fluoroscopy Up to 1Hr CLINICAL HISTORY: 28 years Female, PORT PLACEMENT COMPARISON: None. TECHNIQUE: Fluoroscopy was utilized for [id number] placement from a right subclavian approach. A fluoroscopic time of one minute 23 seconds is reported with a fluoroscopic dose from the C-arm utilized not available. FINDINGS: Two images are submitted one no with a surgical instrument overlying the mediastinum presumably representing the location of the catheter tip estimated at or near the cavoatrial junction. Mildly radiopaque port overlies the infraclavicular region on the right. Evaluation of the lung dominguez were lack of pneumothorax is insufficient on the images of obtained. IMPRESSION: Fluoroscopically guided a port placement from a right subclavian route with the catheter at or near the cavoatrial junction. Electronically signed by: Luciano Adkins MD 02/07/2019 8:53 AM CDT
== END 2019-02-06 12:30 | disposition home or self-care (01) ==
LOC: AMB 05:29
PROVIDERS: ATTEND Surgery
DX: Z49.01 Encounter for fitting and adjustment of extracorporeal dialysis catheter (principal); I13.2 Hypertensive heart and chronic kidney disease with heart failure and with stage 5 chronic kidney disease, or end stage renal disease; E11.22 Type 2 diabetes mellitus with diabetic chronic kidney disease; N18.6 End stage renal disease; I50.9 Heart failure, unspecified; J45.909 Unspecified asthma, uncomplicated; F41.9 Anxiety disorder, unspecified; Z99.2 Dependence on renal dialysis; Z87.891 Personal history of nicotine dependence; Z79.4 Long term (current) use of insulin; Z79.899 Other long term (current) drug therapy
CPT/HCPCS: 00532; 36415; 36416; 36561; 71045; 76000; 80048; 81025; 82948; 85025; A4216; J0690; J1642; J2250; J2405; J2550; J2780; J3010; J3490; J7050; J7120

== ENCOUNTER 2019-02-19 11:50 | Emergency (ER) | payer MEDICARE, MEDICAID ==
[2019-02-19] MEDS ORDERED: PROMETHAZINE HCL INJ 25 MG in SODIUM CHLORIDE 0.9% 50ML 50 ML IVPB ONE (12:13)
--- NOTE | 2019-02-19 12:18 | ED.PDOC ---
History of Present Illness - General Chief Complaint: Cardiovascular Problem Time Seen by Provider: 02/19/19 12:11 Source: patient, RN notes reviewed, Vital Signs reviewed Exam Limitations: no limitations - History of Present Illness Initial Comments: Brusing and swelling from LUE fistual to left axilla with ecchymosis over left lateral back Timing/Duration: getting worse, other - 2 days Severity: mild, moderate Improving Factors: nothing Worsening Factors: nothing Associated Symptoms: nausea/vomiting Allergies/Adverse Reactions: Allergies NO KNOWN ALLERGY Allergy (Verified 12/22/18 18:23) Home Medications: Ambulatory Orders Insulin Aspart [Novolog] 3 unit SC TID 12/03/17 Promethazine HCl 25 mg PO Q6HR PRN 12/03/17 amLODIPine BESYLATE [Norvasc] 10 mg PO DAILY 01/24/18 Insulin Detemir [Levemir] 4 units SUBCU BID 05/22/18 Insulin Aspart (with Niacinami [Fiasp] 100 unit SC TID 09/06/18 Telmisartan [Micardis] 80 mg PO BEDTIME 09/06/18 Albuterol Sulfate Nebs [Proventil Nebs] 2.5 mg INH Q4HR PRN 10/01/18 Isosorbide Dinitrate-Hydralazi [Bidil 20-37.5 mg] 20 mg PO Q8HR 10/01/18 Melatonin 10 mg PO BEDTIME 10/01/18 Acetaminophen W/ Codeine [Tylenol W/ CODEINE #3] 1 ea PO Q4HR PRN 12/28/18 Alum & Mag Hydrox-Simethicone [Maalox Max] 10 ml PO PRN PRN 12/28/18 Clonidine HCl [Clonidine Hydrochloride] 0.2 mg PO TID 12/28/18 Ondansetron HCl [Zofran] 4 mg PO Q6HRS PRN 12/28/18 Sertraline HCl 50 mg PO DAILY 12/28/18 Amino Acids-Protein Hydrolysat [Pro-Stat 101] 30 ml PO DAILY 02/05/19 Calcium Acetate (Phosphate Bin [Calcium Acetate] 667 mg PO TID 02/05/19 Cholecalciferol [Eql Vitamin D3] 1,000 unit PO DAILY 02/05/19 Clonidine HCl [Clonidine Hydrochloride] 0.2 mg PO Q8HR 02/05/19 Docusate Sodium 100 mg PO BID 02/05/19 Doxazosin Mesylate 4 mg PO DAILY 02/05/19 Famotidine [Pepcid Tab] 20 mg PO BID 02/05/19 Gabapentin 100 mg PO BID 02/05/19 Glucagon HCl (Diagnostic) [Glucagon] 1 mg IM PRN PRN 02/05/19 Hydroxyzine HCl 10 mg PO Q6HR PRN 02/05/19 Metoclopramide Tab [Reglan Tab] 5 mg PO TID 02/05/19 Metoprolol Tartrate 100 mg PO BID 02/05/19 Pantoprazole Tablet [Protonix] 40 mg PO DAILY 02/05/19 hydrALAZINE HCl [(None)] 25 mg PO Q8HR 02/05/19 Review of Systems - Review of Systems Constitutional: States: no symptoms reported EENTM: States: no symptoms reported Respiratory: States: no symptoms reported Cardiology: States: no symptoms reported Gastrointestinal/Abdominal: States: no symptoms reported Genitourinary: States: no symptoms reported Musculoskeletal: States: see HPI Skin: States: see HPI Neurological: States: no symptoms reported Endocrine: States: no symptoms reported Hematologic/Lymphatic: States: no symptoms reported Past Medical History (General) - Patient Medical History Hx Seizures: No Hx Stroke: No Hx Dementia: No Hx Asthma: No Hx of COPD: No Hx Cardiac Disorders: No Hx Congestive Heart Failure: No Hx Pacemaker: No Hx Hypertension: Yes Hx Thyroid Disease: No Hx Diabetes: Yes - FSBS 126 Hx Gastroesophageal Reflux: Yes Hx Renal Disease: Yes - end stage; Dialysis MWF Hx Cancer: No Hx of HIV: No Hx Hepatitis C: No Hx MRSA: No - Vaccination History Hx Tetanus, Diphtheria Vaccination: Yes Hx Influenza Vaccination: Yes - 2018 Hx Pneumococcal Vaccination: No - Social History Hx Tobacco Use: No Hx Chewing Tobacco Use: No Hx Alcohol Use: No Hx Substance Use: No Hx Substance Use Treatment: No Hx Depression: No Hx Physical Abuse: No Hx Emotional Abuse: No Hx Suspected Abuse: No - Female History Patient : No Family Medical History - Family History Mother Family History: Unknown Living Status: Unknown Hx Cardiac Disease: Yes - DAD Hx Family Diabetes: Yes - DAD Hx Family;Other: DAD-RHEUMATOID ARTHTRITIS Physical Exam - Physical Exam General Appearance: Alert, Ill Appearing Ears, Nose, Throat: normal ENT inspection Neck: full range of motion Respiratory: no respiratory distress, no accessory muscle use Cardiovascular/Chest: regular rate, rhythm Gastrointestinal/Abdominal: non tender, soft Back Exam: other - left lateral back ecchymosis 4-6 cm in area Extremity: normal range of motion, other - LUE fistual with ecchymosis and edema tracking to axilla 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 On US, found to have clot around the fistula. Dr. Vanegas garden consultant at [facility] would like to evaluate the patient there with Dr. Duncan, nephrology. Patient is agreeable to transfer. - Results/Orders Results/Orders: EXAM DESCRIPTION: Soft Tissue,Extremity: ULTRASOUND. CLINICAL HISTORY: 28 years Female Hx of LUE fistula with ecchymosis and swelling. Fistula placed above the elbow. Date of placement is unknown, at least 3 weeks. Pain since recent dialysis access on February 17, 2019. Ecchymosis on the arm, around the shoulder and left chest wall. Palpable lump in the left axilla. COMPARISON: None Available. TECHNIQUE: Transcutaneous scanning: Clayton-scale and Doppler modes. FINDINGS: The arteriovenous fistula is seen in the upper aspect of the left arm above the elbow. At multiple sites along the fistula, is a hypoechoic tissue adjacent to the fistula site just above clot. No intraluminal thrombus or embolus. Some of the clot contains echogenic component suggestive of chronic onset. No Doppler extraluminal flow of blood. No Doppler flow into pseudoaneurysm, or old or new clot. No distinct cyst or fluid collection. Well- defined left axillary lymph node measuring 1.4 x 1.5 cm nonvascular. Left internal jugular vein, subclavian vein, and left axillary vein demonstrating normal duplex Doppler venous characteristics with no thrombus or embolus. Normally compressible by the transducer with complete occlusion. IMPRESSION: 1. Extraluminal clot around an upper arm, left upper extremity AV fistula for dialysis. Some of the clot is subacute in the fistula region around the recent access point. No active hemorrhage from the fistula is demonstrated. 2. Older clot around the distal fistula. Left axillary lymph node. 3. No thrombus or embolus in the fistula, or the left IJ vein, subclavian vein, or axillary vein. The findings were shown to Dr. Collins on the ultrasound unit, during the examination, at the patient's bedside in the Emergency Medicine Department. Electronically signed by: Bobby Sanchez MD 02/19/2019 2:05 PM CDT Departure - Departure Clinical Impression: AV fistula, Hematoma, ESRD (end stage renal disease) on dialysis Disposition: Discharge to Home or Self Care Condition: Fair Departure Forms: ED Discharge - Pt. Copy, Patient Portal Self Enrollment Instructions: DI for Chest Pain Referrals: Mukesh Flowers MD [Primary Care Provider] - 1-2 Weeks Home Medications: Ambulatory Orders Insulin Aspart [Novolog] 3 unit SC TID 12/03/17 Promethazine HCl 25 mg PO Q6HR PRN 12/03/17 amLODIPine BESYLATE [Norvasc] 10 mg PO DAILY 01/24/18 Insulin Detemir [Levemir] 4 units SUBCU BID 05/22/18 Insulin Aspart (with Niacinami [Fiasp] 100 unit SC TID 09/06/18 Telmisartan [Micardis] 80 mg PO BEDTIME 09/06/18 Albuterol Sulfate Nebs [Proventil Nebs] 2.5 mg INH Q4HR PRN 10/01/18 Isosorbide Dinitrate-Hydralazi [Bidil 20-37.5 mg] 20 mg PO Q8HR 10/01/18 Melatonin 10 mg PO BEDTIME 10/01/18 Acetaminophen W/ Codeine [Tylenol W/ CODEINE #3] 1 ea PO Q4HR PRN 12/28/18 Alum & Mag Hydrox-Simethicone [Maalox Max] 10 ml PO PRN PRN 12/28/18 Clonidine HCl [Clonidine Hydrochloride] 0.2 mg PO TID 12/28/18 Ondansetron HCl [Zofran] 4 mg PO Q6HRS PRN 12/28/18 Sertraline HCl 50 mg PO DAILY 12/28/18 Amino Acids-Protein Hydrolysat [Pro-Stat 101] 30 ml PO DAILY 02/05/19 Calcium Acetate (Phosphate Bin [Calcium Acetate] 667 mg PO TID 02/05/19 Cholecalciferol [Eql Vitamin D3] 1,000 unit PO DAILY 02/05/19 Clonidine HCl [Clonidine Hydrochloride] 0.2 mg PO Q8HR 02/05/19 Docusate Sodium 100 mg PO BID 02/05/19 Doxazosin Mesylate 4 mg PO DAILY 02/05/19 Famotidine [Pepcid Tab] 20 mg PO BID 02/05/19 Gabapentin 100 mg PO BID 02/05/19 Glucagon HCl (Diagnostic) [Glucagon] 1 mg IM PRN PRN 02/05/19 Hydroxyzine HCl 10 mg PO Q6HR PRN 02/05/19 Metoclopramide Tab [Reglan Tab] 5 mg PO TID 02/05/19 Metoprolol Tartrate 100 mg PO BID 02/05/19 Pantoprazole Tablet [Protonix] 40 mg PO DAILY 02/05/19 hydrALAZINE HCl [(None)] 25 mg PO Q8HR 02/05/19 Transfer to Outside Facility - Transfer Information Decision to Transfer Date: 02/19/19 Decision to Transfer Time: 14:21 Reason for Transfer: specialized care not available Accepting Provider:: Dr Vanegas Accepting Facility: [facility]
[2019-02-19] MEDS ORDERED: SODIUM CHLORIDE 0.9% 50ML 50 ML ONE (12:40)
[2019-02-19] MEDS ORDERED: PROMETHAZINE HCL INJ 25 MG/ML VIAL ONE (12:40)
--- NOTE | 2019-02-19 14:07 | US ---
EXAM DESCRIPTION: Soft Tissue,Extremity: ULTRASOUND. CLINICAL HISTORY: 28 years Female Hx of LUE fistula with ecchymosis and swelling. Fistula placed above the elbow. Date of placement is unknown, at least 3 weeks. Pain since recent dialysis access on February 17, 2019. Ecchymosis on the arm, around the shoulder and left chest wall. Palpable lump in the left axilla. COMPARISON: None Available. TECHNIQUE: Transcutaneous scanning: Clayton-scale and Doppler modes. FINDINGS: The arteriovenous fistula is seen in the upper aspect of the left arm above the elbow. At multiple sites along the fistula, is a hypoechoic tissue adjacent to the fistula site just above clot. No intraluminal thrombus or embolus. Some of the clot contains echogenic component suggestive of chronic onset. No Doppler extraluminal flow of blood. No Doppler flow into pseudoaneurysm, or old or new clot. No distinct cyst or fluid collection. Well-defined left axillary lymph node measuring 1.4 x 1.5 cm nonvascular. Left internal jugular vein, subclavian vein, and left axillary vein demonstrating normal duplex Doppler venous characteristics with no thrombus or embolus. Normally compressible by the transducer with complete occlusion. IMPRESSION: 1. Extraluminal clot around an upper arm, left upper extremity AV fistula for dialysis. Some of the clot is subacute in the fistula region around the recent access point. No active hemorrhage from the fistula is demonstrated. 2. Older clot around the distal fistula. Left axillary lymph node. 3. No thrombus or embolus in the fistula, or the left IJ vein, subclavian vein, or axillary vein. The findings were shown to Dr. Collins on the ultrasound unit, during the examination, at the patient's bedside in the Emergency Medicine Department. Electronically signed by: Bobby Sanchez MD 02/19/2019 2:05 PM CDT
[2019-02-19 14:45] VITALS: TEMP 97.3
[2019-02-19 15:25] VITALS: BP 165/95; O2SAT 99
== END 2019-02-19 15:30 | disposition short-term general hospital (02) ==
LOC: ER 11:50
DX: L76.32 Postprocedural hematoma of skin and subcutaneous tissue following other procedure (principal); N18.6 End stage renal disease; R11.2 Nausea with vomiting, unspecified; E11.22 Type 2 diabetes mellitus with diabetic chronic kidney disease; I12.0 Hypertensive chronic kidney disease with stage 5 chronic kidney disease or end stage renal disease; K21.9 Gastro-esophageal reflux disease without esophagitis; Y82.8 Other medical devices associated with adverse incidents; Z99.2 Dependence on renal dialysis; Z79.4 Long term (current) use of insulin; Z79.899 Other long term (current) drug therapy
CPT/HCPCS: 76882; 80053; 84703; 85025; 85610; 85730; A4216; J2550

== ENCOUNTER 2019-02-20 19:07 | Emergency (ER) | payer MEDICARE, MEDICAID ==
[2019-02-20] MEDS: fentaNYL CITRATE INJ 50 MCG/ML AMP IV ONE (20:16)
[2019-02-20] MEDS: METOCLOPRAMIDE HCL INJ 10 MG/2 ML VIAL IV ONE (20:17)
[2019-02-20] MEDS: SODIUM CHLORIDE 0.9% (FLUSH) 10 ML SYG IV PRN (20:17)
--- NOTE | 2019-02-20 20:56 | ED.PDOC ---
History of Present Illness - General Chief Complaint: GI Problem Stated Complaint: n/v Time Seen by Provider: 02/20/19 19:44 Information Source: patient, RN notes reviewed, Vital Signs reviewed Exam Limitations: no limitations - History of Present Illness Initial Comments: patient is a 28-year-old white female who presents with complaints of abdominal pain. Patient is unconsolable. Patient states that the pain has been ongoing for many days and she was just released from [facility]. she was sent there for dialysis a couple of days ago after she presented with complaints of abdominal pain. The pain is cramping in nature. Patient is passing gas. Nothing seems to bring on the pain and the only thing that seems to improve it is narcotic pain medicine. Patient denies any fevers or chills. Patient denies any chest pain, shortness of breath. She does have nausea. No vomiting at this time. Abdominal Pain Onset Location: generalized abdomen Pain Radiation: no radiation Quality: severe, waxing/waning Timing/Duration: 7-24 hours Improving Factors: other - narcotics Worsening Factors: eating, movement Associated Symptoms: diarrhea, nausea/vomiting - the nausea, swelling/mass in abdomen - swelling Review of Systems - Review of Systems Constitutional: States: no symptoms reported EENTM: States: no symptoms reported Respiratory: States: no symptoms reported Cardiology: States: no symptoms reported Gastrointestinal/Abdominal: States: see HPI, abdominal pain, diarrhea, nausea Genitourinary: States: no symptoms reported Musculoskeletal: States: no symptoms reported Skin: States: no symptoms reported Neurological: States: no symptoms reported Endocrine: States: no symptoms reported Hematologic/Lymphatic: States: no symptoms reported All other Systems: Reviewed and Negative Past Medical History (General) - Patient Medical History Hx Seizures: No Hx Stroke: No Hx Dementia: No Hx Asthma: No Hx of COPD: No Hx Cardiac Disorders: No Hx Congestive Heart Failure: No Hx Pacemaker: No Hx Hypertension: Yes Hx Thyroid Disease: No Hx Diabetes: Yes - FSBS 126 Hx Gastroesophageal Reflux: Yes Hx Renal Disease: Yes - end stage; Dialysis MWF Hx Cancer: No Hx of HIV: No Hx Hepatitis C: No Hx MRSA: No - Vaccination History Hx Tetanus, Diphtheria Vaccination: Yes Hx Influenza Vaccination: Yes - 2018 Hx Pneumococcal Vaccination: No - Social History Hx Tobacco Use: No Hx Chewing Tobacco Use: No Hx Alcohol Use: No Hx Substance Use: No Hx Substance Use Treatment: No Hx Depression: No Hx Physical Abuse: No Hx Emotional Abuse: No Hx Suspected Abuse: No - Female History Patient : No Family Medical History - Family History Mother Family History: Unknown Living Status: Unknown Hx Cardiac Disease: Yes - DAD Hx Family Diabetes: Yes - DAD Hx Family;Other: DAD-RHEUMATOID ARTHTRITIS Physical Exam - Physical Exam General Appearance: Agitated, Alert, Anxious, Emaciated, Obvious distress, Unkempt Eyes, Ears, Nose, Throat Exam: PERRL/EOMI, other - dry mucous membranes. Neck: non-tender, full range of motion, supple Respiratory: chest non-tender, lungs clear, normal breath sounds, no respiratory distress, no accessory muscle use Cardiovascular/Chest: normal peripheral pulses, regular rate, rhythm, no edema, no gallop, no murmur Peripheral Pulses: No deficit Gastrointestinal/Abdominal: other - diminished bowel sounds with generalized discomfort to palpation with voluntary guarding. Back Exam: normal inspection, no vertebral tenderness Extremity: non-tender, no pedal edema, no calf tenderness Neurologic: cigar bander hand II-XII nml as tested, alert, oriented x 3 Skin Exam: warm/dry, pallor Lymphatic: no adenopathy Progress - Progress Progress: 02/20/19 22:47 differential diagnosis: Wrist enteric ischemia, bowel obstruction, volume overload, gastroparesis among others Patient had significant pain initially, her pain is reduced significantly after multiple doses of Reglan IV. CT shows some volume overload. Patient appears to have significant edema with cirrhosis. Plan on transfer for further evaluation and treatment.discussed this with the family and they voiced understanding and agreement with the plan of care. Patient's family refuses for her to go back to [facility] in [place]. 02/21/19 00:00 - Results/Orders Results/Orders: 02/20/19 19:44 IV Care:Saline Lock per Protoc QSHIFT Sodium Chloride 0.9% (Flush) [Saline Flush Syringe] 10 ml IV PRN PRN URINALYSIS Stat 02/20/19 19:45 Hold Metformin x 48Hrs [id number] Laboratory Results - last 24 hr 02/20/19 02/20/19 02/20/19 19:20 19:20 19:20 WBC 6.6 RBC 2.98 L Hgb 9.0 L Hct 29.2 L MCV 98.2 MCH 30.2 MCHC 30.7 L RDW 19.3 H Plt Count 198 MPV 8.8 Absolute Neuts (auto) 6.10 Absolute Lymphs (auto) 0.30 L Absolute Monos (auto) 0.10 L Absolute Eos (auto) 0.00 Absolute Basos (auto) 0.00 Neutrophils % 93.1 H Lymphocytes % 4.2 L Monocytes % 1.8 L Eosinophils % 0.2 L Basophils % 0.7 Sodium 141 Potassium 4.7 Chloride 92 L Carbon Dioxide 29 Anion Gap 24.7 H BUN 36 H Creatinine 3.71 H BUN/Creatinine Ratio 9.7 L Random Glucose 195 H D Serum Osmolality 295.0 Lactic Acid Calcium 9.3 Total Bilirubin 0.9 Direct Bilirubin 0.1 Indirect Bilirubin 0.8 AST 15 ALT 12 Alkaline Phosphatase 169 H Serum Total Protein 7.9 Albumin 3.5 Serum HCG, Qual Negative 02/20/19 21:01 WBC RBC Hgb Hct MCV MCH MCHC RDW Plt Count MPV Absolute Neuts (auto) Absolute Lymphs (auto) Absolute Monos (auto) Absolute Eos (auto) Absolute Basos (auto) Neutrophils % Lymphocytes % Monocytes % Eosinophils % Basophils % Sodium Potassium Chloride Carbon Dioxide Anion Gap BUN Creatinine BUN/Creatinine Ratio Random Glucose Serum Osmolality Lactic Acid 1.0 Calcium Total Bilirubin Direct Bilirubin Indirect Bilirubin AST ALT Alkaline Phosphatase Serum Total Protein Albumin Serum HCG, Qual DESCRIPTION: Abdomen/Pelvis w/Contrast CLINICAL HISTORY: 28 years Female diffuse abdominal pain COMPARISON: 12/28/2018 TECHNIQUE: Contiguous axial images obtained through the abdomen and pelvis with IV contrast. Reformatted images obtained. This exam was performed according to our department optimization program which includes automated exposure control, adjustment of the mA and/or kv according to patient size and/or use of iterative reconstruction technique. FINDINGS: There are patchy infiltrates in the lung bases bilaterally which may reflect pulmonary edema. There are bilateral effusions right greater than left. Enlarged liver measuring 19.5 cm with prominent left and caudate lobes. Finding may reflect changes of cirrhosis. There is abdominal and pelvic ascites. Spleen is normal in size. Pancreas appears atrophic. No adrenal masses. The kidneys appear unremarkable. No hydronephrosis. The gallbladder is visualized. No aneurysmal dilatation of the aorta. There is scattered small retroperitoneal lymph nodes. There is diffuse subcutaneous stranding and edema over the abdomen pelvis and proximal thighs as well as stranding throughout the mesentery. No bowel obstruction. The appendix is unremarkable. IMPRESSION: Enlarged liver with enlarged left and caudate lobes. Cirrhosis is not excluded There is diffuse subcutaneous edema as well as abdominal and pelvic ascites and stranding in the mesentery. Findings are nonspecific. The possibility of anasarca is not excluded Pulmonary infiltrates suggesting edema with bilateral effusions Electronically signed by: Marce Bacon MD 02/20/2019 9:22 PM Departure - Departure Clinical Impression: Gastroparesis Abdominal pain Qualifiers: Abdominal location: lower abdomen, unspecified Qualified Code(s): R10.30 - Lower abdominal pain, unspecified Volume overload Qualifiers: Hypervolemia type: unspecified Qualified Code(s): E87.70 - Fluid overload, unspecified Renal failure Qualifiers: Renal failure chronicity: chronic Chronic kidney disease stage: on chronic dialysis Qualified Code(s): N18.6 - End stage renal disease; Z99.2 - Dependence on renal dialysis Time of Disposition: 00:03 Disposition: Transfer to Hospital Condition: Fair Departure Forms: ED Discharge - Pt. Copy, Patient Portal Self Enrollment Referrals: Mukesh Flowers MD [Primary Care Provider] - 1-2 Weeks Home Medications: Ambulatory Orders Insulin Aspart [Novolog] 3 unit SC TID 12/03/17 Promethazine HCl 25 mg PO Q6HR PRN 12/03/17 amLODIPine BESYLATE [Norvasc] 10 mg PO DAILY 01/24/18 Insulin Detemir [Levemir] 4 units SUBCU BID 05/22/18 Insulin Aspart (with Niacinami [Fiasp] 100 unit SC TID 09/06/18 Telmisartan [Micardis] 80 mg PO BEDTIME 09/06/18 Albuterol Sulfate Nebs [Proventil Nebs] 2.5 mg INH Q4HR PRN 10/01/18 Isosorbide Dinitrate-Hydralazi [Bidil 20-37.5 mg] 20 mg PO Q8HR 10/01/18 Melatonin 10 mg PO BEDTIME 10/01/18 Acetaminophen W/ Codeine [Tylenol W/ CODEINE #3] 1 ea PO Q4HR PRN 12/28/18 Alum & Mag Hydrox-Simethicone [Maalox Max] 10 ml PO PRN PRN 12/28/18 Clonidine HCl [Clonidine Hydrochloride] 0.2 mg PO TID 12/28/18 Ondansetron HCl [Zofran] 4 mg PO Q6HRS PRN 12/28/18 Sertraline HCl 50 mg PO DAILY 12/28/18 Amino Acids-Protein Hydrolysat [Pro-Stat 101] 30 ml PO DAILY 02/05/19 Calcium Acetate (Phosphate Bin [Calcium Acetate] 667 mg PO TID 02/05/19 Cholecalciferol [Eql Vitamin D3] 1,000 unit PO DAILY 02/05/19 Clonidine HCl [Clonidine Hydrochloride] 0.2 mg PO Q8HR 02/05/19 Docusate Sodium 100 mg PO BID 02/05/19 Doxazosin Mesylate 4 mg PO DAILY 02/05/19 Famotidine [Pepcid Tab] 20 mg PO BID 02/05/19 Gabapentin 100 mg PO BID 02/05/19 Glucagon HCl (Diagnostic) [Glucagon] 1 mg IM PRN PRN 02/05/19 Hydroxyzine HCl 10 mg PO Q6HR PRN 02/05/19 Metoclopramide Tab [Reglan Tab] 5 mg PO TID 02/05/19 Metoprolol Tartrate 100 mg PO BID 02/05/19 Pantoprazole Tablet [Protonix] 40 mg PO DAILY 02/05/19 hydrALAZINE HCl [(None)] 25 mg PO Q8HR 02/05/19 Transfer to Outside Facility - Transfer Information Decision to Transfer Date: 02/20/19 Decision to Transfer Time: 23:30 Reason for Transfer: specialized care not available Accepting Provider:: Dr. Mikal Trent Accepting Facility: [facility]
[2019-02-20] MEDS: METOPROLOL TARTRATE INJ 5 MG/5 ML VIAL IV ONE (21:08)
[2019-02-20] MEDS: cloNIDine HCL 0.1 MG TAB PO ONE (21:19)
--- NOTE | 2019-02-20 21:23 | CT ---
EXAM DESCRIPTION: Abdomen/Pelvis w/Contrast CLINICAL HISTORY: 28 years Female diffuse abdominal pain COMPARISON: 12/28/2018 TECHNIQUE: Contiguous axial images obtained through the abdomen and pelvis with IV contrast. Reformatted images obtained. This exam was performed according to our department optimization program which includes automated exposure control, adjustment of the mA and/or kv according to patient size and/or use of iterative reconstruction technique. FINDINGS: There are patchy infiltrates in the lung bases bilaterally which may reflect pulmonary edema. There are bilateral effusions right greater than left. Enlarged liver measuring 19.5 cm with prominent left and caudate lobes. Finding may reflect changes of cirrhosis. There is abdominal and pelvic ascites. Spleen is normal in size. Pancreas appears atrophic. No adrenal masses. The kidneys appear unremarkable. No hydronephrosis. The gallbladder is visualized. No aneurysmal dilatation of the aorta. There is scattered small retroperitoneal lymph nodes. There is diffuse subcutaneous stranding and edema over the abdomen pelvis and proximal thighs as well as stranding throughout the mesentery. No bowel obstruction. The appendix is unremarkable. IMPRESSION: Enlarged liver with enlarged left and caudate lobes. Cirrhosis is not excluded There is diffuse subcutaneous edema as well as abdominal and pelvic ascites and stranding in the mesentery. Findings are nonspecific. The possibility of anasarca is not excluded Pulmonary infiltrates suggesting edema with bilateral effusions Electronically signed by: Marce Bacon MD 02/20/2019 9:22 PM CDT
[2019-02-20] MEDS ORDERED: hydrALAZINE HCl 20 MG/ML VIAL ONE (21:38)
[2019-02-20] MEDS: hydrALAZINE HCl 20 MG/ML VIAL IV ONE (21:41)
[2019-02-20 22:40] VITALS: TEMP 97.5
[2019-02-20 22:41] VITALS: O2SAT 98
[2019-02-21 00:13] VITALS: BP 182/98
== END 2019-02-21 00:16 | disposition short-term general hospital (02) ==
LOC: ER 19:07
DX: E11.43 Type 2 diabetes mellitus with diabetic autonomic (poly)neuropathy (principal); K31.84 Gastroparesis; N18.6 End stage renal disease; E87.70 Fluid overload, unspecified; R18.8 Other ascites; R16.0 Hepatomegaly, not elsewhere classified; E11.22 Type 2 diabetes mellitus with diabetic chronic kidney disease; I12.0 Hypertensive chronic kidney disease with stage 5 chronic kidney disease or end stage renal disease; Z99.2 Dependence on renal dialysis
CPT/HCPCS: 36415; 74177; 80048; 80076; 81001; 83605; 84703; 85025; 96374; 96375; 99285; J0360; J2060; J2765; J3010

== ENCOUNTER 2019-05-04 17:57 | Emergency (ER) | payer MEDICARE, MEDICAID ==
[2019-05-04] MEDS ORDERED: SODIUM CHLORIDE 0.9% (FLUSH) 10 ML SYG IV PRN (18:07)
--- NOTE | 2019-05-04 18:12 | ED.PDOC ---
History of Present Illness - General Time Seen by Provider: 05/04/19 18:00 - History of Present Illness Initial Comments: 29-year-old female with history of ESRD, insulin-dependent diabetes, well known to staff from multiple visits, presents via EMS today for elevated blood sugar, after 2 day pass away from her nursing facility. Blood sugar was noted to be above 600, insulin administered on 2 occasions, blood sugar did not respond. she describes feeling lethargic, but denies fever, states she is not clear why her blood sugars are elevated today. Last dialysis on Sunday. Allergies/Adverse Reactions: Allergies NO KNOWN ALLERGY Allergy (Verified 12/22/18 18:23) Home Medications: Ambulatory Orders Insulin Aspart [Novolog] 3 unit SC TID 12/03/17 RX: Promethazine HCl 25 mg PO Q6HR PRN 12/03/17 amLODIPine BESYLATE [Norvasc] 10 mg PO DAILY 01/24/18 Insulin Detemir [Levemir] 4 units SUBCU BID 05/22/18 Insulin Aspart (with Niacinami [Fiasp] 100 unit SC TID 09/06/18 Telmisartan [Micardis] 80 mg PO BEDTIME 09/06/18 Albuterol Sulfate Nebs [Proventil Nebs] 2.5 mg INH Q4HR PRN 10/01/18 Isosorbide Dinitrate-Hydralazi [Bidil 20-37.5 mg] 20 mg PO Q8HR 10/01/18 RX: Melatonin 10 mg PO BEDTIME 10/01/18 Acetaminophen W/ Codeine [Tylenol W/ CODEINE #3] 1 ea PO Q4HR PRN 12/28/18 Alum & Mag Hydrox-Simethicone [Maalox Max] 10 ml PO PRN PRN 12/28/18 Clonidine HCl [Clonidine Hydrochloride] 0.2 mg PO TID 12/28/18 Ondansetron HCl [Zofran] 4 mg PO Q6HRS PRN 12/28/18 RX: Sertraline HCl 50 mg PO DAILY 12/28/18 Amino Acids-Protein Hydrolysat [Pro-Stat 101] 30 ml PO DAILY 02/05/19 Calcium Acetate (Phosphate Bin [Calcium Acetate] 667 mg PO TID 02/05/19 Cholecalciferol [Eql Vitamin D3] 1,000 unit PO DAILY 02/05/19 Clonidine HCl [Clonidine Hydrochloride] 0.2 mg PO Q8HR 02/05/19 Famotidine [Pepcid Tab] 20 mg PO BID 02/05/19 Glucagon HCl (Diagnostic) [Glucagon] 1 mg IM PRN PRN 02/05/19 Metoclopramide Tab [Reglan Tab] 5 mg PO TID 02/05/19 Pantoprazole Tablet [Protonix] 40 mg PO DAILY 02/05/19 RX: Docusate Sodium 100 mg PO BID 02/05/19 RX: Doxazosin Mesylate 4 mg PO DAILY 02/05/19 RX: Gabapentin 100 mg PO BID 02/05/19 RX: Hydroxyzine HCl [Hydroxyzine Hydrochloride] 10 mg PO Q6HR PRN 02/05/19 RX: Metoprolol Tartrate 100 mg PO BID 02/05/19 hydrALAZINE HCl [(None)] 25 mg PO Q8HR 02/05/19 Review of Systems - Review of Systems Review of Systems: 05/04/19 18:11 General: has generalized weakness, no fever, arthralgia/myalgia HEENT: Denies sore throat, rhinorrhea Cardiovascular: Denies chest pain, palpitations Respiratory: Denies SOB, cough Gastrointestinal: has abdominal pain, nausea, but vomiting, diarrhea : Denies dysuria, frequency Musculoskeletal: Denies extremity pain, extremity swelling Integument: Denies rash, itching Neuro: Denies focal weakness or numbness Psych: Denies depression, hallucinations. Past Medical History (General) - Patient Medical History Hx Seizures: No Hx Stroke: No Hx Dementia: No Hx Asthma: No Hx of COPD: No Hx Cardiac Disorders: No Hx Congestive Heart Failure: No Hx Pacemaker: No Hx Hypertension: Yes Hx Thyroid Disease: No Hx Diabetes: Yes - FSBS 126 Hx Gastroesophageal Reflux: Yes Hx Renal Disease: Yes - end stage; Dialysis MWF Hx Cancer: No Hx of HIV: No Hx Hepatitis C: No Hx MRSA: No - Vaccination History Hx Tetanus, Diphtheria Vaccination: Yes Hx Influenza Vaccination: Yes - 2018 Hx Pneumococcal Vaccination: No - Social History Hx Tobacco Use: No Hx Chewing Tobacco Use: No Hx Alcohol Use: No Hx Substance Use: No Hx Substance Use Treatment: No Hx Depression: No Hx Physical Abuse: No Hx Emotional Abuse: No Hx Suspected Abuse: No - Female History Patient : No Family Medical History - Family History Mother Family History: Unknown Living Status: Unknown Hx Cardiac Disease: Yes - DAD Hx Family Diabetes: Yes - DAD Hx Family;Other: DAD-RHEUMATOID ARTHTRITIS Physical Exam - Physical Exam Comments: General Appearance: Patient is awake, but lethargic. responds to voice. appears ill. Skin: Warm and dry. No diaphoresis. No rash or other lesions. Head: Normocephalic/atraumatic. Eyes: PERRL, lids, conjunctiva and sclera unremarkable. EOMI intact. ENT: No nasal discharge. Oropharynx. Without erythema, exudate, lesions. Moist mucous membranes. Neck: Supple. No LAD. No tenderness. No JVD noted. Respiratory: Normal rate and effort. Breath sounds clear bilaterally. Cardiovascular: Regular rate. Heart sounds normal. No murmur. GI: Abdomen soft, non-distended and non-tender. No rebound/guarding. Bowel sounds normal. Back: No tenderness Musculoskeletal: Extremities- Normal range of motion. No effusion, cyanosis, edema. Neurological: lethargic. No facial palsy. Speech clear. Gag intact. No motor deficit, str symmetric. No sensory deficit. Progress - Progress Progress: 05/04/19 19:59 labs have returned w/ hyperosm hyperglycemia, not acidotic. potassium is 6.0. d/w Dr. Negro, not comfortable w/ floor admit due to hyperkalemia, d/w Dr. Johnston, Neph who is familiar with patient, recommends xfer to [facility] admit, will do dialysis in AM. 05/04/19 20:20 spoke w/ admitting hosp at [facility], direct admit to PCU, accepts in transfer. - Results/Orders Results/Orders: Vital Signs - 24 hr 05/04/19 05/04/19 05/04/19 18:08 18:10 19:00 Temperature 96 F L 97.3 F L Pulse Rate [ 78 78 76 Pulse ox] Respiratory 22 22 22 Rate Blood Pressure 139/80 126/71 [R brachial] O2 Sat by Pulse 92 L 95 Oximetry 05/04/19 20:00 Temperature 97.3 F L Pulse Rate [ 75 Pulse ox] Respiratory 20 Rate Blood Pressure 132/73 [R brachial] O2 Sat by Pulse 96 Oximetry 05/04/19 18:07 Sodium Chloride 0.9% (Flush) [Saline Flush Syringe] 10 ml IV PRN PRN 05/04/19 18:08 Pulse Oximetry Assessment DAILY 05/04/19 18:13 Miscellaneous Nursing Order .ONCE 05/04/19 18:15 EKG STAT 05/04/19 18:43 Insulin, Reg.(Human) [HumuLIN R] 250 units Sodium Chl 0.9% 250Ml (Jacinta) [NS 250ml (JACINTA)] 247.5 ml IVPB ONCE 05/05/19 09:00 Pulse Ox Daily Laboratory Results WBC 5.6 K/mm3 (4.8-10.8) 05/04/19 18:09 RBC 3.25 M/mm3 (4.20-5.40) L 05/04/19 18:09 Hgb 9.8 gm/dL (12.0-16.0) L 05/04/19 18:09 Hct 32.4 % (36.0-47.0) L 05/04/19 18:09 MCV 99.8 fl (81.0-99.0) H 05/04/19 18:09 MCH 30.2 pg (27.0-31.0) 05/04/19 18:09 MCHC 30.3 g/dL (33.0-37.0) L 05/04/19 18:09 RDW 17.9 % (11.5-14.5) H 05/04/19 18:09 Plt Count 111 K/mm3 (130-400) L 05/04/19 18:09 MPV 10.4 fl (7.40-10.4) 05/04/19 18:09 Absolute Neuts (auto) 4.40 K/uL (1.8-6.8) 05/04/19 18:09 Absolute Lymphs (auto) 0.60 K/uL (1.0-3.4) L 05/04/19 18:09 Absolute Monos (auto) 0.40 K/uL (0.2-0.8) 05/04/19 18:09 Absolute Eos (auto) 0.10 K/uL (0.0-0.4) 05/04/19 18:09 Absolute Basos (auto) 0.00 K/uL (0.0-0.1) 05/04/19 18:09 Neutrophils % 79.3 % (42.0-78.0) H 05/04/19 18:09 Lymphocytes % 11.4 % (20.0-50.0) L 05/04/19 18:09 Monocytes % 7.2 % (2.0-9.0) 05/04/19 18:09 Eosinophils % 1.3 % (1.0-5.0) 05/04/19 18:09 Basophils % 0.8 % (0.0-2.0) 05/04/19 18:09 Sodium 128 mmol/L (135-145) L 05/04/19 18:09 Potassium 6.0 mmol/L (3.6-5.0) H 05/04/19 18:09 Chloride 86 mmol/L (101-111) L 05/04/19 18:09 Carbon Dioxide 23 mmol/L (21-31) 05/04/19 18:09 Anion Gap 25.0 (12-18) H 05/04/19 18:09 BUN 84 mg/dL (7-18) H 05/04/19 18:09 Creatinine 6.51 mg/dL (0.6-1.3) H* 05/04/19 18:09 BUN/Creatinine Ratio 12.9 (10-20) 05/04/19 18:09 POC Glucose > 400 mg/dL (70-105) H* 05/04/19 20:14 Random Glucose 686 mg/dL (70-105) H* 05/04/19 18:43 Serum Osmolality 317.0 mOsm/L (275-295) H 05/04/19 18:09 Calcium 7.9 mg/dL (8.4-10.2) L 05/04/19 18:09 Total Bilirubin 1.3 mg/dL (0.2-1.0) H 05/04/19 18:09 AST 25 IU/L (10-42) 05/04/19 18:09 ALT 22 IU/L (10-60) 05/04/19 18:09 Alkaline Phosphatase 116 IU/L (42-121) 05/04/19 18:09 Serum Total Protein 7.2 gm/dL (6.4-8.2) 05/04/19 18:09 Albumin 3.3 g/dl (3.2-5.5) 05/04/19 18:09 Globulin 3.9 gm/dL (2.3-3.5) H 05/04/19 18:09 Albumin/Globulin Ratio 0.8 (1.1-1.9) L 05/04/19 18:09 Serum Ketones Negative 05/04/19 18:09 - EKG/XRAY/CT EKG: Sinus Comments: rate 79, prolong QT, peaked t waves, qrs 84ms Departure - Departure Clinical Impression: Hyperkalemia, Hyperglycemic hyperosmolar nonketotic coma, ESRD (end stage renal disease) Disposition: Transfer to Hospital Condition: Serious Referrals: Mukesh Flowers MD [Primary Care Provider] - 1-2 Weeks Home Medications: Ambulatory Orders Insulin Aspart [Novolog] 3 unit SC TID 12/03/17 RX: Promethazine HCl 25 mg PO Q6HR PRN 12/03/17 amLODIPine BESYLATE [Norvasc] 10 mg PO DAILY 01/24/18 Insulin Detemir [Levemir] 4 units SUBCU BID 05/22/18 Insulin Aspart (with Niacinami [Fiasp] 100 unit SC TID 09/06/18 Telmisartan [Micardis] 80 mg PO BEDTIME 09/06/18 Albuterol Sulfate Nebs [Proventil Nebs] 2.5 mg INH Q4HR PRN 10/01/18 Isosorbide Dinitrate-Hydralazi [Bidil 20-37.5 mg] 20 mg PO Q8HR 10/01/18 RX: Melatonin 10 mg PO BEDTIME 10/01/18 Acetaminophen W/ Codeine [Tylenol W/ CODEINE #3] 1 ea PO Q4HR PRN 12/28/18 Alum & Mag Hydrox-Simethicone [Maalox Max] 10 ml PO PRN PRN 12/28/18 Clonidine HCl [Clonidine Hydrochloride] 0.2 mg PO TID 12/28/18 Ondansetron HCl [Zofran] 4 mg PO Q6HRS PRN 12/28/18 RX: Sertraline HCl 50 mg PO DAILY 12/28/18 Amino Acids-Protein Hydrolysat [Pro-Stat 101] 30 ml PO DAILY 02/05/19 Calcium Acetate (Phosphate Bin [Calcium Acetate] 667 mg PO TID 02/05/19 Cholecalciferol [Eql Vitamin D3] 1,000 unit PO DAILY 02/05/19 Clonidine HCl [Clonidine Hydrochloride] 0.2 mg PO Q8HR 02/05/19 Famotidine [Pepcid Tab] 20 mg PO BID 02/05/19 Glucagon HCl (Diagnostic) [Glucagon] 1 mg IM PRN PRN 02/05/19 Metoclopramide Tab [Reglan Tab] 5 mg PO TID 02/05/19 Pantoprazole Tablet [Protonix] 40 mg PO DAILY 02/05/19 RX: Docusate Sodium 100 mg PO BID 02/05/19 RX: Doxazosin Mesylate 4 mg PO DAILY 02/05/19 RX: Gabapentin 100 mg PO BID 02/05/19 RX: Hydroxyzine HCl [Hydroxyzine Hydrochloride] 10 mg PO Q6HR PRN 02/05/19 RX: Metoprolol Tartrate 100 mg PO BID 02/05/19 hydrALAZINE HCl [(None)] 25 mg PO Q8HR 02/05/19 Critical Care Note - Critical Care Note Total Time (mins): 35 Comments: critical care for metabolic derangement, sever hyperkalemia, inclusive of history, med record review, mngmt, d/w pt and consultants, transfer. Transfer to Outside Facility - Transfer Information Decision to Transfer Time: 20:05 Reason for Transfer: specialized care not available Accepting Facility: [facility]
[2019-05-04] MEDS ORDERED: INSULIN, REG.(HUMAN) 250 UNITS in SODIUM CHL 0.9% 250ML (AVIVA) 247.5 ML IVPB SCH ×2 (18:30)
[2019-05-04] MEDS ORDERED: INSULIN, REG.(HUMAN) 250 UNITS in SODIUM CHL 0.9% 250ML (AVIVA) 247.5 ML IVPB ONE ×2 (18:43)
[2019-05-04] MEDS ORDERED: SODIUM CHL 0.9% 250ML (AVIVA) 250 ML IVPB ONE (18:44)
[2019-05-04] MEDS ORDERED: INSULIN, REG.(HUMAN) 100 U/ML VIAL ONE (18:44)
--- NOTE | 2019-05-04 19:06 | RAD ---
EXAM: XR Chest, 1 View CLINICAL HISTORY: 29 years old Female; dka, ESRD. TECHNIQUE: Frontal view of the chest. COMPARISON: Similar examination performed 02/06/2019. FINDINGS: LUNGS: Noted again are diffusely increased interstitial markings throughout the lungs with some increased opacity in the lung bases, grossly stable from previous. PLEURAL SPACE: No increasing pleural fluid. No pneumothorax. HEART: Heart size stable. MEDIASTINUM: Unremarkable. BONES/JOINTS: No acute bony abnormality seen. SOFT TISSUES: New bilateral nipple piercings. TUBES, LINES AND DEVICES: Stable right central venous port. IMPRESSION: - No interval change from a similar examination performed 02/06/2019. Thank you for allowing us to participate in the care of this patient. Electronically signed by: John Wadsworth MD 05/04/2019 7:04 PM STOCK HANGER
[2019-05-04 23:37] VITALS: BP 130/81; TEMP 97; O2SAT 97
== END 2019-05-04 21:15 | disposition short-term general hospital (02) ==
LOC: ER 17:57
DX: E11.01 Type 2 diabetes mellitus with hyperosmolarity with coma (principal); N18.6 End stage renal disease; E87.6 Hypokalemia; I45.81 Long QT syndrome; E11.22 Type 2 diabetes mellitus with diabetic chronic kidney disease; I12.0 Hypertensive chronic kidney disease with stage 5 chronic kidney disease or end stage renal disease; K21.9 Gastro-esophageal reflux disease without esophagitis; Z99.2 Dependence on renal dialysis; Z79.4 Long term (current) use of insulin; Z79.899 Other long term (current) drug therapy

== ENCOUNTER 2019-05-06 10:43 | Emergency (ER) | payer MEDICARE, MEDICAID ==
[2019-05-06] MEDS ORDERED: ONDANSETRON INJ 4 MG/2 ML VIAL IV ONE (11:06)
[2019-05-06] MEDS ORDERED: MORPHINE SULFATE INJ 10 MG/ML VIAL IV ONE (11:06)
--- NOTE | 2019-05-06 11:36 | ED.PDOC ---
History of Present Illness - General Chief Complaint: GI Problem Time Seen by Provider: 05/06/19 10:56 Information Source: patient Exam Limitations: no limitations - History of Present Illness Initial Comments: 29 F with extensive pmh presents via EMS to ED c/o acute exacerbation of chronic back pain with associated nausea, nonbloody nonbilious emesis, dyspnea with cough, and fatigue. Pt is ESRD on HD (M,W,F) and hasn't missed any dialysis. Pt missed scheduled dialysis yesterday but was hospitalized and discharged yesterday receiving inpatient HD. + h/o similar sx's. She currently denies CP, diarrhea, dysuria, f/c. Pt is with no other complaints at this time. PMH: DM, ESRD on HD, AV fistula, HTN, GERD Review of Systems - Review of Systems Constitutional: States: malaise. Denies: chills, fever EENTM: Denies: blurred vision, nose congestion, throat pain Respiratory: States: cough, short of breath. Denies: wheezing Cardiology: Denies: chest pain, edema, palpitations Gastrointestinal/Abdominal: States: abdominal pain, nausea, vomiting. Denies: constipation, diarrhea Genitourinary: States: other - anuric. Denies: dysuria, frequency, hematuria Musculoskeletal: Denies: joint swelling, neck pain Skin: Denies: change in color, rash Neurological: Denies: headache, numbness Endocrine: Denies: increased urine Past Medical History (General) - Patient Medical History Hx Seizures: No Hx Stroke: No Hx Dementia: No Hx Asthma: No Hx of COPD: No Hx Cardiac Disorders: No Hx Congestive Heart Failure: No Hx Pacemaker: No Hx Hypertension: Yes Hx Thyroid Disease: No Hx Diabetes: Yes - FSBS 126 Hx Gastroesophageal Reflux: Yes Hx Renal Disease: Yes - end stage; Dialysis MWF Hx Cancer: No Hx of HIV: No Hx Hepatitis C: No Hx MRSA: No - Vaccination History Hx Tetanus, Diphtheria Vaccination: Yes Hx Influenza Vaccination: Yes - 2018 Hx Pneumococcal Vaccination: No - Social History Hx Tobacco Use: No Hx Chewing Tobacco Use: No Hx Alcohol Use: No Hx Substance Use: No Hx Substance Use Treatment: No Hx Depression: No Hx Physical Abuse: No Hx Emotional Abuse: No Hx Suspected Abuse: No - Female History Patient : No Family Medical History - Family History Mother Family History: Unknown Living Status: Unknown Hx Cardiac Disease: Yes - DAD Hx Family Diabetes: Yes - DAD Hx Family;Other: DAD-RHEUMATOID ARTHTRITIS Physical Exam - Physical Exam General Appearance: Alert, Emaciated, Obvious distress Eyes, Ears, Nose, Throat Exam: PERRL/EOMI, other - no scleral icterus Neck: full range of motion, supple Respiratory: respiratory distress, crackles, wheezing Cardiovascular/Chest: regular rate, rhythm, no edema, no gallop, no JVD, other - AV fistula LUE with strong palpable thrill Gastrointestinal/Abdominal: normal bowel sounds, soft, no pulsatile mass, guarding - voluntary, other - no rebound, diffuse TTP throughout Pelvic Exam: other - deferred Rectal Exam: deferred Back Exam: CVA tenderness (R), CVA tenderness (L) Extremity: normal inspection, no pedal edema Neurologic: no motor/sensory deficits, alert, oriented x 3 Skin Exam: other - no rash Progress - Progress Progress: Presents with known h/o poor medical compliance with known ESRD likely needing emergent HD. I will evaluate labs, imaging, EKG, provide appropriate pharmacotherapy, and continue to monitor/reassess. Disposition will depend on labs, imaging, EKG, and pt's overall course in ED; however, admission is expected. 14:[address] Abreu auto-accepts pt at [facility]. Multiple rechecks of pt. Nausea resolved. NAD with improvement. VSS. Discussed need for admission and pt prefers [facility]. I have discussed results of workup and my clinical impression. Pt agrees with plan and all questions answered. - Results/Orders Results/Orders: EKG @1121: ED physician read @1122: NSR @ 78, nl axis, QTc 474, otherwise intervals wnl, no ST elevations/depressions, nonspecific ST/T-wave changes. No STEMI. Laboratory Tests 05/06/19 05/06/19 11:30 11:30 WBC 7.4 RBC 3.44 L Hgb 10.5 L Hct 32.7 L MCV 95.0 MCH 30.4 MCHC 32.0 L RDW 17.9 H Plt Count 153 MPV 10.2 Absolute Neuts (auto) 6.10 Absolute Lymphs (auto) 0.50 L Absolute Monos (auto) 0.60 Absolute Eos (auto) 0.10 Absolute Basos (auto) 0.10 Neutrophils % 82.5 H Lymphocytes % 7.2 L Monocytes % 8.5 Eosinophils % 0.9 L Basophils % 0.9 Sodium 131 L Potassium 6.9 H* Chloride 88 L Carbon Dioxide 28 Anion Gap 21.9 H BUN 65 H Creatinine 5.62 H BUN/Creatinine Ratio 11.6 Random Glucose 374 H D Serum Osmolality 296.7 H Calcium 8.5 Magnesium 2.3 Total Bilirubin 1.2 H AST 17 ALT 18 Alkaline Phosphatase 112 Serum Total Protein 7.9 Albumin 3.7 Globulin 4.2 H Albumin/Globulin Ratio 0.9 L Lipase 21 L Study: Single Frontal Radiograph of the Chest. Indication:sob Comparison: May 04, 2019 Impression: Stable port. Mild cardiomegaly. Persistent patchy consolidative changes of the lung bases and midlungs which could reflect pulmonary edema or pneumonia. Continued follow-up recommended. No pleural effusion or pneumothorax. 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 Diabetes mellitus complication status: with other specified complication Qualified Code(s): E13.69 - Other specified diabetes mellitus with other specified complication Time of Disposition: 12:51 Disposition: Transfer to Hospital Condition: Good Departure Forms: Patient Portal Self Enrollment Referrals: Mukesh Flowers MD [Primary Care Provider] - 1-2 Weeks Home Medications: Ambulatory Orders Insulin Aspart [Novolog] 3 unit SC TID 12/03/17 Promethazine HCl 25 mg PO Q6HR PRN 12/03/17 amLODIPine BESYLATE [Norvasc] 10 mg PO DAILY 01/24/18 Insulin Detemir [Levemir] 4 units SUBCU BID 05/22/18 Insulin Aspart (with Niacinami [Fiasp] 100 unit SC TID 09/06/18 Telmisartan [Micardis] 80 mg PO BEDTIME 09/06/18 Albuterol Sulfate Nebs [Proventil Nebs] 2.5 mg INH Q4HR PRN 10/01/18 Isosorbide Dinitrate-Hydralazi [Bidil 20-37.5 mg] 20 mg PO Q8HR 10/01/18 Melatonin 10 mg PO BEDTIME 10/01/18 Acetaminophen W/ Codeine [Tylenol W/ CODEINE #3] 1 ea PO Q4HR PRN 12/28/18 Alum & Mag Hydrox-Simethicone [Maalox Max] 10 ml PO PRN PRN 12/28/18 Clonidine HCl [Clonidine Hydrochloride] 0.2 mg PO TID 12/28/18 Ondansetron HCl [Zofran] 4 mg PO Q6HRS PRN 12/28/18 Sertraline HCl 50 mg PO DAILY 12/28/18 Amino Acids-Protein Hydrolysat [Pro-Stat 101] 30 ml PO DAILY 02/05/19 Calcium Acetate (Phosphate Bin [Calcium Acetate] 667 mg PO TID 02/05/19 Cholecalciferol [Eql Vitamin D3] 1,000 unit PO DAILY 02/05/19 Clonidine HCl [Clonidine Hydrochloride] 0.2 mg PO Q8HR 02/05/19 Docusate Sodium 100 mg PO BID 02/05/19 Doxazosin Mesylate 4 mg PO DAILY 02/05/19 Famotidine [Pepcid Tab] 20 mg PO BID 02/05/19 Gabapentin 100 mg PO BID 02/05/19 Glucagon HCl (Diagnostic) [Glucagon] 1 mg IM PRN PRN 02/05/19 Hydroxyzine HCl [Hydroxyzine Hydrochloride] 10 mg PO Q6HR PRN 02/05/19 Metoclopramide Tab [Reglan Tab] 5 mg PO TID 02/05/19 Metoprolol Tartrate 100 mg PO BID 02/05/19 Pantoprazole Tablet [Protonix] 40 mg PO DAILY 02/05/19 hydrALAZINE HCl [(None)] 25 mg PO Q8HR 02/05/19 Critical Care Note - Critical Care Note Total Time (mins): 41 Comments: Performed by me. Not including teaching time. Primary treating/diagnosing physician. I have not received pt as hand-off. Pending cardiac and endocrine crisis due to acute hyperkalemia from ESRD on HD I have evaluated pt, managed her care, ordered and followed up her imaging, labs, ekg, and provided appropriate pharmacotherapy for stabilization of her hyperkalemia. Decision To Admit - Decistion To Admit Decision to Admit Date: 05/06/19 Decision to Admit Time: 12:49
--- NOTE | 2019-05-06 11:54 | RAD ---
Study: Single Frontal Radiograph of the Chest. Indication:sob Comparison: May 04, 2019 Impression: Stable port. Mild cardiomegaly. Persistent patchy consolidative changes of the lung bases and midlungs which could reflect pulmonary edema or pneumonia. Continued follow-up recommended. No pleural effusion or pneumothorax. Electronically signed by: Kevin Engle MD 05/06/2019 11:53 AM FEED MILL TENDER
[2019-05-06] MEDS ORDERED: GLUCOSE GEL 31 GM TUBE PO ONE (12:47)
[2019-05-06] MEDS ORDERED: IPRATROPIUM/ALBUTEROL 3 ML VIAL NEB ONE (12:47)
[2019-05-06] MEDS ORDERED: INSULIN, REG.(HUMAN) 100 U/ML VIAL IV ONE (12:47)
[2019-05-06 15:12] VITALS: BP 147/90; TEMP 97.6; O2SAT 95
== END 2019-05-06 15:28 | disposition short-term general hospital (02) ==
LOC: ER 10:43
DX: N18.6 End stage renal disease (principal); E87.5 Hyperkalemia; R10.84 Generalized abdominal pain; E11.22 Type 2 diabetes mellitus with diabetic chronic kidney disease; I12.0 Hypertensive chronic kidney disease with stage 5 chronic kidney disease or end stage renal disease; M54.9 Dorsalgia, unspecified; R11.2 Nausea with vomiting, unspecified; R06.00 Dyspnea, unspecified; R05 Cough; G89.29 Other chronic pain; K21.9 Gastro-esophageal reflux disease without esophagitis; Z99.2 Dependence on renal dialysis; Z79.899 Other long term (current) drug therapy; Z79.4 Long term (current) use of insulin
CPT/HCPCS: 36416; 71045; 80053; 82948; 83690; 83735; 85025; 87502; 93005; 94640; J2270; J2405; J7620

== ENCOUNTER 2019-05-25 19:20 | Emergency (ER) | payer MEDICARE, MEDICAID ==
[2019-05-25] MEDS ORDERED: HALOPERIDOL LACTATE INJ 5 MG/ML VIAL IV ONE (19:30)
--- NOTE | 2019-05-25 19:35 | ED.PDOC ---
History of Present Illness - General Stated Complaint: high blood glucose Time Seen by Provider: 05/25/19 19:28 Information Source: patient, RN notes reviewed, Vital Signs reviewed, EMS notes reviewed Additional Information: 29 year old with history of diabetes, high blood pressure, end stage renal disease, history of DKA, dyalisis patient patient lives at a long term patient presents with fever, cough, abdominal pain, nausea and vomiting and elevated blood glucose patient denies cigarettes, alcohol or drugs has DKA in the past last dialysis was sunday patient is requesting phenergan for vomiting - History of Present Illness Abdominal Pain Onset Location: generalized abdomen Quality: severe, stabbing Timing/Duration: constant Improving Factors: nothing Worsening Factors: nothing Associated Symptoms: nausea/vomiting Review of Systems - Review of Systems Constitutional: Denies: chills, diaphoresis, fever, malaise, weakness EENTM: Denies: eye pain, blurred vision, tearing, double vision, ear pain, ear discharge, nose pain, nose congestion, throat pain, throat swelling, mouth pain, mouth swelling Respiratory: Denies: cough, orthopnea, short of breath, stridor, wheezing Cardiology: Denies: chest pain, edema, palpitations, syncope Gastrointestinal/Abdominal: Denies: abdominal pain, constipation, diarrhea, nausea, vomiting Genitourinary: Denies: discharge, dysuria, frequency, pain Skin: Denies: change in color, change in hair/nails, dryness, lesions, lumps, rash, other Neurological: Denies: anxiety, depressed, emotional problems, headache, numbness, paresthesia, pre-existing deficit, seizure, tingling, tremors, weakness Endocrine: Denies: excessive sweating, flushing, intolerance to cold, intolerance to heat, increased hunger, increased thirst, increased urine, unexplained weight gain, unexplained weight loss Hematologic/Lymphatic: Denies: anemia, blood clots, easy bleeding, easy bruising, swollen glands All other Systems: Reviewed and Negative Past Medical History (General) - Patient Medical History Hx Seizures: No Hx Stroke: No Hx Dementia: No Hx Asthma: No Hx of COPD: No Hx Cardiac Disorders: No Hx Congestive Heart Failure: No Hx Pacemaker: No Hx Hypertension: Yes Hx Thyroid Disease: No Hx Diabetes: Yes - FSBS 126 Hx Gastroesophageal Reflux: Yes Hx Renal Disease: Yes - end stage; Dialysis MWF Hx Cancer: No Hx of HIV: No Hx Hepatitis C: No Hx MRSA: No - Vaccination History Hx Tetanus, Diphtheria Vaccination: Yes Hx Influenza Vaccination: Yes - 2018 Hx Pneumococcal Vaccination: No - Social History Hx Tobacco Use: No Hx Chewing Tobacco Use: No Hx Alcohol Use: No Hx Substance Use: No Hx Substance Use Treatment: No Hx Depression: No Hx Physical Abuse: No Hx Emotional Abuse: No Hx Suspected Abuse: No - Female History Patient : No Family Medical History - Family History Mother Family History: Unknown Living Status: Unknown Hx Cardiac Disease: Yes - DAD Hx Family Diabetes: Yes - DAD Hx Family;Other: DAD-RHEUMATOID ARTHTRITIS Physical Exam - Physical Exam General Appearance: Anxious, Other - pale and dry skin Eyes, Ears, Nose, Throat Exam: PERRL/EOMI, normal ENT inspection, TMs normal, pharynx normal, other - periorbital edema Neck: non-tender, full range of motion, supple, normal inspection Respiratory: chest non-tender, lungs clear, normal breath sounds, no respiratory distress, no accessory muscle use Cardiovascular/Chest: normal peripheral pulses, regular rate, rhythm, no edema, no gallop Peripheral Pulses: No deficit Gastrointestinal/Abdominal: normal bowel sounds, tenderness - diffuse abdominal pain no acute abdomen on physical exam Back Exam: normal inspection, no CVA tenderness Extremity: normal range of motion, non-tender, normal inspection, no pedal edema 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, no motor/sensory deficits, alert, normal mood/affect, oriented x 3 Skin Exam: pallor Lymphatic: no adenopathy, axilla node tender (R) Progress - Progress Progress: 05/25/19 19:45 this is a dylisis patient that presents with nausea, vomiting and abdominal pain, patient has an history of diabetes and has had dka in the past patient glucose was elevated by ems will give haldol for vomiting and for abdominal pain, i will be very careful with fluids so that I dont put her on fluid overload and check metabolic acidosis 05/25/19 21:17 patient wiht a pleural effusion probably due to overload 05/25/19 21:20 high glucose, high potassium, high anion gap, metabolic acidosis, this suggest diabetic ketoacidosis, will put on insulin drip, which will improved potassium adn also i ordered kayexale and calcium gluconate case was consulted with hospitalist and due to the acuity of this patient and lack of ICU this patient needs to be transferred to higher level of care Departure - Departure Clinical Impression: End stage renal disease Diabetic keto-acidosis Qualifiers: Diabetes mellitus type: due to underlying condition Diabetes mellitus complication detail: without coma Qualified Code(s): E08.10 - Diabetes mellitus due to underlying condition with ketoacidosis without coma Disposition: Transfer to Hospital Condition: Fair Referrals: Mukesh Flowers MD [Primary Care Provider] - 1-2 Weeks Home Medications: Ambulatory Orders Insulin Aspart [Novolog] 3 unit SC TID 12/03/17 Promethazine HCl 25 mg PO Q6HR PRN 12/03/17 amLODIPine BESYLATE [Norvasc] 10 mg PO DAILY 01/24/18 Insulin Detemir [Levemir] 4 units SUBCU BID 05/22/18 Insulin Aspart (with Niacinami [Fiasp] 100 unit SC TID 09/06/18 Telmisartan [Micardis] 80 mg PO BEDTIME 09/06/18 Albuterol Sulfate Nebs [Proventil Nebs] 2.5 mg INH Q4HR PRN 10/01/18 Isosorbide Dinitrate-Hydralazi [Bidil 20-37.5 mg] 20 mg PO Q8HR 10/01/18 Melatonin 10 mg PO BEDTIME 10/01/18 Acetaminophen W/ Codeine [Tylenol W/ CODEINE #3] 1 ea PO Q4HR PRN 12/28/18 Alum & Mag Hydrox-Simethicone [Maalox Max] 10 ml PO PRN PRN 12/28/18 Clonidine HCl [Clonidine Hydrochloride] 0.2 mg PO TID 12/28/18 Ondansetron HCl [Zofran] 4 mg PO Q6HRS PRN 12/28/18 Sertraline HCl 50 mg PO DAILY 12/28/18 Amino Acids-Protein Hydrolysat [Pro-Stat 101] 30 ml PO DAILY 02/05/19 Calcium Acetate (Phosphate Bin [Calcium Acetate] 667 mg PO TID 02/05/19 Cholecalciferol [Eql Vitamin D3] 1,000 unit PO DAILY 02/05/19 Clonidine HCl [Clonidine Hydrochloride] 0.2 mg PO Q8HR 02/05/19 Docusate Sodium 100 mg PO BID 02/05/19 Doxazosin Mesylate 4 mg PO DAILY 02/05/19 Famotidine [Pepcid Tab] 20 mg PO BID 02/05/19 Gabapentin 100 mg PO BID 02/05/19 Glucagon HCl (Diagnostic) [Glucagon] 1 mg IM PRN PRN 02/05/19 Hydroxyzine HCl [Hydroxyzine Hydrochloride] 10 mg PO Q6HR PRN 02/05/19 Metoclopramide Tab [Reglan Tab] 5 mg PO TID 02/05/19 Metoprolol Tartrate 100 mg PO BID 02/05/19 Pantoprazole Tablet [Protonix] 40 mg PO DAILY 02/05/19 hydrALAZINE HCl [(None)] 25 mg PO Q8HR 02/05/19 Critical Care Note - Critical Care Note Total Time (mins): 90 Comments: patient with evidence of DKA and fluid overload, patient is no respiratory distress but patient is in need for ICU care and dyalisis Transfer to Outside Facility - Transfer Information Decision to Transfer Date: 05/25/19 Decision to Transfer Time: 21:17 Reason for Transfer: ICU
--- NOTE | 2019-05-25 20:30 | RAD ---
EXAM: Chest,1 View CLINICAL INDICATION: Vomiting COMPARISON: 05/06/2019 FINDINGS: A single view of the chest was obtained. The heart size is mildly enlarged. The pulmonary vascularity is mildly congested. There is a small right pleural effusion. There is a right subclavian port with its tip in the SVC. The lungs are otherwise clear. IMPRESSION: Mild CHF. Small right pleural effusion. Electronically signed by: Yassine Moscoso MD 05/25/2019 8:28 PM CLOTH WEAVER
[2019-05-25] MEDS ORDERED: SODIUM CHL 0.9% 250ML (AVIVA) 250 ML IVPB ONE (21:17)
[2019-05-25] MEDS ORDERED: INSULIN, REG.(HUMAN) 100 U/ML VIAL ONE (21:17)
[2019-05-25] MEDS ORDERED: SOD POLYSTYRENE SULFONATE 15 GM/60 ML BTTL PO ONE (21:19)
[2019-05-25] MEDS ORDERED: INSULIN, REG.(HUMAN) 250 UNITS in SODIUM CHL 0.9% 250ML (AVIVA) 247.5 ML IVPB SCH ×2 (21:30)
[2019-05-25] MEDS ORDERED: CALCIUM GLUCONATE INJ 1 GM in SODIUM CHLORIDE 0.9% 50ML 50 ML IVPB ONE (21:56)
[2019-05-25] MEDS ORDERED: SODIUM CHL 0.9% 50ML VIAL 3 ML, ALBUTEROL SULFATE NEBS 15 MG NEB ONE ×2 (21:57)
[2019-05-25] MEDS ORDERED: ALBUTEROL SULFATE 2.5 MG/3 ML VIAL NEB ONE (22:07)
[2019-05-25 22:18] VITALS: O2SAT 98
[2019-05-25] MEDS ORDERED: SODIUM CHLORIDE 0.9% 50ML 50 ML ONE (22:19)
[2019-05-25] MEDS ORDERED: CALCIUM GLUCONATE INJ 1 GM/10 ML VIAL ONE (22:19)
[2019-05-25 22:20] VITALS: BP 157/93; TEMP 98.6
== END 2019-05-25 22:49 | disposition short-term general hospital (02) ==
LOC: ER 19:20
DX: E08.10 Diabetes mellitus due to underlying condition with ketoacidosis without coma (principal); N18.6 End stage renal disease; E11.22 Type 2 diabetes mellitus with diabetic chronic kidney disease; R50.9 Fever, unspecified; R10.84 Generalized abdominal pain; R05 Cough; R11.2 Nausea with vomiting, unspecified; I12.0 Hypertensive chronic kidney disease with stage 5 chronic kidney disease or end stage renal disease; K21.9 Gastro-esophageal reflux disease without esophagitis; Z99.2 Dependence on renal dialysis; Z79.4 Long term (current) use of insulin; Z79.899 Other long term (current) drug therapy
CPT/HCPCS: 71045; 80053; 82009; 83880; 84443; 84484; 85025; 87804; 93005; 94640; A4216; J1630; J7611

== ENCOUNTER 2019-06-18 10:23 | Emergency (ER) | payer MEDICARE, MEDICAID ==
--- NOTE | 2019-06-18 10:50 | ED.PDOC ---
History of Present Illness - General Chief Complaint: General Stated Complaint: Generalized weakness, nausea Time Seen by Provider: 06/18/19 10:25 - History of Present Illness Initial Comments: 29 yo F PMH ESRD Type I Diabetes presents to ED c/o generalized weakness nausea vomiting diarrhea (no blood) with cough x 3 days. Denies fever chills admits chest wall pain with cough no chest pain currently denies sob diaphoresis. Admi ts decreased appetite and disturbed rest makes no urine. Denies drinking or smoking denies FH HTN DM has PMD and [employer] for follow up last dialyzed yesterday no other c/o today. Allergies/Adverse Reactions: Allergies NO KNOWN ALLERGY Allergy (Verified 06/18/19 11:10) Home Medications: Ambulatory Orders Insulin Aspart [Novolog] 3 unit SC TID 12/03/17 Promethazine HCl 25 mg PO Q6HR PRN 12/03/17 amLODIPine BESYLATE [Norvasc] 10 mg PO DAILY 01/24/18 Insulin Detemir [Levemir] 4 units SUBCU BID 05/22/18 Insulin Aspart (with Niacinami [Fiasp] 100 unit SC TID 09/06/18 Telmisartan [Micardis] 80 mg PO BEDTIME 09/06/18 Albuterol Sulfate Nebs [Proventil Nebs] 2.5 mg INH Q4HR PRN 10/01/18 Isosorbide Dinitrate-Hydralazi [Bidil 20-37.5 mg] 20 mg PO Q8HR 10/01/18 Melatonin 10 mg PO BEDTIME 10/01/18 Acetaminophen W/ Codeine [Tylenol W/ CODEINE #3] 1 ea PO Q4HR PRN 12/28/18 Alum & Mag Hydrox-Simethicone [Maalox Max] 10 ml PO PRN PRN 12/28/18 Clonidine HCl [Clonidine Hydrochloride] 0.2 mg PO TID 12/28/18 Ondansetron HCl [Zofran] 4 mg PO Q6HRS PRN 12/28/18 Sertraline HCl 50 mg PO DAILY 12/28/18 Amino Acids-Protein Hydrolysat [Pro-Stat 101] 30 ml PO DAILY 02/05/19 Calcium Acetate (Phosphate Bin [Calcium Acetate] 667 mg PO TID 02/05/19 Cholecalciferol [Eql Vitamin D3] 1,000 unit PO DAILY 02/05/19 Clonidine HCl [Clonidine Hydrochloride] 0.2 mg PO Q8HR 02/05/19 Docusate Sodium 100 mg PO BID 02/05/19 Doxazosin Mesylate 4 mg PO DAILY 02/05/19 Famotidine [Pepcid Tab] 20 mg PO BID 02/05/19 Gabapentin 100 mg PO BID 02/05/19 Glucagon HCl (Diagnostic) [Glucagon] 1 mg IM PRN PRN 02/05/19 Hydroxyzine HCl [Hydroxyzine Hydrochloride] 10 mg PO Q6HR PRN 02/05/19 Metoclopramide Tab [Reglan Tab] 5 mg PO TID 02/05/19 Metoprolol Tartrate 100 mg PO BID 02/05/19 Pantoprazole Tablet [Protonix] 40 mg PO DAILY 02/05/19 hydrALAZINE HCl [(None)] 25 mg PO Q8HR 02/05/19 Review of Systems - Review of Systems Constitutional: States: see HPI EENTM: States: see HPI Respiratory: States: see HPI Cardiology: States: see HPI Gastrointestinal/Abdominal: States: see HPI Genitourinary: States: see HPI Musculoskeletal: States: see HPI Skin: States: see HPI Neurological: States: see HPI Endocrine: States: see HPI Hematologic/Lymphatic: States: see HPI All other Systems: Reviewed and Negative Past Medical History (General) - Patient Medical History Hx Seizures: No Hx Stroke: No Hx Dementia: No Hx Asthma: No Hx of COPD: No Hx Cardiac Disorders: No Hx Congestive Heart Failure: No Hx Pacemaker: No Hx Hypertension: Yes Hx Thyroid Disease: No Hx Diabetes: Yes - FSBS 126 Hx Gastroesophageal Reflux: Yes Hx Renal Disease: Yes - end stage; Dialysis MWF Hx Cancer: No Hx of HIV: No Hx Hepatitis C: No Hx MRSA: No - Vaccination History Hx Tetanus, Diphtheria Vaccination: Yes Hx Influenza Vaccination: Yes - 2018 Hx Pneumococcal Vaccination: No - Social History Hx Tobacco Use: No Hx Chewing Tobacco Use: No Hx Alcohol Use: No Hx Substance Use: No Hx Substance Use Treatment: No Hx Depression: No Hx Physical Abuse: No Hx Emotional Abuse: No Hx Suspected Abuse: No - Female History Patient : No Family Medical History - Family History Mother Family History: Unknown Living Status: Unknown Hx Cardiac Disease: Yes - DAD Hx Family Diabetes: Yes - DAD Hx Family;Other: DAD-RHEUMATOID ARTHTRITIS Physical Exam - Physical Exam General Appearance: No apparent distress, Ill Appearing Eye Exam: bilateral normal Ears, Nose, Throat: normal ENT inspection Neck: non-tender, full range of motion Respiratory: no respiratory distress, other - faint rales to bases Cardiovascular/Chest: regular rate, rhythm Gastrointestinal/Abdominal: non tender, soft Rectal Exam: deferred Back Exam: normal inspection Extremity: non-tender Neurologic: no motor/sensory deficits Skin Exam: pallor Progress - Progress Progress: 06/18/19 10:53 A/P-Abdominal Pain Nausea Vomiting Diarrhea Generalized Weakness ESRD-iv cbc cmp lipase ekg cxr ct abdomen pelvis morphine zofran flu strep reassess 06/18/19 11:55 Laboratory Tests 06/18/19 06/18/19 06/18/19 11:00 11:00 11:00 WBC 6.6 RBC 3.75 L Hgb 11.3 L Hct 36.5 MCV 97.5 MCH 30.2 MCHC 30.9 L RDW 19.0 H Plt Count 213 MPV 8.8 Absolute Neuts (auto) 5.50 Absolute Lymphs (auto) 0.50 L Absolute Monos (auto) 0.30 Absolute Eos (auto) 0.10 Absolute Basos (auto) 0.10 Neutrophils % 84.0 H Lymphocytes % 8.0 L Monocytes % 5.3 Eosinophils % 0.8 L Basophils % 1.9 Sodium 132 L Potassium 8.7 H* Chloride 98 L Carbon Dioxide 21 Anion Gap 21.7 H BUN 92 H Creatinine 7.24 H* BUN/Creatinine Ratio 12.7 Random Glucose 230 H Serum Osmolality 300.2 H Calcium 8.7 Total Bilirubin 0.9 AST 18 ALT 12 Alkaline Phosphatase 164 H Serum Total Protein 7.4 Albumin 3.5 Globulin 3.9 H Albumin/Globulin Ratio 0.9 L Lipase 22 Group A Strep Rapid 06/18/19 11:40 WBC RBC Hgb Hct MCV MCH MCHC RDW Plt Count MPV Absolute Neuts (auto) Absolute Lymphs (auto) Absolute Monos (auto) Absolute Eos (auto) Absolute Basos (auto) Neutrophils % Lymphocytes % Monocytes % Eosinophils % Basophils % Sodium Potassium Chloride Carbon Dioxide Anion Gap BUN Creatinine BUN/Creatinine Ratio Random Glucose Serum Osmolality Calcium Total Bilirubin AST ALT Alkaline Phosphatase Serum Total Protein Albumin Globulin Albumin/Globulin Ratio Lipase Group A Strep Rapid Positive Dx-Hyperkalemia, ESRD-EMERGENT DIALYSIS and hyperkalemia cocktail 06/18/19 12:00 EKG-non specific TW changes and conduction abnormalities with concern for peak T Waves, Abnormal EKG 06/18/19 12:08 EXAM DESCRIPTION: Chest,1 View CLINICAL HISTORY: 29 years Female, chest pain weakness COMPARISON: 05/25/2019 TECHNIQUE: Single view radiograph of the chest. IMPRESSION: Enlarged cardiac silhouette. Right infusion port and its catheter in stable position. Unchanged bibasilar consolidation which may represent edema versus pneumonia or aspiration. Small to moderate left pleural effusion. Resolved right pleural effusion. No pneumothorax. Included osseous structures intact. Electronically signed by: Haris Lan MD 06/18/2019 11:22 AM MOSAIC TECHNICIAN EXAM DESCRIPTION: Abdoment/Pelvis w/o Contrast CLINICAL HISTORY: 29 years Female, abdominal pain nausea vomiting COMPARISON: 2018. TECHNIQUE: CT of the abdomen and pelvis acquired without IV contrast material. Coronal and sagittal reformations provided. This exam was performed according to our departmental dose-optimization program, which includes automated exposure control, adjustment of the mA and/or kV according to patient size and/or use of iterative reconstruction technique. FINDINGS: Lung bases: Small right pleural effusion. Linear atelectasis or scarring in the lung bases. Mild ground glass attenuation within lung bases. Enlarged heart. Limited evaluation of the solid organs secondary to the lack of intravenous contrast. Solid Organs: Enlarged liver 17.4 cm midclavicular line. Unremarkable gallbladder, spleen, adrenal glan ds, and kidneys. Pancreas is not well-visualized and may be atrophic. GI tract: Decompressed stomach. No small bowel obstruction. Moderate to large amount stool within the proximal colon. Unremarkable appendix. Vascular: Mild atherosclerosis. Musculoskeletal and soft tissues: No acute fracture or aggressive appearing osseous lesion. Mild body wall edema. Urinary bladder: Decompressed. Uterus and adnexa: Unremarkable uterus. Other: Increased moderate to large ascites, especially about the pancreas, right and left colic gutters, lower abdomen and within the pelvis. IMPRESSION: 1. Hepatomegaly. 2. Increased large amount of intra-abdominal free fluid. 3. Small right pleural effusion with residual but improved ground glass attenuation in the lung bases which may likely represent edema. 4. Mild anasarca. 5. Enlarged heart. Electronically signed by: Haris Lan MD 06/18/2019 12:00 PM MOSAIC TECHNICIAN - [id number] Departure - Departure Clinical Impression: Hyperkalemia, ESRD (end stage renal disease), Generalized weakness, Pleural effusion Time of Disposition: 13:43 - Discharge to Emergent Dialysis Disposition: Transfer to Hospital Condition: Poor Departure Forms: ED Discharge - Pt. Copy, Patient Portal Self Enrollment Referrals: Mukesh Flowers MD [Primary Care Provider] - 1-2 Days Home Medications: Ambulatory Orders Insulin Aspart [Novolog] 3 unit SC TID 12/03/17 Promethazine HCl 25 mg PO Q6HR PRN 12/03/17 amLODIPine BESYLATE [Norvasc] 10 mg PO DAILY 01/24/18 Insulin Detemir [Levemir] 4 units SUBCU BID 05/22/18 Insulin Aspart (with Niacinami [Fiasp] 100 unit SC TID 09/06/18 Telmisartan [Micardis] 80 mg PO BEDTIME 09/06/18 Albuterol Sulfate Nebs [Proventil Nebs] 2.5 mg INH Q4HR PRN 10/01/18 Isosorbide Dinitrate-Hydralazi [Bidil 20-37.5 mg] 20 mg PO Q8HR 10/01/18 Melatonin 10 mg PO BEDTIME 10/01/18 Acetaminophen W/ Codeine [Tylenol W/ CODEINE #3] 1 ea PO Q4HR PRN 12/28/18 Alum & Mag Hydrox-Simethicone [Maalox Max] 10 ml PO PRN PRN 12/28/18 Clonidine HCl [Clonidine Hydrochloride] 0.2 mg PO TID 12/28/18 Ondansetron HCl [Zofran] 4 mg PO Q6HRS PRN 12/28/18 Sertraline HCl 50 mg PO DAILY 12/28/18 Amino Acids-Protein Hydrolysat [Pro-Stat 101] 30 ml PO DAILY 02/05/19 Calcium Acetate (Phosphate Bin [Calcium Acetate] 667 mg PO TID 02/05/19 Cholecalciferol [Eql Vitamin D3] 1,000 unit PO DAILY 02/05/19 Clonidine HCl [Clonidine Hydrochloride] 0.2 mg PO Q8HR 02/05/19 Docusate Sodium 100 mg PO BID 02/05/19 Doxazosin Mesylate 4 mg PO DAILY 02/05/19 Famotidine [Pepcid Tab] 20 mg PO BID 02/05/19 Gabapentin 100 mg PO BID 02/05/19 Glucagon HCl (Diagnostic) [Glucagon] 1 mg IM PRN PRN 02/05/19 Hydroxyzine HCl [Hydroxyzine Hydrochloride] 10 mg PO Q6HR PRN 02/05/19 Metoclopramide Tab [Reglan Tab] 5 mg PO TID 02/05/19 Metoprolol Tartrate 100 mg PO BID 02/05/19 Pantoprazole Tablet [Protonix] 40 mg PO DAILY 02/05/19 hydrALAZINE HCl [(None)] 25 mg PO Q8HR 02/05/19
--- NOTE | 2019-06-18 11:23 | RAD ---
EXAM DESCRIPTION: Chest,1 View CLINICAL HISTORY: 29 years Female, chest pain weakness COMPARISON: 05/25/2019 TECHNIQUE: Single view radiograph of the chest. IMPRESSION: Enlarged cardiac silhouette. Right infusion port and its catheter in stable position. Unchanged bibasilar consolidation which may represent edema versus pneumonia or aspiration. Small to moderate left pleural effusion. Resolved right pleural effusion. No pneumothorax. Included osseous structures intact. Electronically signed by: Haris Lan MD 06/18/2019 11:22 AM HYDRAULIC PRESS OPERATOR
[2019-06-18] MEDS: ONDANSETRON INJ 4 MG/2 ML VIAL IV ONE (11:29)
[2019-06-18] MEDS: MORPHINE SULFATE INJ 10 MG/ML VIAL IV ONE (11:30)
--- NOTE | 2019-06-18 12:02 | CT ---
EXAM DESCRIPTION: Abdoment/Pelvis w/o Contrast CLINICAL HISTORY: 29 years Female, abdominal pain nausea vomiting COMPARISON: And 2018. TECHNIQUE: CT of the abdomen and pelvis acquired without IV contrast material. Coronal and sagittal reformations provided. This exam was performed according to our departmental dose-optimization program, which includes automated exposure control, adjustment of the mA and/or kV according to patient size and/or use of iterative reconstruction technique. FINDINGS: Lung bases: Small right pleural effusion. Linear atelectasis or scarring in the lung bases. Mild ground glass attenuation within lung bases. Enlarged heart. Limited evaluation of the solid organs secondary to the lack of intravenous contrast. Solid Organs: Enlarged liver 17.4 cm midclavicular line. Unremarkable gallbladder, spleen, adrenal glands, and kidneys. Pancreas is not well-visualized and may be atrophic. GI tract: Decompressed stomach. No small bowel obstruction. Moderate to large amount stool within the proximal colon. Unremarkable appendix. Vascular: Mild atherosclerosis. Musculoskeletal and soft tissues: No acute fracture or aggressive appearing osseous lesion. Mild body wall edema. Urinary bladder: Decompressed. Uterus and adnexa: Unremarkable uterus. Other: Increased moderate to large ascites, especially about the pancreas, right and left colic gutters, lower abdomen and within the pelvis. IMPRESSION: 1. Hepatomegaly. 2. Increased large amount of intra-abdominal free fluid. 3. Small right pleural effusion with residual but improved ground glass attenuation in the lung bases which may likely represent edema. 4. Mild anasarca. 5. Enlarged heart. Electronically signed by: Haris Lan MD 06/18/2019 12:00 PM CASINO BANKER
[2019-06-18] MEDS ORDERED: DEXTROSE 10% 500ML 500 ML ONE (12:09)
[2019-06-18] MEDS ORDERED: IPRATROPIUM BROMIDE NEBS 0.5 MG/2.5 ML VIAL NEB ONE (12:10)
[2019-06-18] MEDS ORDERED: ALBUTEROL SULFATE 2.5 MG/3 ML VIAL NEB ONE ×2 (12:10→12:13)
[2019-06-18] MEDS: CALCIUM GLUCONATE INJ 1 GM/10 ML VIAL IV ONE ×2 (12:13→15:41)
[2019-06-18] MEDS: ALBUTEROL SULFATE NEBS 15 MG, IPRATROPIUM BROMIDE NEBS 0.5 MG NEB ONE ×2 (12:15)
[2019-06-18] MEDS: DEXTROSE 50% 25 GM/50 ML SYG IV ONE (12:15)
[2019-06-18] MEDS: INSULIN, REG.(HUMAN) 100 U/ML VIAL IV ONE (12:16)
[2019-06-18] MEDS: SOD POLYSTYRENE SULFONATE 15 GM/60 ML BTTL PO ONE (12:18)
[2019-06-18 13:33] VITALS: O2SAT 99
[2019-06-18] MEDS ORDERED: HEPARIN SODIUM 100 U/ML 5 ML SYG IV ONE (14:18)
[2019-06-18] MEDS ORDERED: SODIUM BICARBONATE SYRINGE 50 MEQ/50 ML SYG IV ONE (15:29)
[2019-06-18] MEDS: SODIUM BICARBONATE VIAL 50 MEQ/50 ML VIAL IV ONE (15:41)
[2019-06-18 15:58] VITALS: TEMP 98.4
[2019-06-18 16:05] VITALS: BP 143/90
== END 2019-06-18 15:40 | disposition short-term general hospital (02) ==
LOC: ER 10:23
DX: N18.6 End stage renal disease (principal); J90 Pleural effusion, not elsewhere classified; E87.5 Hyperkalemia; R53.1 Weakness; R11.2 Nausea with vomiting, unspecified; R19.7 Diarrhea, unspecified; R05 Cough; E10.22 Type 1 diabetes mellitus with diabetic chronic kidney disease; I12.0 Hypertensive chronic kidney disease with stage 5 chronic kidney disease or end stage renal disease; K21.9 Gastro-esophageal reflux disease without esophagitis; Z99.2 Dependence on renal dialysis; Z79.899 Other long term (current) drug therapy; Z79.4 Long term (current) use of insulin
CPT/HCPCS: 71045; 74176; 80053; 83690; 85025; 87502; 87880; 93005; 94644; J1642; J2270; J2405; J7611; J7644; J7799

== ENCOUNTER → 2019-07-24 | Outpatient (CLI) | payer MEDICARE, MEDICAID | LOC: GOCC 06:20 | PROVIDERS: ATTEND General Practice | DX: R30.0 Dysuria (principal); A41.89 Other specified sepsis ==

== ENCOUNTER → 2019-07-31 | Outpatient (CLI) | payer MEDICARE, MEDICAID | LOC: GOCC 17:34 | PROVIDERS: ATTEND General Practice | DX: R50.9 Fever, unspecified (principal) ==

== ENCOUNTER → 2019-08-17 | Outpatient (CLI) | payer MEDICARE, MEDICAID | LOC: GOCC 12:44 | PROVIDERS: ATTEND General Practice | DX: R50.9 Fever, unspecified (principal) ==

== ENCOUNTER 2019-09-03 20:02 | Emergency (ER) | payer MEDICARE, MEDICAID ==
--- NOTE | 2019-09-03 20:12 | ED.PDOC ---
History of Present Illness - General Chief Complaint: General Stated Complaint: bleeding to JOLEEN shunt Time Seen by Provider: 09/03/19 20:08 Source: patient, RN notes reviewed, Vital Signs reviewed, EMS notes reviewed, RN/MD, EMS Exam Limitations: no limitations - History of Present Illness Initial Comments: Pt has h/o ESRD on HD via LUE fistula M/W/F. States her medical staff manager is Dr. Duncan in [facility]. She went to her normal HD today and when the needle was removed it began bleeding from fistula about 1800 today. They attempted to control bleeding at dialysis unit and place a stitch in the area, but continued to bleed so [facility] was called. EMS placed a bulky compression dressing at 1950 and has not been bleeding through the bandage. Pt denies CP, SOB, NVD or any other concerns. Allergies/Adverse Reactions: Allergies NO KNOWN ALLERGY Allergy (Verified 06/30/19 12:00) Home Medications: Ambulatory Orders Insulin Aspart [Novolog] 3 unit SC TID 12/03/17 RX: Promethazine HCl 25 mg PO Q6HR PRN 12/03/17 amLODIPine BESYLATE [Norvasc] 10 mg PO DAILY 01/24/18 Insulin Detemir [Levemir] 4 units SUBCU BID 05/22/18 Insulin Aspart (with Niacinami [Fiasp] 100 unit SC TID 09/06/18 Telmisartan [Micardis] 80 mg PO BEDTIME 09/06/18 Albuterol Sulfate Nebs [Proventil Nebs] 2.5 mg INH Q4HR PRN 10/01/18 Isosorbide Dinitrate-Hydralazi [Bidil 20-37.5 mg] 20 mg PO Q8HR 10/01/18 RX: Melatonin 10 mg PO BEDTIME 10/01/18 Acetaminophen W/ Codeine [Tylenol W/ CODEINE #3] 1 ea PO Q4HR PRN 12/28/18 Alum & Mag Hydrox-Simethicone [Maalox Max] 10 ml PO PRN PRN 12/28/18 Clonidine HCl [Clonidine Hydrochloride] 0.2 mg PO TID 12/28/18 Ondansetron HCl [Zofran] 4 mg PO Q6HRS PRN 12/28/18 RX: Sertraline HCl 50 mg PO DAILY 12/28/18 Amino Acids-Protein Hydrolysat [Pro-Stat 101] 30 ml PO DAILY 02/05/19 Calcium Acetate (Phosphate Bin [Calcium Acetate] 667 mg PO TID 02/05/19 Cholecalciferol [Eql Vitamin D3] 1,000 unit PO DAILY 02/05/19 Clonidine HCl [Clonidine Hydrochloride] 0.2 mg PO Q8HR 02/05/19 Famotidine [Pepcid Tab] 20 mg PO BID 02/05/19 Glucagon HCl (Diagnostic) [Glucagon] 1 mg IM PRN PRN 02/05/19 Metoclopramide Tab [Reglan Tab] 5 mg PO TID 02/05/19 Pantoprazole Tablet [Protonix] 40 mg PO DAILY 02/05/19 RX: Docusate Sodium 100 mg PO BID 02/05/19 RX: Doxazosin Mesylate 4 mg PO DAILY 02/05/19 RX: Gabapentin 100 mg PO BID 02/05/19 RX: Hydroxyzine HCl [Hydroxyzine Hydrochloride] 10 mg PO Q6HR PRN 02/05/19 RX: Metoprolol Tartrate 100 mg PO BID 02/05/19 hydrALAZINE HCl [(None)] 25 mg PO Q8HR 02/05/19 Review of Systems - Review of Systems Constitutional: Denies: chills, fever EENTM: Denies: nose congestion, throat pain Respiratory: Denies: cough, short of breath Cardiology: Denies: chest pain, palpitations, syncope Gastrointestinal/Abdominal: Denies: abdominal pain, nausea, vomiting Musculoskeletal: Denies: back pain, neck pain Skin: States: no symptoms reported Neurological: Denies: headache, paresthesia Past Medical History (General) - Patient Medical History Hx Seizures: No Hx Stroke: No Hx Dementia: No Hx Asthma: No Hx of COPD: No Hx Cardiac Disorders: No Hx Congestive Heart Failure: No Hx Pacemaker: No Hx Hypertension: Yes Hx Thyroid Disease: No Hx Diabetes: Yes Hx Gastroesophageal Reflux: Yes Hx Renal Disease: Yes - end stage; Dialysis MWF Hx Cancer: No Hx of HIV: No Hx Hepatitis C: No Hx MRSA: No - Vaccination History Hx Tetanus, Diphtheria Vaccination: Yes Hx Influenza Vaccination: Yes - 2018 Hx Pneumococcal Vaccination: No - Social History Hx Tobacco Use: No Hx Chewing Tobacco Use: No Hx Alcohol Use: No Hx Substance Use: No Hx Substance Use Treatment: No Hx Depression: No Hx Physical Abuse: No Hx Emotional Abuse: No Hx Suspected Abuse: No - Female History Patient : No Family Medical History - Family History Mother Family History: Unknown Living Status: Unknown Hx Cardiac Disease: Yes - DAD Hx Family Diabetes: Yes - DAD Hx Family;Other: DAD-RHEUMATOID ARTHTRITIS Physical Exam - Physical Exam General Appearance: Alert, Comfortable, No apparent distress Neck: non-tender, full range of motion, supple Respiratory: chest non-tender, lungs clear, normal breath sounds, no respiratory distress Cardiovascular/Chest: normal peripheral pulses, regular rate, rhythm, no murmur, other - Left upper arm fistula with pressure dressing in place. No bleeding or blood stained bandage. Has 2+ radial pulse. Gastrointestinal/Abdominal: non tender, soft, no pulsatile mass Back Exam: no CVA tenderness, no vertebral tenderness Neurologic: no motor/sensory deficits, alert, normal mood/affect Progress - Progress Progress: 09/03/19 20:58 After 30 minutes, pressure dressing was removed and arterial, pulsatile bleeding noted and pressure held. I placed 1 figure of 8 suture in the area with no improvement in pulsatile bleeding. Hydralazine 20 mg IV given for HTN. Pressure bandage applied with resolution of bleeding and will plan to transfer. Pt states her fistula was placed in [facility] in 2018 and she requests transfer to that facility. 09/03/19 21:20 D/W Dr. Diaz, ED Physician at [facility], via transfer line and accepts to ED. Departure - Departure Clinical Impression: Complication of AV dialysis fistula, ESRD (end stage renal disease) on dialysis, Essential hypertension Time of Disposition: 21:23 Disposition: Discharge to Home or Self Care Condition: Fair Departure Forms: ED Discharge - Pt. Copy, Patient Portal Self Enrollment Referrals: Mukesh Flowers MD [Primary Care Provider] - 1-2 Weeks Home Medications: Ambulatory Orders Insulin Aspart [Novolog] 3 unit SC TID 12/03/17 RX: Promethazine HCl 25 mg PO Q6HR PRN 12/03/17 amLODIPine BESYLATE [Norvasc] 10 mg PO DAILY 01/24/18 Insulin Detemir [Levemir] 4 units SUBCU BID 05/22/18 Insulin Aspart (with Niacinami [Fiasp] 100 unit SC TID 09/06/18 Telmisartan [Micardis] 80 mg PO BEDTIME 09/06/18 Albuterol Sulfate Nebs [Proventil Nebs] 2.5 mg INH Q4HR PRN 10/01/18 Isosorbide Dinitrate-Hydralazi [Bidil 20-37.5 mg] 20 mg PO Q8HR 10/01/18 RX: Melatonin 10 mg PO BEDTIME 10/01/18 Acetaminophen W/ Codeine [Tylenol W/ CODEINE #3] 1 ea PO Q4HR PRN 12/28/18 Alum & Mag Hydrox-Simethicone [Maalox Max] 10 ml PO PRN PRN 12/28/18 Clonidine HCl [Clonidine Hydrochloride] 0.2 mg PO TID 12/28/18 Ondansetron HCl [Zofran] 4 mg PO Q6HRS PRN 12/28/18 RX: Sertraline HCl 50 mg PO DAILY 12/28/18 Amino Acids-Protein Hydrolysat [Pro-Stat 101] 30 ml PO DAILY 02/05/19 Calcium Acetate (Phosphate Bin [Calcium Acetate] 667 mg PO TID 02/05/19 Cholecalciferol [Eql Vitamin D3] 1,000 unit PO DAILY 02/05/19 Clonidine HCl [Clonidine Hydrochloride] 0.2 mg PO Q8HR 02/05/19 Famotidine [Pepcid Tab] 20 mg PO BID 02/05/19 Glucagon HCl (Diagnostic) [Glucagon] 1 mg IM PRN PRN 02/05/19 Metoclopramide Tab [Reglan Tab] 5 mg PO TID 02/05/19 Pantoprazole Tablet [Protonix] 40 mg PO DAILY 02/05/19 RX: Docusate Sodium 100 mg PO BID 02/05/19 RX: Doxazosin Mesylate 4 mg PO DAILY 02/05/19 RX: Gabapentin 100 mg PO BID 02/05/19 RX: Hydroxyzine HCl [Hydroxyzine Hydrochloride] 10 mg PO Q6HR PRN 02/05/19 RX: Metoprolol Tartrate 100 mg PO BID 02/05/19 hydrALAZINE HCl [(None)] 25 mg PO Q8HR 02/05/19 Comments: Pt has had pulsatile bleeding from LUE fistula since taken off dialysis at 1800 today. Returns to pulsatile bleeding once pressure dressing removed. Transfer to Outside Facility - Transfer Information Decision to Transfer Date: 09/03/19 Reason for Transfer: specialized care not available Accepting Provider:: Dr. Diaz Accepting Facility: [facility], [place]
[2019-09-03 20:13] VITALS: TEMP 98.8
[2019-09-03] MEDS ORDERED: PROMETHAZINE HCL INJ 12.5 MG in SODIUM CHLORIDE 0.9% 50ML 50 ML IVPB ONE (21:01)
[2019-09-03] MEDS ORDERED: SODIUM CHLORIDE 0.9% 50ML 50 ML ONE (21:14)
[2019-09-03] MEDS ORDERED: PROMETHAZINE HCL INJ 25 MG/ML VIAL ONE (21:14)
[2019-09-03] MEDS ORDERED: hydrALAZINE HCl 20 MG/ML VIAL IV ONE (21:14)
[2019-09-03 21:43] VITALS: BP 197/114; O2SAT 100
== END 2019-09-03 22:01 | disposition short-term general hospital (02) ==
LOC: ER 20:02
DX: T82.838A Hemorrhage due to vascular prosthetic devices, implants and grafts, initial encounter (principal); I12.0 Hypertensive chronic kidney disease with stage 5 chronic kidney disease or end stage renal disease; N18.6 End stage renal disease; E11.22 Type 2 diabetes mellitus with diabetic chronic kidney disease; Z99.2 Dependence on renal dialysis; Z79.4 Long term (current) use of insulin; Z79.899 Other long term (current) drug therapy
CPT/HCPCS: 80048; 85025; A4216; J0360; J2060; J2550

== ENCOUNTER 2019-10-11 17:05 | Emergency (ER) | payer MEDICARE, MEDICAID ==
[2019-10-11] MEDS ORDERED: SODIUM CHLORIDE 0.9% 1000ML 1,000 ML IVS ONE (17:07)
[2019-10-11] MEDS ORDERED: PROMETHAZINE HCL INJ 25 MG in SODIUM CHLORIDE 0.9% 50ML 50 ML IVPB ONE (17:07)
--- NOTE | 2019-10-11 18:21 | RAD ---
EXAM: Abdomen Series CLINICAL INDICATION: 29-year-old female with nausea, vomiting, diabetes mellitus and dialysis. TECHNIQUE: Single view, PA chest was obtained. Two views of the abdomen were obtained in upright and supine positioning. COMPARISON: 12/15/2018. FINDINGS: Chest: Unremarkable cardiac and mediastinal silhouette. Heart size is normal. Central pulmonary vascular and interstitial prominence raising the concern for pulmonary vascular congestion, edema. No gross pneumothoraces or large pleural effusion, however trace pleural effusion cannot be excluded. RIGHT chest wall port catheter tip terminates at the IVC RIGHT atrial junction. The visualized bones are within normal limits. LEFT axillary stent graft noted. Abdomen: Gas is seen within normal caliber large bowel. Few dilated loops of small bowel present within the LEFT hemiabdomen and pelvis. No free air is identified. There are no abnormal calcifications. The osseous structures are within normal limits. Pelvic phleboliths are present. IMPRESSION: 1. No gross pneumothoraces or large pleural effusion, however trace pleural effusion cannot be excluded. 2. Few nonspecific dilated loops of small bowel within the LEFT hemiabdomen and pelvis. The possibility of ileus or small bowel obstruction may be considered in the correct clinical setting. Electronically signed by: Yulissa Fuentes MD 10/11/2019 6:20 PM CDT
[2019-10-11] MEDS ORDERED: INSULIN, REG.(HUMAN) 100 U/ML VIAL IV ONE (18:24)
[2019-10-11] MEDS ORDERED: SUCRALFATE 1 GM/10 ML 1 GM UD PO ONE (18:25)
[2019-10-11] MEDS ORDERED: PANTOPRAZOLE SODIUM IV 40 MG VIAL IV ONE (18:25)
[2019-10-11] MEDS ORDERED: HYDROmorphone HCL INJ 2 MG/ML VIAL IV ONE (18:27)
[2019-10-11] MEDS ORDERED: METOPROLOL TARTRATE INJ 5 MG/5 ML VIAL IV ONE (18:59)
--- NOTE | 2019-10-11 19:10 | ED.PDOC ---
History of Present Illness - General Chief Complaint: GI Problem Time Seen by Provider: 10/11/19 17:07 Source: patient Exam Limitations: no limitations - History of Present Illness Initial Comments: The patient is a 29-year-old female presented emergency room secondary to nausea and vomiting for the last 3 days along with abdominal cramping and generalized pain. The patient has had multiple episodes of this in the past usually related to her uncontrolled diabetes. Blood sugar was greater than 500 upon EMS initial check and she did receive 8 units of insulin at the [place] [facility] immediately prior to transfer. The patient reports vomiting an uncountable number of times. No blood no bile. She is passing gas and having bowel movements. The patient does have diabetes with multiple end-stage processes and she has apparently had pulmonary emboli and does normally wear oxygen now. The patient is due for dialysis tomorrow. No sore throat or runny nose. The patient has been unable to hold down her benzodiazepines and opiate type pain medications and is so undergoing mild withdrawal at least. The patient is in obvious visible distress. She has a significant history of gastroparesis and cyclical nausea and vomiting. The patient is markedly hypertensive here. She does have a longstanding history of uncontrolled hypertension which is of course worse when she cannot hold down her blood pressure medications. The patient is in a [place] [facility] but has had not had any coronavirus patients. Timing/Duration: other - 3 days Severity: severe Improving Factors: nothing Worsening Factors: eating Associated Symptoms: malaise, nausea/vomiting, weakness Allergies/Adverse Reactions: Allergies NO KNOWN ALLERGY Allergy (Verified 06/30/19 12:00) Home Medications: Ambulatory Orders Insulin Aspart [Novolog] 3 unit SC TID 12/03/17 Promethazine HCl 25 mg PO Q6HR PRN 12/03/17 amLODIPine BESYLATE [Norvasc] 10 mg PO DAILY 01/24/18 Insulin Detemir [Levemir] 4 units SUBCU BID 05/22/18 Insulin Aspart (with Niacinami [Fiasp] 100 unit SC TID 09/06/18 Telmisartan [Micardis] 80 mg PO BEDTIME 09/06/18 Albuterol Sulfate Nebs [Proventil Nebs] 2.5 mg INH Q4HR PRN 10/01/18 Isosorbide Dinitrate-Hydralazi [Bidil 20-37.5 mg] 20 mg PO Q8HR 10/01/18 Melatonin 10 mg PO BEDTIME 10/01/18 Acetaminophen W/ Codeine [Tylenol W/ CODEINE #3] 1 ea PO Q4HR PRN 12/28/18 Alum & Mag Hydrox-Simethicone [Maalox Max] 10 ml PO PRN PRN 12/28/18 Clonidine HCl [Clonidine Hydrochloride] 0.2 mg PO TID 12/28/18 Ondansetron HCl [Zofran] 4 mg PO Q6HRS PRN 12/28/18 Sertraline HCl 50 mg PO DAILY 12/28/18 Amino Acids-Protein Hydrolysat [Pro-Stat 101] 30 ml PO DAILY 02/05/19 Calcium Acetate (Phosphate Bin [Calcium Acetate] 667 mg PO TID 02/05/19 Cholecalciferol [Eql Vitamin D3] 1,000 unit PO DAILY 02/05/19 Clonidine HCl [Clonidine Hydrochloride] 0.2 mg PO Q8HR 02/05/19 Docusate Sodium 100 mg PO BID 02/05/19 Doxazosin Mesylate 4 mg PO DAILY 02/05/19 Famotidine [Pepcid Tab] 20 mg PO BID 02/05/19 Gabapentin 100 mg PO BID 02/05/19 Glucagon HCl (Diagnostic) [Glucagon] 1 mg IM PRN PRN 02/05/19 Hydroxyzine HCl [Hydroxyzine Hydrochloride] 10 mg PO Q6HR PRN 02/05/19 Metoclopramide Tab [Reglan Tab] 5 mg PO TID 02/05/19 Metoprolol Tartrate 100 mg PO BID 02/05/19 Pantoprazole Tablet [Protonix] 40 mg PO DAILY 02/05/19 hydrALAZINE HCl [(None)] 25 mg PO Q8HR 02/05/19 Review of Systems - Review of Systems Constitutional: States: malaise EENTM: States: no symptoms reported Respiratory: States: no symptoms reported Cardiology: States: no symptoms reported Gastrointestinal/Abdominal: States: abdominal pain, nausea, vomiting Genitourinary: States: no symptoms reported Musculoskeletal: States: see HPI - Multiple areas of chronic pain including back and legs Skin: States: no symptoms reported Neurological: States: see HPI - Chronic neuropathic pain All other Systems: No Change from Baseline Past Medical History (General) - Patient Medical History Hx Seizures: No Hx Stroke: No Hx Dementia: No Hx Asthma: No Hx of COPD: No Hx Cardiac Disorders: No Hx Congestive Heart Failure: No Hx Pacemaker: No Hx Hypertension: Yes Hx Thyroid Disease: No Hx Diabetes: Yes Hx Gastroesophageal Reflux: Yes Hx Renal Disease: Yes - end stage; Dialysis MWF Hx Cancer: No Hx of HIV: No Hx Hepatitis C: No Hx MRSA: No - Vaccination History Hx Tetanus, Diphtheria Vaccination: Yes Hx Influenza Vaccination: Yes - 2018 Hx Pneumococcal Vaccination: No - Social History Hx Tobacco Use: No Hx Chewing Tobacco Use: No Hx Alcohol Use: No Hx Substance Use: No Hx Substance Use Treatment: No Hx Depression: No Hx Physical Abuse: No Hx Emotional Abuse: No Hx Suspected Abuse: No - Female History Patient : No Family Medical History - Family History Mother Family History: Unknown Living Status: Unknown Hx Cardiac Disease: Yes - DAD Hx Family Diabetes: Yes - DAD Hx Family;Other: DAD-RHEUMATOID ARTHTRITIS Physical Exam - Physical Exam General Appearance: Alert, Frail, Obvious distress, Ill Appearing Eye Exam: bilateral other - Chronic vision loss bilaterally related to diabetes, renal failure and hypertension Ears, Nose, Throat: hearing grossly normal, normal pharynx Neck: non-tender, supple Respiratory: lungs clear, normal breath sounds, no respiratory distress, no accessory muscle use Cardiovascular/Chest: normal peripheral pulses, no edema, other - Regular rate. The patient has a port to the right anterior chest wall Peripheral Pulses: radial,right: 2+, radial,left: 2+ Gastrointestinal/Abdominal: soft, other - No definite palpable masses. No real point tenderness. Diffuse discomfort to palpation. 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 Additionally the patient does appear to be in mild withdrawal from not being able to take her opiate and benzodiazepine type medications. The patient is receiving a 500 cc fluid bolus. She does have a history of becoming fluid overloaded very easily. The patient does not appear to be in significant DKA. pH was 7.32. Hyperglycemia is improving after the insulin. The patient does become hypoglycemic very quickly. Control of the blood sugar has historically been very important for control of the GI symptoms. The patient has received Phenergan for the nausea, a dose of Dilaudid for the abdominal pain and mild opiate withdrawal and a dose of Ativan for the benzodiazepine withdrawal. Symptoms are improving. Blood pressures are improving though are still significantly elevated. Patient is receiving a dose of Lopressor currently. She reports she is still too nauseated to hold down any hydralazine or clonidine at this time. The patient is due for dialysis in the morning. Electrolytes are reasonable for a dialysis patient. Transferring for continuation of care for GI symptoms as well as for dialysis in the morning. stacy kowalski [id number] - Results/Orders Results/Orders: Chest x-ray shows no acute disease. Abdominal x-rays show a few small dilated loops of small bowel. On review of previous imaging this does not appear to be new. This could be consistent with an early ileus. Laboratory Tests 10/11/19 10/11/19 10/11/19 17:28 17:48 17:48 WBC 5.6 RBC 3.94 L Hgb 12.3 Hct 39.5 MCV 100.2 H MCH 31.2 H MCHC 31.1 L RDW 17.1 H Plt Count 157 MPV 9.5 Absolute Neuts (auto) 4.20 Absolute Lymphs (auto) 0.60 L Absolute Monos (auto) 0.50 Absolute Eos (auto) 0.20 Absolute Basos (auto) 0.10 Neutrophils % 75.0 Lymphocytes % 11.3 L Monocytes % 9.5 H Eosinophils % 2.7 Basophils % 1.5 pCO2 58 H pO2 88 HCO3 30.2 ABG pH 7.325 L ABG O2 Saturation 96.1 ABG Base Excess 2.8 Oxyhemoglobin % 93.7 L Carboxyhemoglobin % 0.7 Methemoglobin % Sat 1.9 H Calc Total Hemoglobin 12.9 Sodium Potassium Chloride Carbon Dioxide Anion Gap BUN Creatinine BUN/Creatinine Ratio Random Glucose Serum Osmolality Lactic Acid Calcium Magnesium Total Bilirubin AST ALT Alkaline Phosphatase Serum Total Protein Albumin Globulin Albumin/Globulin Ratio Amylase 9 L Lipase Serum HCG, Qual 10/11/19 10/11/19 10/11/19 17:48 17:48 18:37 WBC RBC Hgb Hct MCV MCH MCHC RDW Plt Count MPV Absolute Neuts (auto) Absolute Lymphs (auto) Absolute Monos (auto) Absolute Eos (auto) Absolute Basos (auto) Neutrophils % Lymphocytes % Monocytes % Eosinophils % Basophils % pCO2 pO2 HCO3 ABG pH ABG O2 Saturation ABG Base Excess Oxyhemoglobin % Carboxyhemoglobin % Methemoglobin % Sat Calc Total Hemoglobin Sodium 130 L Potassium 4.0 Chloride 89 L Carbon Dioxide 27 Anion Gap 18.0 BUN 26 H Creatinine 3.94 H BUN/Creatinine Ratio 6.6 L Random Glucose 480 H* Serum Osmolality 286.1 Lactic Acid 1.9 Calcium 9.0 Magnesium 2.7 H Total Bilirubin 0.8 AST 17 ALT 13 Alkaline Phosphatase 208 H Serum Total Protein 7.7 Albumin 3.7 Globulin 4.0 H Albumin/Globulin Ratio 0.9 L Amylase Lipase 18 L Serum HCG, Qual Negative Departure - Departure Clinical Impression: Hypertensive urgency, Diabetic gastroparesis associated with type 1 diabetes mellitus, Uncontrolled insulin dependent diabetes mellitus Benzodiazepine withdrawal Qualifiers: Complication of substance-induced condition: with unspecified complication Qualified Code(s): F13.239 - Sedative, hypnotic or anxiolytic dependence with withdrawal, unspecified Nausea and vomiting Qualifiers: Vomiting type: unspecified Vomiting Intractability: non-intractable Qualified Code(s): R11.2 - Nausea with vomiting, unspecified Disposition: Transfer to Hospital Condition: Poor Departure Forms: ED Discharge - Pt. Copy, Patient Portal Self Enrollment Referrals: Mukesh Flowers MD [Primary Care Provider] - 1-2 Weeks Home Medications: Ambulatory Orders Insulin Aspart [Novolog] 3 unit SC TID 12/03/17 Promethazine HCl 25 mg PO Q6HR PRN 12/03/17 amLODIPine BESYLATE [Norvasc] 10 mg PO DAILY 01/24/18 Insulin Detemir [Levemir] 4 units SUBCU BID 05/22/18 Insulin Aspart (with Niacinami [Fiasp] 100 unit SC TID 09/06/18 Telmisartan [Micardis] 80 mg PO BEDTIME 09/06/18 Albuterol Sulfate Nebs [Proventil Nebs] 2.5 mg INH Q4HR PRN 10/01/18 Isosorbide Dinitrate-Hydralazi [Bidil 20-37.5 mg] 20 mg PO Q8HR 10/01/18 Melatonin 10 mg PO BEDTIME 10/01/18 Acetaminophen W/ Codeine [Tylenol W/ CODEINE #3] 1 ea PO Q4HR PRN 12/28/18 Alum & Mag Hydrox-Simethicone [Maalox Max] 10 ml PO PRN PRN 12/28/18 Clonidine HCl [Clonidine Hydrochloride] 0.2 mg PO TID 12/28/18 Ondansetron HCl [Zofran] 4 mg PO Q6HRS PRN 12/28/18 Sertraline HCl 50 mg PO DAILY 12/28/18 Amino Acids-Protein Hydrolysat [Pro-Stat 101] 30 ml PO DAILY 02/05/19 Calcium Acetate (Phosphate Bin [Calcium Acetate] 667 mg PO TID 02/05/19 Cholecalciferol [Eql Vitamin D3] 1,000 unit PO DAILY 02/05/19 Clonidine HCl [Clonidine Hydrochloride] 0.2 mg PO Q8HR 02/05/19 Docusate Sodium 100 mg PO BID 02/05/19 Doxazosin Mesylate 4 mg PO DAILY 02/05/19 Famotidine [Pepcid Tab] 20 mg PO BID 02/05/19 Gabapentin 100 mg PO BID 02/05/19 Glucagon HCl (Diagnostic) [Glucagon] 1 mg IM PRN PRN 02/05/19 Hydroxyzine HCl [Hydroxyzine Hydrochloride] 10 mg PO Q6HR PRN 02/05/19 Metoclopramide Tab [Reglan Tab] 5 mg PO TID 02/05/19 Metoprolol Tartrate 100 mg PO BID 02/05/19 Pantoprazole Tablet [Protonix] 40 mg PO DAILY 02/05/19 hydrALAZINE HCl [(None)] 25 mg PO Q8HR 02/05/19 Transfer to Outside Facility - Transfer Information Decision to Transfer Date: 10/11/19 Decision to Transfer Time: 19:19 Reason for Transfer: specialized care not available Accepting Provider:: dr jerome Accepting Facility: [facility]
[2019-10-11] MEDS ORDERED: SODIUM CHLORIDE 0.9% (FLUSH) 10 ML SYG ONE (19:28)
[2019-10-11 19:33] VITALS: BP 147/87; TEMP 98.6; O2SAT 95
== END 2019-10-11 20:10 | disposition short-term general hospital (02) ==
LOC: ER 17:05
DX: E10.43 Type 1 diabetes mellitus with diabetic autonomic (poly)neuropathy (principal); K31.84 Gastroparesis; E10.65 Type 1 diabetes mellitus with hyperglycemia; R11.2 Nausea with vomiting, unspecified; F13.239 Sedative, hypnotic or anxiolytic dependence with withdrawal, unspecified; I12.0 Hypertensive chronic kidney disease with stage 5 chronic kidney disease or end stage renal disease; N18.6 End stage renal disease; Z79.4 Long term (current) use of insulin; Z79.899 Other long term (current) drug therapy; Z99.2 Dependence on renal dialysis
CPT/HCPCS: 36415; 36600; 74019; 80053; 82150; 82803; 82805; 83605; 83690; 83735; 84703; 85025; A4216; J1170; J2060; J2550; J7030

== ENCOUNTER 2019-11-15 15:06 | Emergency (ER) | payer MEDICARE, MEDICAID ==
--- NOTE | 2019-11-15 15:19 | ED.PDOC ---
History of Present Illness - General Chief Complaint: Possible Sepsis Time Seen by Provider: 11/15/19 15:14 Source: RN notes reviewed, Vital Signs reviewed, detention records Exam Limitations: clinical condition - History of Present Illness Initial Comments: 29 y/o female with Covid, type 1 DM, and ESRD on dialysis sent from the [place] for confusion and low O2 sats. She answers all questions and reports she has abdominal pain. She has been coughing and says she feels terrible. She reports throwing up all day. Today she was due for dialysis. Timing/Duration: changing over time Fever Severity/Quality: subjective, other Associated Symptoms: abdominal pain, confusion, cough, nausea/vomiting Review of Systems - Review of Systems Constitutional: States: weakness EENTM: States: no symptoms reported Respiratory: States: cough, short of breath Cardiology: States: no symptoms reported Gastrointestinal/Abdominal: States: abdominal pain, nausea, vomiting Genitourinary: States: other - ESRD on dialysis Musculoskeletal: States: joint pain, muscle pain Skin: States: no symptoms reported Neurological: States: weakness Hematologic/Lymphatic: States: anemia Past Medical History (General) - Patient Medical History Hx Seizures: No Hx Stroke: No Hx Dementia: No Hx Asthma: No Hx of COPD: No Hx Cardiac Disorders: No Hx Congestive Heart Failure: No Hx Pacemaker: No Hx Hypertension: Yes Hx Thyroid Disease: No Hx Diabetes: Yes Hx Gastroesophageal Reflux: Yes Hx Renal Disease: Yes - end stage; Dialysis MWF Hx Cancer: No Hx of HIV: No Hx Hepatitis C: No Hx MRSA: No - Vaccination History Hx Tetanus, Diphtheria Vaccination: Yes Hx Influenza Vaccination: Yes - 2018 Hx Pneumococcal Vaccination: No - Social History Hx Tobacco Use: No Hx Chewing Tobacco Use: No Hx Alcohol Use: No Hx Substance Use: No Hx Substance Use Treatment: No Hx Depression: No Hx Physical Abuse: No Hx Emotional Abuse: No Hx Suspected Abuse: No - Female History Patient : No Family Medical History - Family History Mother Family History: Unknown Living Status: Unknown Hx Cardiac Disease: Yes - DAD Hx Family Diabetes: Yes - DAD Hx Family;Other: DAD-RHEUMATOID ARTHTRITIS Physical Exam - Physical Exam General Appearance: Emaciated, Lethargic, Ill Appearing Eye Exam: bilateral normal, bilateral other - conjunctival edema ENT Exam: other - dry mucous membranes Neck: non-tender, full range of motion, normal inspection Respiratory: no respiratory distress, crackles, rhonchi Cardiovascular/Chest: normal peripheral pulses, regular rate, rhythm, no murmur Gastrointestinal/Abdominal: normal bowel sounds, soft, distended, tenderness Extremity: other - av fistula LUE, extremities very thin Skin Exam: pallor Progress - Progress Progress: 11/15/19 16:15 EKG NSR rate 67, LVH T wave inversion anteriorly, prolonged QT 11/15/19 16:25 Pt with DKA, hypoxic respiratory failure, covid, ESRD needing dialysis Plan to transfer to [place] 11/15/19 16:[address] Smith who accepts the patient in transfer. Departure - Departure Clinical Impression: End stage renal disease on dialysis due to type 1 diabetes mellitus, COVID-19 Diabetes mellitus with ketoacidosis Qualifiers: Diabetes mellitus type: type 1 Diabetes mellitus complication detail: without coma Qualified Code(s): E10.10 - Type 1 diabetes mellitus with ketoacidosis without coma Nausea and vomiting Qualifiers: Vomiting type: unspecified Vomiting Intractability: unspecified Qualified Code(s): R11.2 - Nausea with vomiting, unspecified Disposition: Transfer to Hospital Condition: Poor Departure Forms: ED Discharge - Pt. Copy, Patient Portal Self Enrollment Instructions: DI for Sepsis -- Adult Referrals: Mukesh Flowers MD [Primary Care Provider] - 1-2 Weeks Home Medications: Ambulatory Orders Insulin Aspart [Novolog] 3 unit SC TID 12/03/17 Promethazine HCl 25 mg PO Q6HR PRN 12/03/17 amLODIPine BESYLATE [Norvasc] 10 mg PO DAILY 01/24/18 Insulin Detemir [Levemir] 4 units SUBCU BID 05/22/18 Insulin Aspart (with Niacinami [Fiasp] 100 unit SC TID 09/06/18 Albuterol Sulfate Nebs [Proventil Nebs] 2.5 mg INH Q4HR PRN 10/01/18 Isosorbide Dinitrate-Hydralazi [Bidil 20-37.5 mg] 20 mg PO Q8HR 10/01/18 Acetaminophen W/ Codeine [Tylenol W/ CODEINE #3] 1 ea PO Q4HR PRN 12/28/18 Clonidine HCl [Clonidine Hydrochloride] 0.2 mg PO TID 12/28/18 Sertraline HCl 50 mg PO DAILY 12/28/18 Calcium Acetate (Phosphate Bin [Calcium Acetate] 667 mg PO TID 02/05/19 Clonidine HCl [Clonidine Hydrochloride] 0.2 mg PO Q8HR 02/05/19 Docusate Sodium 100 mg PO BID 02/05/19 Gabapentin 100 mg PO BID 02/05/19 Glucagon HCl (Diagnostic) [Glucagon] 1 mg IM PRN PRN 02/05/19 Pantoprazole Tablet [Protonix] 40 mg PO DAILY 02/05/19 ALPRAZolam [Xanax] 0.25 mg PO 11/15/19 Alum & Mag Hydrox-Simethicone [Maalox Max] 1 melany PO Q4HR 11/15/19 Amitriptyline HCl [Amitriptyline Hydrochlori] 50 mg PO 11/15/19 Ascorbic Acid [Vitamin C-500 Timed Relea] 500 mg PO 11/15/19 Atenolol [Tenormin] 50 mg PO DAILY 11/15/19 Azithromycin 250 mg PO 11/15/19 Bumetanide 2 mg PO TID 11/15/19 Cyanocobalamin [B-12] 1,000 mcg PO 11/15/19 Folic Acid 1 mg PO DAILY 11/15/19 Guaifenesin [Eq Mucus ER] 600 mg PO BID 11/15/19 Hydralazine HCl [Hydralazine Hydrochloride] 100 mg PO TID 11/15/19 Ibuprofen [Hm Ibuprofen] 100 mg PO BID 11/15/19 Sucralfate Suspension [Carafate Suspension] 1 gm PO Q6HR 11/15/19
[2019-11-15] MEDS ORDERED: SODIUM CHLORIDE 0.9% (FLUSH) 10 ML SYG IV PRN (15:23)
[2019-11-15] MEDS ORDERED: cefTRIAXone SODIUM 2 GM in SODIUM CHL 0.9% 100ML MINI-BAG 100 ML IVPB ONE (15:23)
--- NOTE | 2019-11-15 16:23 | RAD ---
EXAM DESCRIPTION: Chest,1 View CLINICAL HISTORY: 29 years Female short of breath COMPARISON: 06/18/2019 FINDINGS: Heart size appears stable. There appear to be patchy bilateral pulmonary infiltrates. This may be in part due to some overlying soft tissue artifact but this appears similar to previous exams. Suspect small effusions. Vascular stent in the left axilla. [id number] catheter in place. IMPRESSION: Patchy bilateral pulmonary infiltrates which appear similar to the previous Suspect small effusions Electronically signed by: Marce Bacon MD 11/15/2019 4:21 PM CDT
[2019-11-15] MEDS ORDERED: MORPHINE SULFATE INJ 10 MG/ML VIAL IV ONE (16:49)
[2019-11-15 17:35] VITALS: BP 127/75; TEMP 98.7; O2SAT 97
== END 2019-11-15 17:42 | disposition short-term general hospital (02) ==
LOC: ER 15:06
DX: U07.1 COVID-19 (principal); E10.10 Type 1 diabetes mellitus with ketoacidosis without coma; I12.0 Hypertensive chronic kidney disease with stage 5 chronic kidney disease or end stage renal disease; N18.6 End stage renal disease; Z99.2 Dependence on renal dialysis; R11.10 Vomiting, unspecified
CPT/HCPCS: 36415; 36600; 71045; 80053; 82009; 82550; 82553; 82803; 82805; 83605; 84484; 85025; 85379; 85610; 85730; 87040; 93005; J0696; J2270; J7050

== ENCOUNTER 2019-11-21 09:28 | Emergency (ER) | payer MEDICARE, MEDICAID ==
[2019-11-21] MEDS ORDERED: SODIUM CHLORIDE 0.9% (FLUSH) 10 ML SYG IV PRN (09:31)
--- NOTE | 2019-11-21 09:33 | ED.PDOC ---
History of Present Illness - General Chief Complaint: General Stated Complaint: Lethargy, AMS and abd pain Time Seen by Provider: 11/21/19 09:30 Source: EMS, prison records - History of Present Illness Initial Comments: 29-year-old female with PMH of uncontrolled hypertension, DM1, ESRD on HD (TThS), gastroparesis, hx of PE's who is brought in by EMS from [facility] for chief complaint of altered mental status and abdominal pain. As patient is altered history is very limited. Apparently she reported some abdominal pain at the prison and to our staff here upon arrival. At the bedside she is awake and occasionally follows very simple commands but is nonverbal. The prison reported that she has seemed increasingly confused this morning. She has had some belching but no vomiting. Reportedly she tested positive for COVID-19 last week. At this time it is unknown when she was last dialyzed. Allergies/Adverse Reactions: Allergies Tuna Fish Allergy (Uncoded 11/21/19 09:44) Home Medications: Ambulatory Orders Insulin Aspart [Novolog] 3 unit SC TID 12/03/17 Promethazine HCl 25 mg PO Q6HR PRN 12/03/17 amLODIPine BESYLATE [Norvasc] 10 mg PO DAILY 01/24/18 Insulin Detemir [Levemir] 4 units SUBCU BID 05/22/18 Insulin Aspart (with Niacinami [Fiasp] 100 unit SC TID 09/06/18 Albuterol Sulfate Nebs [Proventil Nebs] 2.5 mg INH Q4HR PRN 10/01/18 Isosorbide Dinitrate-Hydralazi [Bidil 20-37.5 mg] 20 mg PO Q8HR 10/01/18 Acetaminophen W/ Codeine [Tylenol W/ CODEINE #3] 1 ea PO Q4HR PRN 12/28/18 Clonidine HCl [Clonidine Hydrochloride] 0.2 mg PO TID 12/28/18 Sertraline HCl 50 mg PO DAILY 12/28/18 Calcium Acetate (Phosphate Bin [Calcium Acetate] 667 mg PO TID 02/05/19 Clonidine HCl [Clonidine Hydrochloride] 0.2 mg PO Q8HR 02/05/19 Docusate Sodium 100 mg PO BID 02/05/19 Gabapentin 100 mg PO BID 02/05/19 Glucagon HCl (Diagnostic) [Glucagon] 1 mg IM PRN PRN 02/05/19 Pantoprazole Tablet [Protonix] 40 mg PO DAILY 02/05/19 ALPRAZolam [Xanax] 0.25 mg PO 11/15/19 Alum & Mag Hydrox-Simethicone [Maalox Max] 1 melany PO Q4HR 11/15/19 Amitriptyline HCl [Amitriptyline Hydrochlori] 50 mg PO 11/15/19 Ascorbic Acid [Vitamin C-500 Timed Relea] 500 mg PO 11/15/19 Atenolol [Tenormin] 50 mg PO DAILY 11/15/19 Azithromycin 250 mg PO 11/15/19 Bumetanide 2 mg PO TID 11/15/19 Cyanocobalamin [B-12] 1,000 mcg PO 11/15/19 Folic Acid 1 mg PO DAILY 11/15/19 Guaifenesin [Eq Mucus ER] 600 mg PO BID 11/15/19 Hydralazine HCl [Hydralazine Hydrochloride] 100 mg PO TID 11/15/19 Ibuprofen [Hm Ibuprofen] 100 mg PO BID 11/15/19 Sucralfate Suspension [Carafate Suspension] 1 gm PO Q6HR 11/15/19 Review of Systems - Review of Systems Review of Systems: 11/21/19 09:48 As per HPI All other Systems: Reviewed and Negative Past Medical History (General) - Patient Medical History Hx Seizures: No Hx Stroke: No Hx Dementia: No Hx Asthma: No Hx of COPD: No Hx Cardiac Disorders: No Hx Congestive Heart Failure: No Hx Pacemaker: No Hx Hypertension: Yes Hx Thyroid Disease: No Hx Diabetes: Yes Hx Gastroesophageal Reflux: Yes Hx Renal Disease: Yes - end stage; Dialysis MWF Hx Cancer: No Hx of HIV: No Hx Hepatitis C: No Hx MRSA: No - Vaccination History Hx Tetanus, Diphtheria Vaccination: Yes Hx Influenza Vaccination: Yes - 2018 Hx Pneumococcal Vaccination: No - Social History Hx Tobacco Use: No Hx Chewing Tobacco Use: No Hx Alcohol Use: No Hx Substance Use: No Hx Substance Use Treatment: No Hx Depression: No Hx Physical Abuse: No Hx Emotional Abuse: No Hx Suspected Abuse: No - Female History Patient : No Family Medical History - Family History Mother Family History: Unknown Living Status: Unknown Hx Cardiac Disease: Yes - DAD Hx Family Diabetes: Yes - DAD Hx Family;Other: DAD-RHEUMATOID ARTHTRITIS Physical Exam - Physical Exam General Appearance: Ill Appearing, Unkempt, Other - Appears confused Eye Exam: bilateral normal Ears, Nose, Throat: other - Moderately dry appearing oral mucosa and slight erythema to the pharynx Neck: non-tender, full range of motion, supple Respiratory: no respiratory distress, other - Slightly increased respiratory rate, appears slightly diminished throughout without rales or wheezing Cardiovascular/Chest: normal peripheral pulses, regular rate, rhythm, no edema, no gallop, no JVD, systolic murmur - 2/6 systolic murmur best heard at the left upper sternal border, other - Mediport in place to right chest wall Peripheral Pulses: radial,right: 2+, radial,left: 2+ Gastrointestinal/Abdominal: non tender, soft, no organomegaly, no pulsatile mass, abnormal bowel sounds - Diminished throughout Back Exam: normal inspection, no CVA tenderness, no vertebral tenderness Extremity: normal range of motion, non-tender, normal inspection, no pedal edema, no calf tenderness, normal capillary refill, pelvis stable Neurologic: other - Awake and follows only very simple commands occasionally such as "open your mouth and squeeze my hands". Withdraws from painful stimuli. Nonverbal to questioning. Appears to move all extremities well Skin Exam: normal color, warm/dry Lymphatic: other - Bilateral anterior cervical lymphadenopathy Progress - Progress Progress: 11/21/19 09:51 Altered mental status, abdominal pain -Consider sepsis, DKA, pneumonia, ACS, uremia, electrolyte derangement, dehydration, other infectious etiology, COVID-19 -Patient stable upon arrival, vitals within normal limits, afebrile, 98% SPO2 on room air on my examination -Obtain full sepsis and cardiac work-up, strep, COVID -Mediport accessed, given ESRD will hold bolus fluids for now especially as patient is hemodynamically stable 11/21/19 10:32 -Patient remains unchanged, hemodynamically stable. Labs reveal leukocytosis with left shift as well as glucose greater than 600 with low bicarb and anion gap of greater than 30 and large serum ketones consistent with DKA. pH 7.118, PO2 63, PCO2 37. Also concern for sepsis, source unknown at this time. Troponin level is 0.16, which is likely from troponin leak from ESRD. Unable to give Aspirin PO given pt's confused state. Will begin broad-spectrum IV antibiotics with Vanco and Zosyn as well as regular insulin 6 units IV and insulin gtt. Begin also heparin GTT given troponin elevation. We will also obtain CT scans of the head, chest, abdomen, and pelvis. Once scans are back will arrange for transfer to higher level of care given need for ICU. 11/21/19 11:10 -Spoke with the ED physician at [facility] ED who accepts the patient for ED to ED transfer. She remained stable to go via ground EMS. Obtaining CT scans currently. 11/21/19 13:00 -I was able to place a left EJ IV on the patient in order to be able to administer more medications. Will begin Zosyn through the EJ but likely will not be able to give the Vancomycin here. The insulin gtt is running through the medi-port. The CT scans have resulted. CT head shows no acute processes, maxillary sinusitis noted. CT chest reveals findings consistent with COVID-19 infection with groundglass opacities bilaterally, worse in the lower lung zones. CT of the abdomen pelvis reveals ascitic fluid in the abdomen, less than the prior study. Evaluation of the gallbladder is limited given fluid surrounding the gallbladder. No other acute processes are noted. -EMS is present for transfer the patient. 11/21/19 14:00 -Rapid COVID testing resulted positive. Darren Hernandez MD Billing #[id number] 11/21/19 09:31 Sodium Chloride 0.9% (Flush) [Saline Flush Syringe] 10 ml IV PRN PRN Pulse Oximetry Assessment DAILY UA [URINALYSIS] Stat 11/21/19 09:40 D-DIMER,QUANTITATIVE Stat BLOOD CULTURE Stat 11/21/19 09:45 EKG STAT GROUP A STREP SCREEN, RAPID Stat 11/21/19 09:53 RESPIRATORY PANEL 2 Stat 11/21/19 10:28 Abdoment/Pelvis w/o Contrast [CT] Stat Chest w/o Contrast [CT] Stat 11/21/19 10:29 Piperacillin/Tazobactam [Zosyn] 2.25 gm Sodium Chloride 0.9% 50Ml [NS 50ml] 50 ml IVPB ONCE Vancomycin HCl Inj 1,000 mg Sodium Chloride 0.9% 250Ml [NS 250ml] 250 ml IVPB ONCE 11/21/19 10:30 Insulin, Reg.(Human) [HumuLIN R] 250 units Sodium Chl 0.9% 250Ml (Jacinta) [NS 250ml (JACINTA)] 247.5 ml IVPB Q12H 11/21/19 10:45 Heparin Premix [Heparin/D5w 25,000U/500ML] 25,000 units Premix Bag 1 bag IVS PRN 11/21/19 11:03 Head [CT] Stat 11/22/19 09:00 Pulse Ox Daily Laboratory Results - last 24 hr 11/21/19 11/21/19 11/21/19 09:35 09:40 09:40 WBC 12.8 H RBC 3.61 L Hgb 10.9 L Hct 35.7 L MCV 98.8 MCH 30.3 MCHC 30.7 L RDW 18.0 H Plt Count 169 MPV 9.1 Absolute Neuts (auto) 11.80 H Absolute Lymphs (auto) 0.50 L Absolute Monos (auto) 0.30 Absolute Eos (auto) 0.00 Absolute Basos (auto) 0.10 Neutrophils % 92.6 H Lymphocytes % 4.2 L Monocytes % 2.5 Eosinophils % 0.3 L Basophils % 0.4 PT 11.3 H INR 1.14 PTT (SP) 31.1 pCO2 pO2 HCO3 ABG pH ABG O2 Saturation ABG Base Excess ABG Deoxyhemoglobin Oxyhemoglobin % Carboxyhemoglobin % Methemoglobin % Sat Calc Total Hemoglobin Sodium Potassium Chloride Carbon Dioxide Anion Gap BUN Creatinine BUN/Creatinine Ratio POC Glucose Random Glucose Serum Osmolality Lactic Acid Calcium Total Bilirubin AST ALT Alkaline Phosphatase Creatine Kinase 18 L Troponin I B-Natriuretic Peptide Serum Total Protein Albumin Globulin Albumin/Globulin Ratio Serum HCG, Qual Serum Ketones Large 11/21/19 11/21/19 11/21/19 09:40 09:40 09:40 WBC RBC Hgb Hct MCV MCH MCHC RDW Plt Count MPV Absolute Neuts (auto) Absolute Lymphs (auto) Absolute Monos (auto) Absolute Eos (auto) Absolute Basos (auto) Neutrophils % Lymphocytes % Monocytes % Eosinophils % Basophils % PT INR PTT (SP) pCO2 pO2 HCO3 ABG pH ABG O2 Saturation ABG Base Excess ABG Deoxyhemoglobin Oxyhemoglobin % Carboxyhemoglobin % Methemoglobin % Sat Calc Total Hemoglobin Sodium 130 L Potassium 4.7 Chloride 87 L Carbon Dioxide 13 L* Anion Gap 34.7 H BUN 49 H Creatinine 4.85 H BUN/Creatinine Ratio 10.1 POC Glucose > 400 H* Random Glucose 668 H* Serum Osmolality 304.3 H Lactic Acid 0.8 Calcium 8.4 Total Bilirubin 3.1 H* AST 12 ALT 10 Alkaline Phosphatase 184 H Creatine Kinase Troponin I B-Natriuretic Peptide 2710.0 H* Serum Total Protein 7.8 Albumin 3.2 Globulin 4.6 H Albumin/Globulin Ratio 0.7 L Serum HCG, Qual Serum Ketones 11/21/19 11/21/19 11/21/19 09:40 09:40 09:42 WBC RBC Hgb Hct MCV MCH MCHC RDW Plt Count MPV Absolute Neuts (auto) Absolute Lymphs (auto) Absolute Monos (auto) Absolute Eos (auto) Absolute Basos (auto) Neutrophils % Lymphocytes % Monocytes % Eosinophils % Basophils % PT INR PTT (SP) pCO2 37 pO2 63 L HCO3 12.0 ABG pH 7.118 L* ABG O2 Saturation 86.6 L ABG Base Excess -16.4 ABG Deoxyhemoglobin 13.0 H Oxyhemoglobin % 84.0 L Carboxyhemoglobin % 0.7 Methemoglobin % Sat 2.3 H Calc Total Hemoglobin 11.2 L Sodium Potassium Chloride Carbon Dioxide Anion Gap BUN Creatinine BUN/Creatinine Ratio POC Glucose Random Glucose Serum Osmolality Lactic Acid Calcium Total Bilirubin AST ALT Alkaline Phosphatase Creatine Kinase Troponin I 0.16 H* B-Natriuretic Peptide Serum Total Protein Albumin Globulin Albumin/Globulin Ratio Serum HCG, Qual Negative Serum Ketones 11/21/19 09:52 WBC RBC Hgb Hct MCV MCH MCHC RDW Plt Count MPV Absolute Neuts (auto) Absolute Lymphs (auto) Absolute Monos (auto) Absolute Eos (auto) Absolute Basos (auto) Neutrophils % Lymphocytes % Monocytes % Eosinophils % Basophils % PT INR PTT (SP) pCO2 pO2 HCO3 ABG pH ABG O2 Saturation ABG Base Excess ABG Deoxyhemoglobin Oxyhemoglobin % Carboxyhemoglobin % Methemoglobin % Sat Calc Total Hemoglobin Sodium Potassium Chloride Carbon Dioxide Anion Gap BUN Creatinine BUN/Creatinine Ratio POC Glucose Random Glucose Cancelled Serum Osmolality Lactic Acid Calcium Total Bilirubin AST ALT Alkaline Phosphatase Creatine Kinase Troponin I B-Natriuretic Peptide Serum Total Protein Albumin Globulin Albumin/Globulin Ratio Serum HCG, Qual Serum Ketones - EKG/XRAY/CT EKG: Sinus - Normal sinus rhythm, heart rate 80, no ST elevations or Q waves noted, LVH criteria present, nonspecific T wave inversions noted in anteroseptal leads, [place] normal, intervals normal, compared to 11/15/2019 EKG appears largely unchanged XRAY: chest - Bilateral infrahilar hazy opacities consistent with pulmonary edema versus infiltrate per my read, cardiomegaly also noted. Departure - Departure Clinical Impression: End stage renal disease on dialysis due to type 1 diabetes mellitus, COVID-19 DKA (diabetic ketoacidosis) Qualifiers: Diabetes mellitus type: type 1 Diabetes mellitus complication detail: with coma Qualified Code(s): E10.11 - Type 1 diabetes mellitus with ketoacidosis with coma AMS (altered mental status) Qualifiers: Altered mental status type: unspecified Qualified Code(s): R41.82 - Altered mental status, unspecified Sepsis Qualifiers: Sepsis type: sepsis due to unspecified organism Sepsis acute organ dysfunction status: with acute organ dysfunction Severe sepsis acute organ dysfunction type: encephalopathy Severe sepsis shock status: without septic shock Qualified Code(s): A41.9 - Sepsis, unspecified organism Time of Disposition: 11:13 Disposition: Transfer to Hospital Condition: Poor Departure Forms: ED Discharge - Pt. Copy, Patient Portal Self Enrollment Referrals: Mukesh Flowers MD [Primary Care Provider] - 1-2 Weeks Home Medications: Ambulatory Orders Insulin Aspart [Novolog] 3 unit SC TID 12/03/17 Promethazine HCl 25 mg PO Q6HR PRN 12/03/17 amLODIPine BESYLATE [Norvasc] 10 mg PO DAILY 01/24/18 Insulin Detemir [Levemir] 4 units SUBCU BID 05/22/18 Insulin Aspart (with Niacinami [Fiasp] 100 unit SC TID 09/06/18 Albuterol Sulfate Nebs [Proventil Nebs] 2.5 mg INH Q4HR PRN 10/01/18 Isosorbide Dinitrate-Hydralazi [Bidil 20-37.5 mg] 20 mg PO Q8HR 10/01/18 Acetaminophen W/ Codeine [Tylenol W/ CODEINE #3] 1 ea PO Q4HR PRN 12/28/18 Clonidine HCl [Clonidine Hydrochloride] 0.2 mg PO TID 12/28/18 Sertraline HCl 50 mg PO DAILY 12/28/18 Calcium Acetate (Phosphate Bin [Calcium Acetate] 667 mg PO TID 02/05/19 Clonidine HCl [Clonidine Hydrochloride] 0.2 mg PO Q8HR 02/05/19 Docusate Sodium 100 mg PO BID 02/05/19 Gabapentin 100 mg PO BID 02/05/19 Glucagon HCl (Diagnostic) [Glucagon] 1 mg IM PRN PRN 02/05/19 Pantoprazole Tablet [Protonix] 40 mg PO DAILY 02/05/19 ALPRAZolam [Xanax] 0.25 mg PO 11/15/19 Alum & Mag Hydrox-Simethicone [Maalox Max] 1 melany PO Q4HR 11/15/19 Amitriptyline HCl [Amitriptyline Hydrochlori] 50 mg PO 11/15/19 Ascorbic Acid [Vitamin C-500 Timed Relea] 500 mg PO 11/15/19 Atenolol [Tenormin] 50 mg PO DAILY 11/15/19 Azithromycin 250 mg PO 11/15/19 Bumetanide 2 mg PO TID 11/15/19 Cyanocobalamin [B-12] 1,000 mcg PO 11/15/19 Folic Acid 1 mg PO DAILY 11/15/19 Guaifenesin [Eq Mucus ER] 600 mg PO BID 11/15/19 Hydralazine HCl [Hydralazine Hydrochloride] 100 mg PO TID 11/15/19 Ibuprofen [Hm Ibuprofen] 100 mg PO BID 11/15/19 Sucralfate Suspension [Carafate Suspension] 1 gm PO Q6HR 11/15/19 Critical Care Note - Critical Care Note Total Time (mins): 45 Comments: Critical Care Time: Upon my evaluation, this patient had a high probability of life-threatening deterioration due to sepsis with severe features and diabetic ketoacidosis and COVID-19, which required my direct attention, intervention, and management. I have provided 45 minutes of critical care time exclusive of separately billable procedures. My time included: direct patient care, review of labs and radiology, obtaining history from and counseling the patient, discussion with consultants and/or other medical personnel, documentation, and monitoring for potential decompensation. Transfer to Outside Facility - Transfer Information Decision to Transfer Date: 11/21/19 Decision to Transfer Time: 11:14 Reason for Transfer: ICU Accepting Provider:: Dr. Umaña Accepting Facility: [facility]
[2019-11-21] MEDS ORDERED: VANCOMYCIN HCL INJ 1,000 MG in SODIUM CHLORIDE 0.9% 250ML 250 ML IVPB ONE (10:29)
--- NOTE | 2019-11-21 10:31 | RAD ---
EXAM DESCRIPTION: Chest,1 View CLINICAL HISTORY: dyspnea, altered mental status COMPARISON: Chest radiograph dated November 15, 2019 TECHNIQUE: One view radiograph of the chest FINDINGS: Right-sided [id number] with distal tip projecting over the right atrium. Redemonstrated vascular stent left axillary region. Cardiac silhouette shows cardiac megaly with borderline central pulmonary vascular congestion. Redemonstrated hazy opacities bilateral infrahilar regions and lower lung zones, not significantly changed since November 15, 2019. Costophrenic angles are sharp. No pneumothorax. No acute osseous abnormality. Redemonstrated bilateral nipple jewelry. IMPRESSION: 1. Redemonstrated hazy opacities bilateral infrahilar regions and lower lung zones, not significantly changed since November 15, 2019. 2. Cardiomegaly with borderline central pulmonary vascular congestion. Electronically signed by: Murtaza Chandra MD 11/21/2019 10:29 AM CDT
[2019-11-21 10:41] VITALS: O2SAT 98
[2019-11-21 10:43] VITALS: TEMP 98.6
[2019-11-21] MEDS ORDERED: HEPARIN PREMIX 25,000 UNITS in PREMIX BAG 1 BAG IVS SCH (10:45)
[2019-11-21] MEDS: INSULIN, REG.(HUMAN) 250 UNITS in SODIUM CHL 0.9% 250ML (AVIVA) 247.5 ML IVPB SCH ×2 (10:58)
[2019-11-21] MEDS: ONDANSETRON INJ 4 MG/2 ML VIAL IV ONE (11:00)
[2019-11-21] MEDS: INSULIN, REG.(HUMAN) 100 U/ML VIAL IV ONE (11:00)
[2019-11-21] MEDS: HEPARIN SODIUM (PORCINE) 5,000 U/ML VIAL IV ONE (11:01)
--- NOTE | 2019-11-21 12:09 | CT ---
EXAM DESCRIPTION: Abdoment/Pelvis w/o Contrast: Computed Tomography. CLINICAL HISTORY: 29 years Female DKA, AMS COMPARISON: CT scan of the chest and CT scan of the head and chest x-ray on this visit with CT scan abdomen and pelvis October 10. TECHNIQUE: Spiral-axial scans 2.5 x 2.5 mm intervals through the abdomen and pelvis without oral or IV contrast. Coronal and sagittal 2.0 mm reconstructions. Total Exam DLP: 418 mGy-cm. This exam was performed according to our departmental CT dose-optimization program which includes automated exposure control, adjustment of the mA and/or kV according to patient size and/or use of iterative reconstruction technique; to reduce radiation dose to as low as reasonably achievable (ALARA). Technically difficult study due to positioning of patient's arms and hand overlying the right upper quadrant of the abdomen. FINDINGS: Lung bases and pleura: Please refer to images and report from CT scan of the chest. Liver, stomach, spleen, and adrenal glands: Long axis right hepatic lobe 18.3 cm. Ascites again seen around the liver, spleen, and gallbladder/Morison's pouch. Difficult visualization of the stomach and adrenal glands. Spleen is negative. Duodenum is minimally distended by fluid with air-fluid levels in the third portion. Pancreas, Gallbladder, and Ducts: Gallbladder surrounded by fluid. Mesenteric stranding in the upper abdomen and around the pancreas. Duct is not well seen. Kidneys and Ureters: 3 mm stone in the superior collecting system right kidney but no stones in the left kidney. Bilateral pararenal stranding stable, and ureters are negative. Mesentery: Ascites, fluid in the cul-de-sac, and diffuse fatty stranding with bilateral pericolonic fascial thickening. Aorta: Moderate atherosclerotic calcification mid and distal aspects is stable. Small Bowel: Minimal distention with fluid proximally more gas distally with no significant air-fluid levels. Terminal Ileum/Cecum: Normal caliber including the appendix. Radiodense appearance of the appendix stable since the prior study. Minimal fluid in the bilateral paracolic gutters decreased since the prior study. Colon: Fecal matter with no distention or significant air-fluid levels minimal to moderate constipation more distally. Pelvic Organs: Uterus retroflexed with calcifications. Moderate fluid in the cul-de-sac and right adnexa more than left. No radiodense stones in the urinary bladder. Spine and Bony Pelvis: Density slightly decreased. Minimal narrowing bilateral hip joints. Abdominal Wall/Back Soft Tissues: Minimal edema/anasarca similar to the prior study. Tiny diastases umbilicus not containing bowel. IMPRESSION: Limited study due to artifact from patient's arms and diffuse mesenteric edema and ascites. Ascites has decreased since the prior study. Also fluid in the cul-de-sac. Hepatic enlargement is stable. Gallbladder surrounded by fluid and evaluation is limited. 3 mm radiodense stone versus artifact in the upper collecting system of the right kidney not seen on the prior study. No hydronephrosis or hydroureter bilaterally. Radiodense appendix is stable. Constipation mid and distal colon. Electronically signed by: Bobby Sanchez MD 11/21/2019 12:08 PM CDT
[2019-11-21] MEDS: PIPERACILLIN/TAZOBACTAM 2.25 GM in SODIUM CHLORIDE 0.9% 50ML 50 ML IVPB ONE (12:28)
--- NOTE | 2019-11-21 12:32 | CT ---
EXAM DESCRIPTION: Chest w/o Contrast : Computed Tomography. CLINICAL HISTORY: 29 years Female DKA, AMS question history of COVID-19. COMPARISON: Portable chest x-ray today and November 14. CT scan abdomen and head also today. No prior chest CT scans.. TECHNIQUE: Spiral-axial scans at 5 x 5 mm intervals through the lungs and thorax without IV contrast. 2.5 x 5 mm lung algorithm axial reconstructions. Coronal and sagittal 2.0 Mm reconstructions. Total Exam DLP: 176 mGy-cm. This exam was performed according to our departmental dose-optimization program which includes automated exposure control, adjustment of the mA and/or kV according to patient size and/or use of iterative reconstruction technique; to reduce radiation dose to as low as reasonably achievable (ALARA). Nodule measurements under 10 mm are given as mean value of 3 axes diameters. FINDINGS: Lungs and large airways: Mosaic density in the upper lung dominguez bilaterally, more central. Peripheral groundglass opacities in the bilateral upper lobes more on the right. Also mosaic density in the central right middle lobe, [id number]. Bilateral [id number] Mosaic densities and groundglass opacities in the lower lobes mostly peripheral. The lung bases show no significant changes compared to the lung bases seen on the prior abdominal CT scan on June 18, except current infiltrates are less nodular. Pleural spaces: Right pleural effusion has decreased since the prior study. No pneumothorax. Mediastinum and Susan: Evaluation limited due to lack of IV contrast small lymph nodes but difficult to evaluate due to respiratory motion and scattering artifact from central line. Great vessels and Heart: Evaluation limited due to lack of IV contrast. VAD right subclavian to superior vena cava with tip in the right atrium. Cardiomegaly. Soft tissues of neck base, axillae, and chest wall: Evaluation limited due to lack of IV contrast. Edema in the chest wall similar to the prior study. Bilateral metallic nipple piercings. Left subclavian stent. Upper abdomen: Please see CT scan abdomen and pelvis images and report on this visit. Osseous structures: Minimal concavities mid thoracic endplates. Decreased bone density for age. IMPRESSION: 1. Mosaic densities central to peripheral and groundglass opacities peripheral more numerous in the lower lung dominguez than the upper lung dominguez. Similar appearance on the prior abdominal CT scan which included the bilateral lung bases. Groundglass opacities are more nodular on the prior study. Right pleural effusion has decreased. Recommend correlation for previous or current COVID-19 infection. Other possibilities include other viral processes, mycobacterial and other unusual bacterial pneumonia is and fungal pneumonias. 2. VAD via right subclavian with tip in the right atrium. Electronically signed by: Bobby Sanchez MD 11/21/2019 12:31 PM CDT
--- NOTE | 2019-11-21 12:40 | CT ---
EXAM DESCRIPTION: Head: Computed Tomography. CLINICAL HISTORY: AMS, DKA COMPARISON: CT scan of the head without contrast November 2018. TECHNIQUE: Non-helical axial scans through the skull and brain, at 2.5 x 20 mm intervals, non-contrast. Coronal and sagittal 2.0 mm reconstructions. Total Exam DLP: 1075 mGy-cm. This exam was performed according to our departmental dose-optimization program which includes automated exposure control, adjustment of the mA and/or kV according to patient size and/or use of iterative reconstruction technique; to reduce radiation dose to as low as reasonably achievable (ALARA). Technically difficult study due to patient head motion due to altered mental status. FINDINGS: No intra-axial hemorrhage, no mass-effect, and no midline shift. Normal hayden-white matter differentiation. No abnormal radiodense material in the brain parenchyma. Vascular calcifications not present; physiologic calcifications in the pineal gland and choroid plexus. No effacement or displacement of the ventricles, CSF spaces, or subdural spaces. No extra axial fluid collection or hemorrhage. No gross abnormalities of the bony calvarium. Mastoid air cells are negative. Air-fluid level in the left maxillary antrum with mucoperiosteal thickening. Minimal mucoperiosteal thickening right maxillary antrum. Fluid in the anterior left ethmoid air cells with bilateral mucoperiosteal thickening in the ethmoid air cells and in the left frontal sinus with the frontal sinuses hypoplastic. IMPRESSION: 1. No hemorrhage, no mass effect, no midline shift. Normal noncontrast head CT scan taking into account artifact from patient head motion. Please See above. 2. Acute left maxillary sinusitis with chronic sinusitis involving multiple cavities. 3. CT scans are insensitive for detecting small CVAs in the first 24 hours after onset. Evaluation of the brain stem is also limited. If symptoms persist, consider NON-EMERGENT MRI scan of the brain with diffusion imaging. Electronically signed by: Bobby Sanchez MD 11/21/2019 12:38 PM CDT
[2019-11-21 13:16] VITALS: BP 141/75
== END 2019-11-21 13:00 | disposition short-term general hospital (02) ==
LOC: ER 09:28
DX: U07.1 COVID-19 (principal); A41.9 Sepsis, unspecified organism; R41.82 Altered mental status, unspecified; E10.11 Type 1 diabetes mellitus with ketoacidosis with coma; I12.0 Hypertensive chronic kidney disease with stage 5 chronic kidney disease or end stage renal disease; N18.6 End stage renal disease; Z99.2 Dependence on renal dialysis; Z79.4 Long term (current) use of insulin
CPT/HCPCS: 36415; 36416; 36600; 70450; 71045; 71250; 74176; 80053; 82009; 82550; 82803; 82805; 82948; 83605; 83880; 84484; 84703; 85025; 85610; 85730; 87040; 87635; 87880; 93005; 94760; A4216; J1644; J2405; J2543

== ENCOUNTER 2019-12-16 06:20 | Emergency (ER) | payer MEDICARE, MEDICAID ==
[2019-12-16] MEDS ORDERED: SODIUM CHLORIDE 0.9% (FLUSH) 10 ML SYG IV PRN (06:21)
[2019-12-16] MEDS ORDERED: PROMETHAZINE HCL INJ 12.5 MG in SODIUM CHLORIDE 0.9% 50ML 50 ML IVPB ONE (06:28)
--- NOTE | 2019-12-16 06:36 | ED.PDOC ---
History of Present Illness - General Source: patient, EMS - History of Present Illness Initial Comments: 29-year-old female with past medical history of type 1 diabetes, end-stage renal disease on hemodialysis TTa who is bib EMS from [facility] for cc of high blood glucose. Reportedly she has had >450 D-stick checks since 2:30 am. Patient reports she has been feeling unwell all night long and worsening. Reports chief complaints of abdominal pain and nausea with numerous episodes of black emesis through the night. Abdominal pain is located to the epigastric region, constant, nauseating in character, 10/10 severity, radiates throughout the abdomen, worsens with vomiting and with any palpation, no medication taken for relief. Also reports symptoms of intermittent dry cough and dyspnea and subjective fevers. Patient did test positive for COVID-19 a couple weeks ago and was recently admitted to [facility] for pneumonia 2-3 weeks ago. Reports she was last dialyzed on Sunday and is due again today. Denies chest pain, sore throat, diarrhea, constipation. Pt reports she feels like she is in DKA. <Darren Hernandez - Last Filed: 12/16/19 06:47> <Joshua Estrada - Last Filed: 12/16/19 08:16> - General Time Seen by Provider: 12/16/19 06:20 - History of Present Illness Allergies/Adverse Reactions: Allergies Tuna Fish Allergy (Uncoded 11/21/19 09:44) Home Medications: Ambulatory Orders Insulin Aspart [Novolog] 3 unit SC TID 12/03/17 Promethazine HCl 25 mg PO Q6HR PRN 12/03/17 amLODIPine BESYLATE [Norvasc] 10 mg PO DAILY 01/24/18 Insulin Detemir [Levemir] 4 units SUBCU BID 05/22/18 Insulin Aspart (with Niacinami [Fiasp] 100 unit SC TID 09/06/18 Albuterol Sulfate Nebs [Proventil Nebs] 2.5 mg INH Q4HR PRN 10/01/18 Isosorbide Dinitrate-Hydralazi [Bidil 20-37.5 mg] 20 mg PO Q8HR 10/01/18 Acetaminophen W/ Codeine [Tylenol W/ CODEINE #3] 1 ea PO Q4HR PRN 12/28/18 Clonidine HCl [Clonidine Hydrochloride] 0.2 mg PO TID 12/28/18 Sertraline HCl 50 mg PO DAILY 12/28/18 Calcium Acetate (Phosphate Bin [Calcium Acetate] 667 mg PO TID 02/05/19 Clonidine HCl [Clonidine Hydrochloride] 0.2 mg PO Q8HR 02/05/19 Docusate Sodium 100 mg PO BID 02/05/19 Gabapentin 100 mg PO BID 02/05/19 Glucagon HCl (Diagnostic) [Glucagon] 1 mg IM PRN PRN 02/05/19 Pantoprazole Tablet [Protonix] 40 mg PO DAILY 02/05/19 ALPRAZolam [Xanax] 0.25 mg PO 11/15/19 Alum & Mag Hydrox-Simethicone [Maalox Max] 1 melany PO Q4HR 11/15/19 Amitriptyline HCl [Amitriptyline Hydrochlori] 50 mg PO 11/15/19 Ascorbic Acid [Vitamin C-500 Timed Relea] 500 mg PO 11/15/19 Atenolol [Tenormin] 50 mg PO DAILY 11/15/19 Azithromycin 250 mg PO 11/15/19 Bumetanide 2 mg PO TID 11/15/19 Cyanocobalamin [B-12] 1,000 mcg PO 11/15/19 Folic Acid 1 mg PO DAILY 11/15/19 Guaifenesin [Eq Mucus ER] 600 mg PO BID 11/15/19 Hydralazine HCl [Hydralazine Hydrochloride] 100 mg PO TID 11/15/19 Ibuprofen [Hm Ibuprofen] 100 mg PO BID 11/15/19 Sucralfate Suspension [Carafate Suspension] 1 gm PO Q6HR 11/15/19 Review of Systems - Review of Systems Review of Systems: 12/16/19 06:36 as per HPI All other Systems: Reviewed and Negative <Darren Hernandez - Last Filed: 12/16/19 06:47> Past Medical History (General) - Patient Medical History Hx Seizures: No Hx Stroke: No Hx Dementia: No Hx Asthma: No Hx of COPD: No Hx Cardiac Disorders: No Hx Congestive Heart Failure: No Hx Pacemaker: No Hx Hypertension: Yes Hx Thyroid Disease: No Hx Diabetes: Yes Hx Gastroesophageal Reflux: Yes Hx Renal Disease: Yes - end stage; Dialysis MWF Hx Cancer: No Hx of HIV: No Hx Hepatitis C: No Hx MRSA: No - Vaccination History Hx Tetanus, Diphtheria Vaccination: Yes Hx Influenza Vaccination: Yes - 2018 Hx Pneumococcal Vaccination: No - Social History Hx Tobacco Use: No Hx Chewing Tobacco Use: No Hx Alcohol Use: No Hx Substance Use: No Hx Substance Use Treatment: No Hx Depression: No Hx Physical Abuse: No Hx Emotional Abuse: No Hx Suspected Abuse: No - Female History Patient : No <DavidDarren - Last Filed: 12/16/19 06:47> Family Medical History - Family History Mother Family History: Unknown Living Status: Unknown Hx Cardiac Disease: Yes - DAD Hx Family Diabetes: Yes - DAD Hx Family;Other: DAD-RHEUMATOID ARTHTRITIS <DavidIanw - Last Filed: 12/16/19 06:47> Physical Exam - Physical Exam General Appearance: Alert, Anxious, Ill Appearing Eye Exam: bilateral normal Ears, Nose, Throat: hearing grossly normal, other - dried black emesis noted around the mouth and nose, otherwise ENT inspection unremarkable Neck: full range of motion, supple, normal inspection Respiratory: lungs clear, normal breath sounds, other - slightly tachypneic without accessory muscle use Cardiovascular/Chest: normal peripheral pulses, regular rate, rhythm, no edema, no gallop, no JVD, no murmur Peripheral Pulses: radial,right: 2+, radial,left: 2+ Gastrointestinal/Abdominal: soft, abnormal bowel sounds - diminished throughout, distended, tenderness - moderately TTP throughout with some guarding Back Exam: normal inspection, no CVA tenderness Extremity: normal range of motion, non-tender, normal inspection, no pedal edema, no calf tenderness, normal capillary refill Neurologic: court deputy II-XII nml as tested, no motor/sensory deficits, alert, normal mood/affect, other - oriented to month, year, place, not to date Skin Exam: warm/dry, pallor <DavidDarren - Last Filed: 12/16/19 06:47> Progress - Progress Progress: 12/16/19 06:38 NV, abdominal pain -in setting of hyperglycemia -also with increased respiratory effort, hypoxia - usually on 2 L NC at [place], noted 76% SpO2 on RA upon arrival, improved to 95% on 5 L by NC -consider DKA, sepsis, diabetic gastroparesis, PNA, COVID-19, aspiration PNA, SBO, upper GI bleed, gastroenteritis/colitis, cholecystitis, pancreatitis, PE, ACS, pulmonary edema, other -stat sepsis and cardiac work-up, Phenergan 12.5 mg IV, CXR, KUB -will hand off to Dr. Estrada at shift change to f/u results and reevaluate patient. Anticipate need to transfer to higher LOC. Darren Hernandez MD Billing #[id number] <Darren Hernandez - Last Filed: 12/16/19 06:47> - Progress Progress: 12/16/19 07:49 Patient turned over to me from Dr. Hernandez. Patient reassessed and her vital signs are stable. Patient's labs have resulted and patient is in DKA. IV insulin bolus and insulin drip ordered along with sodium bicarb and IV fluids. Patient's d-dimer is elevated but this is nonspecific and may be elevated with critical illness I have low clinical concern for PE. Accepting facility to consider further studies as required. I have spoken with Dr. Aramis Lee, ED physician at [facility], who accepts patient in ED to ED transfer. Patient is stable and medically clear for transfer. Joshua Estrada MD 12/16/19 08:15 EKG: Normal sinus rhythm rate of 81, normal axis, normal QRS, nonspecific ST and T wave changes, negative STEMI. EKG read by Joshua Estrada MD. <Joshua Estrada - Last Filed: 12/16/19 08:16> Departure <Darren Hernandez - Last Filed: 12/16/19 06:47> - Departure Time of Disposition: 07:48 <Joshua Estrada - Last Filed: 12/16/19 08:16> - Departure Clinical Impression: Diabetic gastroparesis, Hyperglycemia, Hypoxia Nausea and vomiting Qualifiers: Vomiting type: unspecified Vomiting Intractability: intractable Qualified Code(s): R11.2 - Nausea with vomiting, unspecified Diabetic keto-acidosis Qualifiers: Diabetes mellitus type: type 1 Diabetes mellitus complication detail: without coma Qualified Code(s): E10.10 - Type 1 diabetes mellitus with ketoacidosis without coma Disposition: Transfer to Hospital Condition: Poor Home Medications: Ambulatory Orders Insulin Aspart [Novolog] 3 unit SC TID 12/03/17 Promethazine HCl 25 mg PO Q6HR PRN 12/03/17 amLODIPine BESYLATE [Norvasc] 10 mg PO DAILY 01/24/18 Insulin Detemir [Levemir] 4 units SUBCU BID 01/16/19 Insulin Aspart (with Niacinami [Fiasp] 100 unit SC TID 09/06/18 Albuterol Sulfate Nebs [Proventil Nebs] 2.5 mg INH Q4HR PRN 10/01/18 Isosorbide Dinitrate-Hydralazi [Bidil 20-37.5 mg] 20 mg PO Q8HR 10/01/18 Acetaminophen W/ Codeine [Tylenol W/ CODEINE #3] 1 ea PO Q4HR PRN 12/28/18 Clonidine HCl [Clonidine Hydrochloride] 0.2 mg PO TID 12/28/18 Sertraline HCl 50 mg PO DAILY 12/28/18 Calcium Acetate (Phosphate Bin [Calcium Acetate] 667 mg PO TID 02/05/19 Clonidine HCl [Clonidine Hydrochloride] 0.2 mg PO Q8HR 02/05/19 Docusate Sodium 100 mg PO BID 02/05/19 Gabapentin 100 mg PO BID 02/05/19 Glucagon HCl (Diagnostic) [Glucagon] 1 mg IM PRN PRN 02/05/19 Pantoprazole Tablet [Protonix] 40 mg PO DAILY 02/05/19 ALPRAZolam [Xanax] 0.25 mg PO 11/15/19 Alum & Mag Hydrox-Simethicone [Maalox Max] 1 melany PO Q4HR 11/15/19 Amitriptyline HCl [Amitriptyline Hydrochlori] 50 mg PO 11/15/19 Ascorbic Acid [Vitamin C-500 Timed Relea] 500 mg PO 11/15/19 Atenolol [Tenormin] 50 mg PO DAILY 11/15/19 Azithromycin 250 mg PO 11/15/19 Bumetanide 2 mg PO TID 11/15/19 Cyanocobalamin [B-12] 1,000 mcg PO 11/15/19 Folic Acid 1 mg PO DAILY 11/15/19 Guaifenesin [Eq Mucus ER] 600 mg PO BID 11/15/19 Hydralazine HCl [Hydralazine Hydrochloride] 100 mg PO TID 11/15/19 Ibuprofen [Hm Ibuprofen] 100 mg PO BID 11/15/19 Sucralfate Suspension [Carafate Suspension] 1 gm PO Q6HR 11/15/19 Critical Care Note - Critical Care Note Total Time (mins): 30 <Joshua Estrada - Last Filed: 12/16/19 08:16> Transfer to Outside Facility - Transfer Information Decision to Transfer Date: 12/16/19 Decision to Transfer Time: 07:48 Reason for Transfer: specialized care not available Accepting Provider:: Dr. Surinder Lee Accepting Facility: [facility] <Joshua Estrada - Last Filed: 12/16/19 08:16>
[2019-12-16 06:42] VITALS: O2SAT 100
[2019-12-16] MEDS ORDERED: INSULIN, REG.(HUMAN) 100 U/ML VIAL IV ONE (07:36)
[2019-12-16] MEDS ORDERED: SODIUM CHLORIDE 0.9% 1000ML 1,000 ML IVS ONE (07:37)
[2019-12-16] MEDS ORDERED: SODIUM BICARBONATE VIAL 50 MEQ/50 ML VIAL IV ONE (07:44)
[2019-12-16] MEDS ORDERED: INSULIN, REG.(HUMAN) 250 UNITS in SODIUM CHL 0.9% 250ML (AVIVA) 247.5 ML IVPB SCH ×2 (08:00)
[2019-12-16 08:38] VITALS: BP 145/84; TEMP 98.5
--- NOTE | 2019-12-16 20:10 | RAD ---
EXAM: XR Abdomen, 1 View CLINICAL HISTORY: The patient is 29 years old and is Female; abdominal pain, n/v TECHNIQUE: Single supine view of the abdomen/pelvis. COMPARISON: October 11, 2019. FINDINGS: Gastrointestinal tract: Stool throughout the colon. No bowel obstruction. Bones/joints: No acute fracture. IMPRESSION: Stool throughout the colon. No bowel obstruction. Electronically signed by: Celia Bolaños MD 12/16/2019 7:04 AM CDT
--- NOTE | 2019-12-16 20:10 | RAD ---
EXAM: XR Chest, 1 View CLINICAL HISTORY: The patient is 29 years old and is Female; high blood glucose TECHNIQUE: Single upright portable view of the chest. COMPARISON: November 21, 2019. FINDINGS: Lungs: Hazy bibasilar airspace opacities. Pleural space: Unremarkable. No pneumothorax. Heart: The cardiac silhouette is enlarged versus artifact of AP technique. Cardiomediastinal silhouette is not significantly changed given the differences in technique. Mediastinum: See above. Bones/joints: The bones and joints are unchanged as visualized. Soft tissues: Bilateral nipple piercings. Left axillary/upper extremity vascular stent again noted. Tubes, lines and devices: Right-sided chest port again noted with the catheter tip in the right atrium. Upper abdomen: No free air in the visualized upper abdomen. IMPRESSION: 1. Hazy bibasilar airspace opacities. 2. Right-sided chest port again noted with the catheter tip in the right atrium. Electronically signed by: Celia Bolaños MD 12/16/2019 7:03 AM CDT
== END 2019-12-16 08:37 | disposition short-term general hospital (02) ==
LOC: ER 06:20
DX: E10.10 Type 1 diabetes mellitus with ketoacidosis without coma (principal); E10.43 Type 1 diabetes mellitus with diabetic autonomic (poly)neuropathy; E10.65 Type 1 diabetes mellitus with hyperglycemia; K31.84 Gastroparesis; R09.02 Hypoxemia; U07.1 COVID-19; E10.22 Type 1 diabetes mellitus with diabetic chronic kidney disease; I12.0 Hypertensive chronic kidney disease with stage 5 chronic kidney disease or end stage renal disease; N18.6 End stage renal disease; K21.9 Gastro-esophageal reflux disease without esophagitis; Z87.01 Personal history of pneumonia (recurrent); Z99.2 Dependence on renal dialysis; Z99.81 Dependence on supplemental oxygen; Z79.4 Long term (current) use of insulin; Z79.899 Other long term (current) drug therapy
CPT/HCPCS: 36415; 36416; 36600; 71045; 74018; 80053; 82009; 82150; 82803; 82805; 82948; 83605; 83690; 85025; 85379; 85610; 85730; 87040; 87070; 87635; 87880; 93005; A4216; J2550; J7030

== ENCOUNTER 2020-01-23 08:45 | Emergency (ER) | payer MEDICARE, MEDICAID ==
--- NOTE | 2020-01-23 09:30 | ED.PDOC ---
History of Present Illness - General Chief Complaint: Fever Stated Complaint: fever Time Seen by Provider: 01/23/20 09:13 - History of Present Illness Initial Comments: 29 yo F PMH HTN DM HL ESRD multiple comorbidities presents to ED after dental work yesterday not on antibiotics c/o fever at home of 101. Reports her kidney DrSabrina Johnston wanted her to have a covid test. Pt. is on home oxygen normally. Dialysis is today at 10:30am. Denies cough sob recent travel or contact with covid19. Denies chills nausea vomiting diarrhea chest pain sob diaphoresis. No change in diet rest bowel or bladder. Admits smoking denies drinking states 'I just want a covid test so I can make it to dialysis' Has PMD for follow up no other c/o today. PPE worn-N95 surgical mask with attached face shield over N95 goggles gloves and face shield over that Review of Systems - Review of Systems Constitutional: States: see HPI EENTM: States: see HPI Respiratory: States: see HPI Cardiology: States: see HPI Gastrointestinal/Abdominal: States: see HPI Genitourinary: States: see HPI Musculoskeletal: States: see HPI Skin: States: see HPI Neurological: States: see HPI Endocrine: States: see HPI All other Systems: Reviewed and Negative Past Medical History (General) - Patient Medical History Hx Seizures: No Hx Stroke: No Hx Dementia: No Hx Asthma: No Hx of COPD: No Hx Cardiac Disorders: No Hx Congestive Heart Failure: No Hx Pacemaker: No Hx Hypertension: Yes Hx Thyroid Disease: No Hx Diabetes: Yes Hx Gastroesophageal Reflux: Yes Hx Renal Disease: Yes - end stage; Dialysis MWF Hx Cancer: No Hx of HIV: No Hx Hepatitis C: No Hx MRSA: No - Vaccination History Hx Tetanus, Diphtheria Vaccination: Yes Hx Influenza Vaccination: Yes Hx Pneumococcal Vaccination: No - Social History Hx Tobacco Use: Yes Hx Chewing Tobacco Use: No Hx Alcohol Use: No Hx Substance Use: No Hx Substance Use Treatment: No Hx Depression: No Hx Physical Abuse: No Hx Emotional Abuse: No Hx Suspected Abuse: No - Activities of Daily Living [facility]isted Living (if applicable):: [facility]ina [facility] - Female History Patient : No Family Medical History - Family History Mother Family History: Unknown Living Status: Unknown Hx Cardiac Disease: Yes - DAD Hx Family Diabetes: Yes - DAD Hx Family;Other: DAD-RHEUMATOID ARTHTRITIS Physical Exam - Physical Exam General Appearance: No apparent distress Eye Exam: bilateral normal ENT Exam: normal ENT inspection Neck: non-tender, full range of motion Respiratory: no respiratory distress Cardiovascular/Chest: regular rate, rhythm Gastrointestinal/Abdominal: non tender, soft Extremity: normal range of motion, non-tender Neurologic: no motor/sensory deficits Skin Exam: normal color Progress - Progress Progress: 01/23/20 09:30 A/P-Fever, ESRD, Covid Counselling Dental Pain-respiratory panel 2 covid precautions and counselling call with results d/c tylenol augmentin Departure - Departure Clinical Impression: Counseled about COVID-19 virus infection, ESRD (end stage renal disease), Pain, dental Fever Qualifiers: Fever type: unspecified Qualified Code(s): R50.9 - Fever, unspecified Time of Disposition: 09:33 Disposition: Discharge to Home or Self Care Condition: Good Departure Forms: ED Discharge - Pt. Copy, Patient Portal Self Enrollment Referrals: Mukesh Flowers MD [Primary Care Provider] - 1-2 Days Prescriptions: Amoxicillin & Pot Clavulanate [Augmentin Tab] 875 mg PO BID 10 Days #20 tab Acetaminophen [Tylenol] 650 mg PO Q6H PRN #30 tab PRN Reason: Pain Home Medications: Ambulatory Orders Insulin Aspart [Novolog] 0 unit SC BEDTIME 12/03/17 Promethazine HCl 25 mg PO Q6HR PRN 12/03/17 amLODIPine BESYLATE [Norvasc] 10 mg PO DAILY 01/24/18 Insulin Detemir [Levemir] 5 units SUBCU BID 05/22/18 Insulin Aspart (with Niacinami [Fiasp] 100 unit SC TID 09/06/18 Albuterol Sulfate Nebs [Proventil Nebs] 2.5 mg INH Q4HR PRN 10/01/18 Acetaminophen W/ Codeine [Tylenol W/ CODEINE #3] 1 ea PO Q6H PRN 12/28/18 Sertraline HCl 50 mg PO DAILY 12/28/18 Calcium Acetate (Phosphate Bin [Calcium Acetate] 667 mg PO TID 02/05/19 Clonidine HCl [Clonidine Hydrochloride] 0.1 mg PO Q8HR 02/05/19 Docusate Sodium 100 mg PO BID PRN 02/05/19 Gabapentin 600 mg PO BEDTIME 02/05/19 Glucagon HCl (Diagnostic) [Glucagon] 1 mg IM PRN PRN 02/05/19 Pantoprazole Tablet [Protonix] 40 mg PO DAILY 02/05/19 ALPRAZolam [Xanax] 0.5 mg PO Q8H PRN 11/15/19 Alum & Mag Hydrox-Simethicone [Maalox Max] 1 melany PO Q4HR 11/15/19 Amitriptyline HCl [Amitriptyline Hydrochlori] 50 mg PO BEDTIME 11/15/19 Ascorbic Acid [Vitamin C-500 Timed Relea] 1,000 mg PO DAILY 11/15/19 Atenolol [Tenormin] 50 mg PO DAILY 11/15/19 Bumetanide 2 mg PO TID 11/15/19 Cyanocobalamin [B-12] 1,000 mcg PO DAILY 11/15/19 Guaifenesin [Eq Mucus ER] 800 mg PO Q8H PRN 11/15/19 Hydralazine HCl [Hydralazine Hydrochloride] 100 mg PO .TID-[id number] 11/15/19 Ibuprofen [Hm Ibuprofen] 400 mg PO Q6H PRN 11/15/19 Sucralfate Suspension [Carafate Suspension] 1 gm PO QID 11/15/19 Acetaminophen [Tylenol] 500 mg PO Q6H PRN 01/23/20 Acetaminophen [Tylenol] 650 mg PO Q6H PRN #30 tab 01/23/20 Amoxicillin & Pot Clavulanate [Augmentin Tab] 875 mg PO BID 10 Days #20 tab 01/23/20 Cholecalciferol [Vitamin D3] 10,000 unit PO DAILY 01/23/20 Fluticasone Propionate (Nasal) [Fluticasone Propionate Na] 50 mcg NA DAILY 01/23/20 Isosorbide Mononitrate [Isosorbide Mononitrate ER] 60 mg PO .DAILY-MOWEFR 01/23/20 Metoclopramide HCl 5 mg PO QID 01/23/20 Zinc 50 mg PO DAILY 01/23/20
[2020-01-23 10:09] VITALS: BP 190/99; TEMP 97.1; O2SAT 97
== END 2020-01-23 10:09 | disposition home or self-care (01) ==
LOC: ER 08:45
DX: R50.9 Fever, unspecified (principal); E11.22 Type 2 diabetes mellitus with diabetic chronic kidney disease; I12.0 Hypertensive chronic kidney disease with stage 5 chronic kidney disease or end stage renal disease; N18.6 End stage renal disease; Z99.2 Dependence on renal dialysis; Z20.828 Contact with and (suspected) exposure to other viral communicable diseases; Z99.81 Dependence on supplemental oxygen; F17.200 Nicotine dependence, unspecified, uncomplicated; Z79.899 Other long term (current) drug therapy

== ENCOUNTER 2020-04-02 10:20 | Emergency (ER) | payer MEDICARE, MEDICAID ==
[2020-04-02] MEDS: cloNIDine HCL 0.1 MG TAB PO ONE ×2 (10:50→11:22)
[2020-04-02 10:54] VITALS: TEMP 98.2
[2020-04-02] MEDS: amLODIPine BESYLATE 5 MG TAB PO ONE ×2 (11:03→11:22)
[2020-04-02] MEDS: ATENOLOL 25 MG TAB PO ONE ×2 (11:04→11:22)
[2020-04-02] MEDS ORDERED: IPRATROPIUM/ALBUTEROL 3 ML VIAL NEB ONE (11:14)
[2020-04-02] MEDS ORDERED: PENICILLIN BENZATHINE 1.2 MU 1.2 MU/2 ML SYG IM ONE (11:15)
[2020-04-02] MEDS ORDERED: PROMETHAZINE HCL INJ 25 MG in SODIUM CHLORIDE 0.9% 50ML 50 ML IVPB ONE (11:17)
[2020-04-02] MEDS ORDERED: METOPROLOL TARTRATE INJ 5 MG/5 ML VIAL IV ONE (11:18)
[2020-04-02] MEDS: FUROSEMIDE INJ 40 MG/4 ML VIAL IV ONE ×2 (11:32→11:33)
--- NOTE | 2020-04-02 11:41 | CT ---
EXAM DESCRIPTION: CT abdomen and pelvis without contrast CLINICAL HISTORY: Dyspnea. Decreased oral intake. Anasarca. COMPARISON: 11/21/2019 TECHNIQUE: Spiral CT with multiplanar reformatted images. This exam was performed according to our departmental dose-optimization program, which includes automated exposure control, adjustment of the mA and/or kV according to patient size and/or use of iterative reconstruction technique. FINDINGS: Cardiomegaly. Interstitial round glass opacities in the bilateral lung bases and a partially visualized right middle lobe and lingula left upper lobe. Nonspecific. No dense alveolar consolidation. Small right pleural effusion And anasarca with diffuse body edema. Moderate volume of ascites. No focal abnormality of the liver, spleen, pancreas, adrenal glands or kidneys. No diagnostic abnormality of the gallbladder. No biliary or pancreatic duct dilation No mass lesion or inflammatory process in the stomach, small or large intestine. No inflammation of the appendix. High density may represent a appendicolith or retained barium Pelvic viscera is normal No mass or adenopathy in the omentum, mesentery or retroperitoneum. Subcentimeter reactive lymph nodes in the retroperitoneum.. No acute bony abnormality. Osteopenia IMPRESSION: Cardiomegaly, interstitial groundglass infiltrates which probably represents edema although is nonspecific and can be seen with infectious infiltrate. Right pleural effusion, anasarca and moderate volume of ascites No diagnostic acute inflammatory process. No mass or adenopathy identified Electronically signed by: Luciano Zhang MD 04/02/2020 11:40 AM [employer]
--- NOTE | 2020-04-02 11:41 | RAD ---
EXAM DESCRIPTION: Chest,1 View CLINICAL HISTORY: 29 years Female, rales, ronchi COMPARISON: 12/16/2019 TECHNIQUE: Single view radiograph of the chest. IMPRESSION: Enlarged cardiac silhouette. Right chest wall port in place with catheter terminating at the cavoatrial junction. Right greater than left perihilar opacification may represent congestion versus infection such as bronchitis. No pleural effusion or pneumothorax. Included osseous structures intact. Electronically signed by: Haris Lan MD 04/02/2020 11:40 AM [facility]
--- NOTE | 2020-04-02 11:55 | ED.PDOC ---
History of Present Illness - General Chief Complaint: General Stated Complaint: facial swelling, lethargy, altered mental status Time Seen by Provider: 04/02/20 10:20 Source: patient Exam Limitations: no limitations - History of Present Illness Initial Comments: The patient is a 29-year-old female presented emergency room secondary to reported altered mental status at the residential however the patient does not appear to be altered. She does have some significant anasarca when compared to previous visits. Her last dialysis was on the and she was due for d ialysis this morning. No fever. Her only new symptom otherwise besides nausea is a sore throat. She does have chronic nausea normally takes oral medications. Blood pressures are also elevated but patient is refusing her hypertension medication secondary to the nausea. No urine output which is not new. No other new symptoms. Timing/Duration: unsure Severity: mild Improving Factors: nothing Worsening Factors: nothing Associated Symptoms: cough Allergies/Adverse Reactions: Allergies Tuna Fish Allergy (Uncoded 04/02/20 10:45) Home Medications: Ambulatory Orders Insulin Aspart [Novolog] 0 unit SC BEDTIME 12/03/17 Promethazine HCl 25 mg PO Q6HR PRN 12/03/17 amLODIPine BESYLATE [Norvasc] 10 mg PO DAILY 01/24/18 Insulin Detemir [Levemir] 5 units SUBCU BID 05/22/18 Insulin Aspart (with Niacinami [Fiasp] 100 unit SC TID 09/06/18 Albuterol Sulfate Nebs [Proventil Nebs] 2.5 mg INH Q4HR PRN 10/01/18 Acetaminophen W/ Codeine [Tylenol W/ CODEINE #3] 1 ea PO Q6H PRN 12/28/18 Sertraline HCl 50 mg PO DAILY 12/28/18 Calcium Acetate (Phosphate Bin [Calcium Acetate] 667 mg PO TID 02/05/19 Clonidine HCl [Clonidine Hydrochloride] 0.1 mg PO Q8HR 02/05/19 Docusate Sodium 100 mg PO BID PRN 02/05/19 Gabapentin 600 mg PO BEDTIME 02/05/19 Glucagon HCl (Diagnostic) [Glucagon] 1 mg IM PRN PRN 02/05/19 Pantoprazole Tablet [Protonix] 40 mg PO DAILY 02/05/19 ALPRAZolam [Xanax] 0.5 mg PO Q8H PRN 11/15/19 Alum & Mag Hydrox-Simethicone [Maalox Max] 1 melany PO Q4HR 11/15/19 Amitriptyline HCl [Amitriptyline Hydrochlori] 50 mg PO BEDTIME 11/15/19 Ascorbic Acid [Vitamin C-500 Timed Relea] 1,000 mg PO DAILY 11/15/19 Atenolol [Tenormin] 50 mg PO DAILY 11/15/19 Bumetanide 2 mg PO TID 11/15/19 Cyanocobalamin [B-12] 1,000 mcg PO DAILY 11/15/19 Guaifenesin [Eq Mucus ER] 800 mg PO Q8H PRN 11/15/19 Hydralazine HCl [Hydralazine Hydrochloride] 100 mg PO .TID-TUTHSASU 11/15/19 Ibuprofen [Hm Ibuprofen] 400 mg PO Q6H PRN 11/15/19 Sucralfate Suspension [Carafate Suspension] 1 gm PO QID 11/15/19 Acetaminophen [Tylenol] 500 mg PO Q6H PRN 01/23/20 Acetaminophen [Tylenol] 650 mg PO Q6H PRN #30 tab 01/23/20 Amoxicillin & Pot Clavulanate [Augmentin Tab] 875 mg PO BID 10 Days #20 tab 01/23/20 Cholecalciferol [Vitamin D3] 10,000 unit PO DAILY 01/23/20 Fluticasone Propionate (Nasal) [Fluticasone Propionate Na] 50 mcg NA DAILY 01/23/20 Isosorbide Mononitrate [Isosorbide Mononitrate ER] 60 mg PO .DAILY-MOWEFR 01/23/20 Metoclopramide HCl 5 mg PO QID 01/23/20 Zinc 50 mg PO DAILY 01/23/20 Review of Systems - Review of Systems Constitutional: States: malaise EENTM: States: throat pain Respiratory: States: short of breath Cardiology: States: edema Gastrointestinal/Abdominal: States: nausea Genitourinary: States: no symptoms reported Musculoskeletal: States: no symptoms reported Skin: States: no symptoms reported Neurological: States: no symptoms reported Endocrine: States: no symptoms reported All other Systems: No Change from Baseline Past Medical History (General) - Patient Medical History Hx Seizures: No Hx Stroke: No Hx Dementia: No Hx Asthma: No Hx of COPD: No Hx Cardiac Disorders: No Hx Congestive Heart Failure: No Hx Pacemaker: No Hx Hypertension: Yes Hx Thyroid Disease: No Hx Diabetes: Yes Hx Gastroesophageal Reflux: Yes Hx Renal Disease: Yes - end stage; Dialysis MWF Hx Cancer: No Hx of HIV: No Hx Hepatitis C: No Hx MRSA: No Surgical History: tonsillectomy - Vaccination History Hx Tetanus, Diphtheria Vaccination: Yes Hx Influenza Vaccination: Yes Hx Pneumococcal Vaccination: No - Social History Hx Tobacco Use: Yes Hx Chewing Tobacco Use: No Hx Alcohol Use: No Hx Substance Use: No Hx Substance Use Treatment: No Hx Depression: No Hx Physical Abuse: No Hx Emotional Abuse: No Hx Suspected Abuse: No - Activities of Daily Living Long Term/Assisted Living (if applicable):: Minadari Meléndez - Female History Patient : No Family Medical History - Family History Mother Family History: Unknown Living Status: Unknown Hx Cardiac Disease: Yes - DAD Hx Family Diabetes: Yes - DAD Hx Family;Other: DAD-RHEUMATOID ARTHTRITIS Physical Exam - Physical Exam General Appearance: Alert, Comfortable, No apparent distress Eye Exam: bilateral normal Ears, Nose, Throat: hearing grossly normal, pharyngeal erythema Neck: full range of motion - She does have some JVD, supple Respiratory: no respiratory distress, no accessory muscle use, rales - Mild primarily at bases Cardiovascular/Chest: regular rate, rhythm, other - +2 edema. 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 She does have end-stage renal disease. She has hyperkalemia but is unable to tolerate oral Kayexalate at this time secondary to nausea related to her ascites. She also has poorly controlled hypertension due to decreased oral intake of her hypertension medications also due to above. I discussed the patient with Dr. Johnston who has agreed to take her here in [facility] for dialysis immediately today and likely tomorrow as well. She is not having any arrhythmia issues secondary to be hyperkalemia. EKG was reassuring. She has tolerated a dose of IV Lopressor well which has improved her blood pressure. laboratory work is also otherwise reassuring. The patient is going to be transferred to the local center for dialysis as soon as possible. ER warnings are given. She was given a dose of Bicillin LA here today for strep throat. stacy kowalski [id number] - Results/Orders Results/Orders: Chest x-ray is consistent with volume overload. CT scan of abdomen pelvis without contrast is also consistent with gross fluid overload including ascites and anasarca. Laboratory Tests 04/02/20 04/02/20 04/02/20 10:35 11:10 11:10 WBC 8.2 RBC 3.26 L Hgb 11.1 L Hct 34.2 L MCV 104.7 H MCH 34.1 H MCHC 32.6 L RDW 18.3 H Plt Count 162 MPV 9.7 Absolute Neuts (auto) 6.20 Absolute Lymphs (auto) 1.10 Absolute Monos (auto) 0.60 Absolute Eos (auto) 0.10 Absolute Basos (auto) 0.10 Neutrophils % 76.5 Lymphocytes % 13.7 L Monocytes % 7.2 Eosinophils % 1.3 Basophils % 1.3 PT 11.3 H INR 1.14 PTT (SP) 23.2 Sodium Potassium Chloride Carbon Dioxide Anion Gap BUN Creatinine BUN/Creatinine Ratio Random Glucose Serum Osmolality Lactic Acid Calcium Magnesium Total Bilirubin AST ALT Alkaline Phosphatase Serum Total Protein Albumin Globulin Albumin/Globulin Ratio Amylase Lipase Group A Strep Rapid Positive H 04/02/20 04/02/20 11:10 11:10 WBC RBC Hgb Hct MCV MCH MCHC RDW Plt Count MPV Absolute Neuts (auto) Absolute Lymphs (auto) Absolute Monos (auto) Absolute Eos (auto) Absolute Basos (auto) Neutrophils % Lymphocytes % Monocytes % Eosinophils % Basophils % PT INR PTT (SP) Sodium 139 Potassium 7.9 H* Chloride 101 Carbon Dioxide 20 L Anion Gap 25.9 H BUN 71 H Creatinine 5.48 H BUN/Creatinine Ratio 13.0 Random Glucose 198 H Serum Osmolality 303.9 H Lactic Acid 0.7 Calcium 8.8 Magnesium 2.5 Total Bilirubin 0.9 AST 17 ALT 28 Alkaline Phosphatase 258 H Serum Total Protein 6.8 Albumin 3.4 Globulin 3.4 Albumin/Globulin Ratio 1.0 L Amylase 13 L Lipase 24 Group A Strep Rapid - EKG/XRAY/CT CT Ordered: Yes CT Interpretation Call Back: No Departure - Departure Clinical Impression: Anasarca associated with disorder of kidney, End stage renal disease, Hypertension, uncontrolled, Hyperkalemia Disposition: Discharge to SNF Condition: Fair Departure Forms: ED Discharge - Pt. Copy, Patient Portal Self Enrollment Diet: diabetic diet Activity: increase activity as tolerated Referrals: Mukesh Flowers MD [Primary Care Provider] - 1-2 Weeks Home Medications: Ambulatory Orders Insulin Aspart [Novolog] 0 unit SC BEDTIME 12/03/17 Promethazine HCl 25 mg PO Q6HR PRN 12/03/17 amLODIPine BESYLATE [Norvasc] 10 mg PO DAILY 01/24/18 Insulin Detemir [Levemir] 5 units SUBCU BID 05/22/18 Insulin Aspart (with Niacinami [Fiasp] 100 unit SC TID 09/06/18 Albuterol Sulfate Nebs [Proventil Nebs] 2.5 mg INH Q4HR PRN 10/01/18 Acetaminophen W/ Codeine [Tylenol W/ CODEINE #3] 1 ea PO Q6H PRN 12/28/18 Sertraline HCl 50 mg PO DAILY 12/28/18 Calcium Acetate (Phosphate Bin [Calcium Acetate] 667 mg PO TID 02/05/19 Clonidine HCl [Clonidine Hydrochloride] 0.1 mg PO Q8HR 02/05/19 Docusate Sodium 100 mg PO BID PRN 02/05/19 Gabapentin 600 mg PO BEDTIME 02/05/19 Glucagon HCl (Diagnostic) [Glucagon] 1 mg IM PRN PRN 02/05/19 Pantoprazole Tablet [Protonix] 40 mg PO DAILY 02/05/19 ALPRAZolam [Xanax] 0.5 mg PO Q8H PRN 11/15/19 Alum & Mag Hydrox-Simethicone [Maalox Max] 1 melany PO Q4HR 11/15/19 Amitriptyline HCl [Amitriptyline Hydrochlori] 50 mg PO BEDTIME 11/15/19 Ascorbic Acid [Vitamin C-500 Timed Relea] 1,000 mg PO DAILY 11/15/19 Atenolol [Tenormin] 50 mg PO DAILY 11/15/19 Bumetanide 2 mg PO TID 11/15/19 Cyanocobalamin [B-12] 1,000 mcg PO DAILY 11/15/19 Guaifenesin [Eq Mucus ER] 800 mg PO Q8H PRN 11/15/19 Hydralazine HCl [Hydralazine Hydrochloride] 100 mg PO .TID-TUTHSASU 11/15/19 Ibuprofen [Hm Ibuprofen] 400 mg PO Q6H PRN 11/15/19 Sucralfate Suspension [Carafate Suspension] 1 gm PO QID 11/15/19 Acetaminophen [Tylenol] 500 mg PO Q6H PRN 01/23/20 Acetaminophen [Tylenol] 650 mg PO Q6H PRN #30 tab 01/23/20 Amoxicillin & Pot Clavulanate [Augmentin Tab] 875 mg PO BID 10 Days #20 tab 01/23/20 Cholecalciferol [Vitamin D3] 10,000 unit PO DAILY 01/23/20 Fluticasone Propionate (Nasal) [Fluticasone Propionate Na] 50 mcg NA DAILY 01/23/20 Isosorbide Mononitrate [Isosorbide Mononitrate ER] 60 mg PO .DAILY-MOWEFR 01/23/20 Metoclopramide HCl 5 mg PO QID 01/23/20 Zinc 50 mg PO DAILY 01/23/20 Additional Instructions: The patient is a 29-year-old female presented to the emergency room due to problems related to fluid overload and need for dialysis. She does have end-stage renal disease. She has hyperkalemia but is unable to tolerate oral Kayexalate at this time secondary to nausea related to her ascites. She also has poorly controlled hypertension due to decreased oral intake of her hypertension medications also due to above. I discussed the patient with Dr. Johnston who has agreed to take her here in town for dialysis immediately today and likely tomorrow as well. She is not having any arrhythmia issues secondary to be hyperkalemia. EKG was reassuring. She has tolerated a dose of IV Lopressor well which has improved her blood pressure. laboratory work is also otherwise reassuring. The patient is going to be transferred to the local center for dialysis as soon as possible. ER warnings are given. She was given a dose of Bicillin LA here today for strep throat.
[2020-04-02] MEDS ORDERED: MORPHINE SULFATE INJ 10 MG/ML VIAL IV ONE (12:06)
[2020-04-02 12:47] VITALS: BP 198/122; O2SAT 97
== END 2020-04-02 12:35 ==
LOC: ER 10:20
DX: N04.9 Nephrotic syndrome with unspecified morphologic changes (principal); N18.6 End stage renal disease; J02.0 Streptococcal pharyngitis; E87.5 Hyperkalemia; R11.0 Nausea; I12.0 Hypertensive chronic kidney disease with stage 5 chronic kidney disease or end stage renal disease; E11.22 Type 2 diabetes mellitus with diabetic chronic kidney disease; K21.9 Gastro-esophageal reflux disease without esophagitis; Z99.2 Dependence on renal dialysis; Z87.891 Personal history of nicotine dependence; Z79.899 Other long term (current) drug therapy; Z79.4 Long term (current) use of insulin; Z91.013 Allergy to seafood; Z91.14 Patient's other noncompliance with medication regimen
CPT/HCPCS: 36415; 71045; 74176; 80053; 82150; 83605; 83690; 83735; 85025; 85610; 85730; 87040; 87502; 87880; 93005; 94640; A4216; J0561; J1940; J2270; J2550; J7620

== ENCOUNTER 2020-05-03 16:08 | Emergency (ER) | payer MEDICARE, OTHER ==
[2020-05-03] MEDS ORDERED: PROMETHAZINE HCL INJ 25 MG in SODIUM CHLORIDE 0.9% 50ML 50 ML IVPB ONE (16:20)
[2020-05-03] MEDS ORDERED: DEXTROSE 50% 25 GM/50 ML SYG IV ONE (16:50)
[2020-05-03] MEDS ORDERED: HYDROmorphone HCL INJ 2 MG/ML VIAL IV ONE (17:46)
[2020-05-03] MEDS ORDERED: predniSONE 20 MG TAB PO ONE (17:46)
[2020-05-03] MEDS ORDERED: CETIRIZINE HCL 10 MG TAB PO ONE (17:47)
--- NOTE | 2020-05-03 18:24 | ED.PDOC ---
History of Present Illness - General Chief Complaint: General Stated Complaint: swellig, pain, bruising left arm and fistula Time Seen by Provider: 05/03/20 16:20 Source: patient Exam Limitations: no limitations - History of Present Illness Initial Comments: The patient is a 30-year-old female presented emergency room from the [facility] and dialysis secondary to apparently having had an allergic reaction at dialysis. The patient was receiving a vancomycin and Venofer infusion when she started having the allergic reaction with shortness of breath and nausea and vomiting. She received Solu-Medrol and Benadryl there. She is still having some nausea here. Lung dominguez are clear. She does not normally require some supplemental oxygen and she still does. She is reporting some abdominal cramping as well as pain in the left upper extremity. She has had some complications with her left upper extremity fistula over the past week to [address] Johnston was wanting her to come to the emergency room to be sent to [facility] emergency room for Dr. Whalen to evaluate her shunt. Unfortunately there is no room at the [facility] emergency room so Dr. Johnston was arranged for her to be seen in Dr. Whalen's clinic likely tomorrow. Blood pressures are moderately elevated upon arrival here. No evidence of oropharyngeal or posterior oropharyngeal swelling. No evidence of respiratory distress. No evidence of altered mental status with the exception of some drowsiness. It was found the patient was mildly hypoglycemic with a blood sugar of 52 here. Timing/Duration: 1-3 hours Severity: moderate Improving Factors: medication Worsening Factors: nothing Associated Symptoms: malaise, shortness of breath - Now resolved Allergies/Adverse Reactions: Allergies Tuna Fish Allergy (Uncoded 05/03/20 16:28) Home Medications: Ambulatory Orders Insulin Aspart [Novolog] 0 unit SC BEDTIME 12/03/17 Promethazine HCl 25 mg PO Q6HR PRN 12/03/17 amLODIPine BESYLATE [Norvasc] 10 mg PO DAILY 01/24/18 Insulin Detemir [Levemir] 5 units SUBCU BID 05/22/18 Insulin Aspart (with Niacinami [Fiasp] 100 unit SC TID 09/06/18 Albuterol Sulfate Nebs [Proventil Nebs] 2.5 mg INH Q4HR PRN 10/01/18 Acetaminophen W/ Codeine [Tylenol W/ CODEINE #3] 1 ea PO Q6H PRN 12/28/18 Sertraline HCl 50 mg PO DAILY 12/28/18 Calcium Acetate (Phosphate Bin [Calcium Acetate] 667 mg PO TID 02/05/19 Clonidine HCl [Clonidine Hydrochloride] 0.1 mg PO Q8HR 02/05/19 Docusate Sodium 100 mg PO BID PRN 02/05/19 Gabapentin 600 mg PO BEDTIME 02/05/19 Glucagon HCl (Diagnostic) [Glucagon] 1 mg IM PRN PRN 02/05/19 Pantoprazole Tablet [Protonix] 40 mg PO DAILY 02/05/19 ALPRAZolam [Xanax] 0.5 mg PO Q8H PRN 11/15/19 Alum & Mag Hydrox-Simethicone [Maalox Max] 1 melany PO Q4HR 11/15/19 Amitriptyline HCl [Amitriptyline Hydrochlori] 50 mg PO BEDTIME 11/15/19 Ascorbic Acid [Vitamin C-500 Timed Relea] 1,000 mg PO DAILY 11/15/19 Atenolol [Tenormin] 50 mg PO DAILY 11/15/19 Bumetanide 2 mg PO TID 11/15/19 Cyanocobalamin [B-12] 1,000 mcg PO DAILY 11/15/19 Guaifenesin [Eq Mucus ER] 800 mg PO Q8H PRN 11/15/19 Hydralazine HCl [Hydralazine Hydrochloride] 100 mg PO .TID-TUTHSASU 11/15/19 Ibuprofen [Hm Ibuprofen] 400 mg PO Q6H PRN 11/15/19 Sucralfate Suspension [Carafate Suspension] 1 gm PO QID 11/15/19 Acetaminophen [Tylenol] 500 mg PO Q6H PRN 01/23/20 Acetaminophen [Tylenol] 650 mg PO Q6H PRN #30 tab 01/23/20 Amoxicillin & Pot Clavulanate [Augmentin Tab] 875 mg PO BID 10 Days #20 tab 01/23/20 Cholecalciferol [Vitamin D3] 10,000 unit PO DAILY 01/23/20 Fluticasone Propionate (Nasal) [Fluticasone Propionate Na] 50 mcg NA DAILY 01/23/20 Isosorbide Mononitrate [Isosorbide Mononitrate ER] 60 mg PO .DAILY-MOWEFR 01/23/20 Metoclopramide HCl 5 mg PO QID 01/23/20 Zinc 50 mg PO DAILY 01/23/20 Review of Systems - Review of Systems Constitutional: States: malaise, weakness - Generalized EENTM: States: no symptoms reported Respiratory: States: short of breath - Resolved Cardiology: States: no symptoms reported Gastrointestinal/Abdominal: States: nausea, vomiting Musculoskeletal: States: see HPI Skin: States: no symptoms reported, see HPI - The patient does have some bruising to the left upper extremity as well as some swelling to the left upper extremity. She does have a palpable thrill still in the shunt but there is a area of proximal hardness. Neurological: States: anxiety All other Systems: No Change from Baseline Past Medical History (General) - Patient Medical History Hx Seizures: No Hx Stroke: No Hx Dementia: No Hx Asthma: No Hx of COPD: No Hx Cardiac Disorders: No Hx Congestive Heart Failure: No Hx Pacemaker: No Hx Hypertension: Yes Hx Thyroid Disease: No Hx Diabetes: Yes Hx Gastroesophageal Reflux: Yes Hx Renal Disease: Yes - end stage; Dialysis MWF Hx Cancer: No Hx of HIV: No Hx Hepatitis C: No Hx MRSA: No - Vaccination History Hx Tetanus, Diphtheria Vaccination: Yes Hx Influenza Vaccination: Yes Hx Pneumococcal Vaccination: No - Social History Hx Tobacco Use: Yes Hx Chewing Tobacco Use: No Hx Alcohol Use: No Hx Substance Use: No Hx Substance Use Treatment: No Hx Depression: No Hx Physical Abuse: No Hx Emotional Abuse: No Hx Suspected Abuse: No - Activities of Daily Living Senior Care/Assisted Living (if applicable):: Mina Meléndez - Female History Patient : No Family Medical History - Family History Mother Family History: Unknown Living Status: Unknown Hx Cardiac Disease: Yes - DAD Hx Family Diabetes: Yes - DAD Hx Family;Other: DAD-RHEUMATOID ARTHTRITIS Physical Exam - Physical Exam General Appearance: Frail, Other - Mildly drowsy. Eye Exam: bilateral normal Ears, Nose, Throat: hearing grossly normal, normal pharynx Neck: non-tender, supple Respiratory: lungs clear, normal breath sounds, no respiratory distress, no accessory muscle use Cardiovascular/Chest: normal peripheral pulses, no edema, other - Regular rate Peripheral Pulses: radial,right: 2+, radial,left: 2+ Gastrointestinal/Abdominal: soft, other - Mild epigastric discomfort to palpation. Rectal Exam: deferred Extremity: other - +1 pedal edema bilaterally. Pain to the area surrounding left upper extremity shunt. She does have +1 edema to the left upper extremity and mild scattered bruising there as well. She does have a palpable radial pulse there. 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 Johnston after the patient apparently had an allergic reaction at dialysis. The patient was to be evaluated here and then preferably sent to [facility] emergency room for Dr. Bradley to evaluate her left upper extremity shunt. There is absolutely no availability at [facility] at this time due to coronavirus. The patient appears to be doing fairly well from the standpoint of the allergic reaction. She received some pain and nausea medications here. She also received an amp of D50 for a mildly low glucose. Blood sugar has corrected and the patient is resting comfortably. No evidence of any respiratory compromise. The patient was given a dose of prednisone as well as Zyrtec. Dr. Johnston is arranging for her follow-up with a vascular surgeon tomorrow I believe. The thought at dialysis was that she had an allergic reaction to vancomycin. She also apparently received Venofer. She will be allowed to go back to the [facility] for her follow-up appointment tomorrow. The patient has been monitored here for almost 3 hours. stacy kowalski 747 - Results/Orders Results/Orders: Laboratory Results - last 24 hr 05/03/20 05/03/20 16:45 17:50 POC Glucose 52 L 161 H D - EKG/XRAY/CT CT Ordered: No CT Interpretation Call Back: No Departure - Departure Clinical Impression: Hypoglycemia Allergic reaction to drug Qualifiers: Encounter type: initial encounter Qualified Code(s): T78.40XA - Allergy, unspecified, initial encounter Complication of arteriovenous dialysis fistula Qualifiers: Encounter type: initial encounter Qualified Code(s): T82.9XXA - Unspecified complication of cardiac and vascular prosthetic device, implant and graft, initial encounter Disposition: Discharge to SNF Condition: Fair Departure Forms: ED Discharge - Pt. Copy, Patient Portal Self Enrollment Instructions: Adverse Drug Reactions, Adult (DC) Diet: diabetic diet Activity: increase activity as tolerated Referrals: Mukesh Flowers MD [Primary Care Provider] - 1-2 Weeks Home Medications: Ambulatory Orders Insulin Aspart [Novolog] 0 unit SC BEDTIME 12/03/17 Promethazine HCl 25 mg PO Q6HR PRN 12/03/17 amLODIPine BESYLATE [Norvasc] 10 mg PO DAILY 01/24/18 Insulin Detemir [Levemir] 5 units SUBCU BID 05/22/18 Insulin Aspart (with Niacinami [Fiasp] 100 unit SC TID 09/06/18 Albuterol Sulfate Nebs [Proventil Nebs] 2.5 mg INH Q4HR PRN 10/01/18 Acetaminophen W/ Codeine [Tylenol W/ CODEINE #3] 1 ea PO Q6H PRN 12/28/18 Sertraline HCl 50 mg PO DAILY 12/28/18 Calcium Acetate (Phosphate Bin [Calcium Acetate] 667 mg PO TID 02/05/19 Clonidine HCl [Clonidine Hydrochloride] 0.1 mg PO Q8HR 02/05/19 Docusate Sodium 100 mg PO BID PRN 02/05/19 Gabapentin 600 mg PO BEDTIME 02/05/19 Glucagon HCl (Diagnostic) [Glucagon] 1 mg IM PRN PRN 02/05/19 Pantoprazole Tablet [Protonix] 40 mg PO DAILY 02/05/19 ALPRAZolam [Xanax] 0.5 mg PO Q8H PRN 11/15/19 Alum & Mag Hydrox-Simethicone [Maalox Max] 1 melany PO Q4HR 11/15/19 Amitriptyline HCl [Amitriptyline Hydrochlori] 50 mg PO BEDTIME 11/15/19 Ascorbic Acid [Vitamin C-500 Timed Relea] 1,000 mg PO DAILY 11/15/19 Atenolol [Tenormin] 50 mg PO DAILY 11/15/19 Bumetanide 2 mg PO TID 11/15/19 Cyanocobalamin [B-12] 1,000 mcg PO DAILY 11/15/19 Guaifenesin [Eq Mucus ER] 800 mg PO Q8H PRN 11/15/19 Hydralazine HCl [Hydralazine Hydrochloride] 100 mg PO .TID-TUTHSASU 11/15/19 Ibuprofen [Hm Ibuprofen] 400 mg PO Q6H PRN 11/15/19 Sucralfate Suspension [Carafate Suspension] 1 gm PO QID 11/15/19 Acetaminophen [Tylenol] 500 mg PO Q6H PRN 01/23/20 Acetaminophen [Tylenol] 650 mg PO Q6H PRN #30 tab 01/23/20 Amoxicillin & Pot Clavulanate [Augmentin Tab] 875 mg PO BID 10 Days #20 tab 01/23/20 Cholecalciferol [Vitamin D3] 10,000 unit PO DAILY 01/23/20 Fluticasone Propionate (Nasal) [Fluticasone Propionate Na] 50 mcg NA DAILY 01/23/20 Isosorbide Mononitrate [Isosorbide Mononitrate ER] 60 mg PO .DAILY-MOWEFR 01/23/20 Metoclopramide HCl 5 mg PO QID 01/23/20 Zinc 50 mg PO DAILY 01/23/20 Additional Instructions: The patient is a 30-year-old female presented to emergency room secondary to being sent up here by Dr. Johnston after the patient apparently had an allergic reaction at dialysis. The patient was to be evaluated here and then preferably sent to [facility] emergency room for Dr. Bradley to evaluate her left upper extremity shunt. There is absolutely no availability at [facility] at this time due to coronavirus. The patient appears to be doing fairly well from the standpoint of the allergic reaction. She received some pain and nausea medications here. She also received an amp of D50 for a mildly low glucose. Blood sugar has corrected and the patient is resting comfortably. No evidence of any respiratory compromise. The patient was given a dose of prednisone as well as Zyrtec. Dr. Johnston is arranging for her follow-up with a vascular surgeon tomorrow I believe. The thought at dialysis was that she had an allergic reaction to vancomycin. She also apparently received Venofer. She will be allowed to go back to the [facility] for her follow-up appointment tomorrow. The patient has been monitored here for almost 3 hours.
[2020-05-03 19:03] VITALS: BP 134/73; TEMP 99.2; O2SAT 94
== END 2020-05-03 19:10 ==
LOC: ER 16:08
DX: R11.2 Nausea with vomiting, unspecified (principal); R06.02 Shortness of breath; T50.3X5A Adverse effect of electrolytic, caloric and water-balance agents, initial encounter; E11.649 Type 2 diabetes mellitus with hypoglycemia without coma; E11.22 Type 2 diabetes mellitus with diabetic chronic kidney disease; I12.0 Hypertensive chronic kidney disease with stage 5 chronic kidney disease or end stage renal disease; T82.898A Other specified complication of vascular prosthetic devices, implants and grafts, initial encounter; K21.9 Gastro-esophageal reflux disease without esophagitis; Y84.1 Kidney dialysis as the cause of abnormal reaction of the patient, or of later complication, without mention of misadventure at the time of the procedure; Z87.891 Personal history of nicotine dependence; Z99.2 Dependence on renal dialysis; Z91.013 Allergy to seafood; Z79.4 Long term (current) use of insulin; Z79.899 Other long term (current) drug therapy
CPT/HCPCS: 36416; 82948; A4216; J1170; J2550; J7512; J7799

== ENCOUNTER 2020-05-12 03:11 | Emergency (ER) | payer MEDICARE, OTHER ==
--- NOTE | 2020-05-12 04:04 | ED.PDOC ---
History of Present Illness - General Chief Complaint: GI Problem Stated Complaint: n/v Time Seen by Provider: 05/12/20 03:17 Information Source: patient Exam Limitations: other - PT IS A POOR HISTORIAN. - History of Present Illness Initial Comments: TODAY N/V AND ABD HURTS. LIVES IN SNF FOR ESRD. NONCOMPLIANT DM. Abdominal Pain Onset Location: generalized abdomen Quality: moderate, steady Improving Factors: nothing Worsening Factors: nothing Associated Symptoms: nausea/vomiting Review of Systems - Review of Systems Constitutional: States: no symptoms reported EENTM: States: no symptoms reported Respiratory: States: no symptoms reported Cardiology: States: no symptoms reported Gastrointestinal/Abdominal: States: abdominal pain, nausea, vomiting Genitourinary: States: no symptoms reported Musculoskeletal: States: no symptoms reported Skin: States: no symptoms reported Neurological: States: no symptoms reported Endocrine: States: no symptoms reported Hematologic/Lymphatic: States: no symptoms reported All other Systems: Reviewed and Negative Past Medical History (General) - Patient Medical History Hx Seizures: No Hx Stroke: No Hx Dementia: No Hx Asthma: No Hx of COPD: No Hx Cardiac Disorders: No Hx Congestive Heart Failure: Yes Hx Pacemaker: No Hx Hypertension: No Hx Thyroid Disease: No Hx Diabetes: Yes Hx Gastroesophageal Reflux: No Hx Renal Disease: No Hx Cancer: No Hx of HIV: No Hx Hepatitis C: No Hx MRSA: No - Vaccination History Hx Tetanus, Diphtheria Vaccination: Yes Hx Influenza Vaccination: Yes Hx Pneumococcal Vaccination: No - Social History Hx Tobacco Use: Yes - Half a pack a day. Hx Chewing Tobacco Use: No Hx Alcohol Use: No Hx Substance Use: No Hx Substance Use Treatment: No Hx Depression: No Feels Threatened In Home Enviroment: No Feels Threatened In a Relationship: No Hx Physical Abuse: No Hx Emotional Abuse: No Hx Suspected Abuse: No - Activities of Daily Living Snf/Assisted Living (if applicable):: Mina Meléndez - Female History Patient is a Female of Child Bearing Age (10 -59 yrs old): Yes Patient : No - Triage Comment ED Triage Comment: The patient was brought in via [facility] and placed in bed 1. She was alert and oriented times 4 and complained of global abdominal pain, nausea and vomiting. She stated that the nausea medications she had been given were not helping and that she was afraid she was in DKA. Family Medical History - Family History Mother Family History: Unknown Living Status: Unknown Hx Cardiac Disease: Yes - DAD Hx Family Diabetes: Yes - DAD Hx Family;Other: DAD-RHEUMATOID ARTHTRITIS Physical Exam - Physical Exam General Appearance: Alert, Other - UNCOMFORTABLE. Eyes, Ears, Nose, Throat Exam: PERRL/EOMI, normal ENT inspection Neck: full range of motion, normal inspection Respiratory: lungs clear, normal breath sounds Cardiovascular/Chest: regular rate, rhythm, no murmur Peripheral Pulses: No deficit Gastrointestinal/Abdominal: normal bowel sounds, soft, no organomegaly, no pulsatile mass, tenderness - PT FOCALIZES THE ABD PAIN TO RUQ THE WORST. GEN ABD PAIN WELL, BUT MCBURNEY'S POINT IS NTTP. POS GUARDING BUT NO REBOUND. Rectal Exam: deferred Back Exam: normal inspection, no CVA tenderness Extremity: normal range of motion, normal inspection Neurologic: no motor/sensory deficits, normal mood/affect Skin Exam: normal color, warm/dry Lymphatic: no adenopathy Progress - Results/Orders Results/Orders: ACUTE CHOLECYSTITIS (GALLBLADDER DISTENDED AND SLUDGE PER CT). CT ALSO MENTIONS THE APPENDIX IN THE CONCLUSION BUT NOT IN THE BODY OF THE REPORT, HOWEVER CLINICALLY NOT APPENDICITIS, MCBURNEY'S POINT IS NTTP. SEVERE HYPONATREMIA - Na 122. I AM SLOWLY CORRECTING WITH NS AT 100 ML/HR. I D/W JENY DODSON AND HE INFORMED ME [facility] DOES NOT ADMIT DIALYSIS PTS. THE SNF IS ABLE TO DO IVF AND SHE IS SAFE FOR DC BACK TO [place] WITH GENTLE IVF NS AT 75 ML/HR. WE WILL ORDER BMP AT [place], WHO WILL THEN SEND RESULTS TO PCP TO FOLLOW THE Na. THE Na will also be corrected during dialysis every other day. JENY DODSON INFORMED ME [facility] DOES NOT DO SURGERIES ON DIALYSIS PTS, SO WE WILL ASK THE SNF DR TO REFER HER FOR NON-EMERGENT CHOLECYSTECTOMY. CBC, LIPASE UNREMARKABLE. HCG NEG. UA - UNABLE TO OBTAIN PT DOESN'T VOID (IS ON DIALYSIS FOR ESRD). Departure - Departure Clinical Impression: Hyponatremia, Acute cholecystitis, Biliary sludge, RUQ abdominal pain, ESRD on dialysis Nausea & vomiting Qualifiers: Vomiting type: unspecified Vomiting Intractability: non-intractable Qualified Code(s): R11.2 - Nausea with vomiting, unspecified Disposition: Admit Patient Condition: Good Departure Forms: ED Discharge - Pt. Copy, Patient Portal Self Enrollment Diet: low fat, low cholesterol Activity: increase activity as tolerated Referrals: Mukesh Flowers MD [Primary Care Provider] - 1-2 Days Prescriptions: Ondansetron Odt [Zofran ODT] 8 mg SL TID PRN #15 tab PRN Reason: Nausea Home Medications: Ambulatory Orders Insulin Aspart [Novolog] 0 unit SC BEDTIME 12/03/17 Promethazine HCl 25 mg PO Q6HR PRN 12/03/17 amLODIPine BESYLATE [Norvasc] 10 mg PO DAILY 01/24/18 Insulin Detemir [Levemir] 5 units SUBCU BID 05/22/18 Insulin Aspart (with Niacinami [Fiasp] 100 unit SC TID 09/06/18 Albuterol Sulfate Nebs [Proventil Nebs] 2.5 mg INH Q4HR PRN 10/01/18 Acetaminophen W/ Codeine [Tylenol W/ CODEINE #3] 1 ea PO Q6H PRN 12/28/18 Sertraline HCl 50 mg PO DAILY 12/28/18 Calcium Acetate (Phosphate Bin [Calcium Acetate] 667 mg PO TID 02/05/19 Clonidine HCl [Clonidine Hydrochloride] 0.1 mg PO Q8HR 02/05/19 Docusate Sodium 100 mg PO BID PRN 02/05/19 Gabapentin 600 mg PO BEDTIME 02/05/19 Glucagon HCl (Diagnostic) [Glucagon] 1 mg IM PRN PRN 02/05/19 Pantoprazole Tablet [Protonix] 40 mg PO DAILY 02/05/19 ALPRAZolam [Xanax] 0.5 mg PO Q8H PRN 11/15/19 Alum & Mag Hydrox-Simethicone [Maalox Max] 1 melany PO Q4HR 11/15/19 Amitriptyline HCl [Amitriptyline Hydrochlori] 50 mg PO BEDTIME 11/15/19 Ascorbic Acid [Vitamin C-500 Timed Relea] 1,000 mg PO DAILY 11/15/19 Atenolol [Tenormin] 50 mg PO DAILY 11/15/19 Bumetanide 2 mg PO TID 11/15/19 Cyanocobalamin [B-12] 1,000 mcg PO DAILY 11/15/19 Guaifenesin [Eq Mucus ER] 800 mg PO Q8H PRN 11/15/19 Hydralazine HCl [Hydralazine Hydrochloride] 100 mg PO .TID-TUTHSASU 11/15/19 Ibuprofen [Hm Ibuprofen] 400 mg PO Q6H PRN 11/15/19 Sucralfate Suspension [Carafate Suspension] 1 gm PO QID 11/15/19 Acetaminophen [Tylenol] 500 mg PO Q6H PRN 01/23/20 Acetaminophen [Tylenol] 650 mg PO Q6H PRN #30 tab 01/23/20 Amoxicillin & Pot Clavulanate [Augmentin Tab] 875 mg PO BID 10 Days #20 tab 01/23/20 Cholecalciferol [Vitamin D3] 10,000 unit PO DAILY 01/23/20 Fluticasone Propionate (Nasal) [Fluticasone Propionate Na] 50 mcg NA DAILY 01/23/20 Isosorbide Mononitrate [Isosorbide Mononitrate ER] 60 mg PO .DAILY-MOWEFR 01/23/20 Metoclopramide HCl 5 mg PO QID 01/23/20 Zinc 50 mg PO DAILY 01/23/20 Ondansetron Odt [Zofran ODT] 8 mg SL TID PRN #15 tab 05/12/20 Additional Instructions: NOTE FOR SNF PHYSICIAN: ACUTE CHOLECYSTITIS (GALLBLADDER DISTENDED AND SLUDGE PER CT). [facility] DOES NOT PERFORM SURGERIES ON DIALYSIS PTS, SO WE WILL DEFER TO THE SNF DR TO REFER HER FOR NON-EMERGENT CHOLECYSTECTOMY. SEVERE HYPONATREMIA - SODIUM 122. I AM STARTING SLOW CORRECTION WITH GENTLE IVF NS AT 75 ML/HR FOR 1 LITER. WE WILL ORDER BMP AT [place], WHO WILL THEN SEND RESULTS TO PCP TO FOLLOW THE Na. THE Na WILL ALSO BE CORRECTED VIA DIALYSIS.
[2020-05-12] MEDS ORDERED: HYDROmorphone HCL INJ 2 MG/ML VIAL IV ONE (04:07)
[2020-05-12] MEDS ORDERED: ONDANSETRON INJ 4 MG/2 ML VIAL IV ONE ×2 (04:07→10:42)
--- NOTE | 2020-05-12 04:52 | CT ---
EXAM: CT Abdomen and Pelvis Without Intravenous Contrast CLINICAL HISTORY: The patient is 30 years old and is Female; ACUTE DIFFUSE ABDOMINAL PAIN. TECHNIQUE: Axial computed tomography images of the abdomen and pelvis without intravenous contrast. Sagittal and coronal reformatted images were created and reviewed. This CT exam was performed using one or more of the following dose reduction techniques: automated exposure control, adjustment of the mA and/or kV according to patient size, and/or use of iterative reconstruction technique. COMPARISON: CT abdomen pelvis April 02, 2020. FINDINGS: Lung bases: Thickened interlobular septa in the lung bases, consistent with interstitial edema. Pleural space: Small bilateral pleural effusions. Heart: Cardiomegaly. ABDOMEN: Liver: Hyperechoic liver. Hepatomegaly. Gallbladder and bile ducts: Distended gallbladder with sludge. No calcified stones. No ductal dilation. Pancreas: Peripancreatic free fluid. No ductal dilation. Spleen: Unremarkable. No splenomegaly. Adrenals: Unremarkable. No mass. Kidneys and ureters: Unremarkable. No obstructing stones. No hydronephrosis. Stomach and bowel: Distal rectal wall thickening. No small bowel dilatation or obstruction. Stomach is mostly collapsed. PELVIS: Appendix: Appendicoliths noted. No findings to suggest acute appendicitis. Bladder: Unremarkable. No stones. Reproductive: Unremarkable as visualized. ABDOMEN and PELVIS: Intraperitoneal space: Mild ascites in the abdomen and pelvis. No free air. Bones/joints: No acute fracture visualized. No dislocation. Soft tissues: Diffuse subcutaneous edema. Vasculature: Unremarkable. No abdominal aortic aneurysm. Lymph nodes: No pathologically enlarged lymph nodes. Tubes, lines and devices: Central line terminating in the right atrium. IMPRESSION: 1. Distal rectal wall thickening. Correlate clinically for mild distal colitis. 2. Distended gallbladder with sludge. 3. Anasarca. 4. Mild ascites including adjacent to the pancreatic tail. Correlate clinically for acute pancreatitis. 5. Hepatomegaly. Hyperechoic liver which can be seen with iron/copper deposition diseases, glycogen-storage disease or medication/drug therapy such as amiodarone and gold. 6. Additional non-emergent findings as above. Electronically signed by: Celia Bolaños MD 05/12/2020 4:50 AM G[employer] LINE INST[employer]ER
[2020-05-12] MEDS ORDERED: SODIUM CHLORIDE 0.9% 1000ML 1,000 ML IVS PRN (05:42)
[2020-05-12] MEDS ORDERED: DICYCLOMINE HCL INJ 20 MG/2 ML AMP IM ONE (10:27)
[2020-05-12] MEDS ORDERED: metroNIDAZOLE IV PREMIX 500MG 500 MG in PREMIX BAG 1 BAG IVPB ONE (10:27)
[2020-05-12] MEDS ORDERED: fentaNYL CITRATE INJ 50 MCG/ML 2 ML AMP IV ONE ×2 (10:27→11:59)
[2020-05-12] MEDS ORDERED: cefTRIAXone SODIUM 1 GM in SODIUM CHL 0.9% 50ML MIN-BAG+ 50 ML IVPB ONE (10:27)
[2020-05-12] MEDS ORDERED: INSULIN, REG.(HUMAN) 100 U/ML VIAL IV ONE (10:28)
[2020-05-12 10:40] VITALS: O2SAT 96
[2020-05-12] MEDS ORDERED: METOCLOPRAMIDE HCL INJ 10 MG/2 ML VIAL IV ONE (11:59)
[2020-05-12 13:44] VITALS: BP 201/116; TEMP 97.3
== END 2020-05-12 12:40 | disposition short-term general hospital (02) ==
LOC: ER 03:11
DX: E10.10 Type 1 diabetes mellitus with ketoacidosis without coma (principal); R11.2 Nausea with vomiting, unspecified; E10.22 Type 1 diabetes mellitus with diabetic chronic kidney disease; N18.6 End stage renal disease; E87.1 Hypo-osmolality and hyponatremia; K81.0 Acute cholecystitis; I50.9 Heart failure, unspecified; Z20.822 Contact with and (suspected) exposure to COVID-19; Z87.891 Personal history of nicotine dependence; Z99.2 Dependence on renal dialysis; Z79.899 Other long term (current) drug therapy; Z79.4 Long term (current) use of insulin
CPT/HCPCS: 36415; 36600; 74176; 80048; 80053; 82009; 82803; 82805; 83690; 84703; 85025; 87635; 94760; J0500; J0696; J1170; J2405; J2765; J3010; J3490; J7030; J7050